=== PATIENT | male | born 1955 | race Caucasian/White ===

== ENCOUNTER 2021-10-26 08:49 | Inpatient (IN) | payer MEDICARE, SELFPAY ==
[2021-10-26 08:50] VITALS: BP 150/58; PULSE 68; RESP 20; TEMP 36.7; O2SAT 91; BMI 40.6
[2021-10-26] MEDS: 0.9% Normal Saline 1,000 ML 999 ML IV (09:33)
[2021-10-26 09:39] LABS: Absolute Lymphocyte Count 1.41 X10^3/uL (0.83-4.51); Absolute Neutrophil Count 9.1 X10^3/uL (2.0-7.7); Basophil# 0.06 X10^3/uL; Basophil% 0.5 % (0-1); Eosinophil# 0.28 X10^3/uL; Eosinophils% 2.3 % (0-5); Hematocrit 36.7 % (40-54); Hemoglobin 11.4 g/dL (13.0-16.5); Lymphocyte # 1.41 X10^3/ul (0.83-4.51); Lymphocyte % 11.8 % (19-41); Mean Corp Hgb Conc 31.1 g/dL (32-36); Mean Corpuscular Hgb 29.5 pg (27.0-32.0); Mean Corpuscular Volume 95.1 fL (80-94); Mean Platelet Vol. 9.4 fl (6.2-12.0); Monocyte# 1.11 X10^3/uL; Monocyte% 9.3 % (0-10); NRBC Flagged by Analyzer 0 % (0-5); Neutrophil # 9.09 X10^3/uL (2.7-7.7); Neutrophil % 75.7 % (47-70); Platelet Count 339 K/mm3 (150-450); RBC Distribution Width CV 14.5 % (11.6-14.6); RBC Distribution Width SD 49.9 fl (35.1-43.9); Red Blood Count 3.86 M/mm3 (4.6-6.2)
[2021-10-26 09:54] LABS: ALB/GLOB Ratio 0.8 RATIO (0.9-2.4); AST(SGOT) 14 U/L (15-37); Alanine Aminotransfer ALT/SGPT 26 U/L (16-61); Alkaline Phosphatase 99 U/L (45-117); Anion Gap 6 (5-15); BUN 23 mg/dL (7-18); BUN/Creat Ratio 12.9 RATIO (10-20); Calcium,Total 9.5 mg/dL (8.5-10.1); Chloride 90 mmol/L (98-107); Creatinine, Serum 1.78 mg/dL (0.70-1.30); EST Glomerular Filtration Rate 41 mL/min (>60); Est Glom Filt Rate - Afr Amer 50 mL/min (>60); Estimated Creatinine Clearance 45.41 ml/min; Glucose 121 mg/dL (74-106); Potassium 3.7 mmol/L (3.5-5.1); Sodium Level 138 mmol/L (136-145)
--- NOTE | 2021-10-26 10:04 | ED.VIS.LOWEX ---
HPI History of Present Illness Chief Complaint: Lower Extremity Injury Narrative Narrative: 66-year-old male with history of trimalleolar fracture of the left ankle presenting due to acute kidney injury. Dr. Hong says admitted because he wanted to try to get his kidney function improved and he needs to do surgery on his ankle tomorrow. Patient states his ankle has been a little bit painful even with the oxycodone. He states he has been eating and drinking normally. He is making urine and stool normally. PFSH PFSH Home Medications allopurinol 300 mg PO DAILY 12/05/13 [History Last Taken Unknown] amlodipine 10 mg PO DAILY 12/05/13 [History Last Taken Unknown] hydrochlorothiazide 12.5 mg PO DAILY 12/05/13 [History Last Taken Unknown] losartan 100 mg PO DAILY 12/05/13 [History Last Taken Unknown] metformin 500 mg PO BIDCM 12/05/13 [History Last Taken Unknown] naproxen sodium [Naprelan] 500 mg PO BID PRN PRN 12/05/13 [History Last Taken Unknown] sildenafil [Viagra] 50 mg PO DAILY PRN PRN 12/05/13 [History Last Taken Unknown] zolpidem [Ambien] 10 mg PO QHS PRN PRN 12/05/13 [History Last Taken Unknown] oxycodone-acetaminophen 1 - 2 tab PO Q4H PRN PRN #20 tab 12/19/13 [Rx Last Taken Unknown] allopurinol 150 mg PO QHS 10/26/21 [History Last Taken Unknown] atorvastatin [Lipitor] 10 mg PO DAILY 10/26/21 [History Last Taken Unknown] budesonide-formoterol [Symbicort] 2 puff INHALATION BID 10/26/21 [History Last Taken Unknown] bupropion HCl [Wellbutrin SR] 150 mg PO BID 10/26/21 [History Last Taken Unknown] citalopram [Celexa] 40 mg PO DAILY 10/26/21 [History Last Taken Unknown] furosemide [Lasix] 40 mg PO DAILY 10/26/21 [History Last Taken Unknown] metoprolol succinate 50 mg PO DAILY 10/26/21 [History Last Taken Unknown] potassium chloride 20 meq PO DAILY 10/26/21 [History Last Taken Unknown] tiotropium bromide [Spiriva Respimat] 2 puff INHALATION DAILY 10/26/21 [History Last Taken Unknown] trazodone 50 mg PO QHS 10/26/21 [History Last Taken Unknown] Allergy/AdvReac Type Severity Reaction Status Date / Time lisinopril AdvReac Other Verified 10/26/21 09:15 Social History Smoking Status: Never smoker ROS ROS ED Constitutional Constitutional ED: Denies chills or fever(s) Eyes Eyes: Denies blurry vision or change in vision ENT ENT ED: Denies rhinorrhea or sore throat Cardiovascular Cardiovascular: Denies chest pain or palpitations Respiratory/Chest Respiratory/Chest: Denies cough, dyspnea or sputum Gastrointestinal Gastrointestinal: Denies abdominal pain or nausea Genitourinary Genitourinary ED: Denies dysuria or hematuria Musculoskeletal Musculoskeletal: Reports other Details: Left ankle pain Integumentary Denies Abrasions or rash Neurologic Neurologic: Denies headache(s) or paresthesias EXAM Physical Exam Const Vital Signs: 10/26/21 08:50 Temperature 98.1 F Temperature Source Temporal Pulse Rate 68 Respiratory Rate 20 H Blood Pressure 150/58 H Blood Pressure Mean 88 Pulse Ox 91 Oxygen Delivery Method Nasal Cannula Oxygen Flow Rate (L/min) 3 Positive well nourished General Appearance ED: NAD HEENT Reports moist mucous membranes normocephalic and atraumatic Eyes PERRL Cardio regular rate and regular rhythm Extremity Extremity Narrative: Left ankle splinted. Left foot neurovascular intact. Neuro oriented x3 Sensorium / Orientation: alert Psych mental status grossly normal MDM MDM MDM Narrative Medical decision making narrative: Patient presenting to the ED to be admitted for both ankle surgery and to have his kidney function evaluated as has been worsening. His creatinine today is 1.78 which is slightly worse than it was at last check it was 1.6. White blood cell count is slightly elevated at 12. Hemoglobin hematocrit are stable. Dr. Hong asked me to not take down the splint because he states his ankle is very unstable. Patient will be admitted to optimize his renal function. Impression: 1. Acute kidney injury 2. History of trimalleolar Lab Data Attestation: I reviewed the patient's lab results. Labs: Laboratory Results - last 24 hr 10/26/21 10/26/21 09:30 09:30 WBC 12.0 H RBC 3.86 L Hgb 11.4 L Hct 36.7 L MCV 95.1 H MCH 29.5 MCHC 31.1 L RDW Std Deviation 49.9 H RDW Coeff of Casey 14.5 Plt Count 339 MPV 9.4 Immature Gran % (Auto) 0.400 Neut % (Auto) 75.7 H Lymph % (Auto) 11.8 L [place] % (Auto) 9.3 Eos % (Auto) 2.3 Baso % (Auto) 0.5 Absolute Neuts (auto) 9.1 H Absolute Lymphs (auto) 1.41 Nucleated RBC % 0 Sodium 138 Potassium 3.7 Chloride 90 L Carbon Dioxide 42.0 H Anion Gap 6 BUN 23 H Creatinine 1.78 H Estim Creat Clear Calc 45.41 Est GFR (MDRD) Af Amer 50 L Est GFR (MDRD) Non-Af 41 L BUN/Creatinine Ratio 12.9 Glucose 121 H Calcium 9.5 Total Bilirubin 0.40 AST 14 L ALT 26 Alkaline Phosphatase 99 Total Protein 7.0 Albumin 3.0 L Globulin 4.0 Albumin/Globulin Ratio 0.8 L Discharge Plan Disposition Disposition: Acute Care Hospital [facility] Discharge Date/Time: 10/26/21 11:20
[2021-10-26] MEDS: Morphine 4 MG/ML Syringe IV ×2 (10:15→15:57)
--- NOTE | 2021-10-26 10:19 | NURSING ---
DR STARK FOR DR AWAD
--- NOTE | 2021-10-26 10:35 | HP.PCM.HOS_ITS ---
HPI - General HPI Narrative ARA RUSSO, is a 66 M who presents PFSH Home Medications allopurinol 300 mg PO DAILY 12/05/13 [History Last Taken Unknown] amlodipine 10 mg PO DAILY 12/05/13 [History Last Taken Unknown] hydrochlorothiazide 12.5 mg PO DAILY 12/05/13 [History Last Taken Unknown] losartan 100 mg PO DAILY 12/05/13 [History Last Taken Unknown] metformin 500 mg PO BIDCM 12/05/13 [History Last Taken Unknown] naproxen sodium [Naprelan] 500 mg PO BID PRN PRN 12/05/13 [History Last Taken Unknown] sildenafil [Viagra] 50 mg PO DAILY PRN PRN 12/05/13 [History Last Taken Unknown] zolpidem [Ambien] 10 mg PO QHS PRN PRN 12/05/13 [History Last Taken Unknown] oxycodone-acetaminophen 1 - 2 tab PO Q4H PRN PRN #20 tab 12/19/13 [Rx Last Taken Unknown] allopurinol 150 mg PO QHS 10/26/21 [History Last Taken Unknown] atorvastatin [Lipitor] 10 mg PO DAILY 10/26/21 [History Last Taken Unknown] budesonide-formoterol [Symbicort] 2 puff INHALATION BID 10/26/21 [History Last Taken Unknown] bupropion HCl [Wellbutrin SR] 150 mg PO BID 10/26/21 [History Last Taken Unknown ] citalopram [Celexa] 40 mg PO DAILY 10/26/21 [History Last Taken Unknown] furosemide [Lasix] 40 mg PO DAILY 10/26/21 [History Last Taken Unknown] metoprolol succinate 50 mg PO DAILY 10/26/21 [History Last Taken Unknown] potassium chloride 20 meq PO DAILY 10/26/21 [History Last Taken Unknown] tiotropium bromide [Spiriva Respimat] 2 puff INHALATION DAILY 10/26/21 [History Last Taken Unknown] trazodone 50 mg PO QHS 10/26/21 [History Last Taken Unknown] Allergy/AdvReac Type Severity Reaction Status Date / Time lisinopril AdvReac Other Verified 10/26/21 09:15 Social History Smoking Status: Never smoker Vital Signs Vital Signs Vital Signs: 10/26/21 08:50 Temperature 98.1 F Temperature Source Temporal Pulse Rate 68 Respiratory Rate 20 H Blood Pressure 150/58 H Blood Pressure Mean 88 Pulse Ox 91 Oxygen Delivery Method Nasal Cannula Oxygen Flow Rate (L/min) 3 Weight Weight: 300 lb Body Mass Index (BMI) 40.6 Results Lab / Micro Data Result Diagrams: 10/26/21 09:30 10/26/21 09:30 Labs: Laboratory Results - last 24 hr 10/26/21 09:30: WBC 12.0 H, RBC 3.86 L, Hgb 11.4 L, Hct 36.7 L, MCV 95.1 H, MCH 29.5, MCHC 31.1 L, RDW Std Deviation 49.9 H, RDW Coeff of Casey 14.5, Plt Count 339, MPV 9.4, Immature Gran % (Auto) 0.400, Neut % (Auto) 75.7 H, Lymph % (Auto) 11.8 L, [place] % (Auto) 9.3, Eos % (Auto) 2.3, Baso % (Auto) 0.5, Absolute Neuts (auto) 9.1 H, Absolute Lymphs (auto) 1.41, Nucleated RBC % 0 10/26/21 09:30: Sodium 138, Potassium 3.7, Chloride 90 L, Carbon Dioxide 42.0 H, Anion Gap 6, BUN 23 H, Creatinine 1.78 H, Estim Creat Clear Calc 45.41, Est GFR (MDRD) Af Amer 50 L, Est GFR (MDRD) Non-Af 41 L, BUN/Creatinine Ratio 12.9, Glucose 121 H, Calcium 9.5, Total Bilirubin 0.40, AST 14 L, ALT 26, Alkaline Phosphatase 99, Total Protein 7.0, Albumin 3.0 L, Globulin 4.0, Albumin/Globulin Ratio 0.8 L
--- NOTE | 2021-10-26 10:51 | NURSING ---
PAGED DR GRIFFIN FOR DR AWAD @ [id number] LEFT MESSAGE ON HIS PHONE
[2021-10-26 10:52] VITALS: BP 148/58; PULSE 72; RESP 20; TEMP 36.8; O2SAT 96
[2021-10-26 11:32] VITALS: BMI 43.2
--- NOTE | 2021-10-26 11:44 | HP.PCM_ITS ---
HPI - General General Date of Admission: 10/26/21 HPI Narrative ARA RUSSO, is a 66 M with an extensive PMH as outlined who was admitted via the ED on 10/26/2021 for worsening kidney function. Patient had an ankle fracture about 10 days prior to admission after he tripped over a ball. He went to see orthopedic surgery and plan was for him to have surgery on 10/27/2021. However, during pre-op screening, patient was found to have elevated Cr. PCP recommended that he follows up with outpatient nephrology, but it was thought that this would take weeks to get him in with nephrology. He was therefore sent to the ED to be admitted to expedite the clearance process. Vials were BP of 148/58, IA of 72, RR of 20 and temp of 98.2F as well as oxygen sats of 96% on his baselin 3L of oxygen. CBC showed hb of 11.4, wbc of 12, platelets of 339. BMp showed sodium of 138, bicarb of 42, CR of 1.78, with baseline of 1.1, from November 2013. He is being admitted to be managed for ELLEN on CKD stage IIIb. [facility] Medical History (Updated 10/26/21 @ 22:19 by Lisette Aguilar) Anxiety COPD (chronic obstructive pulmonary disease) Depression Diabetes Hypertension On home oxygen therapy Home Medications allopurinol 300 mg PO DAILY 12/05/13 [History Last Taken Unknown] amlodipine 10 mg PO DAILY 12/05/13 [History Last Taken Unknown] hydrochlorothiazide 12.5 mg PO DAILY 12/05/13 [History Last Taken Unknown] losartan 100 mg PO DAILY 12/05/13 [History Last Taken Unknown] metformin 500 mg PO BIDCM 12/05/13 [History Last Taken Unknown] naproxen sodium [Naprelan] 500 mg PO BID PRN PRN 12/05/13 [History Last Taken Unknown] sildenafil [Viagra] 50 mg PO DAILY PRN PRN 12/05/13 [History Last Taken Unknown] zolpidem [Ambien] 10 mg PO QHS PRN PRN 12/05/13 [History Last Taken Unknown] oxycodone-acetaminophen 1 - 2 tab PO Q4H PRN PRN #20 tab 12/19/13 [Rx Last Taken Unknown] allopurinol 150 mg PO QHS 10/26/21 [History Last Taken Unknown] atorvastatin [Lipitor] 10 mg PO DAILY 10/26/21 [History Last Taken Unknown] budesonide-formoterol [Symbicort] 2 puff INHALATION BID 10/26/21 [History Last Taken Unknown] bupropion HCl [Wellbutrin SR] 150 mg PO BID 10/26/21 [History Last Taken Unknown] citalopram [Celexa] 40 mg PO DAILY 10/26/21 [History Last Taken Unknown] furosemide [Lasix] 40 mg PO DAILY 10/26/21 [History Last Taken Unknown] metoprolol succinate 50 mg PO DAILY 10/26/21 [History Last Taken Unknown] potassium chloride 20 meq PO DAILY 10/26/21 [History Last Taken Unknown] tiotropium bromide [Spiriva Respimat] 2 puff INHALATION DAILY 10/26/21 [History Last Taken Unknown] trazodone 50 mg PO QHS 10/26/21 [History Last Taken Unknown] Allergy/AdvReac Type Severity Reaction Status Date / Time lisinopril AdvReac Other Verified 10/26/21 11:30 Social History Smoking Status: Never smoker ROS Constitutional Constitutional: Reports chills, fatigue and weakness; Denies anorexia or malaise Eyes Eyes: Reports change in vision ENT HEENT: Reports dysphagia; Denies headache(s) Cardiovascular Cardiovascular: Denies chest pain, edema or palpitations Respiratory/Chest Respiratory/Chest: Denies cough, shortness of breath at rest or shortness of breath with exertion Gastrointestinal Gastrointestinal: Denies abdominal pain or diarrhea Genitourinary Genitourinary: Denies dysuria, polyuria, urinary frequency or urinary urgency Musculoskeletal Musculoskeletal: Reports extremity pain and joint pain; Denies back pain Neurologic Neurologic: Denies dizziness, focal weakness or headache(s) Psychiatric Psychiatric: Denies anxiety or depression Vital Signs Vital Signs Vital Signs: 10/26/21 08:50 10/26/21 10:52 Temperature 98.1 F 98.2 F Temperature Source Temporal Oral Pulse Rate 68 72 Respiratory Rate 20 H 20 H Blood Pressure 150/58 H 148/58 H Blood Pressure Mean 88 88 Pulse Ox 91 96 Oxygen Delivery Method Nasal Cannula Room Air Oxygen Flow Rate (L/min) 3 Weight Weight: 300 lb Body Mass Index (BMI) 40.6 Physical Exam Const alert, oriented x3 and no apparent distress General Appearance: cooperative and well developed HEENT normocephalic and head/scalp atraumatic Eyes PERRL and EOMs intact bilaterally Neck supple and no JVD Lymph Lymphatic: no lymphadenopathy noted Resp Resp Narrative: mild wheezing in all lung jackson, no crackles. On 3L of oxygen which is his baseline Cardio regular rate, regular rhythm, S1 normal heart sound, S2 normal heart sound and no murmurs GI normal to inspection, nondistended, normoactive bowel sounds, soft to palpation, non-tender and non-distended Extremity no clubbing, cyanosis or edema Extremity Narrative: LLE wrapped in bandage. Skin General Skin Exam: turgor normal Neuro CN's II-XII intact bilaterally and no sensory deficits noted Motor Exam: strength 5/5 throughout Psych thought process normal and affect normal Appearance: appropriate Results Lab / Micro Data Result Diagrams: 10/27/21 05:26 10/27/21 05:26 Labs: Laboratory Results - last 24 hr 10/26/21 09:30: WBC 12.0 H, RBC 3.86 L, Hgb 11.4 L, Hct 36.7 L, MCV 95.1 H, MCH 29.5, MCHC 31.1 L, RDW Std Deviation 49.9 H, RDW Coeff of Casey 14.5, Plt Count 339, MPV 9.4, Immature Gran % (Auto) 0.400, Neut % (Auto) 75.7 H, Lymph % (Auto) 11.8 L, [place] % (Auto) 9.3, Eos % (Auto) 2.3, Baso % (Auto) 0.5, Absolute Neuts (auto) 9.1 H, Absolute Lymphs (auto) 1.41, Nucleated RBC % 0 10/26/21 09:30: Sodium 138, Potassium 3.7, Chloride 90 L, Carbon Dioxide 42.0 H, Anion Gap 6, BUN 23 H, Creatinine 1.78 H, Estim Creat Clear Calc 45.41, Est GFR (MDRD) Af Amer 50 L, Est GFR (MDRD) Non-Af 41 L, BUN/Creatinine Ratio 12.9, Glucose 121 H, Calcium 9.5, Total Bilirubin 0.40, AST 14 L, ALT 26, Alkaline Phosphatase 99, Total Protein 7.0, Albumin 3.0 L, Globulin 4.0, Albumin/Globulin Ratio 0.8 L Assessment & Plan Assessment/Plan (1) ELLEN (acute kidney injury): (2) CKD (chronic kidney disease), stage III: (3) Ankle fracture: PLAN: #Ellen on CKD 3B * Patient's only baseline labs in the system are from 2013 when his creatinine was 1.1. Creatinine is now 1.78. * Will start gentle hydration with IVF * check renal USG- was unremarkable * check urine for electrolytes,and check FeNa and FeuRea * I do not think there is a need for nephrology consult now; I did discuss case with Dr. Chan with nephrology and per discussion, we will hold off on nephrology consult for now. Gently hydrate with IV fluids. * labs requested from PCP to assess CR trend. * #Left Trimalleolar ankle fracture * consult orthopedics. Plan is for surgery tomorrow * PT/OT consult. fall precautions. * patient cleared for surgery with modearte to severe risk; he has a higher than average risk of serious complication (6.6%), any complication (8.4%), and 0.2% risk of cardiac complication. * #Metabolic alkalosis: * Bicarb is 42. This might be due to chronic retention from COPD. will monitor. Check ABG to assess pCO2 and pO2 prior to surgery. #Chronic respiratory failure due to COPD: * on symbicort. Breathing treatment with bronchodilators. * on 3L of oxygen by nasal canula, which is his baseline. #History of gout: on allopurinol #Hypertension: * On amlodipine and hydrochlorothiazide as well as losartan and metoprolol. * Hold losartan and HCTZ due to ELLEN on CKD 3 #Hyperlipidemia: On statin #Type 2 diabetes mellitus: Hold Metformin on account of elevated creatinine. Insulin sliding scale. Checks AC at bedtime. DVT prophylaxis: Lovenox renally dosed Charges/Coding Visit Charges Inpatient E&M: 91853 Init Hosp L3
[2021-10-26 12:09] VITALS: PULSE 65; RESP 18; TEMP 36.8; O2SAT 95
--- NOTE | 2021-10-26 12:14 | US_ITS ---
INDICATION: ELLEN on CKD EXAMINATION: Ultrasound US Kidney(s) complete (eg, kidneys and bladder) TECHNIQUE: Patten scale and color doppler images were obtained of the kidneys. COMPARISON: None. FINDINGS: RIGHT KIDNEY: The right kidney demonstrates unremarkable echogenicity, unremarkable vascularity, unremarkable size, shape and configuration. No evidence of right renal masses. No evidence of hyperechoic stones. No evidence of hydronephrosis. The right kidney measures 12.9 x 6.8 x 6.7 cm. Right renal cortex measures 1.5 cm. LEFT KIDNEY: The left kidney demonstrates unremarkable echogenicity, unremarkable vascularity, unremarkable size, shape and configuration. No evidence of left renal masses. No evidence of hyperechoic stones. No evidence of hydronephrosis. The left kidney measures 12.6 x 6.1 x 6.8 cm. left renal cortex measures 1.5 cm. URINARY BLADDER: No acute abnormality. The bladder wall measures 3 mm in thickness, no evidence of bladder mass or stone. Bilateral ureteral jets are visualized and unremarkable. The urinary bladder volume is 77.78 mL. US/Kidney and Bladder IMPRESSION: Unremarkable renal ultrasound. Electronically Signed: Amandeep Umanzor MD at 15:26 EST Tel , Service support ,
[2021-10-26 12:30] LABS: Bedside Glucose 99 mg/dL (70-110)
[2021-10-26] MEDS: 0.9% Normal Saline 1,000 ML 125 ML IV ×2 (12:36→21:49)
[2021-10-26] MEDS: oxyCODONE 5 MG Tablet PO ×3 (12:49→21:49)
[2021-10-26 13:30] LABS: Bacteria 0 SEEN /hpf (None Seen); Mucous, Urine 0 SEEN /hpf (<or=2+); Red Blood Cells-Urine 0 SEEN /hpf (0-5); Squamous Epithelial Cells - UA 0 SEEN /hpf (0-5); White Blood Cells 0 SEEN /hpf (0-5)
[2021-10-26 13:36] LABS: Color, Urine Yellow (Yellow); Glucose, Dipstick Normal (Normal); Ketone-Dipstick Negative (Negative); Leukocyte Esterase-Dipstick Negative /ul (Negative); Nitrite-Dipstick Negative (Negative); Occult Blood-Urine Negative /ul (Negative); Protein-Dipstick Negative (Negative); Urine Bilirubin Dipstick Negative (Negative); Urine Clarity Clear (Clear); Urine Urobilinogen Normal (Normal)
[2021-10-26 13:45] LABS: Urea Nitrogen, Urine 184 mg/dL (NO RANGE EST.)
[2021-10-26] MEDS: 0.9% Saline Lock 10 ML Syringe IV (15:57)
[2021-10-26 16:00] VITALS: BP 142/63; PULSE 63; RESP 16; TEMP 36.8; O2SAT 94
[2021-10-26 16:01] LABS: Bedside Glucose 97 mg/dL (70-110)
[2021-10-26] MEDS: Ipratropium/Albuterol Sulfate 3 ML AMPUL.NEB INHALATION (16:19)
[2021-10-26] MEDS: Budesonide Respules 0.5 MG/2 ML AMPUL.NEB. INHALATION (16:19)
[2021-10-26 16:22] VITALS: PULSE 66; RESP 18; O2SAT 91
[2021-10-26 17:41] LABS: Allen Test Positive; Base Excess 18 mmol/L (-2 to +2); Bicarbonate 42.3 mmol/L (22-26); Blood Gas Specimen Type ART; O2 Delivery Device Cannula; PO2 51 mmHG (75-100); SITE L Radial; SO2 85 % (95-99); Total Carbon Dioxide 44 mmol/L; pCO2 66.4 mmHg (35-45); pH 7.41 (7.35-7.45)
--- NOTE | 2021-10-26 19:00 | RAD_ITS ---
INDICATION: hypoxia EXAMINATION/TECHNIQUE: X-RAY - XR Chest 1 View COMPARISON: 10/25/2021 FINDINGS: LIFE-SUPPORT AND LINES: 1. None HEART AND VESSELS: The cardiac silhouette, pulmonary vasculature have normal appearance. No evidence of congestive failure. LUNGS AND PLEURAL SPACES: Shallow inspiration and basilar atelectasis, mild worsening at the RIGHT lung base suspicious of superimposed interstitial infiltrate. No pulmonary mass is noted. MEDIASTINUM AND HILAR REGIONS: No masses adenopathy noted. No areas of calcification. Visualized upper airway is normal in position. BONY ELEMENTS: No acute bony changes noted. RAD/Chest 1 View (Portable) IMPRESSION: 1. Volume loss elevation RIGHT hemidiaphragm and findings suspicious of subtle RIGHT basilar infiltrate. Minimal atelectasis versus infiltrate at the LEFT base. 2. No other evidence of infiltrate consolidation or effusion. Electronically Signed: Eliud Carr MD at 0:17 EST Tel , Service support ,
[2021-10-26 19:01] LABS: BNP,B-Type NATRIURETIC PEPTIDE 24.8 pg/mL (0-100)
[2021-10-26 21:42] VITALS: BP 122/55; PULSE 67; RESP 16; TEMP 36.8; O2SAT 92
[2021-10-26] MEDS: Zolpidem Tartrate 5 MG Tablet 10 MG PO (21:49)
[2021-10-26] MEDS: Allopurinol 100 MG Tablet 150 MG PO (21:50)
[2021-10-26] MEDS: traZODone 50 MG Tablet PO (21:50)
[2021-10-26] MEDS: buPROPion (SR) 150 MG Tablet.SA PO (21:50)
[2021-10-26] MEDS: Atorvastatin Calcium 10 MG Tablet PO (21:51)
[2021-10-26 22:20] LABS: Bedside Glucose 95 mg/dL (70-110)
[2021-10-27] VITALS (15 sets, daily range): BP systolic 102–138; BP diastolic 50–72; PULSE 70–80; RESP 14–74; TEMP 35.9–36.8; O2SAT 89–97
[2021-10-27] MEDS: oxyCODONE 5 MG Tablet PO ×3 (02:19→22:33)
[2021-10-27] MEDS: 0.9% Saline Lock 10 ML Syringe IV ×2 (04:52→22:38)
[2021-10-27 05:35] LABS: Absolute Lymphocyte Count 0.55 X10^3/uL (0.83-4.51); Absolute Neutrophil Count 9.4 X10^3/uL (2.0-7.7); Basophil# 0.01 X10^3/uL; Basophil% 0.1 % (0-1); Eosinophil# 0.01 X10^3/uL; Eosinophils% 0.1 % (0-5); Hemoglobin 10.3 g/dL (13.0-16.5); Lymphocyte # 0.55 X10^3/ul (0.83-4.51); Lymphocyte % 5.4 % (19-41); Mean Corp Hgb Conc 30.3 g/dL (32-36); Mean Corpuscular Hgb 28.9 pg (27.0-32.0); Mean Corpuscular Volume 95.5 fL (80-94); Mean Platelet Vol. 9.3 fl (6.2-12.0); NRBC Flagged by Analyzer 0 % (0-5); Neutrophil # 9.42 X10^3/uL (2.7-7.7); Neutrophil % 92.9 % (47-70); POSITIVE DIFFERENTIAL YES; Platelet Count 322 K/mm3 (150-450); RBC Distribution Width CV 14.2 % (11.6-14.6); RBC Distribution Width SD 50.3 fl (35.1-43.9); Red Blood Count 3.56 M/mm3 (4.6-6.2); White Blood Count 10.1 K/mm3 (4.4-11.0)
[2021-10-27 05:40] LABS: Differential Indicated SCAN CRITERIA MET
[2021-10-27 06:02] LABS: Anion Gap 5 (5-15); BUN 23 mg/dL (7-18); BUN/Creat Ratio 15.2 RATIO (10-20); Calcium,Total 9.2 mg/dL (8.5-10.1); Chloride 94 mmol/L (98-107); Creatinine, Serum 1.51 mg/dL (0.70-1.30); EST Glomerular Filtration Rate 49 mL/min (>60); Est Glom Filt Rate - Afr Amer 60 mL/min (>60); Estimated Creatinine Clearance 53.53 ml/min; Glucose 144 mg/dL (74-106); Potassium 4.3 mmol/L (3.5-5.1); Sodium Level 138 mmol/L (136-145)
[2021-10-27 06:11] LABS: Bedside Glucose 135 mg/dL (70-110)
[2021-10-27] MEDS: Ipratropium/Albuterol Sulfate 3 ML AMPUL.NEB INHALATION ×3 (07:07→19:54)
--- NOTE | 2021-10-27 07:24 | CON.PCM.OR_ITS ---
HPI Consult Data Date of Consult: 10/27/21 HPI Narrative HPI Narrative: ARA RUSSO, is a 66 M who Is a known patient to myself with planned surgery today 10/27/2021.He sustained a trimalleolar ankle fracture dislocation of his left ankle 10/16/2021. He was initially closed reduced at [facility] on the day of the injury. Reduction was unacceptable however he was discharged to home. I saw the patient the following day on 10/17/2021. Recommended a closed reduction under ankle block in the office. Reduction was performed and after several attempts was successful. He was placed in a posterior splint with planned definitive fixation in the following 10 days or so. In the preoperative clearance process, patient was noted to have a significantly elevated creatinine. His primary care physician recommended nephrology consultation. Due to the urgency of his procedure, I recommend the patient go to the emergency room and be admitted to expedite specialist clearance. He was subsequently admitted by the [facility] ospitalist service. I saw the patient in consultation yesterday 10/26/2021. [facility] Medical History (Updated 10/26/21 @ 22:19 by Lisette Aguilar) Anxiety COPD (chronic obstructive pulmonary disease) Depression Diabetes Hypertension On home oxygen therapy Home Medications allopurinol 300 mg PO DAILY 12/05/13 [History Last Taken Unknown] amlodipine 10 mg PO DAILY 12/05/13 [History Last Taken Unknown] hydrochlorothiazide 12.5 mg PO DAILY 12/05/13 [History Last Taken Unknown] losartan 100 mg PO DAILY 12/05/13 [History Last Taken Unknown] metformin 500 mg PO BIDCM 12/05/13 [History Last Taken Unknown] naproxen sodium [Naprelan] 500 mg PO BID PRN PRN 12/05/13 [History Last Taken Unknown] sildenafil [Viagra] 50 mg PO DAILY PRN PRN 12/05/13 [History Last Taken Unknown] zolpidem [Ambien] 10 mg PO QHS PRN PRN 12/05/13 [History Last Taken Unknown] oxycodone-acetaminophen 1 - 2 tab PO Q4H PRN PRN #20 tab 12/19/13 [Rx Last Taken Unknown] allopurinol 150 mg PO QHS 10/26/21 [History Last Taken Unknown] atorvastatin [Lipitor] 10 mg PO DAILY 10/26/21 [History Last Taken Unknown] budesonide-formoterol [Symbicort] 2 puff INHALATION BID 10/26/21 [History Last Taken Unknown] bupropion HCl [Wellbutrin SR] 150 mg PO BID 10/26/21 [History Last Taken Unknown] citalopram [Celexa] 40 mg PO DAILY 10/26/21 [History Last Taken Unknown] furosemide [Lasix] 40 mg PO DAILY 10/26/21 [History Last Taken Unknown] metoprolol succinate 50 mg PO DAILY 10/26/21 [History Last Taken Unknown] potassium chloride 20 meq PO DAILY 10/26/21 [History Last Taken Unknown] tiotropium bromide [Spiriva Respimat] 2 puff INHALATION DAILY 10/26/21 [History Last Taken Unknown] trazodone 50 mg PO QHS 10/26/21 [History Last Taken Unknown] Allergy/AdvReac Type Severity Reaction Status Date / Time lisinopril AdvReac Other Verified 10/26/21 11:30 Social History Smoking Status: Never smoker ROS ROS Narrative Review of systems was obtained, negative most otherwise noted in HPI. Vital Signs Vital Signs Vital Signs: 10/26/21 08:50 10/26/21 10:52 10/26/21 12:09 Temperature 98.1 F 98.2 F 98.3 F Temperature Source Temporal Oral Oral Pulse Rate 68 72 65 Respiratory Rate 20 H 20 H 18 Respiratory Effort Respiratory Pattern Blood Pressure 150/58 H 148/58 H Blood Pressure Mean 88 88 Blood Pressure Source Blood Pressure Position Blood Pressure Location Pulse Ox 91 96 95 Oxygen Delivery Method Nasal Cannula Room Air Nasal Cannula Oxygen Flow Rate (L/min) 3 4 10/26/21 16:00 10/26/21 16:22 10/26/21 21:42 Temperature 98.2 F 98.3 F Temperature Source Oral Temporal Pulse Rate 63 66 67 Respiratory Rate 16 18 16 Respiratory Effort Normal Non-Labored Respiratory Pattern Normal Blood Pressure 142/63 H 122/55 H Blood Pressure Mean 89 77 Blood Pressure Source Monitor Monitor Blood Pressure Position Semi-Fowlers Semi-Fowlers Blood Pressure Location Right Arm Right Arm Pulse Ox 94 91 92 Oxygen Delivery Method Nasal Cannula Nasal Cannula Nasal Cannula Oxygen Flow Rate (L/min) 3 6 10/27/21 02:04 10/27/21 02:05 10/27/21 04:17 Temperature 97.8 F Temperature Source Oral Pulse Rate 77 Respiratory Rate 16 Respiratory Effort Respiratory Pattern Blood Pressure 118/52 L Blood Pressure Mean 74 Blood Pressure Source Monitor Blood Pressure Position Semi-Fowlers Blood Pressure Location Right Arm Pulse Ox 89 92 94 Oxygen Delivery Method Nasal Cannula Nasal Cannula Nasal Cannula Oxygen Flow Rate (L/min) 6 7 6 Weight Weight: 319 lb Body Mass Index (BMI) 43.2 Physical Exam Narrative General -A&Ox3, NAD, appears stated age. Vital signs stable, afebrile. Respiratory -normal work of breathing, no intercostal retractions. CV -pulses regular, brisk capillary refill ?4 limbs. Abdomen-soft, nontender, nondistended. No guarding, rigidity, rebound tendernes s. Musculoskeletal/neurologic -full range of motion nontender throughout bilateral upper extremities, right lower extremity with full sensation and strength in all dermatomes and myotomes. No midline cervical tenderness. Left lower extremity-no obvious deformity. Short leg splint in good repair in place left ankle. Wiggles toes on command. No pain with passive stretch. Sensation intact to light touch throughout the exposed toes. Brisk capillary refill in the toes. Lab / Micro Data Result Diagrams: 10/27/21 05:26 10/27/21 05:26 Labs: Laboratory Results - last 24 hr 10/26/21 09:30: WBC 12.0 H, RBC 3.86 L, Hgb 11.4 L, Hct 36.7 L, MCV 95.1 H, MCH 29.5, MCHC 31.1 L, RDW Std Deviation 49.9 H, RDW Coeff of Casey 14.5, Plt Count 339, MPV 9.4, Immature Gran % (Auto) 0.400, Neut % (Auto) 75.7 H, Lymph % (Auto) 11.8 L, [place] % (Auto) 9.3, Eos % (Auto) 2.3, Baso % (Auto) 0.5, Absolute Neuts (auto) 9.1 H, Absolute Lymphs (auto) 1.41, Nucleated RBC % 0 10/26/21 09:30: Sodium 138, Potassium 3.7, Chloride 90 L, Carbon Dioxide 42.0 H, Anion Gap 6, BUN 23 H, Creatinine 1.78 H, Estim Creat Clear Calc 45.41, Est GFR (MDRD) Af Amer 50 L, Est GFR (MDRD) Non-Af 41 L, BUN/Creatinine Ratio 12.9, Glucose 121 H, Calcium 9.5, Total Bilirubin 0.40, AST 14 L, ALT 26, Alkaline Phosphatase 99, Total Protein 7.0, Albumin 3.0 L, Globulin 4.0, Albumin/Globulin Ratio 0.8 L 10/26/21 09:30: B-Natriuretic Peptide 24.8 10/26/21 12:24: POC Glucose 99 10/26/21 13:10: Urine Color Yellow, Urine Clarity Clear, Urine pH 6.0, Ur Specific [place] 1.010, Urine Protein Negative, Urine Glucose (UA) Normal, Urine Ketones Negative, Urine Occult Blood Negative, Urine Nitrite Negative, Urine Bilirubin Negative, Urine Urobilinogen Normal, Ur Leukocyte Esterase Negative, Urine RBC 0 SEEN, Urine WBC 0 SEEN, Ur Squamous Epith Cells 0 SEEN, Urine Bacteria 0 SEEN, Urine Mucus 0 SEEN 10/26/21 13:10: Urine Creatinine 27.10, Urine Urea Nitrogen 184 10/26/21 15:54: POC Glucose 97 10/26/21 20:30: COVID-19 (SOFIE) Not Detected 10/26/21 21:54: POC Glucose 95 10/27/21 05:26: WBC 10.1, RBC 3.56 L, Hgb 10.3 L, Hct 34.0 L, MCV 95.5 H, MCH 28.9, MCHC 30.3 L, RDW Std Deviation 50.3 H, RDW Coeff of Casey 14.2, Plt Count 322, MPV 9.3, Immature Gran % (Auto) 0.500, Neut % (Auto) 92.9 H, Lymph % (Auto) 5.4 L, [place] % (Auto) 1.0, Eos % (Auto) 0.1, Baso % (Auto) 0.1, Absolute Neuts (auto) 9.4 H, Absolute Lymphs (auto) 0.55 L, Nucleated RBC % 0 10/27/21 05:26: Sodium 138, Potassium 4.3, Chloride 94 L, Carbon Dioxide 39.0 H, Anion Gap 5, BUN 23 H, Creatinine 1.51 H, Estim Creat Clear Calc 53.53, Est GFR (MDRD) Af Amer 60, Est GFR (MDRD) Non-Af 49 L, BUN/Creatinine Ratio 15.2, Glucose 144 H, Calcium 9.2 10/27/21 06:05: POC Glucose 135 H ABG Data ABG results: ABG 10/26/21 17:36 Specimen Type ART Sample Site L Radial pH 7.41 Bicarbonate Actual 42.3 H Total CO2 44 Base Excess 18 H O2 Saturation 85 L ABG pCO2 66.4 H ABG pO2 51 L Alex Test Positive O2 Delivery Device Cannula Liter Flow 6.0 Radiology Impression Renal Ultrasound 10/26/21 12:14 IMPRESSION: Unremarkable renal ultrasound. Electronically Signed: Amandeep Umanzor MD at 15:26 EST Tel , Service support , Chest X-Ray 10/26/21 19:00 IMPRESSION: 1. Volume loss elevation RIGHT hemidiaphragm and findings suspicious of subtle RIGHT basilar infiltrate. Minimal atelectasis versus infiltrate at the LEFT base. 2. No other evidence of infiltrate consolidation or effusion. Electronically Signed: Eliud Carr MD at 0:17 EST Tel , Service support , Assessment & Plan Assessment/Plan (1) Ankle fracture: PLAN: Trimalleolar ankle fracture dislocation left ankle -Plan for surgery today 10/27/2021 -N.p.o., IV fluids per primary -Ice and elevation -Informed consent obtained in the office, confirmed with the patient today. -Further recommendations pending surgery.
--- NOTE | 2021-10-27 10:00 | RAD_ITS ---
INDICATION: ORIF, ANKLE TRIMALLEOLAR EXAMINATION/TECHNIQUE: X-RAY - LEFT XR Ankle Min 3 Views 4 VIEWS COMPARISON: None. FINDINGS: Plate and screw is visualized internally fixating the distal fibula. Unremarkable alignment of the distal fibula is seen. Screw visualized internally fixating the medial malleolus, unremarkable alignment of the medial malleolus is seen. Prominent bimalleolar soft tissue swelling is seen. The ankle mortise is unremarkable. The talar dome is unremarkable. RAD/Ankle min 3 Views IMPRESSION: Internal fixation of the left ankle with near-anatomic alignment seen. Electronically Signed: Amandeep Umanzor MD at 14:20 EST Tel , Service support ,
[2021-10-27 13:10] LABS: Bedside Glucose 135 mg/dL (70-110)
--- NOTE | 2021-10-27 13:11 | OP.PCM_ITS ---
Report of Operation Date of Procedure: 10/27/21 Description of Surgical Findings:: Preoperative diagnosis: Left ankle trimalleolar fracture dislocation Postoperative diagnosis: 1. Left ankle trimalleolar fracture dislocation with syndesmotic instability 2. Posterior tibial tendon tear Procedure: 1. Open reduction internal fixation left medial and lateral malleoli 2. Open reduction internal fixation left syndesmosis 3. Repair of left posterior tibial tendon tear Surgeon: Arnulfo Hong DO Anesthesia: Spinal with sedation and saphenous and low sciatic peripheral nerve blocks Anesthesiologist: Dr. Montoya Char Dust Cleaner And Salvager: Shweta Hinds SA Complications: None Drains: None Estimated blood loss: 30 cc Urinary output: None recorded IV fluids: Per anesthesia record Specimens: None Surgical implants: [employer] 8 hole tubular plate and screws, 4.0 mm 16mm length partially-threaded cannulated screws, [employer] [place] SynchFix Surgical indications: This is a 66 M who Is a known patient to myself with planned surgery today 10/27/2021.He sustained a trimalleolar ankle fracture dislocation of his left ankle 10/16/2021. He was initially closed reduced at [facility] on the day of the injury. Reduction was unacceptable however he was discharged to home. I saw the patient the following day on 10/17/2021. Recommended a closed reduction under ankle block in the office. Reduction was performed and after several attempts was successful. He was placed in a posterior splint with planned definitive fixation in the following 10 days or so. In the preoperative clearance process, patient was noted to have a significantly elevated creatinine. His primary care physician recommended nephrology consultation. Due to the urgency of his procedure, I recommend the patient go to the emergency room and be admitted to expedite specialist clearance. He was subsequently admitted by the [facility] hospitalist service. I saw the patient in consultation yesterday 10/26/2021. He was optimized for surgery. Informed consent was obtained after discussing the risks, benefits, alternatives the procedure of right ankle removal of external fixator, open reduction internal fixation lateral malleolus with possible syndesmotic fixation. The risks include but are not limited to bleeding, infection, loss of life or limb, risk of anesthesia, risk of nerve block, persistent pain, nonunion, malunion, posttraumatic arthritis, instability, need for additional surgery, failure of orthopedic hardware, persistent limp or need for assistive device. Patient expressed understanding of these risks and wished to proceed. Description of procedure: Patient was seen in preoperative holding area. He was identified by name, medical record number, date of . The operative extremity was marked with a surgical marker. We confirmed informed consent with the patient and all questions were answered to her satisfaction. In the preoperative holding area, a sciatic and saphenous block was administered by the anesthesia staff. At time of his procedure, patient was brought to the operative suite and positioned supine on a standard operating table. A spinal anesthetic was then administered. He was then repositioned in the supine position. All bony prominences were well-padded. Light sedation anesthesia was administered. After adequate anesthesia, a well-padded pneumatic tourniquet was applied to the left upper thigh. A large bump was placed in the patient's left hip. The left lower extremity was elevated on bath blankets for fluoroscopic imaging and access to the limb during surgery. We secured this with tape as well as the nonoperative extremity. We then performed a timeout with all parties in attendance and agree with the side, site, operation to be performed. No concerns were voiced and elected to proceed. 3 g Ancef was administered prior to incision by the anesthesia staff. We then prepped and draped the left lower extremity in normal, sterile orthopedic fashion. While stabilizing the ankle, the operative extremity was exsanguinated with an Esmarch bandage. Tourniquet was inflated to 250 mmHg. Incision was planned over the lateral malleolus and distal fibular shaft centered over the level of the fracture. Skin was sharply incised with a 15 blade scalpel. Superficial bleeders were cauterized with Bovie cautery. We then bluntly dissected to the level of the fascia. Fascia was opened with Bovie cautery. We examined closely for the superficial peroneal nerve which was not encountered throughout surgery. We bluntly dissected down to the level of the periosteum. Hohmann retractors were placed after fracture was encountered as well as the fibula. Periosteum was elevated at the level of the fracture approximately 2 to 3 mm. A [id number] reduction tenaculum was used to reapproximate the fracture site with excellent anatomic reduction. We then prepared for a lag screw for fixation. We first planned our lag screw perpendicular to the fracture site anterior superior to posterior inferior. We overdrilled the near cortex with a 3.5 mm drill bit. We then withdrew the drill bit and drilled the far cortex with a 2.7 mm drill bit. This had lackluster purchase, and I proceeded to place an additional 2.7 mm lag screw. This achieved better bite. I then placed an additional 3.5 mm lag screw anterior to posterior. I selected a one third tubular plate which was placed posteriorly in buttress mode. I placed a bicortical cortical screw near the apex of the fracture achieving increased ability. I performed a lag screw technique through the plate perpendicular to the fracture site from posterior to anterior. Reduction tenaculum was removed with excellent security at the fracture site. We ensured that we had 3 screws above and below the fracture site. 3 bicortical cortical screws were placed proximal to the fracture. I placed a locking screw in the most distal hole. I kept the remaining hole distally for the syndesmotic fixation. I then turned my attention medially. There is a 3 x 3 cm area of developing pressure injury, likely from the medial malleolus and subluxation of the talus. I treated my incision more posterior than typical for healthy appearing skin. I sharply incised the skin with a 15 blade scalpel. Periosteum was encountered and debrided. I then identified the fracture site which was debrided with irrigation, rongeur. I then I exposed the talus which was unremarkable. There was some anterior spurring off the tibial plafond noted. The posterior tibial tendon was encountered and demonstrated approximately 20% longitudinal tearing. This was debrided sharply. I then performed a tubularization of the posterior tibial tendon with 3-0 Ethibond suture. I then was able to anatomically reduce the medial malleolus with a pointed reduction clamp. I placed 2 K wires across the fracture site in parallel fashion. Proper placement was confirmed on fluoroscopy. I then drilled across the fracture site for a 4.0 mm partially- threaded cannulated cancellous screw over each pin. These were tightened sequentially. This achieved excellent compression across the fracture site after K wires and reduction clamp was removed. Final fluoroscopic images were obtained and demonstrated significant syndesmotic instability, likely due to the posterior malleolus fracture. I elected to stabilize the syndesmosis with a suture device, SynchFix from [employer]. It was drilled quad cortically from lateral to medial parallel with the plafond. Suture device was then passed and button attached medially and tightened laterally with excellent compression across the syndesmosis. Final fluoroscopic images were obtained and demonstrated excellent reduction and stability. Wounds were copiously irrigated with normal saline solution. Tourniquet was deflated hemostasis was excellent. Dermis was reapproximated buried 2-0 Vicryl suture. Skin was reapproximated with interrupted horizontal mattress 3-0 nylon suture. A bulky well-padded splint was applied with Xeroform over the surgical incisions and the concerning pressure wound over the anterior medial ankle. Post Operative Plan: Weightbearing: Nonweightbearing operative extremity Antibiotics: Ancef 3 g x 1 dose preoperatively, 23 hours antibiotics to follow DVT Prophylaxis: Lovenox 30 mg while in the hospital, may consider transition to aspirin upon discharge [place]: None Dressing: Maintain splint, keep it clean dry and intact until follow-up X-Rays: 2 weeks postop in the office Pain Medication: Percocet Rx upon discharge Follow-up: 2 weeks post-operatively with me in the office
--- NOTE | 2021-10-27 14:30 | CASEMGMT ---
RN GABY Face to Face with patient for initial transition planning/care coordination assessment. RN CM introduced self and role at [facility]. Patient lying in bed, alert and oriented, at bedside. Patient willing to participate in assessment and is able to answer all questions appropriately. Care providers, pharmacy, and demographics verified. Patient wishes to discharge home and would like HHC at discharge. HHC list provided to patient and would like [facility]. Patient states he has no further needs or concerns at this time. CM to follow for discharge planning needs that may arise. PCP: Sirena Specialists: LIZABETH Rincon wet washer machine, david Hong Preferred Pharmacy: [facility] Insurance: [employer] [facility], [place] [facility] as of 10/29/21 Prescription Benefit: yes Living Will/HPOA: none LNOK: Living Arrangements: Patient lives with in a single story home with no steps to enter. Patient was independent prior to ankle fracture. has been assisting at home. Transportation: DME/HHC: patient has shower bench, crutches, nebulizer, and home oxygen through [employer] with home portable concentrator at 3lpm. Patient would benefit from FWW at discharge. Patient agreeable to [employer] after reviewing list. Script on chart for hospitalist to sign with green sheet. Referral made to [facility] and they are able to accept with Sunday start of care, green sheet on chart. Disposition Plan: Patient to discharge home with HHC, family support, and follow-up plans in place. Alyssa ALVA, RN, CM
--- NOTE | 2021-10-27 15:16 | PN.HOSP_ITS ---
Subjective Subjective Patient seen and examined. He has no complaints this morning and feels well. Review of systems is otherwise negative. His oxygen requirements went up to 6 L last night from 3 L on admission. Chest x-ray done showed bilateral atelectasis. Pulmonology was therefore consulted for preop pulmonary clearance. I spoke to the anesthesiologist Dr. Montoya today who said the anesthesia will be done via a block and so this obviated the need for pulmonary clearance. Patient therefore went for ORIF of left trimalleolar fracture today. He has otherwise remained hemodynamically stable. Objective Data Objective Data Vital Signs: Vital Signs Temp Pulse Resp BP Pulse Ox 97.8 F 78 14 128/56 H 92 10/27/21 14:47 10/27/21 14:47 10/27/21 14:47 10/27/21 14:47 10/27/21 14:47 Oxygen Flow Rate (L/min) 7 Oxygen Delivery Method Nasal Cannula Weight: 319 lb Body Mass Index (BMI) 43.2 Intake & Output: Intake and Output for Last 24 Hours 10/25/21 10/26/21 10/27/21 23:59 23:59 23:59 Intake Total 2400 / 2400 1115 / 1115 Output Total 1000 / 1225 475 / 475 Balance 1400 / 1175 640 / 640 Lab / Micro Data Result Diagrams: 10/27/21 05:26 10/27/21 05:26 Labs: Laboratory Results - last 24 hr 10/26/21 09:30: B-Natriuretic Peptide 24.8 10/26/21 15:54: POC Glucose 97 10/26/21 20:30: COVID-19 ([place]) Not Detected 10/26/21 21:54: POC Glucose 95 10/27/21 05:26: WBC 10.1, RBC 3.56 L, Hgb 10.3 L, Hct 34.0 L, MCV 95.5 H, MCH 28 .9, MCHC 30.3 L, RDW Std Deviation 50.3 H, RDW Coeff of Casey 14.2, Plt Count 322, MPV 9.3, Immature Gran % (Auto) 0.500, Neut % (Auto) 92.9 H, Lymph % (Auto) 5.4 L, [place] % (Auto) 1.0, Eos % (Auto) 0.1, Baso % (Auto) 0.1, Absolute Neuts (auto) 9.4 H, Absolute Lymphs (auto) 0.55 L, Nucleated RBC % 0 10/27/21 05:26: Sodium 138, Potassium 4.3, Chloride 94 L, Carbon Dioxide 39.0 H, Anion Gap 5, BUN 23 H, Creatinine 1.51 H, Estim Creat Clear Calc 53.53, Est GFR (MDRD) Af Amer 60, Est GFR (MDRD) Non-Af 49 L, BUN/Creatinine Ratio 15.2, Glucose 144 H, Calcium 9.2 10/27/21 06:05: POC Glucose 135 H 10/27/21 13:05: POC Glucose 135 H ABG Data ABG results: ABG 10/26/21 17:36 Specimen Type ART Sample Site L Radial pH 7.41 Bicarbonate Actual 42.3 H Total CO2 44 Base Excess 18 H O2 Saturation 85 L ABG pCO2 66.4 H ABG pO2 51 L Alex Test Positive O2 Delivery Device Cannula Liter Flow 6.0 Radiography Diagnostic Testing: Radiology Impression Renal Ultrasound 10/26/21 12:14 IMPRESSION: Unremarkable renal ultrasound. Electronically Signed: Amandeep Umanzor MD at 15:26 EST Tel , Service support , Chest X-Ray 10/26/21 19:00 IMPRESSION: 1. Volume loss elevation RIGHT hemidiaphragm and findings suspicious of subtle RIGHT basilar infiltrate. Minimal atelectasis versus infiltrate at the LEFT base. 2. No other evidence of infiltrate consolidation or effusion. Electronically Signed: Eliud Carr MD at 0:17 EST Tel , Service support , Ankle X-Ray 10/27/21 10:00 IMPRESSION: Internal fixation of the left ankle with near-anatomic alignment seen. Electronically Signed: Amandeep Umanzor MD at 14:20 EST Tel , Service support , Physical Exam Const alert, oriented x3 and no apparent distress General Appearance: cooperative and well developed Exam Limitations: no limitations HEENT normocephalic and head/scalp atraumatic Head and Scalp: normocephalic Eyes PERRL and EOMs intact bilaterally Neck supple and no JVD Lymph Lymphatic: no lymphadenopathy noted Resp Resp Narrative: mildly diminished breath sounds bibasally, no wheezes or crackles. On 6L of oxygen by nasal canula Cardio regular rate, regular rhythm, S1 normal heart sound, S2 normal heart sound and no murmurs GI normal to inspection, nondistended, normoactive bowel sounds, soft to palpation, non-tender and non-distended Extremity no clubbing, cyanosis or edema Extremity Narrative: LLE wrapped in bandage Skin Skin Narrative: as under extremity General Skin Exam: turgor normal Neuro oriented x3, CN's II-XII intact bilaterally and no sensory deficits noted Sensorium / Orientation: awake and alert Psych thought process normal and affect normal Appearance: appropriate Assessment & Plan Assessment/Plan (1) ELLEN (acute kidney injury): (2) CKD (chronic kidney disease), stage III: (3) Ankle fracture: PLAN: #Ellen on CKD 3B * CR is down to 1.51 today, from 1.73 on admission * check renal USG- was unremarkable * will continue trending Cr. * #Left Trimalleolar ankle fracture * had ORIF of left ankle fracture today. Today is POD 0. * consult orthopedics. Plan is for surgery tomorrow * PT/OT consult. fall precautions. * * #Metabolic alkalosis: * Bicarb is down to 39 today. This is due to chronic retention from COPD. * ABG showed pCO2 of 66.4 * #Acute on Chronic respiratory failure due to COPD: * on symbicort. Breathing treatment with bronchodilators. * required up to 6l of oxygen yesterday, which was thought to be due to some respiratory suppression from narcotic administration * Breathing treatments with bronchodilators. Titrate oxygen to maintain saturation above 90%. * incentive spirometry * #History of gout: on allopurinol #Hypertension: * On amlodipine and hydrochlorothiazide as well as losartan and metoprolol. * Hold losartan and HCTZ due to ELLEN on CKD 3 #Hyperlipidemia: On statin #Type 2 diabetes mellitus: Hold Metformin on account of elevated creatinine. Insulin sliding scale. Checks AC at bedtime. DVT prophylaxis: Lovenox renally dosed Charges/Coding Visit Charges Inpatient E&M: 21925 Subs Hosp L3
[2021-10-27] MEDS: Citalopram 40 MG TABLET PO (16:09)
[2021-10-27] MEDS: Metoprolol(XL)Succ 50 MG Tablet PO (16:10)
[2021-10-27] MEDS: buPROPion (SR) 150 MG Tablet.SA PO ×2 (16:11→22:34)
[2021-10-27] MEDS: 0.9% Normal Saline 1,000 ML 15 ML IV (16:12)
[2021-10-27] MEDS: Allopurinol 300 MG Tablet PO (16:12)
[2021-10-27] MEDS: amLODIPine 10 MG Tablet PO (16:15)
[2021-10-27 16:20] LABS: Bedside Glucose 139 mg/dL (70-110)
[2021-10-27] MEDS: Cefazolin 1 GM/50 ML BAG IV (16:31)
[2021-10-27] MEDS: Budesonide Respules 0.5 MG/2 ML AMPUL.NEB. INHALATION (19:54)
[2021-10-27] MEDS: Morphine 4 MG/ML Syringe IV (21:20)
[2021-10-27] MEDS: Atorvastatin Calcium 10 MG Tablet PO (22:33)
[2021-10-27] MEDS: Allopurinol 100 MG Tablet 150 MG PO (22:34)
[2021-10-27] MEDS: traZODone 50 MG Tablet PO (22:34)
[2021-10-27] MEDS: Zolpidem Tartrate 5 MG Tablet 10 MG PO (22:35)
[2021-10-27 22:50] LABS: Bedside Glucose 156 mg/dL (70-110)
[2021-10-28] VITALS (9 sets, daily range): BP systolic 117–139; BP diastolic 59–68; PULSE 67–85; RESP 16–22; TEMP 36.7–37.2; O2SAT 92–97
[2021-10-28] MEDS: Morphine 4 MG/ML Syringe IV ×5 (00:53→21:28)
[2021-10-28] MEDS: Cefazolin 1 GM/50 ML BAG IV (01:02)
[2021-10-28] MEDS: oxyCODONE 5 MG Tablet PO ×5 (03:02→23:02)
[2021-10-28 07:21] LABS: Absolute Lymphocyte Count 0.63 X10^3/uL (0.83-4.51); Absolute Neutrophil Count 20.6 X10^3/uL (2.0-7.7); Basophil# 0.02 X10^3/uL; Basophil% 0.1 % (0-1); Hematocrit 31.1 % (40-54); Hemoglobin 9.9 g/dL (13.0-16.5); Lymphocyte # 0.63 X10^3/ul (0.83-4.51); Lymphocyte % 2.8 % (19-41); Mean Corp Hgb Conc 31.8 g/dL (32-36); Mean Corpuscular Hgb 29.7 pg (27.0-32.0); Mean Corpuscular Volume 93.4 fL (80-94); Mean Platelet Vol. 9.8 fl (6.2-12.0); Monocyte# 1.07 X10^3/uL; Monocyte% 4.8 % (0-10); NRBC Flagged by Analyzer 0 % (0-5); Neutrophil # 20.58 X10^3/uL (2.7-7.7); Neutrophil % 91.5 % (47-70); POSITIVE DIFFERENTIAL YES; Platelet Count 314 K/mm3 (150-450); RBC Distribution Width CV 14.4 % (11.6-14.6); RBC Distribution Width SD 49.1 fl (35.1-43.9); Red Blood Count 3.33 M/mm3 (4.6-6.2); White Blood Count 22.5 K/mm3 (4.4-11.0)
[2021-10-28 07:22] LABS: Differential Indicated SCAN CRITERIA MET
[2021-10-28] MEDS: Insulin Lispro 100 UNIT/ML INSULN.PEN SC ×3 (07:33→17:01)
[2021-10-28] MEDS: 0.9% Saline Lock 10 ML Syringe IV ×2 (07:34→21:28)
[2021-10-28 07:45] LABS: Bedside Glucose 151 mg/dL (70-110)
[2021-10-28 07:49] LABS: Anion Gap 4 (5-15); BUN 24 mg/dL (7-18); BUN/Creat Ratio 16.6 RATIO (10-20); Calcium,Total 9.1 mg/dL (8.5-10.1); Chloride 98 mmol/L (98-107); Creatinine, Serum 1.45 mg/dL (0.70-1.30); EST Glomerular Filtration Rate 52 mL/min (>60); Est Glom Filt Rate - Afr Amer 63 mL/min (>60); Estimated Creatinine Clearance 55.75 ml/min; Glucose 157 mg/dL (74-106); Potassium 3.9 mmol/L (3.5-5.1); Sodium Level 138 mmol/L (136-145)
[2021-10-28] MEDS: Budesonide Respules 0.5 MG/2 ML AMPUL.NEB. INHALATION (08:03)
[2021-10-28] MEDS: Ipratropium/Albuterol Sulfate 3 ML AMPUL.NEB INHALATION ×3 (08:03→19:03)
[2021-10-28 08:04] LABS: Differential Comment SCANNED; Hypochromasia 1+; Platelet Estimate ADEQUATE (ADEQ)
[2021-10-28] MEDS: Enoxaparin 30 MG/0.3 ML Syringe SC (10:12)
[2021-10-28] MEDS: buPROPion (SR) 150 MG Tablet.SA PO ×2 (10:13→21:27)
[2021-10-28] MEDS: Allopurinol 300 MG Tablet PO (10:13)
[2021-10-28] MEDS: amLODIPine 10 MG Tablet PO (10:13)
[2021-10-28] MEDS: Metoprolol(XL)Succ 50 MG Tablet PO (10:13)
[2021-10-28] MEDS: Citalopram 40 MG TABLET PO (10:13)
[2021-10-28 11:31] LABS: Bedside Glucose 176 mg/dL (70-110)
--- NOTE | 2021-10-28 12:49 | PN.HOSP_ITS ---
Subjective Subjective Patient seen and examined. He had no complaints. His pain was well controlled and he rated it at 5 out of 10. Review of systems otherwise negative. He had ORIF of the left ankle trimalleolar fracture yesterday, and today is POD 1. Objective Data Objective Data Vital Signs: Vital Signs Temp Pulse Resp BP Pulse Ox 98.0 F 75 16 139/60 H 93 10/28/21 07:50 10/28/21 10:13 10/28/21 08:04 10/28/21 10:13 10/28/21 08:04 Oxygen Flow Rate (L/min) 4 Oxygen Delivery Method Nasal Cannula Weight: 319 lb Body Mass Index (BMI) 43.2 Intake & Output: Intake and Output for Last 24 Hours 10/26/21 10/27/21 10/28/21 23:59 23:59 23:59 Intake Total 2400 / 2400 1165 / 1165 50 / 50 Output Total 1000 / 1225 475 / 925 950 / 950 Balance 1400 / 1175 690 / 240 -900 / -900 Lab / Micro Data Result Diagrams: 10/28/21 06:54 10/28/21 06:54 Labs: Laboratory Results - last 24 hr 10/27/21 13:05: POC Glucose 135 H 10/27/21 16:05: POC Glucose 139 H 10/27/21 22:30: POC Glucose 156 H 10/28/21 06:54: WBC 22.5 H, RBC 3.33 L, Hgb 9.9 L, Hct 31.1 L, MCV 93.4, MCH 29.7, MCHC 31.8 L, RDW Std Deviation 49.1 H, RDW Coeff of Casey 14.4, Plt Count 31 4, MPV 9.8, Immature Gran % (Auto) 0.800, Neut % (Auto) 91.5 H, Lymph % (Auto) 2.8 L, [place] % (Auto) 4.8, Eos % (Auto) 0.0, Baso % (Auto) 0.1, Absolute Neuts (auto) 20.6 H, Absolute Lymphs (auto) 0.63 L, Nucleated RBC % 0, Differential Comment SCANNED, Platelet Estimate ADEQUATE, Hypochromasia 1+ 10/28/21 06:54: Sodium 138, Potassium 3.9, Chloride 98, Carbon Dioxide 36.0 H, Anion Gap 4 L, BUN 24 H, Creatinine 1.45 H, Estim Creat Clear Calc 55.75, Est GFR (MDRD) Af Amer 63, Est GFR (MDRD) Non-Af 52 L, BUN/Creatinine Ratio 16.6, Glucose 157 H, Calcium 9.1 10/28/21 07:27: POC Glucose 151 H 10/28/21 11:28: POC Glucose 176 H Radiography Diagnostic Testing: Radiology Impression Ankle X-Ray 10/27/21 10:00 IMPRESSION: Internal fixation of the left ankle with near-anatomic alignment seen. Electronically Signed: Amandeep Umanzor MD at 14:20 EST Tel , Service support , Physical Exam Const alert, oriented x3 and no apparent distress General Appearance: cooperative and well developed Exam Limitations: no limitations HEENT normocephalic and head/scalp atraumatic Eyes PERRL and EOMs intact bilaterally Neck supple and no JVD Lymph Lymphatic: no lymphadenopathy noted Resp normal respiratory effort Resp Narrative: mildly diminished breath sounds bibasally, no wheezes or crackles. On 4L of oxygen by nasal canula Cardio regular rate, regular rhythm, S1 normal heart sound, S2 normal heart sound and no murmurs GI normal to inspection, nondistended, normoactive bowel sounds, soft to palpation, non-tender and non-distended Extremity no clubbing, cyanosis or edema Extremity Narrative: LLE wrapped in bandage Skin Skin Narrative: as under extremity General Skin Exam: turgor normal Neuro oriented x3, CN's II-XII intact bilaterally and no sensory deficits noted Sensorium / Orientation: awake and alert Motor Exam: strength 5/5 throughout Psych thought process normal and affect normal Appearance: appropriate Assessment & Plan Assessment/Plan (1) NEELIMA (acute kidney injury): (2) CKD (chronic kidney disease), stage III: (3) Ankle fracture: PLAN: #Neelima on CKD 3B * Patient's only baseline labs in the system are from 2013 when his creatinine was 1.1. CR is down to 1.45 today * renal USG showed normal kidneys. * will need follow up with nephrology on outpatient basis. * #Left Trimalleolar ankle fracture * s/p ORIF. today is POD 1. * orthopedic surgery on board. * PT/OT consult. fall precautions. * #Metabolic alkalosis: * Bicarb is down to 36 today. * This is likely secondary to chronic retention from COPD. will monitor. #Chronic respiratory failure due to COPD: * on symbicort. Breathing treatment with bronchodilators. * on 4L of oxygen today; usually wears 3L at home. #History of gout: on allopurinol #Hypertension: * On amlodipine and hydrochlorothiazide as well as losartan and metoprolol. * Hold losartan and HCTZ due to NEELIMA on CKD 3 #Hyperlipidemia: On statin #Type 2 diabetes mellitus: * metformin on h old o/a of elevated Cr * ISS. Accuchecks ACHS * DVT prophylaxis: Lovenox renally dosed Charges/Coding Visit Charges Inpatient E&M: 87333 Subs Hosp L2
--- NOTE | 2021-10-28 14:42 | PCM.PN.ORT ---
Subjective Subjective Patient seen and examined. He was up to chair upon my examination. He states his pain is well controlled at this time. States he had some pain control issues overnight but has since improved significantly. Denies fevers, chills, nausea or vomiting, chest pain or shortness of breath. He is on 4 L nasal cannula, he wears oxygen at home 3 L at baseline. Urinating without difficulty. Objective Data Objective Data Vital Signs: Vital Signs Temp Pulse Resp BP Pulse Ox 99.0 F 85 22 H 122/68 H 97 10/28/21 13:07 10/28/21 13:07 10/28/21 13:07 10/28/21 13:07 10/28/21 13:07 Oxygen Flow Rate (L/min) 4 Oxygen Delivery Method Nasal Cannula Weight: 319 lb Body Mass Index (BMI) 43.2 Intake & Output: Intake and Output for Last 24 Hours 10/26/21 10/27/21 10/28/21 23:59 23:59 23:59 Intake Total 2400 / 2400 1165 / 1165 50 / 50 Output Total 1000 / 1225 475 / 925 1450 / 1450 Balance 1400 / 1175 690 / 240 -1400 / -1400 Lab / Micro Data Result Diagrams: 10/28/21 06:54 10/28/21 06:54 Labs: Laboratory Results - last 24 hr 10/27/21 16:05: POC Glucose 139 H 10/27/21 22:30: POC Glucose 156 H 10/28/21 06:54: WBC 22.5 H, RBC 3.33 L, Hgb 9.9 L, Hct 31.1 L, MCV 93.4, MCH 29.7, MCHC 31.8 L, RDW Std Deviation 49.1 H, RDW Coeff of Casey 14.4, Plt Count 314, MPV 9.8, Immature Gran % (Auto) 0.800, Neut % (Auto) 91.5 H, Lymph % (Auto) 2.8 L, [place] % (Auto) 4.8, Eos % (Auto) 0.0, Baso % (Auto) 0.1, Absolute Neuts (auto) 20.6 H, Absolute Lymphs (auto) 0.63 L, Nucleated RBC % 0, Differential Comment SCANNED, Platelet Estimate ADEQUATE, Hypochromasia 1+ 10/28/21 06:54: Sodium 138, Potassium 3.9, Chloride 98, Carbon Dioxide 36.0 H, Anion Gap 4 L, BUN 24 H, Creatinine 1.45 H, Estim Creat Clear Calc 55.75, Est GFR (MDRD) Af Amer 63, Est GFR (MDRD) Non-Af 52 L, BUN/Creatinine Ratio 16.6, Glucose 157 H, Calcium 9.1 10/28/21 07:27: POC Glucose 151 H 10/28/21 11:28: POC Glucose 176 H Physical Exam Narrative General -A&Ox3, NAD, appears stated age. Vital signs stable, afebrile. Left lower extremity-Short leg splint in good repair in place left ankle, clean dry and intact. Wiggles toes on command. No pain with passive stretch. Sensation intact to light touch throughout the exposed toes. Brisk capillary refill in the toes. Assessment & Plan Assessment/Plan (1) Ankle fracture: PLAN: POD#1 s/p left ankle open reduction internal fixation - Pain control - Medical management per primary - PT/OT-nonweightbearing operative extremity - DVT PPX -per primary while as an inpatient. I would lean towards Lovenox upon discharge for 28 days. - Case management - D/C planning -Patient doing well from my standpoint. He is able to be discharged when he is medically stable. Please call if any questions or concerns arise. Thank you.
[2021-10-28 17:05] LABS: Bedside Glucose 165 mg/dL (70-110)
--- NOTE | 2021-10-28 21:20 | CASEMGMT ---
EDIS GRIFFIN NOTE: EDIS GRIFFIN informed by therapy earlier today that pt would like a W/C instead billed through insurance of a walker. EDIS GRIFFIN to room and confirmed this. Pt has a w/c @ home already but he does not fit in it well and he would like a larger one. Pt states they will be getting a walker on their own. Dr Carty made aware. Script placed on chart awaiting Dr Carty's signature. TC to Willian @ [facility]. He states they normally would be able to deliver a W/C to pt this , but they do not have any Heavy Duty W/C's available until Sunday. Pt made aware and states that he will be okay w/out the larger w/c until Sunday. He plans to have someone go to [place] Sunday to get Heavy Duty W/C. Script for w/c to be faxed to [facility] once signed by and then to be given to pt to take to [place], if needed. Green sheet on chart w/instructions. Charisma ALVA RN, CM
[2021-10-28] MEDS: Allopurinol 100 MG Tablet 150 MG PO (21:26)
[2021-10-28] MEDS: traZODone 50 MG Tablet PO (21:27)
[2021-10-28] MEDS: Atorvastatin Calcium 10 MG Tablet PO (21:28)
[2021-10-28 22:01] LABS: Bedside Glucose 127 mg/dL (70-110)
[2021-10-28] MEDS: Zolpidem Tartrate 5 MG Tablet 10 MG PO (22:26)
[2021-10-29 04:13] LABS: Absolute Lymphocyte Count 0.62 X10^3/uL (0.83-4.51); Absolute Neutrophil Count 20.5 X10^3/uL (2.0-7.7); Basophil# 0.02 X10^3/uL; Basophil% 0.1 % (0-1); Hematocrit 30.8 % (40-54); Hemoglobin 9.7 g/dL (13.0-16.5); Lymphocyte # 0.62 X10^3/ul (0.83-4.51); Lymphocyte % 2.8 % (19-41); Mean Corp Hgb Conc 31.5 g/dL (32-36); Mean Corpuscular Hgb 29.2 pg (27.0-32.0); Mean Corpuscular Volume 92.8 fL (80-94); Mean Platelet Vol. 9.9 fl (6.2-12.0); Monocyte# 0.85 X10^3/uL; Monocyte% 3.8 % (0-10); NRBC Flagged by Analyzer 0 % (0-5); Neutrophil # 20.45 X10^3/uL (2.7-7.7); Neutrophil % 92.4 % (47-70); POSITIVE DIFFERENTIAL YES; Platelet Count 312 K/mm3 (150-450); RBC Distribution Width CV 14.6 % (11.6-14.6); RBC Distribution Width SD 49.4 fl (35.1-43.9); Red Blood Count 3.32 M/mm3 (4.6-6.2); White Blood Count 22.1 K/mm3 (4.4-11.0)
[2021-10-29 04:41] LABS: Anion Gap 4 (5-15); BUN 35 mg/dL (7-18); Calcium,Total 9.2 mg/dL (8.5-10.1); Chloride 99 mmol/L (98-107); Creatinine, Serum 1.46 mg/dL (0.70-1.30); EST Glomerular Filtration Rate 51 mL/min (>60); Est Glom Filt Rate - Afr Amer 62 mL/min (>60); Estimated Creatinine Clearance 55.37 ml/min; Glucose 149 mg/dL (74-106); Potassium 4.2 mmol/L (3.5-5.1); Sodium Level 139 mmol/L (136-145)
[2021-10-29 04:45] VITALS: BP 127/60; PULSE 71; RESP 18; TEMP 36.6; O2SAT 94
[2021-10-29 05:04] LABS: Differential Indicated SCAN CRITERIA MET
[2021-10-29 06:36] LABS: Bedside Glucose 152 mg/dL (70-110)
[2021-10-29] MEDS: Insulin Lispro 100 UNIT/ML INSULN.PEN SC (06:41)
[2021-10-29 07:09] LABS: Hypochromasia 1+
[2021-10-29 07:23] VITALS: PULSE 68; RESP 18; O2SAT 92
[2021-10-29] MEDS: Ipratropium/Albuterol Sulfate 3 ML AMPUL.NEB INHALATION ×2 (07:25→11:02)
[2021-10-29 09:15] VITALS: BP 124/63; PULSE 68; RESP 18; TEMP 36.8; O2SAT 92
[2021-10-29] MEDS: Enoxaparin 30 MG/0.3 ML Syringe SC (09:17)
[2021-10-29] MEDS: amLODIPine 10 MG Tablet PO (09:17)
[2021-10-29] MEDS: buPROPion (SR) 150 MG Tablet.SA PO (09:17)
[2021-10-29 09:18] VITALS: BP 124/63; PULSE 68
[2021-10-29] MEDS: Citalopram 40 MG TABLET PO (09:18)
[2021-10-29] MEDS: Metoprolol(XL)Succ 50 MG Tablet PO (09:18)
[2021-10-29] MEDS: Allopurinol 300 MG Tablet PO (09:19)
[2021-10-29] MEDS: oxyCODONE 5 MG Tablet PO (09:22)
[2021-10-29] MEDS: Budesonide Respules 0.5 MG/2 ML AMPUL.NEB. INHALATION (11:02)
[2021-10-29 11:03] VITALS: PULSE 66; RESP 20
[2021-10-29 11:16] LABS: Bedside Glucose 181 mg/dL (70-110)
--- NOTE | 2021-10-29 11:51 | PCM.DC.SUM ---
Providers Date of Admission: 10/26/21 Primary Care Physician: Dr. Ara Pack MD Consultations 10/26/21 16:08 Consult: Orthopedics Routine Consulting Provider: Arnulfo Hong Reason for Consult: left ankle fracture EMERGENT Consult: Yes MD Notified: Yes Date Notified: 10/26/21 Time Notified: 16:08 Method of Notification: Provider Initiated 10/26/21 18:38 Consult: [employer] / Pulmonary Medicine Routine Consulting Provider: Pulmonary Medicine lynnette Satartia Reason for Consult: hypoxia EMERGENT Consult: No MD Notified: Yes Date Notified: 10/26/21 Time Notified: 18:39 Method of Notification: Provider Initiated Comments:: Dr Carty notified Dr Rincon Reason For Visit: LEFT ANKLE TRIMALLEROLAR FRACTURE Diagnosis Discharge Diagnosis (1) Ankle fracture: Status: Acute Code(s): S82.899A - Other fracture of unspecified lower leg, initial encounter for closed fracture Medications at Discharge Home Medications allopurinol 300 mg PO DAILY 12/05/13 amlodipine 10 mg PO DAILY 12/05/13 losartan 100 mg PO DAILY 12/05/13 metformin 500 mg PO BIDCM 12/05/13 sildenafil [Viagra] 50 mg PO DAILY PRN PRN 12/05/13 zolpidem [Ambien] 10 mg PO QHS PRN PRN 12/05/13 oxycodone-acetaminophen 1 - 2 tab PO Q4H PRN PRN #20 tab 12/19/13 Spiriva Respimat 2 puff INHALATION DAILY 10/26/21 allopurinol 150 mg PO QHS 10/26/21 atorvastatin [Lipitor] 10 mg PO DAILY 10/26/21 budesonide-formoterol [Symbicort] 2 puff INHALATION BID 10/26/21 bupropion HCl [Wellbutrin SR] 150 mg PO BID 10/26/21 citalopram [Celexa] 40 mg PO DAILY 10/26/21 furosemide [Lasix] 40 mg PO DAILY 10/26/21 metoprolol succinate 50 mg PO DAILY 10/26/21 potassium chloride 20 meq PO DAILY 10/26/21 trazodone 50 mg PO QHS 10/26/21 oxycodone-acetaminophen [Percocet] 1 tab PO Q4H PRN 7 Days #42 tab 12/31/21 enoxaparin 40 mg SUBCUT DAILY 28 Days #11.2 ml 10/29/21 Hospital Course Operations - (ORIF of left trimalleolar fracture) Procedures None Summary of Care Provided Minutes Spent on Discharge: 45 Hospital Course: ARA RUSSO, is a 66 M with an extensive PMH as outlined who was admitted via the ED on 10/26/2021 for worsening kidney function. Patient had an ankle fracture about 10 days prior to admission after he tripped over a ball. He went to see orthopedic surgery and plan was for him to have surgery on 10/27/2021. However, during pre-op screening, patient was found to have elevated Cr. PCP recommended that he follows up with outpatient nephrology, but it was thought that this would take weeks to get him in with nephrology. He was therefore sent to the ED to be admitted to expedite the clearance process. Vials were BP of 148/58, SC of 72, RR of 20 and temp of 98.2F as well as oxygen sats of 96% on his baselin 3L of oxygen. CBC showed hb of 11.4, wbc of 12, platelets of 339. BMp showed sodium of 138, bicarb of 42, CR of 1.78, with baseline of 1.1, from November 2013. He was admitted to be managed for ELLEN on CKD stage IIIb and left trimalleolar ankle fracture due to mechanical fall. Renal ultrasound was unremarkable. Patient was noted to have metabolic alkalosis which was thought to be due to chronic retention from COPD. ABG done showed PCO2 of around 66 but PO2 was 61. Patient was bumped up to 6 L of oxygen from his baseline 3 L though he did not feel any more short of breath. Plan was for pulmonology consult for pulmonary clearance prior to surgery. I did speak to nephrology and nephrology thought patient could go to surgery as his creatinine was trending down. I was contacted by anesthesia who stated that since patient was going to have a block for the surgery under general anesthesia, pulmonary clearance would not be needed. Patient therefore had open reduction and internal fixation of the left trimalleolar ankle fracture on 10/10/2021. Postop course was uncomplicated. He had reactive leukocytosis with white cell count went up to 22 but he remained stable throughout. He was discharged home on 10/29/2021 on SQ lovenox for 28 days for DVT prophylaxis. He is to follow up with PCP and orthopedic surgery. Patient seen and examined prior to discharge. He felt well and had no complaints. He was down to 2L of oxygen. REview of systems was otherwise negative. Labs and vitals reviewed. Home meds reviewed and reconciled. Physical Exam Const alert, oriented x3 and no apparent distress General Appearance: cooperative, comfortable, well kempt and well developed Exam Limitations: no limitations Nutritional Appearance: obese HEENT normocephalic and head/scalp atraumatic Eyes PERRL and EOMs intact bilaterally Neck supple and no JVD Lymph Lymphatic: no lymphadenopathy noted Resp normal respiratory effort Resp Narrative: mildly diminished breath sounds bibasally, no wheezes or crackles. On 3L of oxygen by nasal canula Cardio regular rate, regular rhythm, S1 normal heart sound, S2 normal heart sound and no murmurs GI normal to inspection, nondistended, normoactive bowel sounds, soft to palpation, non-tender and non-distended Extremity no clubbing, cyanosis or edema Extremity Narrative: LLE wrapped in bandage Skin Skin Narrative: as under extremity General Skin Exam: turgor normal Neuro oriented x3, CN's II-XII intact bilaterally and no sensory deficits noted Sensorium / Orientation: awake and alert Motor Exam: strength 5/5 throughout Psych thought process normal and affect normal Appearance: appropriate Weight / BMI Weight Weight: 319 lb Body Mass Index (BMI) 43.2 ABG / Lab / Microbiology Data Result Diagrams: 10/29/21 03:35 10/29/21 03:35 Laboratory: Laboratory Results - last 24 hr 10/28/21 16:59: POC Glucose 165 H 10/28/21 21:13: POC Glucose 127 H 10/29/21 03:35: WBC 22.1 H, RBC 3.32 L, Hgb 9.7 L, Hct 30.8 L, MCV 92.8, MCH 29.2, MCHC 31.5 L, RDW Std Deviation 49.4 H, RDW Coeff of Casey 14.6, Plt Count 312, MPV 9.9, Immature Gran % (Auto) 0.900, Neut % (Auto) 92.4 H, Lymph % (Auto) 2.8 L, [place] % (Auto) 3.8, Eos % (Auto) 0.0, Baso % (Auto) 0.1, Absolute Neuts (auto) 20.5 H, Absolute Lymphs (auto) 0.62 L, Nucleated RBC % 0, Hypochromasia 1+ 10/29/21 03:35: Sodium 139, Potassium 4.2, Chloride 99, Carbon Dioxide 36.0 H, Anion Gap 4 L, BUN 35 H, Creatinine 1.46 H, Estim Creat Clear Calc 55.37, Est GFR (MDRD) Af Amer 62, Est GFR (MDRD) Non-Af 51 L, BUN/Creatinine Ratio 24.0 H, Glucose 149 H, Calcium 9.2 10/29/21 06:23: POC Glucose 152 H 10/29/21 11:06: POC Glucose 181 H D/C Instructions Discharge Diet: Low fat / Low cholesterol Discharge Activity: Return to Normal Activity Weight Bearing Status: Weight bearing as tolerated Call your doctor if your incision/area has: Continuous Slow Oozing, Sudden Increased Bleeding, Increased Pain/ Swelling, Increased Redness, Foul Smelling Discharge and Swelling at the incision site Call your doctor if you observe: Fever of 101 or Higher, Shortness of breath, Swelling in the ankles, Increased palpitations (irregular heartbeat) and Uncontrolled pain Meaningful Use Info Meaningful Use Diagnoses (Choose all that apply): None applicable Discharge Plan Admission Admit Date/Time: 10/26/21 10:33 Primary Reason for Your Visit: trimalleolar fracture of left ankle Attending Provider: Charlene Carty Primary Care Provider: Ara Pack Consulting Providers: Arvind Hobson ; Edmund Rincon ; Kacey Zurita NP ; Arnulfo Hong Discharge Orders/Prescriptions Prescriptions: New oxycodone-acetaminophen [Percocet] 5-325 mg tablet 1 tab PO Q4H PRN (Reason: pain) 7 Days Qty: 42 RF: 0 enoxaparin 40 mg/0.4 mL syringe 40 mg subcut DAILY 28 Days Qty: 11.2 RF: 0 Continued sildenafil [Viagra] 50 MG tablet 50 mg PO DAILY PRN PRN (Reason: Not Specified) RF: 0 amlodipine 10 MG tablet 10 mg PO DAILY RF: 0 metformin 1,000 MG tablet 500 mg PO BIDCM RF: 0 allopurinol 300 MG tablet 300 mg PO DAILY RF: 0 zolpidem [Ambien] 10 MG tablet 10 mg PO QHS PRN PRN (Reason: Sleep) RF: 0 losartan 100 MG tablet 100 mg PO DAILY RF: 0 oxycodone-acetaminophen 1 TABLET tablet 1 - 2 tab PO Q4H PRN PRN (Reason: Pain) Qty: 20 RF: 0 furosemide [Lasix] 40 mg Tablet 40 mg PO DAILY RF: 0 bupropion HCl [Wellbutrin SR] 150 mg Tablet Sustained-Release 12 Hr 150 mg PO BID RF: 0 citalopram [Celexa] 40 mg Tablet 40 mg PO DAILY RF: 0 trazodone 50 mg Tablet 50 mg PO QHS RF: 0 atorvastatin [Lipitor] 10 mg Tablet 10 mg PO DAILY RF: 0 metoprolol succinate 50 mg Tablet Extended Release 24 Hr 50 mg PO DAILY RF: 0 allopurinol 100 mg Tablet 150 mg PO QHS RF: 0 budesonide-formoterol [Symbicort] 160-4.5 mcg/actuation Hfa Aerosol Inhaler 2 puff INHALATION BID RF: 0 Spiriva Respimat 2.5 mcg/actuation Mist 2 puff INHALATION DAILY RF: 0 potassium chloride 20 mEq Tablet Extended Release 20 meq PO DAILY RF: 0 Discontinued hydrochlorothiazide 12.5 MG capsule 12.5 mg PO DAILY RF: 0 naproxen sodium [Naprelan CR] 500 MG tablet, ER multiphase 24 hr 500 mg PO BID PRN PRN (Reason: Pain) RF: 0 Referrals / Follow Up: Ara Pack MD [Primary Care Provider] - Arnulfo Hong DO [STAFF PHYSICIAN] - Within 2 Weeks Marybel Chan MD [STAFF PHYSICIAN] - Within 2 Weeks Disposition Disposition (needs filled in before D/C Order can be placed): Home Health Service Charges/Coding Visit Charges Inpatient E&M: 57339 Disch Hosp
[2021-10-29 12:25] VITALS: BP 141/59; PULSE 72; RESP 18; TEMP 36.7; O2SAT 92
--- NOTE | 2021-10-29 12:25 | NURSING ---
Signed ;Script for [facility] regarding pt needing a larger wc was faxed to [facility] at this time and This nurse spoke with Jennifer and informed her that script was faxed. Pt has copy of the script as well and knows that the wc wont be available until Sunday.
[2021-10-31 13:25] LABS: Pathologist Review Reviewed
--- NOTE | 2021-11-04 09:14 | CASEMGMT ---
EDIS GRIFFIN NOTE: E-mail received from Obdulia NESBITT, that pt had left her a VM stating he had not received heavy duty W/C yet form [facility] and that he was informed by [facility] that the doctor needs to sign off on it. TC to [facility] and spoke w/Mary. She states they are still awaiting Face to Face. EDIS GRIFFIN informed her this was faxed to [facility] on Sunday. She confirms they did receive it and she was going to up-load it into the system. She states they do not have any heavy duty W/C's in stock, but anticipate a delivery today of them. She states she will reach out to patient today. This EDIS GRIFFIN called pt and informed him of above. He voices appreciation. Charisma ALVA RN, CM
== END 2021-10-29 12:32 | disposition home health service (06) | DRG 492 ==
LOC: ED 10:19 → MS2 11:02
PROVIDERS: Student in an Organized Health Care Education/Training Program; Admitting Provider Internal Medicine; Emergency Provider Student in an Organized Health Care Education/Training Program; PCP Family Medicine; Visit Provider Student in an Organized Health Care Education/Training Program
PROC: 0QSH04Z Reposition Left Tibia with Internal Fixation Device, Open Approach (ICD-10-PCS; principal; 2021-10-27 09:40)
DX: S82.852A Displaced trimalleolar fracture of left lower leg, initial encounter for closed fracture (principal); J96.21 Acute and chronic respiratory failure with hypoxia; E87.3 Alkalosis; N17.9 Acute kidney failure, unspecified; E11.22 Type 2 diabetes mellitus with diabetic chronic kidney disease; J44.9 Chronic obstructive pulmonary disease, unspecified; N18.32 Chronic kidney disease, stage 3b; E78.5 Hyperlipidemia, unspecified; I12.9 Hypertensive chronic kidney disease with stage 1 through stage 4 chronic kidney disease, or unspecified chronic kidney disease; F41.9 Anxiety disorder, unspecified; W18.09XA Striking against other object with subsequent fall, initial encounter; M10.9 Gout, unspecified; S96.812A Strain of other specified muscles and tendons at ankle and foot level, left foot, initial encounter; F32.A Depression, unspecified; Z99.81 Dependence on supplemental oxygen; Y93.9 Activity, unspecified; Y92.9 Unspecified place or not applicable; Z23 Encounter for immunization
CPT/HCPCS: 36415; 36600; 71045; 73610; 76000; 76770; 80048; 80053; 81001; 82570; 82803; 82962; 83880; 84540; 85025; 87635; 94640; 97162; 97166; 99251; 99284; C1713; G0008; J7030; U0005; 90686; A4216; G0463; U0003

== ENCOUNTER 2022-01-12 12:38 | Outpatient (CLI) | payer MEDICARE, SELFPAY ==
--- NOTE | 2021-10-25 13:06 | RAD_ITS ---
STUDY: X-RAY CHEST REASON FOR EXAM: Male, 66 years old. PRE-OP TECHNIQUE: PA and lateral views of the chest. COMPARISON: 12/05/2013 FINDINGS: The lungs are clear and expanded. Elevated right hemidiaphragm which is unchanged. Normal size heart. Normal mediastinum and vashti. Normal visualized pulmonary arteries. Normal visualized aortic arch and descending thoracic aorta. Normal visualized thoracic spine. Normal visualized ribs, clavicles, and shoulders. There is no demonstrated abnormality of the visualized soft tissue structures of the upper abdomen. RAD/Chest PA and Lateral IMPRESSION: No active disease. Electronically Signed: Eliud Ashley MD at 14:34 EST Tel , Service support ,
--- NOTE | 2021-10-25 13:06 | EKG12_ITS ---
Test Reason : PRE-OP Blood Pressure : / mmHG Vent. Rate : 060 BPM Atrial Rate : 060 BPM P-R Int : 182 ms QRS Dur : 098 ms QT Int : 414 ms P-R-T Axes : 048 023 021 degrees QTc Int : 414 ms Sinus rhythm with Premature atrial complexes Low voltage QRS Borderline ECG Confirmed by DEEPALI WALLACE, JABIER ([id number]), restaurant expeditor ABEBE CARLOS ([id number]) on 10/26/2021 9:38:18 AM Referred By: Arnulfo Hong Confirmed By:JABIER PALUMBO MD
== END 2022-01-12 23:59 | disposition home or self-care (01) ==
LOC: SDC 12:38
PROVIDERS: PCP Family Medicine; Referring Provider Student in an Organized Health Care Education/Training Program; Visit Provider Student in an Organized Health Care Education/Training Program
DX: Z01.818 Encounter for other preprocedural examination (principal)
CPT/HCPCS: 71046; 93005

== ENCOUNTER → 2022-06-29 | Outpatient (CLI) | payer MEDICARE, SELFPAY ==
[2022-06-29 12:47] LABS: Albumin, Serum 3.1 g/dL (3.2-5.0); BUN 23 mg/dL (7-18); BUN/Creat Ratio 12.6 RATIO (10-20); Calcium,Total 9.4 mg/dL (8.5-10.1); Chloride 96 mmol/L (98-107); Creatinine, Serum 1.83 mg/dL (0.70-1.30); EST Glomerular Filtration Rate 40 mL/min (>60); Est Glom Filt Rate - Afr Amer 48 mL/min (>60); Glucose 116 mg/dL (74-106); Phosphorus 3.6 mg/dL (2.5-4.9); Potassium 4.4 mmol/L (3.5-5.1); Sodium Level 140 mmol/L (136-145)
== END | disposition home or self-care (01) ==
LOC: POLAB3 10:21
PROVIDERS: PCP Family Medicine; Visit Provider Internal Medicine Nephrology
DX: N17.9 Acute kidney failure, unspecified (principal)
CPT/HCPCS: 36415; 80069

== ENCOUNTER → 2022-07-07 | Outpatient (CLI) | payer MEDICARE, SELFPAY ==
--- NOTE | 2022-07-07 16:54 | US_ITS ---
STUDY: RENAL ULTRASOUND - COMPLETE REASON FOR EXAM: Male, 67 years old. CKD TECHNIQUE: Ultrasound evaluation of the kidneys was performed with real-time and static harper-scale imaging. COMPARISON: 10/26/2021 FINDINGS: RIGHT KIDNEY: Normal location of the right kidney, which is normal in size. The right kidney measures 13.2 cm. There is a normal cortex of the right kidney. The renal cortex measures 1.5 cm. There is no right renal mass or cyst. There are no right renal calculi. There is no right hydronephrosis. DISTAL RIGHT URETER: There is non-visualization of the distal right ureter. There is no demonstrated right ureterovesical junction calculus. There is a visualized right ureteral jet. LEFT KIDNEY: Normal location of the left kidney, which is normal in size. The left kidney measures 12.5 cm. There is a normal cortex of the left kidney. The renal cortex measures 1.5 cm. There is no left renal mass or cyst. There are no left renal calculi. There is no left hydronephrosis. DISTAL LEFT URETER: There is non-visualization of the distal left ureter. There is no demonstrated left ureterovesical junction calculus. There is a visualized left ureteral jet. BLADDER: The distended urinary bladder has a volume of 32 ml. The empty urinary bladder has a volume of ml. There is a normal wall thickness of the distended urinary bladder. There is no demonstrated mass within the urinary bladder. There are no demonstrated bladder calculi. US/Kidney and Bladder IMPRESSION: Normal ultrasound of the kidneys and urinary bladder. Electronically Signed: Eliud Ashley MD at 22:29 EDT ,
== END | disposition home or self-care (01) ==
LOC: US 16:53
PROVIDERS: PCP Family Medicine; Referring Provider Internal Medicine Nephrology; Visit Provider Internal Medicine Nephrology
DX: N18.31 Chronic kidney disease, stage 3a (principal)
CPT/HCPCS: 76770

== ENCOUNTER 2024-12-12 15:24 | Emergency (ER) | payer MEDICARE, SELFPAY ==
[2024-12-12] VITALS (49 sets, daily range): BP systolic 68–156; BP diastolic 28–106; PULSE 63–88; RESP 0–26; TEMP 36.1–36.8; O2SAT 87–100; BMI 39.4
--- NOTE | 2024-12-12 15:46 | EKG12_ITS ---
Test Reason : SOB Blood Pressure : */* mmHG Vent. Rate : 72 BPM Atrial Rate : * BPM P-R Int : * ms QRS Dur : 90 ms QT Int : 412 ms P-R-T Axes : * 47 36 degrees QTcB Int : 451 ms Atrial fibrillation with premature ventricular or aberrantly conducted complexes Septal infarct , age undetermined Abnormal ECG Significant baseline artifact Confirmed by ZELDA WALLACE, JUAN ([id number]), manager editorial ABEBE CARLOS ([id number]) on 12/15/2024 8:18:17 AM Referred By: [facility] Confirmed By: JUAN NDIAYE MD
--- NOTE | 2024-12-12 15:48 | ED.VIS.DYS ---
HPI <Dr. Sameer Alvarez DO - Last Filed: 12/12/24 21:10> History of Present Illness Chief Complaint: Shortness of Breath Informant: spouse/S.O. and family Onset/Context/Timing Onset: Today Context: gradual Timing: Continuous Worsened by: Nothing Relieved by: Nothing Associated Symptoms cough; Negative for clear sputum, white sputum, yellow sputum or green sputum Narrative Narrative: Patient presents with shortness of breath that became worse today. Family states patient has been more confused today. Family states patient has had a cough. Family states patient has been having some nausea and vomiting. Family states that others have had a viral illness at home. Patient is nonverbal and is a poor informant. [facility] <Dr. Sameer Alvarez DO - Last Filed: 12/12/24 21:10> [facility] Medical History Anxiety Depression Diabetes On home oxygen therapy COPD (chronic obstructive pulmonary disease) Hypertension Ankle fracture CKD (chronic kidney disease), stage III Home Medications ?Medication ?Instructions ?Recorded ?Last Taken ?Type allopurinol 300 mg tablet 300 mg PO DAILY 12/05/13 Unknown History amlodipine 10 mg tablet 10 mg PO DAILY 12/05/13 Unknown History losartan 100 mg tablet 100 mg PO DAILY 12/05/13 Unknown History metformin 1,000 mg tablet 500 mg PO BIDCM 12/05/13 Unknown History sildenafil 50 mg tablet (Viagra) 50 mg PO DAILY PRN PRN Not 12/05/13 Unknown History Specified zolpidem 10 mg tablet (Ambien) 10 mg PO QHS PRN PRN Sleep 12/05/13 Unknown History oxycodone-acetaminophen 5 mg-325 1 - 2 tab PO Q4H PRN PRN Pain #20 12/19/13 Unknown Rx mg tablet tabs allopurinol 100 mg tablet 150 mg PO QHS 10/26/21 Unknown History atorvastatin 10 mg tablet (Lipitor) 10 mg PO DAILY 10/26/21 Unknown History budesonide-formoterol HFA 160 2 puff inhalation BID 10/26/21 Unknown History mcg-4.5 mcg/actuation aerosol inhaler (Symbicort) bupropion HCl 150 mg tablet,12 hr 150 mg PO BID 10/26/21 Unknown History sustained-release (Wellbutrin SR) citalopram 40 mg tablet (Celexa) 40 mg PO DAILY 10/26/21 Unknown History furosemide 40 mg tablet (Lasix) 40 mg PO DAILY 10/26/21 Unknown History metoprolol succinate 50 mg 50 mg PO DAILY 10/26/21 Unknown History tablet,extended release 24 hr potassium chloride 20 mEq 20 meq PO DAILY 10/26/21 Unknown History tablet,extended release tiotropium bromide 2.5 2 puff inhalation DAILY 10/26/21 Unknown History mcg/actuation mist for inhalation (Spiriva Respimat) trazodone 50 mg tablet 50 mg PO QHS 10/26/21 Unknown History oxycodone-acetaminophen 5 mg-325 1 tab PO Q4H PRN pain 7 days #42 10/28/21 Unknown Rx mg tablet (Percocet) tabs enoxaparin 40 mg/0.4 mL 40 mg (0.4 mL) subcut DAILY 10/29/21 Unknown Rx subcutaneous syringe days #11.2 mL Allergy/AdvReac Type Severity Reaction Status Date / Time lisinopril AdvReac Other Verified 10/26/21 11:30 Social History Smoking Status: Never smoker ROS <Dr. Sameer Alvarez, - Last Filed: 12/12/24 21:10> ROS ED Review of Systems ROS Unobtainable: due to mental condition and due to mental status EXAM <Dr. Sameer Alvarez, - Last Filed: 12/12/24 21:10> Physical Exam Const Vital Signs: 12/12/24 15:25 12/12/24 15:54 12/12/24 16:15 Temperature 96.9 F L Temperature Source Tympanic Pulse Rate 73 71 Respiratory Rate 20 H 19 H Respiratory Effort Respiratory Pattern Blood Pressure 142/65 H Blood Pressure Mean 90 Pulse Ox 88 Oxygen Delivery Method Bi-pap Bi-pap Fraction of Inspired Oxygen (FIO2) 12/12/24 16:17 12/12/24 16:17 12/12/24 16:30 Temperature Temperature Source Pulse Rate 85 65 Respiratory Rate 17 26 H Respiratory Effort Short of Breath Labored Accessory Muscle Use Respiratory Pattern Tachypnea Normal Blood Pressure Blood Pressure Mean Pulse Ox 94 100 Oxygen Delivery Method Bi-pap Fraction of Inspired Oxygen (FIO2) 100 100 12/12/24 16:54 12/12/24 16:55 12/12/24 17:00 Temperature Temperature Source Pulse Rate 72 Respiratory Rate 17 Respiratory Effort Short of Breath Accessory Muscle Use Respiratory Pattern Blood Pressure 124/86 H Blood Pressure Mean 99 Pulse Ox 99 Oxygen Delivery Method Fraction of Inspired Oxygen (FIO2) 12/12/24 17:00 12/12/24 17:00 12/12/24 17:00 Temperature 98.2 F Temperature Source Axillary Pulse Rate 83 73 72 Respiratory Rate 18 18 16 Respiratory Effort Respiratory Pattern Blood Pressure 111/59 L 117/70 111/59 L Blood Pressure Mean 76 85 75 Pulse Ox 99 89 Oxygen Delivery Method Fraction of Inspired Oxygen (FIO2) 12/12/24 17:09 12/12/24 17:09 12/12/24 17:10 Temperature Temperature Source Pulse Rate 83 84 Respiratory Rate 18 18 Respiratory Effort Respiratory Pattern Normal Blood Pressure 124/86 H Blood Pressure Mean 98 Pulse Ox 99 88 Oxygen Delivery Method Mechanical Ventilator Fraction of Inspired Oxygen (FIO2) 100 100 12/12/24 17:15 12/12/24 17:30 12/12/24 17:44 Temperature Temperature Source Pulse Rate 83 75 69 Respiratory Rate 17 18 18 Respiratory Effort Respiratory Pattern Blood Pressure 124/91 H 117/70 Blood Pressure Mean 100 83 Pulse Ox 87 Oxygen Delivery Method Fraction of Inspired Oxygen (FIO2) 12/12/24 17:45 12/12/24 17:46 12/12/24 18:00 Temperature 97.4 F L Temperature Source Temporal Pulse Rate 69 88 Respiratory Rate 18 18 Respiratory Effort Respiratory Pattern Blood Pressure 97/61 107/60 Blood Pressure Mean 73 75 Pulse Ox 91 Oxygen Delivery Method Mechanical Ventilator Fraction of Inspired Oxygen (FIO2) 12/12/24 18:00 12/12/24 18:15 12/12/24 18:30 Temperature Temperature Source Pulse Rate 85 86 86 Respiratory Rate 18 18 18 Respiratory Effort Respiratory Pattern Blood Pressure 107/60 113/71 113/69 Blood Pressure Mean 73 85 83 Pulse Ox Oxygen Delivery Method Fraction of Inspired Oxygen (FIO2) 12/12/24 18:45 12/12/24 19:00 12/12/24 19:00 Temperature Temperature Source Pulse Rate 82 86 86 Respiratory Rate 18 18 18 Respiratory Effort Respiratory Pattern Blood Pressure 99/76 114/55 L 114/55 L Blood Pressure Mean 85 74 75 Pulse Ox 92 Oxygen Delivery Method Mechanical Ventilator Fraction of Inspired Oxygen (FIO2) 12/12/24 19:15 12/12/24 19:16 12/12/24 19:30 Temperature Temperature Source Pulse Rate 87 88 Respiratory Rate 18 18 Respiratory Effort Respiratory Pattern Blood Pressure 86/52 L 68/28 L Blood Pressure Mean 63 41 Pulse Ox 93 Oxygen Delivery Method Fraction of Inspired Oxygen (FIO2) 12/12/24 19:36 12/12/24 19:45 12/12/24 19:45 Temperature Temperature Source Pulse Rate 71 72 70 Respiratory Rate 18 18 18 Respiratory Effort Respiratory Pattern Normal Blood Pressure 95/50 L 89/66 L Blood Pressure Mean 65 75 Pulse Ox 90 89 Oxygen Delivery Method Fraction of Inspired Oxygen (FIO2) 12/12/24 20:00 12/12/24 20:00 12/12/24 20:01 Temperature Temperature Source Pulse Rate 77 76 71 Respiratory Rate 18 18 18 Respiratory Effort Respiratory Pattern Blood Pressure 122/102 H 122/102 H Blood Pressure Mean 108 111 Pulse Ox 96 Oxygen Delivery Method Mechanical Ventilator Fraction of Inspired Oxygen (FIO2) 12/12/24 20:15 12/12/24 20:30 12/12/24 20:31 Temperature Temperature Source Pulse Rate 71 79 78 Respiratory Rate 18 18 18 Respiratory Effort Respiratory Pattern Blood Pressure 133/106 H 156/96 H Blood Pressure Mean 117 115 Pulse Ox Oxygen Delivery Method Fraction of Inspired Oxygen (FIO2) 12/12/24 20:35 12/12/24 20:45 12/12/24 20:45 Temperature Temperature Source Pulse Rate 73 70 76 Respiratory Rate 18 18 18 Respiratory Effort Respiratory Pattern Blood Pressure 156/96 H 86/42 L 86/42 L Blood Pressure Mean 116 56 55 Pulse Ox 95 98 Oxygen Delivery Method Mechanical Ventilator Mechanical Ventilator Fraction of Inspired Oxygen (FIO2) 12/12/24 20:48 12/12/24 20:48 12/12/24 20:51 Temperature Temperature Source Pulse Rate 71 63 Respiratory Rate 18 18 Respiratory Effort Respiratory Pattern Blood Pressure 68/42 L 68/42 L 68/28 L Blood Pressure Mean 50 48 41 Pulse Ox 100 97 Oxygen Delivery Method Mechanical Ventilator Mechanical Ventilator Fraction of Inspired Oxygen (FIO2) 12/12/24 20:51 12/12/24 21:00 12/12/24 21:00 Temperature Temperature Source Pulse Rate 79 78 77 Respiratory Rate 18 18 18 Respiratory Effort Respiratory Pattern Blood Pressure 68/28 L 68/40 L 68/30 L Blood Pressure Mean 38 49 43 Pulse Ox 95 Oxygen Delivery Method Mechanical Ventilator Fraction of Inspired Oxygen (FIO2) 12/12/24 21:03 12/12/24 21:05 12/12/24 21:15 Temperature Temperature Source Pulse Rate 78 73 Respiratory Rate 17 16 Respiratory Effort Respiratory Pattern Blood Pressure 94/60 94/60 113/73 Blood Pressure Mean 70 71 87 Pulse Ox 98 Oxygen Delivery Method Mechanical Ventilator Fraction of Inspired Oxygen (FIO2) 12/12/24 21:15 12/12/24 21:30 12/12/24 21:45 Temperature Temperature Source Pulse Rate 77 73 Respiratory Rate 18 18 Respiratory Effort Respiratory Pattern Blood Pressure 113/73 90/56 L 90/54 L Blood Pressure Mean 87 66 64 Pulse Ox Oxygen Delivery Method Fraction of Inspired Oxygen (FIO2) 12/12/24 22:00 12/12/24 22:00 12/12/24 22:03 Temperature Temperature Source Pulse Rate 75 75 78 Respiratory Rate 18 6 L 18 Respiratory Effort Respiratory Pattern Normal Blood Pressure 90/54 L 91/47 L Blood Pressure Mean 66 61 Pulse Ox 95 96 95 Oxygen Delivery Method Mechanical Ventilator Fraction of Inspired Oxygen (FIO2) 12/12/24 22:15 12/12/24 22:21 12/12/24 22:30 Temperature Temperature Source Pulse Rate 77 77 Respiratory Rate 0 L 18 Respiratory Effort Respiratory Pattern Blood Pressure 69/45 L 82/50 L 72/47 L Blood Pressure Mean 52 60 56 Pulse Ox 95 95 Oxygen Delivery Method Fraction of Inspired Oxygen (FIO2) 12/12/24 22:45 12/12/24 23:00 12/12/24 23:00 Temperature Temperature Source Pulse Rate 81 76 Respiratory Rate 11 L 11 L Respiratory Effort Respiratory Pattern Blood Pressure 98/56 L 98/56 L 92/56 L Blood Pressure Mean 70 70 67 Pulse Ox 94 96 Oxygen Delivery Method Mechanical Ventilator Fraction of Inspired Oxygen (FIO2) 80 12/12/24 23:15 12/12/24 23:30 12/12/24 23:45 Temperature Temperature Source Pulse Rate 77 76 Respiratory Rate 11 L 18 Respiratory Effort Respiratory Pattern Blood Pressure 88/60 L 89/50 L 88/57 L Blood Pressure Mean 71 62 66 Pulse Ox 93 94 Oxygen Delivery Method Fraction of Inspired Oxygen (FIO2) 12/13/24 00:00 12/13/24 01:00 12/13/24 02:00 Temperature Temperature Source Pulse Rate 77 76 78 Respiratory Rate 19 H 24 H 18 Respiratory Effort Respiratory Pattern Blood Pressure 84/49 L 91/49 L 81/47 L Blood Pressure Mean 59 63 58 Pulse Ox 94 96 95 Oxygen Delivery Method Mechanical Ventilator Fraction of Inspired Oxygen (FIO2) 70 12/13/24 02:18 12/13/24 03:00 12/13/24 04:00 Temperature Temperature Source Pulse Rate 77 82 119 H Respiratory Rate 18 18 18 Respiratory Effort Respiratory Pattern Normal Blood Pressure 118/86 H 90/60 Blood Pressure Mean 96 70 Pulse Ox 95 93 94 Oxygen Delivery Method Mechanical Ventilator Mechanical Ventilator Fraction of Inspired Oxygen (FIO2) 80 80 12/13/24 05:01 Temperature Temperature Source Pulse Rate 80 Respiratory Rate 18 Respiratory Effort Respiratory Pattern Normal Blood Pressure Blood Pressure Mean Pulse Ox 96 Oxygen Delivery Method Fraction of Inspired Oxygen (FIO2) Positive well nourished and well developed General Appearance ED: well developed and NAD HEENT Reports moist mucous membranes Neck supple Resp Auscultation: diminished lung sounds diffuse Cardio regular rate and regular rhythm GI non-tender and non-distended Palpation: soft Neuro CN's II-XII intact bilaterally and no sensory deficits noted Sensorium / Orientation: lethargic Motor Exam: general weakness <Dr. Dimas Gregory, DO - Last Filed: 12/13/24 05:28> Physical Exam Const Vital Signs: 12/12/24 15:25 12/12/24 15:54 12/12/24 16:15 Temperature 96.9 F L Temperature Source Tympanic Pulse Rate 73 71 Respiratory Rate 20 H 19 H Respiratory Effort Respiratory Pattern Blood Pressure 142/65 H Blood Pressure Mean 90 Pulse Ox 88 Oxygen Delivery Method Bi-pap Bi-pap Fraction of Inspired Oxygen (FIO2) 12/12/24 16:17 12/12/24 16:17 12/12/24 16:30 Temperature Temperature Source Pulse Rate 85 65 Respiratory Rate 17 26 H Respiratory Effort Short of Breath Labored Accessory Muscle Use Respiratory Pattern Tachypnea Normal Blood Pressure Blood Pressure Mean Pulse Ox 94 100 Oxygen Delivery Method Bi-pap Fraction of Inspired Oxygen (FIO2) 100 100 12/12/24 16:54 12/12/24 16:55 12/12/24 17:00 Temperature Temperature Source Pulse Rate 72 Respiratory Rate 17 Respiratory Effort Short of Breath Accessory Muscle Use Respiratory Pattern Blood Pressure 124/86 H Blood Pressure Mean 99 Pulse Ox 99 Oxygen Delivery Method Fraction of Inspired Oxygen (FIO2) 12/12/24 17:00 12/12/24 17:00 12/12/24 17:00 Temperature 98.2 F Temperature Source Axillary Pulse Rate 83 73 72 Respiratory Rate 18 18 16 Respiratory Effort Respiratory Pattern Blood Pressure 111/59 L 117/70 111/59 L Blood Pressure Mean 76 85 75 Pulse Ox 99 89 Oxygen Delivery Method Fraction of Inspired Oxygen (FIO2) 12/12/24 17:09 12/12/24 17:09 12/12/24 17:10 Temperature Temperature Source Pulse Rate 83 84 Respiratory Rate 18 18 Respiratory Effort Respiratory Pattern Normal Blood Pressure 124/86 H Blood Pressure Mean 98 Pulse Ox 99 88 Oxygen Delivery Method Mechanical Ventilator Fraction of Inspired Oxygen (FIO2) 100 100 12/12/24 17:15 12/12/24 17:30 12/12/24 17:44 Temperature Temperature Source Pulse Rate 83 75 69 Respiratory Rate 17 18 18 Respiratory Effort Respiratory Pattern Blood Pressure 124/91 H 117/70 Blood Pressure Mean 100 83 Pulse Ox 87 Oxygen Delivery Method Fraction of Inspired Oxygen (FIO2) 12/12/24 17:45 12/12/24 17:46 12/12/24 18:00 Temperature 97.4 F L Temperature Source Temporal Pulse Rate 69 88 Respiratory Rate 18 18 Respiratory Effort Respiratory Pattern Blood Pressure 97/61 107/60 Blood Pressure Mean 73 75 Pulse Ox 91 Oxygen Delivery Method Mechanical Ventilator Fraction of Inspired Oxygen (FIO2) 12/12/24 18:00 12/12/24 18:15 12/12/24 18:30 Temperature Temperature Source Pulse Rate 85 86 86 Respiratory Rate 18 18 18 Respiratory Effort Respiratory Pattern Blood Pressure 107/60 113/71 113/69 Blood Pressure Mean 73 85 83 Pulse Ox Oxygen Delivery Method Fraction of Inspired Oxygen (FIO2) 12/12/24 18:45 12/12/24 19:00 12/12/24 19:00 Temperature Temperature Source Pulse Rate 82 86 86 Respiratory Rate 18 18 18 Respiratory Effort Respiratory Pattern Blood Pressure 99/76 114/55 L 114/55 L Blood Pressure Mean 85 74 75 Pulse Ox 92 Oxygen Delivery Method Mechanical Ventilator Fraction of Inspired Oxygen (FIO2) 12/12/24 19:15 12/12/24 19:16 12/12/24 19:30 Temperature Temperature Source Pulse Rate 87 88 Respiratory Rate 18 18 Respiratory Effort Respiratory Pattern Blood Pressure 86/52 L 68/28 L Blood Pressure Mean 63 41 Pulse Ox 93 Oxygen Delivery Method Fraction of Inspired Oxygen (FIO2) 12/12/24 19:36 12/12/24 19:45 12/12/24 19:45 Temperature Temperature Source Pulse Rate 71 72 70 Respiratory Rate 18 18 18 Respiratory Effort Respiratory Pattern Normal Blood Pressure 95/50 L 89/66 L Blood Pressure Mean 65 75 Pulse Ox 90 89 Oxygen Delivery Method Fraction of Inspired Oxygen (FIO2) 12/12/24 20:00 12/12/24 20:00 12/12/24 20:01 Temperature Temperature Source Pulse Rate 77 76 71 Respiratory Rate 18 18 18 Respiratory Effort Respiratory Pattern Blood Pressure 122/102 H 122/102 H Blood Pressure Mean 108 111 Pulse Ox 96 Oxygen Delivery Method Mechanical Ventilator Fraction of Inspired Oxygen (FIO2) 12/12/24 20:15 12/12/24 20:30 12/12/24 20:31 Temperature Temperature Source Pulse Rate 71 79 78 Respiratory Rate 18 18 18 Respiratory Effort Respiratory Pattern Blood Pressure 133/106 H 156/96 H Blood Pressure Mean 117 115 Pulse Ox Oxygen Delivery Method Fraction of Inspired Oxygen (FIO2) 12/12/24 20:35 12/12/24 20:45 12/12/24 20:45 Temperature Temperature Source Pulse Rate 73 70 76 Respiratory Rate 18 18 18 Respiratory Effort Respiratory Pattern Blood Pressure 156/96 H 86/42 L 86/42 L Blood Pressure Mean 116 56 55 Pulse Ox 95 98 Oxygen Delivery Method Mechanical Ventilator Mechanical Ventilator Fraction of Inspired Oxygen (FIO2) 12/12/24 20:48 12/12/24 20:48 12/12/24 20:51 Temperature Temperature Source Pulse Rate 71 63 Respiratory Rate 18 18 Respiratory Effort Respiratory Pattern Blood Pressure 68/42 L 68/42 L 68/28 L Blood Pressure Mean 50 48 41 Pulse Ox 100 97 Oxygen Delivery Method Mechanical Ventilator Mechanical Ventilator Fraction of Inspired Oxygen (FIO2) 12/12/24 20:51 12/12/24 21:00 12/12/24 21:00 Temperature Temperature Source Pulse Rate 79 78 77 Respiratory Rate 18 18 18 Respiratory Effort Respiratory Pattern Blood Pressure 68/28 L 68/40 L 68/30 L Blood Pressure Mean 38 49 43 Pulse Ox 95 Oxygen Delivery Method Mechanical Ventilator Fraction of Inspired Oxygen (FIO2) 12/12/24 21:03 12/12/24 21:05 12/12/24 21:15 Temperature Temperature Source Pulse Rate 78 73 Respiratory Rate 17 16 Respiratory Effort Respiratory Pattern Blood Pressure 94/60 94/60 113/73 Blood Pressure Mean 70 71 87 Pulse Ox 98 Oxygen Delivery Method Mechanical Ventilator Fraction of Inspired Oxygen (FIO2) 12/12/24 21:15 12/12/24 21:30 12/12/24 21:45 Temperature Temperature Source Pulse Rate 77 73 Respiratory Rate 18 18 Respiratory Effort Respiratory Pattern Blood Pressure 113/73 90/56 L 90/54 L Blood Pressure Mean 87 66 64 Pulse Ox Oxygen Delivery Method Fraction of Inspired Oxygen (FIO2) 12/12/24 22:00 12/12/24 22:00 12/12/24 22:03 Temperature Temperature Source Pulse Rate 75 75 78 Respiratory Rate 18 6 L 18 Respiratory Effort Respiratory Pattern Normal Blood Pressure 90/54 L 91/47 L Blood Pressure Mean 66 61 Pulse Ox 95 96 95 Oxygen Delivery Method Mechanical Ventilator Fraction of Inspired Oxygen (FIO2) 12/12/24 22:15 12/12/24 22:21 12/12/24 22:30 Temperature Temperature Source Pulse Rate 77 77 Respiratory Rate 0 L 18 Respiratory Effort Respiratory Pattern Blood Pressure 69/45 L 82/50 L 72/47 L Blood Pressure Mean 52 60 56 Pulse Ox 95 95 Oxygen Delivery Method Fraction of Inspired Oxygen (FIO2) 12/12/24 22:45 12/12/24 23:00 12/12/24 23:00 Temperature Temperature Source Pulse Rate 81 76 Respiratory Rate 11 L 11 L Respiratory Effort Respiratory Pattern Blood Pressure 98/56 L 98/56 L 92/56 L Blood Pressure Mean 70 70 67 Pulse Ox 94 96 Oxygen Delivery Method Mechanical Ventilator Fraction of Inspired Oxygen (FIO2) 80 12/12/24 23:15 12/12/24 23:30 12/12/24 23:45 Temperature Temperature Source Pulse Rate 77 76 Respiratory Rate 11 L 18 Respiratory Effort Respiratory Pattern Blood Pressure 88/60 L 89/50 L 88/57 L Blood Pressure Mean 71 62 66 Pulse Ox 93 94 Oxygen Delivery Method Fraction of Inspired Oxygen (FIO2) 12/13/24 00:00 12/13/24 01:00 12/13/24 02:00 Temperature Temperature Source Pulse Rate 77 76 78 Respiratory Rate 19 H 24 H 18 Respiratory Effort Respiratory Pattern Blood Pressure 84/49 L 91/49 L 81/47 L Blood Pressure Mean 59 63 58 Pulse Ox 94 96 95 Oxygen Delivery Method Mechanical Ventilator Fraction of Inspired Oxygen (FIO2) 70 12/13/24 02:18 12/13/24 03:00 12/13/24 04:00 Temperature Temperature Source Pulse Rate 77 82 119 H Respiratory Rate 18 18 18 Respiratory Effort Respiratory Pattern Normal Blood Pressure 118/86 H 90/60 Blood Pressure Mean 96 70 Pulse Ox 95 93 94 Oxygen Delivery Method Mechanical Ventilator Mechanical Ventilator Fraction of Inspired Oxygen (FIO2) 80 80 12/13/24 05:01 Temperature Temperature Source Pulse Rate 80 Respiratory Rate 18 Respiratory Effort Respiratory Pattern Normal Blood Pressure Blood Pressure Mean Pulse Ox 96 Oxygen Delivery Method Fraction of Inspired Oxygen (FIO2) [facility] <Dr. Sameer Alvarez, DO - Last Filed: 12/12/24 21:10> [facility] Narrative Medical decision making narrative: Differential diagnose includes pneumonia, bronchitis, viral illness, cardiac dysrhythmia, cardiac ischemia, pneumothorax, electrolyte abnormality, sepsis, COPD exacerbation, and congestive heart failure. EKG will be obtained to assess for cardiac dysrhythmia and cardiac ischemia. Chest x-ray will be obtained to assess for pneumonia and pneumothorax. Arterial blood gas will be obtained to assess for acidosis, hypercarbia, and hypoxia. CBC will be obtained to assess for leukocytosis and anemia. Basic metabolic profile will be obtained to assess for electrolyte abnormality and renal function. BNP will be obtained to assess for congestive heart failure. Serum lactate will be obtained to assess for sepsis. Blood cultures will be obtained to assess for sepsis. COVID-19, influenza, and RSV PCR will be obtained to assess for viral illness. Lab Data Attestation: I reviewed the patient's lab results. Lab results narrative: CBC was reviewed. There is a leukocytosis of 12.4. There is a mild anemia with a hemoglobin of 12.6. Basic metabolic profile was reviewed. BUN was 23 and creatinine was 2.11. This is slightly increased from previous result. High-sensitivity troponin was reviewed and was normal at 21. BNP was reviewed and was normal at 66.8. COVID-19 PCR was reviewed and was positive. Influenza PCR was reviewed and was negative for influenza A and influenza B. RSV PCR was reviewed and was negative. Labs: Laboratory Results - last 24 hr 12/12/24 12/13/24 12/13/24 16:05 04:37 04:37 WBC 12.4 H Cancelled Corrected WBC Cancelled RBC 4.19 L Cancelled Hgb 12.6 L Cancelled Hct 43.7 Cancelled MCV 104.3 H Cancelled MCH 30.1 Cancelled MCHC 28.8 L Cancelled RDW Std Deviation 52.8 H Cancelled RDW Coeff of Casey 13.7 Cancelled Plt Count 234 Cancelled MPV 9.8 Cancelled Immature Gran % (Auto) 0.600 Neut % (Auto) 85.7 H Lymph % (Auto) 4.5 L [place] % (Auto) 8.7 Eos % (Auto) 0.3 Baso % (Auto) 0.2 Absolute Neuts (auto) 10.6 H Absolute Lymphs (auto) 0.56 L Nucleated RBC % 0 [address] Path Review Cancelled Sodium 138 140 Potassium 4.4 3.7 Chloride 94 L 98 Carbon Dioxide 42.0 H 34.0 H Anion Gap 1 L 8 BUN 23 H 31 H Creatinine 2.11 H 2.36 H Estim Creat Clear Calc 47.09 42.10 Est GFR (MDRD) Af Amer 40 L 35 L Est GFR (MDRD) Non-Af 33 L 29 L BUN/Creatinine Ratio 10.9 13.1 Glucose 150 H 94 Lactic Acid 0.9 Calcium 9.5 8.7 Total Bilirubin 0.50 AST 21 20 ALT 20 Alkaline Phosphatase Total Creatine Kinase 85 Troponin I High Sens 21 B-Natriuretic Peptide 66.8 Total Protein Albumin Globulin Albumin/Globulin Ratio Triglycerides 97 12/13/24 04:37 WBC Corrected WBC RBC Hgb Hct MCV MCH MCHC RDW Std Deviation RDW Coeff of Casey Plt Count MPV Immature Gran % (Auto) Neut % (Auto) Lymph % (Auto) [place] % (Auto) Eos % (Auto) Baso % (Auto) Absolute Neuts (auto) Absolute Lymphs (auto) Nucleated RBC % Diff Path Review Sodium Potassium Chloride Carbon Dioxide Anion Gap BUN Creatinine Estim Creat Clear Calc Est GFR (MDRD) Af Amer Est GFR (MDRD) Non-Af BUN/Creatinine Ratio Glucose Lactic Acid Calcium Total Bilirubin AST ALT 21 Alkaline Phosphatase 73 Total Creatine Kinase Troponin I High Sens B-Natriuretic Peptide Total Protein 5.7 L Albumin 2.2 L Globulin 3.5 Albumin/Globulin Ratio 0.6 L Triglycerides ABG Data Interpretation: Initial arterial blood gas showed a pH of 7.11, pCO2 of 140.5, pO2 of 75, bicarb of 44, and O2 saturation of 85.8% on BiPAP with 100% FiO2. Repeat arterial blood gas after intubation showed a pH of 7.387, pCO2 of 73.1, pO2 of 44.1, bicarb of 43.9, and O2 sat of 76.4. This was likely a venous specimen. This was on a ventilator with FiO2 of 100%, tidal volume of 500, respiratory rate of 18, and 10 of PEEP. ABG results: ABG 12/12/24 12/13/24 18:26 04:52 Specimen Type ART ART Sample Site L Radial L Radial pH 7.39 7.43 Bicarbonate Actual 43.9 H 37.9 H Total CO2 46 40 Base Excess 19 H 14 H O2 Saturation 76 L 86 L O2 % 100.0 80.0 ABG pCO2 73.1 H* 57.6 H ABG pO2 44 L 52 L Alex Test Positive Positive Respiration Rate 18 18 O2 Delivery Device Adult Vent Adult Vent Vent Mode AC AC Tidal Volume 500.0 450.0 POC PEEP 10 5 Crit Call To/Read Back Yes Blood Gas Notified Whom Matt Blood Gas Notified Time 18:27:36 Radiography Chest X-Ray - ED: 1 View, Read by ED Physician, Read by Radiologist and Right Infiltrate Diagnostic Testing: Clinical Impression(s) from Imaging Studies Chest X-Ray 12/12/24 16:15 IMPRESSION: Small right pleural effusion with mild right basilar atelectasis or infiltrate. Reading Location: [facility] Chest X-Ray 12/12/24 17:15 IMPRESSION: 1. New hazy opacity in the right lung with associated volume loss and mild rightward shift of the mediastinum, possibly due to aspiration given its interval development. Flash pulmonary edema is also a differential consideration. 2. Endotracheal tube in satisfactory position. Reading Location: [facility] KUB X-Ray 12/12/24 17:15 IMPRESSION: Enteric tube positioned near the gastroesophageal junction and noted to be advanced in the subsequent chest radiograph. Reading Location: [facility] Portable chest x-ray was obtained. There is 1 view. On my independent interpretation, there is a small right pleural effusion. There is right basilar atelectasis versus infiltrate. Bony thorax is normal. There is no cardiomegaly noted. Radiologist also interpreted the x-ray and agrees. Postintubation portable chest x-ray was obtained. There is 1 view. On my independent interpretation, endotracheal tube is in good position. NG tube goes past the diaphragm. There is increased infiltrate in the right lung. Radiologist also interpreted the x-ray and agrees. Portable abdominal x-ray was obtained post intubation. There is 1 view. On my independent interpretation, the NG tube goes into the stomach. There is no acute abnormality noted. Radiologist also interpreted the x-ray and agrees. EKG Initial EKG: Attestation: I personally reviewed and interpreted this EKG as follows: Interpretation: Sinus Rhythm (72) and Non-Specific ST Changes Comments: EKG was obtained. On my independent interpretation, it shows a sinus rhythm with a rate of 72. MO interval was approximately 210 ms. QRS interval was normal at 90 ms. QTc interval was 451 ms. [place] was normal. There are nonspecific ST-T wave changes. There is a lot of baseline artifact. Prior EKG tracings: available for review Prior: Unchanged (10/25/2021) Management Discussion w/another healthcare provider: Hospitalist Treatment and Re-Evaluation :: Patient was started on BiPAP initially. Patient had minimal improvement with this. Case was discussed with the and family. They are agreeable to intubation. states the patient is agreeable to intubation as long as it is not a long-term ventilator. Patient was given rocuronium and etomidate. Patient was intubated with an 8 ET tube. There was good color change on capnometry. Patient tolerated procedure well. Patient was placed on a ventilator. Patient was placed on propofol and fentanyl drip. Given the worsening infiltrate, patient was started on Rocephin. Case was discussed with the hospitalist. She felt that the patient may need bronchoscopy which is unavailable here until Sunday. She also recommending starting the patient on Zosyn and vancomycin. This was ordered. Family was advised of the possible need for transfer due to need for bronchoscopy. Hospice was into talk with the family. Family does not want hospice at this time. Patient is a full code. Because of the need for bronchoscopy, patient will need to be transferred. Family requested to be transferred to [facility] in [place] due to their affiliation with [facility] and close proximity. Case was discussed with transfer center at [facility]. Patient was accepted to the service of Dr. Javier. Patient will be transferred there when a bed becomes available. Patient had an episode of hypotension. Patient was given IV fluids for this. <Dr. Dimas Gregory, DO - Last Filed: 12/13/24 05:28> [facility] Lab Data Labs: Laboratory Results - last 24 hr 12/12/24 12/13/24 12/13/24 16:05 04:37 04:37 WBC 12.4 H Cancelled Corrected WBC Cancelled RBC 4.19 L Cancelled Hgb 12.6 L Cancelled Hct 43.7 Cancelled MCV 104.3 H Cancelled MCH 30.1 Cancelled MCHC 28.8 L Cancelled RDW Std Deviation 52.8 H Cancelled RDW Coeff of Casey 13.7 Cancelled Plt Count 234 Cancelled MPV 9.8 Cancelled Immature Gran % (Auto) 0.600 Neut % (Auto) 85.7 H Lymph % (Auto) 4.5 L [place] % (Auto) 8.7 Eos % (Auto) 0.3 Baso % (Auto) 0.2 Absolute Neuts (auto) 10.6 H Absolute Lymphs (auto) 0.56 L Nucleated RBC % 0 [address] Path Review Cancelled Sodium 138 140 Potassium 4.4 3.7 Chloride 94 L 98 Carbon Dioxide 42.0 H 34.0 H Anion Gap 1 L 8 BUN 23 H 31 H Creatinine 2.11 H 2.36 H Estim Creat Clear Calc 47.09 42.10 Est GFR (MDRD) Af Amer 40 L 35 L Est GFR (MDRD) Non-Af 33 L 29 L BUN/Creatinine Ratio 10.9 13.1 Glucose 150 H 94 Lactic Acid 0.9 Calcium 9.5 8.7 Total Bilirubin 0.50 AST 21 20 ALT 20 Alkaline Phosphatase Total Creatine Kinase 85 Troponin I High Sens 21 B-Natriuretic Peptide 66.8 Total Protein Albumin Globulin Albumin/Globulin Ratio Triglycerides 97 12/13/24 04:37 WBC Corrected WBC RBC Hgb Hct MCV MCH MCHC RDW Std Deviation RDW Coeff of Casey Plt Count MPV Immature Gran % (Auto) Neut % (Auto) Lymph % (Auto) [place] % (Auto) Eos % (Auto) Baso % (Auto) Absolute Neuts (auto) Absolute Lymphs (auto) Nucleated RBC % Diff Path Review Sodium Potassium Chloride Carbon Dioxide Anion Gap BUN Creatinine Estim Creat Clear Calc Est GFR (MDRD) Af Amer Est GFR (MDRD) Non-Af BUN/Creatinine Ratio Glucose Lactic Acid Calcium Total Bilirubin AST ALT 21 Alkaline Phosphatase 73 Total Creatine Kinase Troponin I High Sens B-Natriuretic Peptide Total Protein 5.7 L Albumin 2.2 L Globulin 3.5 Albumin/Globulin Ratio 0.6 L Triglycerides ABG Data ABG results: ABG 12/12/24 12/13/24 18:26 04:52 Specimen Type ART ART Sample Site L Radial L Radial pH 7.39 7.43 Bicarbonate Actual 43.9 H 37.9 H Total CO2 46 40 Base Excess 19 H 14 H O2 Saturation 76 L 86 L O2 % 100.0 80.0 ABG pCO2 73.1 H* 57.6 H ABG pO2 44 L 52 L Alex Test Positive Positive Respiration Rate 18 18 O2 Delivery Device Adult Vent Adult Vent Vent Mode AC AC Tidal Volume 500.0 450.0 POC PEEP 10 5 Crit Call To/Read Back Yes Blood Gas Notified Whom Matt Blood Gas Notified Time 18:27:36 Radiography Diagnostic Testing: Clinical Impression(s) from Imaging Studies Chest X-Ray 12/12/24 16:15 IMPRESSION: Small right pleural effusion with mild right basilar atelectasis or infiltrate. Reading Location: [facility] Chest X-Ray 12/12/24 17:15 IMPRESSION: 1. New hazy opacity in the right lung with associated volume loss and mild rightward shift of the mediastinum, possibly due to aspiration given its interval development. Flash pulmonary edema is also a differential consideration. 2. Endotracheal tube in satisfactory position. Reading Location: [facility] KUB X-Ray 12/12/24 17:15 IMPRESSION: Enteric tube positioned near the gastroesophageal junction and noted to be advanced in the subsequent chest radiograph. Reading Location: [facility] Management Discussion w/another healthcare provider: Flare Man Treatment and Re-Evaluation :: Patient was started on BiPAP initially. Patient had minimal improvement with this. Case was discussed with the and family. They are agreeable to intubation. states the patient is agreeable to intubation as long as it is not a long-term ventilator. Patient was given rocuronium and etomidate. Patient was intubated with an 8 ET tube. There was good color change on capnometry. Patient tolerated procedure well. Patient was placed on a ventilator. Patient was placed on propofol and fentanyl drip. Given the worsening infiltrate, patient was started on Rocephin. Case was discussed with the hospitalist. She felt that the patient may need bronchoscopy which is unavailable here until Sunday. She also recommending starting the patient on Zosyn and vancomycin. This was ordered. Family was advised of the possible need for transfer due to need for bronchoscopy. Hospice was into talk with the family. Family does not want hospice at this time. Patient is a full code. Because of the need for bronchoscopy, patient will need to be transferred. Family requested to be transferred to [facility] in [place] due to their affiliation with [facility] and close proximity. Case was discussed with transfer center at [facility]. Patient was accepted to the service of Dr. Javier. Patient will be transferred there when a bed becomes available. Patient had an episode of hypotension. Patient was given IV fluids for this. The patient was signed out to me while awaiting potential transfer to [facility]. The patient has been in the emergency department for almost 13 hours and despite multiple calls to [facility] they inform us that there is no bed available and that 1 will most likely not be available for the entire weekend. Based on the patient's need for a critical care bed and management by critical care/freezer assistant/medical instrument technician and need for bronchoscopy I do not feel that waiting in the ER is his best option. The case was discussed with the patient's family and they are agreeable to another facility. Secondary to this [facility] was contacted. The case was discussed with their freezer assistant who recommends patient be placed on steroids and remdesivir. She does agree to accept the patient to their facility. The patient's blood pressure after receiving IV fluids did improve but has been tenuous bouncing between readings of hypotension and then normalizing. At this time the pressure is on average reading 90/60 systolic with a MAP of 65 and therefore we will hold off on central line placement or peripheral vasopressors. The patient has been given a bed at [facility] and now we are simply awaiting transport to their center Procedures <Dr. Sameer Alvarez, DO - Last Filed: 12/12/24 21:10> Intubations Intubation Method: orotracheal Intubation Verification: Positive color change and Bilateral breath sounds confirmed Intubation Complications: no complications <Dr. Sameer Alvarez, DO - Last Filed: 12/12/24 21:10> Critical Care Time Critical Care Time: Yes Critical care time (excluding procedures): 30-74 minutes (47), Including time spent:, Discussing w/Patient &/or Family/Production Hardener, Discussing w/Consultants, Arranging Admission or Transfer and Performing Direct Patient Care at Bedside Discharge Plan Triage Chief Complaint: Shortness of Breath ED Provider: Sameer Alvarez Dx/Rx/DC Orders Clinical Impression: Respiratory failure with hypoxia and hypercapnia, COVID-19, Pneumonia, COPD (chronic obstructive pulmonary disease) Prescriptions: No Action sildenafil [Viagra] 50 MG tablet 50 mg PO DAILY PRN PRN (Reason: Not Specified) amlodipine 10 MG tablet 10 mg PO DAILY metformin 1,000 MG tablet 500 mg PO BIDCM allopurinol 300 MG tablet 300 mg PO DAILY zolpidem [Ambien] 10 MG tablet 10 mg PO QHS PRN PRN (Reason: Sleep) losartan 100 MG tablet 100 mg PO DAILY oxycodone-acetaminophen 1 TABLET tablet 1 - 2 tab PO Q4H PRN PRN (Reason: Pain) Qty: 20 0RF furosemide [Lasix] 40 mg Tablet 40 mg PO DAILY bupropion HCl [Wellbutrin SR] 150 mg Tablet Sustained-Release 12 Hr 150 mg PO BID citalopram [Celexa] 40 mg Tablet 40 mg PO DAILY trazodone 50 mg Tablet 50 mg PO QHS atorvastatin [Lipitor] 10 mg Tablet 10 mg PO DAILY metoprolol succinate 50 mg Tablet Extended Release 24 Hr 50 mg PO DAILY allopurinol 100 mg Tablet 150 mg PO QHS budesonide-formoterol [Symbicort] 160-4.5 mcg/actuation Hfa Aerosol Inhaler 2 puff INHALATION BID Spiriva Respimat 2.5 mcg/actuation Mist 2 puff INHALATION DAILY potassium chloride 20 mEq Tablet Extended Release 20 meq PO DAILY oxycodone-acetaminophen [Percocet] 5-325 mg tablet 1 tab PO Q4H PRN (Reason: pain) 7 Days Qty: 42 0RF enoxaparin 40 mg/0.4 mL syringe 40 mg subcut DAILY 28 Days Qty: 11.2 0RF Rx Instructions: please dispense 28 syringes. Primary Care Provider: Arash Pack Referrals: Arash Pack MD [Primary Care Provider] - Print Language: Andorran Disposition Disposition: Acute Care Hospital Discharge Location: [facility]
--- NOTE | 2024-12-12 16:08 | CPS ---
Critical ABG values verified times two. Hand delivered results to DR. Angela.
--- NOTE | 2024-12-12 16:15 | RAD_ITS ---
PROCEDURE: CHEST 1 VIEW (PORTABLE) REASON FOR EXAM: Dyspnea TECHNIQUE: Frontal view of the chest. COMPARISON: 10/26/2021 FINDINGS: There is a small right pleural effusion with mild right basilar atelectasis or infiltrate. The lung jackson are otherwise clear. The cardiomediastinal silhouette is unremarkable. No acute osseous or soft tissue abnormality. RAD/Chest 1 View (Portable) IMPRESSION: Small right pleural effusion with mild right basilar atelectasis or infiltrate. [facility]
[2024-12-12 16:23] LABS: Absolute Lymphocyte Count 0.56 X10^3/uL (0.83-4.51); Absolute Neutrophil Count 10.6 X10^3/uL (2.0-7.7); Basophil# 0.02 X10^3/uL; Basophil% 0.2 % (0-1); Eosinophil# 0.04 X10^3/uL; Eosinophils% 0.3 % (0-5); Hematocrit 43.7 % (40-54); Hemoglobin 12.6 g/dL (13.0-16.5); Lymphocyte # 0.56 X10^3/ul (0.83-4.51); Lymphocyte % 4.5 % (19-41); Mean Corp Hgb Conc 28.8 g/dL (32-36); Mean Corpuscular Hgb 30.1 pg (27.0-32.0); Mean Corpuscular Volume 104.3 fL (80-94); Mean Platelet Vol. 9.8 fl (6.2-12.0); Monocyte# 1.08 X10^3/uL; Monocyte% 8.7 % (0-10); NRBC Flagged by Analyzer 0 % (0-5); Neutrophil # 10.61 X10^3/uL (2.7-7.7); Neutrophil % 85.7 % (47-70); POSITIVE DIFFERENTIAL YES; Platelet Count 234 K/mm3 (150-450); RBC Distribution Width CV 13.7 % (11.6-14.6); RBC Distribution Width SD 52.8 fl (35.1-43.9); Red Blood Count 4.19 M/mm3 (4.6-6.2); White Blood Count 12.4 K/mm3 (4.4-11.0)
[2024-12-12 16:55] LABS: Anion Gap 1 (5-15); BUN 23 mg/dL (7-18); BUN/Creat Ratio 10.9 RATIO (10-20); Calcium,Total 9.5 mg/dL (8.5-10.1); Chloride 94 mmol/L (98-107); Creatinine, Serum 2.11 mg/dL (0.70-1.30); EST Glomerular Filtration Rate 33 mL/min (>60); Est Glom Filt Rate - Afr Amer 40 mL/min (>60); Estimated Creatinine Clearance 47.09 ml/min; Glucose 150 mg/dL (74-106); Lactic Acid 0.9 mmol/L (0.4-1.9); Potassium 4.4 mmol/L (3.5-5.1); Sodium Level 138 mmol/L (136-145); Troponin-I HS 21 pg/mL (3.0-78.0)
[2024-12-12] MEDS: Etomidate 20 MG/10 ML Vial 40 MG IV (17:02)
[2024-12-12] MEDS: Rocuronium Bromide 50 MG/5 ML Vial 100 MG IV (17:03)
--- NOTE | 2024-12-12 17:15 | RAD_ITS ---
PROCEDURE: ABDOMEN SINGLE VIEW (PORTABLE) REASON FOR EXAM: NG insertion TECHNIQUE: Single view abdomen. COMPARISON: 12/12/2024 FINDINGS: Limited exam including the lung bases and upper abdomen. The enteric tube is positioned with the tip near the gastroesophageal junction. There was advancement on the subsequent chest radiograph. RAD/Abdomen Single View (Portable) IMPRESSION: Enteric tube positioned near the gastroesophageal junction and noted to be adva nced in the subsequent chest radiograph. Reading Location: [facility]
--- NOTE | 2024-12-12 17:15 | RAD_ITS ---
PROCEDURE: CHEST 1 VIEW (PORTABLE) REASON FOR EXAM: Intubation TECHNIQUE: Frontal views of the chest. COMPARISON: 12/12/2024 FINDINGS: The endotracheal tube is in satisfactory position measuring 4.4 cm above the mahnaz. There are new diffuse pulmonary airspace opacities in the right lung with volume loss. No pleural effusion or pneumothorax identified. The cardiomediastinal silhouette is normal in size. There is some right-sided shift of the mediastinum due to volume loss in the right hemithorax. An enteric tube is coursing into the stomach. No acute osseous or soft tissue abnormality. RAD/Chest 1 View (Portable) IMPRESSION: 1. New hazy opacity in the right lung with associated volume loss and mild righ tward shift of the mediastinum, possibly due to aspiration given its interval development. Flash pulmonary edema is also a dif ferential consideration. 2. Endotracheal tube in satisfactory position. Reading Location: [facility]
[2024-12-12 17:16] LABS: BNP,B-Type NATRIURETIC PEPTIDE 66.8 pg/mL (0-100)
[2024-12-12] MEDS: Propofol 10MG/Ml 1,000 MG/100 ML Bottle 7.9 MG CONT INF (17:20)
[2024-12-12] MEDS: Ipratropium/Albuterol Sulfate 3 ML AMPUL.NEB INHALATION (17:43)
[2024-12-12] MEDS: fentaNYL drip 100 ML 2.5 MCG CONT INF (18:01)
[2024-12-12 18:19] LABS: CPK Total, Creatine Kinase 85 U/L (39-308); Triglycerides 97 mg/dL
[2024-12-12 18:30] LABS: Allen Test Positive; Base Excess 19 mmol/L (-2 to +2); Bicarbonate 43.9 mmol/L (22-26); Blood Gas Specimen Type ART; Mode AC; O2 Delivery Device Adult Vent; PEEP 10; PO2 44 mmHG (75-100); RR 18; SITE L Radial; SO2 76 % (95-99); Total Carbon Dioxide 46 mmol/L; pCO2 73.1 mmHg (35-45); pH 7.39 (7.35-7.45)
[2024-12-12] MEDS: Ceftriaxone 2 GM in 0.9% Normal Saline (50mL MB+) 50 ML IV (19:02)
[2024-12-12] MEDS: Piperacil/Tazobactam 4.5 GM in 0.9% Normal Saline (100mL MB+) 100 ML IV (19:51)
[2024-12-12] MEDS: Vancomycin HCl 2,000 MG in 0.9% Normal Saline (500mL Bag) 500 ML 250 MG IV (20:30)
--- NOTE | 2024-12-12 20:35 | ED.RN ---
PATIENT BITING ON VENTALATOR TUBING AND MAKING JERKING MOVEMENTS WITH HIS ARMS AND LEGS. HE APPEARS TO BE RESTLESS. PROPOFOL AND FENTANYL INCREASED TITRATION PER [facility] PROTOCOL.
[2024-12-12] MEDS: 0.9% Normal Saline (1000mL) 1,000 ML 999 ML IV (20:58)
[2024-12-12] MEDS: Acetaminophen 650 MG Suppository RC (21:39)
[2024-12-12] MEDS: Lorazepam 2 MG/ML WCH Syringe 0.5 MG IV (21:45)
--- NOTE | 2024-12-12 23:00 | ED.RN ---
THIS RN UPDATED PATIENT RESTRAINT DOCUMENTATION WHEN SHE NOTICED SOME OF THE CHARTING ENTERED BY PRIOR NURSE HAD BEEN INCORRECT REGARDING THE BEHAVIOR CHARTED (NOT BEING ONE OF THE CHOICES TO CHOOSE FROM) AND THE LIMBS RESTRAINED. JUNIOR, CHARGE NURSE NOTIFIED.
[2024-12-12] MEDS: 0.9% Normal Saline (1000mL) 1,000 ML 1000 ML IV (23:56)
[2024-12-13] VITALS (13 sets, daily range): BP systolic 81–118; BP diastolic 47–86; PULSE 73–119; RESP 18–24; TEMP 38.1; O2SAT 93–98
[2024-12-13] MEDS: Propofol 10MG/Ml 1,000 MG/100 ML Bottle 7.9 MG CONT INF (01:56)
[2024-12-13] MEDS: MethylPREDNISolone 125 MG/2 ML Vial IV (04:36)
[2024-12-13 04:56] LABS: Allen Test Positive; Base Excess 14 mmol/L (-2 to +2); Bicarbonate 37.9 mmol/L (22-26); Blood Gas Specimen Type ART; Mode AC; O2 Delivery Device Adult Vent; PEEP 5; PO2 52 mmHG (75-100); RR 18; SITE L Radial; SO2 86 % (95-99); Total Carbon Dioxide 40 mmol/L; pCO2 57.6 mmHg (35-45); pH 7.43 (7.35-7.45)
[2024-12-13 05:07] LABS: ALB/GLOB Ratio 0.6 RATIO (0.9-2.4); AST(SGOT) 21 U/L (15-37); Alanine Aminotransfer ALT/SGPT 20 U/L (16-61); Albumin, Serum 2.2 g/dL (3.2-5.0); Alkaline Phosphatase 73 U/L (45-117); Anion Gap 8 (5-15); BUN 31 mg/dL (7-18); BUN/Creat Ratio 13.1 RATIO (10-20); Calcium,Total 8.7 mg/dL (8.5-10.1); Chloride 98 mmol/L (98-107); Creatinine, Serum 2.36 mg/dL (0.70-1.30); EST Glomerular Filtration Rate 29 mL/min (>60); Est Glom Filt Rate - Afr Amer 35 mL/min (>60); Globulin 3.5 g/dL (2.2-4.2); Glucose 94 mg/dL (74-106); Potassium 3.7 mmol/L (3.5-5.1); Protein, Total 5.7 g/dL (6.4-8.2); Sodium Level 140 mmol/L (136-145)
[2024-12-13] MEDS: fentaNYL drip 100 ML 12.5 MCG CONT INF (05:13)
[2024-12-13] MEDS: Remdesivir 200 MG in 0.9% Normal Saline (250mL Bag) 210 ML 250 MG IV (05:21)
[2024-12-13 05:23] LABS: AST(SGOT) 20 U/L (15-37); Alanine Aminotransfer ALT/SGPT 21 U/L (16-61)
[2024-12-13 05:31] LABS: Hematocrit 34.4 % (40-54); Hemoglobin 10.6 g/dL (13.0-16.5); Mean Corp Hgb Conc 30.8 g/dL (32-36); Mean Corpuscular Hgb 30.5 pg (27.0-32.0); Mean Corpuscular Volume 99.1 fL (80-94); Mean Platelet Vol. 10.2 fl (6.2-12.0); Platelet Count 205 K/mm3 (150-450); RBC Distribution Width CV 13.6 % (11.6-14.6); RBC Distribution Width SD 49.7 fl (35.1-43.9); Red Blood Count 3.47 M/mm3 (4.6-6.2); White Blood Count 17.3 K/mm3 (4.4-11.0)
[2024-12-13 06:38] LABS: Allen Test POS; Blood Gas Specimen Type ART; O2 Delivery Device Bi Pap; SITE R RADIAL
[2024-12-13 06:39] LABS: pH 7.11 (7.35-7.45)
[2024-12-13 06:40] LABS: Base Excess 15 mmol/L (-2 to +2); Bicarbonate 44.2 mmol/L (22-26); PO2 75 mmHG (75-100); SO2 86 % (95-99); Total Carbon Dioxide 49 mmol/L; pCO2 140.5 mmHg (35-45)
--- NOTE | 2024-12-13 07:40 | RAD_ITS ---
PROCEDURE: Portable upright chest radiograph, one view REASON FOR EXAM: Follow-up pneumonia, intubated TECHNIQUE: Single frontal image including the chest. COMPARISON: 12/12/2024 FINDINGS: The cardiomediastinal silhouette is similar, accounting for rightward rotation. Osseous structures appear intact. Distal tip of the nasogastric tube is below the hemidiaphragms, off the inferior margin of the image. Distal tip of the endotracheal tube projects just below the level of the medial clavicles. Left lung is clear. There is moderate patchy opacity projecting over the mid, upper, and lower portions of the right lung, progressed from the previous study. There is a probable small right pleural effusion and similar elevation of the right hemidiaphragm. RAD/Chest 1 View (Portable) IMPRESSION: Life-support devices as above. Progressed patchy opacity projecting over the upper, mid, and lower portions o f the right lung, concerning for worsening pneumonia. Probable small right pleural effusion. Similar elevation of the ri ght hemidiaphragm. Recommend continued radiologic follow-up to document resolution.. Reading [facility]
--- NOTE | 2024-12-13 08:08 | ED.RN ---
PT TRANSFERRED WITH [facility].
== END 2024-12-13 08:55 | disposition short-term general hospital (02) ==
PROVIDERS: Emergency Medicine; Emergency Provider Emergency Medicine; PCP Family Medicine; Visit Provider Emergency Medicine
DX: J96.91 Respiratory failure, unspecified with hypoxia (principal); J96.92 Respiratory failure, unspecified with hypercapnia; J44.9 Chronic obstructive pulmonary disease, unspecified; E11.22 Type 2 diabetes mellitus with diabetic chronic kidney disease; N18.30 Chronic kidney disease, stage 3 unspecified; U07.1 COVID-19; I12.9 Hypertensive chronic kidney disease with stage 1 through stage 4 chronic kidney disease, or unspecified chronic kidney disease; J18.9 Pneumonia, unspecified organism
CPT/HCPCS: 31500; 31720; 36600; 51702; 71045; 74018; 80048; 80053; 82550; 82803; 83605; 83880; 84450; 84460; 84478; 84484; 85025; 85027; 87040; 87070; 87077; 87205; 87631; 93005; 94002; 94003; 94640; 96365; 96366; 96367; 96368; 96375; 99252; 99285; A4216; G0463; J0248; J0696

== ENCOUNTER 2025-02-10 11:02 | Inpatient (IN) | payer MEDICARE, SELFPAY ==
[2025-02-10] VITALS (25 sets, daily range): BP systolic 90–138; BP diastolic 53–75; PULSE 90–118; RESP 12–43; TEMP 36.5–37.7; O2SAT 55–100; BMI 40.7; BMI 48.7
--- NOTE | 2025-02-10 11:03 | EKG12_ITS ---
Test Reason : Blood Pressure : */* mmHG Vent. Rate : 98 BPM Atrial Rate : 98 BPM P-R Int : 160 ms QRS Dur : 142 ms QT Int : 368 ms P-R-T Axes : 8 47 54 degrees QTcB Int : 469 ms Normal sinus rhythm Right bundle branch block Abnormal ECG Confirmed by Moy Nazario ([id number]), metropolitan editor ABEBE CARLOS ([id number]) on 02/13/2025 6:28:42 AM Referred By: BETH Confirmed By: Moy Nazario
--- NOTE | 2025-02-10 11:03 | RAD_ITS ---
PROCEDURE: CHEST 1 VIEW (PORTABLE) 02/10/2025 REASON FOR EXAM: RESPIRATORY STRESS, RESPIRATORY FAILURE, ABSENT BR TECHNIQUE: Frontal view of the chest. COMPARISON: 12/12/2024 FINDINGS: Heart: Unremarkable. Mediastinum: Similar widening of the RIGHT paratracheal stripe compared with at least 10/26/2021. Lungs/pleura: Suspect lobar consolidation/atelectasis of the RIGHT lower and middle lobes, rather than elevation of the RIGHT hemidiaphragm. The appearance has worsened slightly from 12/12/2024. Difficult to exclude a component of effusion on the RIGHT.. No sizeable effusion on the LEFT. No visible pneumothorax. Suspect mild patchy airspace disease on the LEFT. Bones: Unremarkable. Lines and support devices: None. Other: None. RAD/Chest 1 View (Portable) IMPRESSION: 1. Suspect lobar consolidation/atelectasis of the RIGHT lower and middle lobes, rather than elevation of the RIGHT hemidiaphragm. The appearance has worsened slightly from 12/12/2024. Difficult to exclude a c omponent of effusion on the RIGHT. Although this could reflect progressive pneumonia, central obstructing process should be excl uded. Recommend CT chest with IV contrast. 2. Given the above as well as suspected patchy mild airspace disease on the LEF T, multifocal pneumonia or edema/pneumonitis are possible. CT should be helpful as above. 3. Additional description as above. Reading Location: [id number]
--- NOTE | 2025-02-10 11:07 | ED.VIS.DYS ---
HPI History of Present Illness Chief Complaint: Shortness of Breath Detail of Chief Complaint: Shortness of breath with pulse ox of 50% on BiPAP Informant: patient, EMS and SNF ([facility]) Onset/Context/Timing Onset: Today and Hours Context: sudden Timing: Continuous Quality: Positive for - (Shortness of breath and low pulse ox) Current Severity: Moderate Maximum Severity: Severe Worsened by: Exertion and Coughing Relieved by: Nothing Associated Symptoms cough; Negative for rhinorrhea, post nasal drip, ear pain, fever, sore throat, subjective, chills or sweats Chest Pain: Positive for None Narrative Narrative: Patient is a 70-year-old male. He has history of COPD, hypercholesterolemia, hypertension who presents by ambulance from [facility] on CPAP. He had a pulse ox of 50% on BiPAP. He was recently seen and admitted at [facility]. He states he had his lungs cleaned out. He does not have history of PE. Apparently he is on Lovenox. Will need to confirm. Patient denies fever or chills. Does have a cough. Cough is nonproductive. He denies pain with breathing. He does have swelling of his upper and lower extremities. This is not new. PE Risk Factors: Positive for Recent immobilization and - (History of COPD with chronic respiratory failure); Negative for Cancer, OCP + Smoking + > 35, Prior DVT or PE, Recent surgery or Recent travel Prior similar symptoms: Yes Recent Illness/Hospitalization: Yes [facility] Medical History Anxiety Depression Diabetes On home oxygen therapy COPD (chronic obstructive pulmonary disease) Hypertension Ankle fracture CKD (chronic kidney disease), stage III Home Medications ?Medication ?Instructions ?Recorded ?Last Taken ?Type allopurinol 300 mg tablet 300 mg PO DAILY 12/05/13 Unknown History amlodipine 10 mg tablet 10 mg PO DAILY 12/05/13 Unknown History losartan 100 mg tablet 100 mg PO DAILY 12/05/13 Unknown History metformin 1,000 mg tablet 500 mg PO BIDCM 12/05/13 Unknown History sildenafil 50 mg tablet (Viagra) 50 mg PO DAILY PRN PRN Not 12/05/13 Unknown History Specified zolpidem 10 mg tablet (Ambien) 10 mg PO QHS PRN PRN Sleep 12/05/13 Unknown History oxycodone-acetaminophen 5 mg-325 1 - 2 tab PO Q4H PRN PRN Pain #20 12/19/13 Unknown Rx mg tablet tabs allopurinol 100 mg tablet 150 mg PO QHS 10/26/21 Unknown History atorvastatin 10 mg tablet (Lipitor) 10 mg PO DAILY 10/26/21 Unknown History budesonide-formoterol HFA 160 2 puff inhalation BID 10/26/21 Unknown History mcg-4.5 mcg/actuation aerosol inhaler (Symbicort) bupropion HCl 150 mg tablet,12 hr 150 mg PO BID 10/26/21 Unknown History sustained-release (Wellbutrin SR) citalopram 40 mg tablet (Celexa) 40 mg PO DAILY 10/26/21 Unknown History furosemide 40 mg tablet (Lasix) 40 mg PO DAILY 10/26/21 Unknown History metoprolol succinate 50 mg 50 mg PO DAILY 10/26/21 Unknown History tablet,extended release 24 hr potassium chloride 20 mEq 20 meq PO DAILY 10/26/21 Unknown History tablet,extended release tiotropium bromide 2.5 2 puff inhalation DAILY 10/26/21 Unknown History mcg/actuation mist for inhalation (Spiriva Respimat) trazodone 50 mg tablet 50 mg PO QHS 10/26/21 Unknown History oxycodone-acetaminophen 5 mg-325 1 tab PO Q4H PRN pain 7 days #42 10/28/21 Unknown Rx mg tablet (Percocet) tabs enoxaparin 40 mg/0.4 mL 40 mg (0.4 mL) subcut DAILY 28 10/29/21 Unknown Rx subcutaneous syringe days #11.2 mL Allergy/AdvReac Type Severity Reaction Status Date / Time lisinopril AdvReac Other Verified 02/10/25 11:04 Social History (Updated 02/10/25 @ 11:[address] Kobi Bolaños MD) housing: residential Smoking Status: Never smoker ROS ROS ED Constitutional Constitutional ED: Reports chills; Denies fever(s), sweats or weight loss Eyes Eyes: Denies blurry vision or change in vision ENT ENT ED: Denies rhinorrhea or sore throat Cardiovascular Cardiovascular: Reports orthopnea; Denies chest pain, palpitations or paroxysmal nocturnal dyspnea Respiratory/Chest Respiratory/Chest: Reports cough, dyspnea, dyspnea on exertion and orthopnea; Denies paroxysmal nocturnal dyspnea Gastrointestinal Gastrointestinal: Denies abdominal pain, nausea or vomiting Genitourinary Genitourinary ED: Denies dysuria or hematuria Musculoskeletal Musculoskeletal: Denies arthralgias or myalgias Integumentary Denies rash Neurologic Neurologic: Denies headache(s) or paresthesias Endocrine Endocrinology: Denies cold intolerance or heat intolerance Hematologic/Lymphatic Hematologic/Lymphatic: Denies easy bleeding or easy bruising EXAM Physical Exam Const Vital Signs: 02/10/25 11:05 02/10/25 11:05 02/10/25 11:11 Temperature 97.7 F L Temperature Source Axillary Pulse Rate 108 H Respiratory Rate 43 H Respiratory Effort Short of Breath Labored Respiratory Depth Shallow Respiratory Pattern Tachypnea Blood Pressure 113/73 Blood Pressure Mean 86 Pulse Ox 55 84 Oxygen Delivery Method Room Air Bi-pap Oxygen Flow Rate (L/min) 65 Fraction of Inspired Oxygen (FIO2) 02/10/25 11:12 02/10/25 11:54 02/10/25 12:24 Temperature 97.7 F L Temperature Source Axillary Pulse Rate 118 H 99 103 H Respiratory Rate 43 H 24 H 15 Respiratory Effort Respiratory Depth Respiratory Pattern Tachypnea Blood Pressure 113/73 106/60 Blood Pressure Mean 86 75 Pulse Ox 84 97 Oxygen Delivery Method Room Air Bi-pap Oxygen Flow Rate (L/min) Fraction of Inspired Oxygen (FIO2) 100 Positive well nourished and well developed Constitutional Narrative: Elevated BMI patient is in respiratory distress. He is hypoxic. He is alert and oriented however. General Appearance ED: well developed and pallor; Negative for NAD HEENT Reports moist mucous membranes HEENT Narrative: Head is atraumatic normocephalic. Ears normal. Nares patent. Eyes PERRL General Eye ED: Negative for pale conjunctiva or scleral icterus Neck no lymphadenopathy, supple, no meningeal signs and no JVD Neck Narrative: Difficult to determine if patient has JVD due to body habitus. Resp No normal respiratory effort and No clear to auscultation bilaterally Resp Narrative: Absent breath sounds left. Patient has fine expiratory wheezing noted. There are crackles left base as well. Cardio regular rate, regular rhythm, S1 normal heart sound, S2 normal heart sound and no murmurs GI non-tender, non-distended and no masses Auscultation: hypoactive bowel sounds Palpation: soft Back/Spine no CVA tenderness Extremity Extremity Narrative: Edema of the upper and lower extremities. Worse lower. Neuro oriented x3 and CN's II-XII intact bilaterally Neuro Narrative: He is awake and surprisingly alert. [place] Coma Scale: document GCS findings Spontaneous Obeys Commands Oriented 15 Psych mental status grossly normal Skin General Skin Exam: pallor Sepsis Attestation Sepsis Alert: Yes Sepsis Attestation: Agree w/Sepsis Date exam was performed: 02/10/25 Time exam was performed: 11:42 Possible Source of Sepsis: Pulmonary MDM MDM MDM Narrative Medical decision making narrative: Differential diagnosis would include cardiac ischemia, CHF, pneumothorax with absent breath sounds on the left, exacerbation of COPD, pneumonia need to entertain possibility of PE as well. There are no recent ER records other than COVID-19 diagnosed in the emergency department by Dr. Browne. His last admission was October 2021. History & Record Review Additional record(s) reviewed:: Prior inpatient record, Prior ED visit and Prior labs Lab Data Attestation: I reviewed the patient's lab results. Lab results narrative: CBC reveals anemia. I was informed at 1144 the patient's white count is 31.6 thousand. In light of this blood cultures were ordered. Labs: Laboratory Results - last 24 hr 02/10/25 02/10/25 02/10/25 10:58 11:13 11:19 WBC 31.6 H* RBC 3.43 L Hgb 10.3 L Hct 34.0 L MCV 99.1 H MCH 30.0 MCHC 30.3 L RDW Std Deviation 52.7 H RDW Coeff of Casey 14.5 Plt Count 608 H MPV 9.2 Immature Gran % (Auto) 2.600 H Neut % (Auto) 87.4 H Lymph % (Auto) 5.3 L [place] % (Auto) 3.9 Eos % (Auto) 0.3 Baso % (Auto) 0.5 Absolute Neuts (auto) 27.7 H Absolute Lymphs (auto) 1.69 Nucleated RBC % 0.1 Diff Path Review May foll Platelet Estimate MKD INC Polychromasia 1+ Anisocytosis 1+ Sodium 142 Potassium 4.1 Chloride 95 L Carbon Dioxide 34.6 H Anion Gap 12 BUN 15 Creatinine 1.44 H Estim Creat Clear Calc 69.19 Est GFR (MDRD) Non-Af 53 L BUN/Creatinine Ratio 10.7 Glucose 172 H Lactic Acid 2.2 H* Calcium 10.1 Total Bilirubin 0.17 AST 19 ALT 18 Alkaline Phosphatase 109 Troponin T High Sens 102 H* NT pro BNP II 338 Total Protein 6.7 Albumin 3.3 L Globulin 3.4 Albumin/Globulin Ratio 1.0 POC Glucose 150 H Troponin is elevated at 102. This may represent a type III non-STEMI. ABG Data Attestation: I personally reviewed and interpreted this ABG as follows: Interpretation: ABG reveals chronic primary respiratory acidosis with secondary metabolic acidosis. ABG results: ABG 02/10/25 11:22 Specimen Type ART Sample Site L Radial pH 7.35 Bicarbonate Actual 41.8 H Total CO2 44 Base Excess 16 H O2 Saturation 89 L O2 % 65.0 ABG pCO2 75.8 H* ABG pO2 62 L Alex Test Positive Respiration Rate 12 O2 Delivery Device BiPAP Vent Mode Not entered POC PEEP 10 Crit Call To/Read Back Yes Blood Gas Notified Whom bolaños Blood Gas Notified Time 11:23:29 Radiography Chest X-Ray - ED: 1 View and Read by ED Physician (Elevated right hemidiaphragm. There may be an infiltrate left lower lobe. There is no old recent chest x-rays for comparison. Since there was question of a left lower lobe infiltrate and he had recent hospitalization we will start on antibiotics.) Diagnostic Testing: Clinical Impression(s) from Imaging Studies Chest X-Ray 02/10/25 11:03 IMPRESSION: 1. Suspect lobar consolidation/atelectasis of the RIGHT lower and middle lobes, rather than elevation of the RIGHT hemidiaphragm. The appearance has worsened slightly from 12/12/2024. Difficult to exclude a component of effusion on the RIGHT. Although this could reflect progressive pneumonia, central obstructing process should be excluded. Recommend CT chest with IV contrast. 2. Given the above as well as suspected patchy mild airspace disease on the LEFT, multifocal pneumonia or edema/pneumonitis are possible. CT should be helpful as above. 3. Additional description as above. Reading Location: [facility] EKG Initial EKG: Attestation: I personally reviewed and interpreted this EKG as follows: Interpretation: Sinus Rhythm (Rate is 82. [place] to left. There is evidence of right bundle branch block. ID interval is normal at 172 ms. QRS duration is prolonged at 158 ms. QT duration 454 ms. There are most likely repolarization changes due to the right bundle branch block but cannot exclude ischemia.) Management Discussion w/another healthcare provider: Hospitalist (Case was discussed with hospitalist. Patient to be admitted to ICU. She will consult tripe finisher.) Treatment and Re-Evaluation :: Since patient is alert not an extremis even though his pulse ox is low discussed his CODE STATUS. He states he would allow intubation if absolutely necessary. He prefer not to be intubated. He was switched from CPAP to BiPAP. I was informed at 1132 that his O2 sat is now 91%. Comments:: I was informed by nursing staff the patient's pulse ox dropped to the 50s. He is on BiPAP. Adjustments were made. With a good waveform he is in the upper 70s. Patient is struggling to breathe. He is requesting intubation. Patient was being prepped for intubation. He is now 97%. When he was in the 70s his FiO2 was 65. His FiO2 now is 1.0. He is no longer in respiratory distress. And since he voiced initially he does not want to be intubated unless absolutely necessary will not intubate. Hospitalist has been paged for admission. Critical Care Time Critical Care Time: Yes Critical care time (excluding procedures): 30-74 minutes (33), Including time spent: (History, physical, documentation, review of prior records, independent rotation laboratory results including chest x-ray), Discussing w/Patient &/or Family/Maintenance Man, Discussing w/Consultants and Arranging Admission or Transfer Discharge Plan Dx/Rx/DC Orders Clinical Impression: Acute on chronic respiratory failure with hypoxia and hypercapnia, COPD exacerbation, Acute bronchospasm, Sinus tachycardia, DNR (do not resuscitate) discussion, DNR no code (do not resuscitate), Type 2 diabetes mellitus, History of hypertension, Sepsis, Pneumonia, Non-ST elevated myocardial infarction (non-STEMI) Disposition Disposition: [facility]
[2025-02-10 11:25] LABS: Allen Test Positive; Base Excess 16 mmol/L (-2 to +2); Bicarbonate 41.8 mmol/L (22-26); Blood Gas Specimen Type ART; Mode Not entered; O2 Delivery Device BiPAP; PEEP 10; PO2 62 mmHG (75-100); RR 12; SITE L Radial; SO2 89 % (95-99); Time Given 11:23:29; Total Carbon Dioxide 44 mmol/L; pCO2 75.8 mmHg (35-45); pH 7.35 (7.35-7.45)
[2025-02-10 11:30] LABS: Bedside Glucose 150 mg/dL (74-106)
[2025-02-10 11:34] LABS: Absolute Lymphocyte Count 1.69 X10^3/uL (0.83-4.51); Absolute Neutrophil Count 27.7 X10^3/uL (2.0-7.7); Basophil# 0.16 X10^3/uL; Basophil% 0.5 % (0-1); Eosinophil# 0.08 X10^3/uL; Eosinophils% 0.3 % (0-5); Hemoglobin 10.3 g/dL (13.0-16.5); Lymphocyte # 1.69 X10^3/ul (0.83-4.51); Lymphocyte % 5.3 % (19-41); Mean Corp Hgb Conc 30.3 g/dL (32-36); Mean Corpuscular Volume 99.1 fL (80-94); Mean Platelet Vol. 9.2 fl (6.2-12.0); Monocyte# 1.22 X10^3/uL; Monocyte% 3.9 % (0-10); NRBC Flagged by Analyzer 0.1 % (0-5); Neutrophil # 27.65 X10^3/uL (2.7-7.7); Neutrophil % 87.4 % (47-70); POSITIVE COUNT YES; POSITIVE DIFFERENTIAL YES; Platelet Count 608 K/mm3 (150-450); RBC Distribution Width CV 14.5 % (11.6-14.6); RBC Distribution Width SD 52.7 fl (35.1-43.9); Red Blood Count 3.43 M/mm3 (4.6-6.2)
[2025-02-10 11:36] LABS: Differential Indicated SCAN CRITERIA MET
[2025-02-10 11:41] LABS: White Blood Count 31.6 K/mm3 (4.4-11.0)
[2025-02-10] MEDS: Albuterol 2.5 MG/3 ML VIAL.NEB. INHALATION ×3 (11:51)
[2025-02-10] MEDS: Ipratropium/Albuterol Sulfate 3 ML AMPUL.NEB INHALATION ×2 (11:51→18:57)
[2025-02-10] MEDS: Vancomycin HCl 2,000 MG in 0.9% Normal Saline (500mL Bag) 500 ML 250 MG IV (12:03)
--- NOTE | 2025-02-10 12:04 | ED.RN ---
lactic acid 2.. aware
[2025-02-10 12:06] LABS: AST(SGOT) 19 U/L (<=37); Alanine Aminotransfer ALT/SGPT 18 U/L (<=46); Albumin, Serum 3.3 g/dL (3.4-4.8); Alkaline Phosphatase 109 U/L (40-129); Anion Gap 12 (5-15); BUN 15 mg/dL (4-19); BUN/Creat Ratio 10.7 RATIO (10-20); Calcium,Total 10.1 mg/dL (7.6-11.0); Carbon Dioxide 34.6 mmol/L (21.0-32.0); Chloride 95 mmol/L (98-108); Creatinine, Serum 1.44 mg/dL (0.70-1.20); EST Glomerular Filtration Rate 53 (>60); Estimated Creatinine Clearance 69.19 ml/min (50-250); Globulin 3.4 g/dL (2.2-4.2); Glucose 172 mg/dL (70-99); Potassium 4.1 mmol/L (3.3-5.1); Pro- Brain NATRIURETIC PEPTIDE 338 pg/mL (<=900); Protein, Total 6.7 g/dL (5.9-8.4); Sodium Level 142 mmol/L (133-145); Total Bilirubin 0.17 mg/dL (0.00-1.30)
[2025-02-10 12:13] LABS: Lactic Acid 2.2 mmol/L (0.0-2.0)
[2025-02-10 12:14] LABS: Platelet Estimate MKD INC (ADEQ)
[2025-02-10 12:15] LABS: Anisocytosis 1+; Polychromasia 1+
[2025-02-10 12:25] LABS: Troponin T High Sensitivity 102 ng/L (<=22)
--- NOTE | 2025-02-10 12:27 | PCM.HP.STD ---
HPI - General General Date of Admission: 02/10/25 Date of Service: 02/10/25 Chief Complaint: shortness of breath HPI Narrative ARA RUSSO, is a 70 M with a PMH as outlined who was admitted via the ED On 02/10/2025 with a complaint of shortness of breath. He was brought in from his SNF where he was found very short of breath. He was recently admitted at [facility] for shortness of breath and said he had his lungs cleaned out. He denies any fever or chills but admitted to a cough which was nonproductive. He denied any fever or chills. Review of systems is otherwise negative. He says he thinks the oxygen and his concentrator finished leading to him feeling very short of breath. Vitals in the ED were blood pressure 118/63, pulse rate of 90, respirate rate of 20 and oxygen saturation of 100% on BiPAP. CBC showed hemoglobin of 10.3 with WBC of 31.6 and platelets of 608. Chemistry showed sodium of 142 potassium of 4.1 and bicarb of 34.6. Creatinine was 1.44. Lactic acid was 2.2. Initial troponin was 102 and proBNP was 338. Chest x-ray showed suspected lobar consolidation atelectasis of the right lower and middle lobes rather than elevation of the right hemidiaphragm with appearance slightly worsened from 12/12/2024 and unable to exclude a component of effusion on the right. Stat CT AP of the chest showed no evidence of PE and showed lobar consolidation and collapse of the right lower lobe with near complete opacification of the left lower lobe involving the right middle lobe to a lesser degree and evidence of mild endobronchial debris as well as a nonspecific 2.2 cm pleural extrapleural rounded lesion in the right apex abutting the right ribs with neoplasm not excluded. He has been admitted to be managed for acute on chronic hypoxic respiratory failure with concerns for aspiration pneumonia. [facility] Medical History Anxiety Depression Diabetes On home oxygen therapy COPD (chronic obstructive pulmonary disease) Hypertension Ankle fracture CKD (chronic kidney disease), stage III Home Medications ?Medication ?Instructions ?Recorded ?Last Taken ?Type allopurinol 300 mg tablet 300 mg PO DAILY 12/05/13 Unknown History amlodipine 10 mg tablet 10 mg PO DAILY 12/05/13 Unknown History losartan 100 mg tablet 100 mg PO DAILY 12/05/13 Unknown History metformin 1,000 mg tablet 500 mg PO BIDCM 12/05/13 Unknown History sildenafil 50 mg tablet (Viagra) 50 mg PO DAILY PRN PRN Not 12/05/13 Unknown History Specified zolpidem 10 mg tablet (Ambien) 10 mg PO QHS PRN PRN Sleep 12/05/13 Unknown History oxycodone-acetaminophen 5 mg-325 1 - 2 tab PO Q4H PRN PRN Pain #20 12/19/13 Unknown Rx mg tablet tabs allopurinol 100 mg tablet 150 mg PO QHS 10/26/21 Unknown History atorvastatin 10 mg tablet (Lipitor) 10 mg PO DAILY 10/26/21 Unknown History budesonide-formoterol HFA 160 2 puff inhalation BID 10/26/21 Unknown History mcg-4.5 mcg/actuation aerosol inhaler (Symbicort) bupropion HCl 150 mg tablet,12 hr 150 mg PO BID 10/26/21 Unknown History sustained-release (Wellbutrin SR) citalopram 40 mg tablet (Celexa) 40 mg PO DAILY 10/26/21 Unknown History furosemide 40 mg tablet (Lasix) 40 mg PO DAILY 10/26/21 Unknown History metoprolol succinate 50 mg 50 mg PO DAILY 10/26/21 Unknown History tablet,extended release 24 hr potassium chloride 20 mEq 20 meq PO DAILY 10/26/21 Unknown History tablet,extended release tiotropium bromide 2.5 2 puff inhalation DAILY 10/26/21 Unknown History mcg/actuation mist for inhalation (Spiriva Respimat) trazodone 50 mg tablet 50 mg PO QHS 10/26/21 Unknown History oxycodone-acetaminophen 5 mg-325 1 tab PO Q4H PRN pain 7 days #42 10/28/21 Unknown Rx mg tablet (Percocet) tabs enoxaparin 40 mg/0.4 mL 40 mg (0.4 mL) subcut DAILY 28 10/29/21 Unknown Rx subcutaneous syringe days #11.2 mL Allergy/AdvReac Type Severity Reaction Status Date / Time lisinopril AdvReac Other Verified 02/10/25 11:04 Social History (Updated 02/10/25 @ 11:[address] Kobi Bolaños MD) housing: care home Smoking Status: Never smoker ROS Constitutional Constitutional: Reports fatigue, malaise and weakness; Denies anorexia, chills or fever(s) Eyes Eyes: Denies change in vision ENT HEENT: Denies dysphagia or headache(s) Cardiovascular Cardiovascular: Reports dyspnea on exertion; Denies chest pain, edema, lightheadedness, orthopnea, palpitations, paroxysmal nocturnal dyspnea, rapid heart rate or syncope Respiratory/Chest Respiratory/Chest: Reports cough, dyspnea, shortness of breath at rest and shortness of breath with exertion; Denies productive cough or wheezing Gastrointestinal Gastrointestinal: Denies abdominal pain, constipation, diarrhea, nausea or vomiting Genitourinary Genitourinary: Denies burning urination or dysuria Neurologic Neurologic: Denies confusion, dizziness, focal weakness, headache(s), numbness, seizure-like activity, seizures or syncope Psychiatric Psychiatric: Denies anxiety or depression Vital Signs Vital Signs Vital Signs: 02/10/25 11:05 02/10/25 11:05 02/10/25 11:11 Temperature 97.7 F L Temperature Source Axillary Pulse Rate 108 H Respiratory Rate 43 H Respiratory Effort Short of Breath Labored Respiratory Depth Shallow Respiratory Pattern Tachypnea Blood Pressure 113/73 Blood Pressure Mean 86 Pulse Ox 55 84 Oxygen Delivery Method Room Air Bi-pap Oxygen Flow Rate (L/min) 65 Fraction of Inspired Oxygen (FIO2) 02/10/25 11:12 02/10/25 11:54 02/10/25 12:24 Temperature 97.7 F L Temperature Source Axillary Pulse Rate 118 H 99 103 H Respiratory Rate 43 H 24 H 15 Respiratory Effort Respiratory Depth Respiratory Pattern Tachypnea Blood Pressure 113/73 106/60 Blood Pressure Mean 86 75 Pulse Ox 84 97 Oxygen Delivery Method Room Air Bi-pap Oxygen Flow Rate (L/min) Fraction of Inspired Oxygen (FIO2) 100 Weight Weight: 300 lb 4.313 oz Body Mass Index (BMI) 40.7 Physical Exam Const alert and oriented x3 Constitutional Narrative: class III obesity General Appearance: cooperative HEENT normocephalic, head/scalp atraumatic, hearing grossly normal bilaterally and moist oral mucous membranes Mouth: oral and palatal mucosa normal Eyes PERRL, EOMs intact bilaterally and conjunctivae normal Neck no lymphadenopathy and supple Resp Resp Narrative: moderately diminished breath sounds bibasally, no wheezes or crackles. On BIPAP at time of review Cardio regular rate, regular rhythm, S1 normal heart sound, S2 normal heart sound and no murmurs GI normal to inspection, nondistended, normoactive bowel sounds, soft to palpation, non-tender and non-distended Extremity normal to inspection, full ROM and no clubbing, cyanosis or edema Neuro oriented x3, CN's II-XII intact bilaterally, moves all extremities and no focal motor deficits Sensorium / Orientation: awake and alert Motor Exam: strength 5/5 throughout Psych affect normal Results Lab / Micro Data 02/10/25 10:58 02/10/25 10:58 Labs: Laboratory Results - last 24 hr 02/10/25 10:58: WBC 31.6 H*, RBC 3.43 L, Hgb 10.3 L, Hct 34.0 L, MCV 99.1 H, MCH 30.0, MCHC 30.3 L, RDW Std Deviation 52.7 H, RDW Coeff of Casey 14.5, Plt Count 608 H, MPV 9.2, Immature Gran % (Auto) 2.600 H, Neut % (Auto) 87.4 H, Lymph % (Auto) 5.3 L, [place] % (Auto) 3.9, Eos % (Auto) 0.3, Baso % (Auto) 0.5, Absolute Neuts (auto) 27.7 H, Absolute Lymphs (auto) 1.69, Nucleated RBC % 0.1, Diff Path Review February, Platelet Estimate MKD INC, Polychromasia 1+, Anisocytosis 1+, Sodium 142, Potassium 4.1, Chloride 95 L, Carbon Dioxide 34.6 H, Anion Gap 12, BUN 15, Creatinine 1.44 H, Estim Creat Clear Calc 69.19, Est GFR (MDRD) Non-Af 53 L, BUN/Creatinine Ratio 10.7, Glucose 172 H, Calcium 10.1, Total Bilirubin 0.17, AST 19, ALT 18, Alkaline Phosphatase 109, Troponin T High Sens 102 H*, NT pro BNP II 338, Total Protein 6.7, Albumin 3.3 L, Globulin 3.4, Albumin/Globulin Ratio 1.0 02/10/25 11:13: POC Glucose 150 H 02/10/25 11:19: Lactic Acid 2.2 H* ABG Data ABG results: ABG 02/10/25 11:22 Specimen Type ART Sample Site L Radial pH 7.35 Bicarbonate Actual 41.8 H Total CO2 44 Base Excess 16 H O2 Saturation 89 L O2 % 65.0 ABG pCO2 75.8 H* ABG pO2 62 L Alex Test Positive Respiration Rate 12 O2 Delivery Device BiPAP Vent Mode Not entered POC PEEP 10 Crit Call To/Read Back Yes Blood Gas Notified Whom bolaños Blood Gas Notified Time 11:23:29 Imaging Radiology Impression Chest X-Ray 02/10/25 11:03 IMPRESSION: 1. Suspect lobar consolidation/atelectasis of the RIGHT lower and middle lobes, rather than elevation of the RIGHT hemidiaphragm. The appearance has worsened slightly from 12/12/2024. Difficult to exclude a component of effusion on the RIGHT. Although this could reflect progressive pneumonia, central obstructing process should be excluded. Recommend CT chest with IV contrast. 2. Given the above as well as suspected patchy mild airspace disease on the LEFT, multifocal pneumonia or edema/pneumonitis are possible. CT should be helpful as above. 3. Additional description as above. Reading Location: [id number] Assessment & Plan Assessment/Plan (1) Pneumonia: (2) Sepsis: (3) Acute on chronic respiratory failure with hypoxia and hypercapnia: PLAN: Plan #Acute on chronic hypoxic and hypercapnic respiratory failure concerning for aspiration pneumonia based on CT findings Admit to the ICU. Patient had to be placed on BiPAP at time of admission. Initial ABG in the ED showed pH of 7.35 with pCO2 of 75.8 and PO2 of 62. Chest x-ray showed suspected lobar consolidation atelectasis of the right lower and middle lobes. CTA of the chest done showed no evidence of PE but showed lobar consolidation and collapse of the right lower lobe with near complete opacification of the left lower lobe and involving the right middle lobe to a lesser degree with mild avidity noted along the dependent right upper lobe airspace disease with no central obstructing process noted. Will place patient on IV Zosyn for presumptive aspiration pneumonia empirically Get speech evaluation. Consult critical care. Repeat ABG done on admission to the ICU and after he was weaned off of the BiPAP onto 6 L of oxygen showed pH of 7.37 and pCO2 of 64.4 titrate oxygen to maintain sats >90% breathing treatment with bronchodilators he says he was admitted at [facility] recently and was intubated nad had his lungs washed out. Will request records from [facility] to see if this consolidation is new otherwise. #Hypertension: on amlodipine, losartan and metoprolol #Depression: on bupropion and citalopram #TYpe 2 diabetes mellitus: on metformin. ISS. Accuchecks ACHS. #History of gout: on allopurinol #Class III obesity: Complicates acute care, expected current prognosis. DVT prophylaxis: lovenox Code status: full code Patient counseled extensively about different types of CODE STATUS including full code, DNR CCA and DNR CCA. Patient elects to be full code. Total [id number] time 17 minutes. Total critical care time spent: 77 mins. Charges/Coding Visit Charges Inpatient E&M: 50932 Init Hosp L3 Procedures Hospitalists Procedures: 43386 Advncd Care Plan 30 Min ([id number])
--- NOTE | 2025-02-10 13:08 | CT_ITS ---
PROCEDURE: CTA CHEST W/WO CONTRAST 02/10/2025 REASON FOR EXAM: SHORTNESS OF BREATH TECHNIQUE: CTA axial imaging of the chest with intravenous contrast. Coronal and Sagittal reconstruction series were provided. Maximum intensity projection (MIP) images were provided. PATIENT PREPARATION: Per protocol CONTRAST: Isovue 370 VOLUME: 100 mL One or more dose reduction techniques were used (e.g., Automated exposure control, adjustment of the mA and/or kV according to patient size, use of iterative reconstruction technique). RADIATION DOSE SUMMARY: CTDlvol: 11.87+ 15.83 mGy DLP: 649.48 mGycm COMPARISON: No previous CT or CTA chest. FINDINGS: Heart/pericardium: Mild coronary atherosclerosis.. Aorta: Trace atherosclerosis. Pulmonary arteries: Normal in caliber. No pulmonary embolism is identified. Lymph nodes: Unremarkable. Lungs/pleura: Elevated/eventrated RIGHT hemidiaphragm. Gastric underdistention limits evaluation of wall thickness. Complete RIGHT lower lobar atelectasis/consolidation. Less considerable atelectasis/consolidation within the RIGHT middle lobe. Near-complete lobar consolidation/atelectasis of the LEFT lower lobe with some minimal aeration in the superior segment. Mild airspace disease within the aerated RIGHT upper lobe, with subpleural nodular components up to 19 x 6 mm. Granulomas. Airways: Mild segmental/subsegmental endobronchial debris within the bilateral lower lobes. Chest wall: Small thyroid nodules up to 1.2 cm on the LEFT. Rounded low-density but not clearly fluid attenuating pleural or extrapleural lesion in the RIGHT apex measures 2.2 x 2.1 x 2.2 cm abutting the deep surfaces of the RIGHT posterior 2nd greater than 1st ribs. Upper abdomen: Cholelithiasis including stones in the gallbladder neck. Gallbladder is physiologically distended. No biliary dilatation or convincing inflammation. Capsular calcifications along the lateral spleen with adjacent stranding, possibly reflecting scarring/sequela of remote trauma. Punctate nonobstructing intrarenal calculus on the RIGHT. Diverticulosis. Operative changes of the midline anterior abdominal wall. Musculoskeletal: Mild spondylosis. Degenerative changes of the shoulders.. CT/CTA Chest W/WO Contrast IMPRESSION: 1. No pulmonary embolism. 2. Lobar consolidation/collapse of the RIGHT lower lobe, near-complete in the L EFT lower lobe, involving the RIGHT middle lobe to a lesser degree with mild vaguely nodular dependent RIGHT upper lobe airspace d isease. No central obstructing process is identified as a potential etiology. Given the presence of mild endobronchial d ebris, findings could be related to minor aspiration. Enhancement appears preserved which argues against current pneumon ia however correlation with clinical factors is necessary. Recommend CT chest with contrast in 3 months to document stability or resolution. 3. Nonspecific 2.2 cm pleural or extrapleural rounded lesion in the RIGHT apex abutting RIGHT ribs 1-2. Neoplasm not excluded, including peripheral nerve sheath tumors which may be benign or malignant. Sta bility can be further evaluated at the time of above recommended CT. Unless outside imaging is available to establish long-te rm stability, tissue sampling may be necessary. PET/CT could also be considered. 4. Additional description as above. Reading Location: [id number]
[2025-02-10 14:07] LABS: Troponin T High Sens 2 HR 63 ng/L (<=22)
[2025-02-10 15:30] LABS: Reflex Lactate? Y
[2025-02-10] MEDS: 0.9% Normal Saline (1000mL) 1,000 ML 125 ML IV (16:05)
--- NOTE | 2025-02-10 16:05 | PCM.RX.CS ---
Consult Antibiotic Management Pharmacy has been consulted to manage selected antibiotic: Vancomycin Type of Intervention Type of Consult: New start Prior Doses of Antibiotics Prior Doses of Antibiotics Received/Current Regimen: received vanc 2000mg IV x1 in E.R. starting at 12:03 today Labs Labs: Sodium 142 mmol/L (133-145) 02/10/25 10:58 Potassium 4.1 mmol/L (3.3-5.1) 02/10/25 10:58 Chloride 95 mmol/L (98-108) L 02/10/25 10:58 Carbon Dioxide 34.6 mmol/L (21.0-32.0) H 02/10/25 10:58 Anion Gap 12 (5-15) 02/10/25 10:58 BUN 15 mg/dL (4-19) 02/10/25 10:58 Creatinine 1.44 mg/dL (0.70-1.20) H 02/10/25 10:58 Est GFR (MDRD) Non-Af 53 (>60) L 02/10/25 10:58 BUN/Creatinine Ratio 10.7 RATIO (10-20) 02/10/25 10:58 Glucose 172 mg/dL (70-99) H 02/10/25 10:58 Dosing Weight Weight used for dosin lb 5.655 oz Estimated Creatinine Clearance Estimated Creatinine Clearance: 69 ml/min Goal Trough Goal Trough: 15-20 mcg/mL Pharmacy Plan for Drug Dosing Pharmacy Plan for Drug Dosing: Starting 12 hours after the E.R. dose, continue with 1500mg IV q12h. Check a trough before the 4th overall dose. Pharmacy Service will continue to monitor and adjust dosing as required. Follow-Up Labs Follow-Up Labs: Trough: Vancomycin Date/Time Labs Ordered Labs to be done on [date and time ordered]: 02/11/26 23:30
[2025-02-10 16:38] LABS: Allen Test Positive; Base Excess 12 mmol/L (-2 to +2); Bicarbonate 37.5 mmol/L (22-26); Blood Gas Specimen Type ART; Mode Not entered; O2 Delivery Device Cannula; PO2 55 mmHG (75-100); SITE L Radial; SO2 86 % (95-99); Total Carbon Dioxide 40 mmol/L; pCO2 64.4 mmHg (35-45); pH 7.37 (7.35-7.45)
[2025-02-10] MEDS: Cefepime HCl 1 GM in 0.9% Normal Saline (50mL MB+) 50 ML IV ×2 (16:39→21:16)
[2025-02-10 17:12] LABS: Lactic Acid 1.2 mmol/L (0.0-2.0)
[2025-02-10 17:40] LABS: Troponin T High Sens 4 HR 55 ng/L (<=22)
[2025-02-10] MEDS: Budesonide Respules 0.5 MG/2 ML AMPUL.NEB. INHALATION (18:57)
--- NOTE | 2025-02-10 20:57 | CPS ---
[1857] Ernesto suction set-up bedside for pt.'s personal use for oral secretions.
[2025-02-10] MEDS: Insulin Lispro 100 UNIT/ML INSULN.PEN SC (21:33)
[2025-02-10] MEDS: Allopurinol 100 MG Tablet 150 MG PO (21:33)
[2025-02-10] MEDS: traZODone 50 MG Tablet PO (21:33)
[2025-02-10] MEDS: buPROPion (SR) 150 MG Tablet.SA PO (21:33)
[2025-02-10 21:55] LABS: Bedside Glucose 260 mg/dL (74-106)
[2025-02-10] MEDS: Zolpidem Tartrate 5 MG Tablet PO (22:11)
[2025-02-10] MEDS: Vancomycin HCl 1,500 MG in 0.9% Normal Saline (500mL Bag) 500 ML 250 MG IV (23:37)
[2025-02-11] VITALS (21 sets, daily range): BP systolic 107–152; BP diastolic 53–75; PULSE 75–106; RESP 12–20; TEMP 36.6–36.9; O2SAT 84–939; BMI 39.5
[2025-02-11] MEDS: 0.9% Normal Saline (1000mL) 1,000 ML 125 ML IV (00:46)
[2025-02-11] MEDS: Cefepime HCl 1 GM in 0.9% Normal Saline (50mL MB+) 50 ML IV ×2 (05:35→14:04)
[2025-02-11 06:05] LABS: Absolute Lymphocyte Count 0.86 X10^3/uL (0.83-4.51); Absolute Neutrophil Count 24.4 X10^3/uL (2.0-7.7); Basophil% 0.4 % (0-1); Hematocrit 29.4 % (40-54); Hemoglobin 9.3 g/dL (13.0-16.5); Lymphocyte # 0.86 X10^3/ul (0.83-4.51); Lymphocyte % 3.1 % (19-41); Mean Corp Hgb Conc 31.6 g/dL (32-36); Mean Corpuscular Hgb 30.2 pg (27.0-32.0); Mean Corpuscular Volume 95.5 fL (80-94); Mean Platelet Vol. 8.9 fl (6.2-12.0); Monocyte# 0.83 X10^3/uL; NRBC Flagged by Analyzer 0.1 % (0-5); Neutrophil # 24.38 X10^3/uL (2.7-7.7); Neutrophil % 89.2 % (47-70); POSITIVE DIFFERENTIAL YES; Platelet Count 489 K/mm3 (150-450); RBC Distribution Width CV 14.5 % (11.6-14.6); RBC Distribution Width SD 50.3 fl (35.1-43.9); Red Blood Count 3.08 M/mm3 (4.6-6.2); White Blood Count 27.4 K/mm3 (4.4-11.0)
[2025-02-11 06:30] LABS: Differential Indicated SCAN CRITERIA MET
[2025-02-11 06:44] LABS: Anion Gap 8 (5-15); BUN 20 mg/dL (4-19); BUN/Creat Ratio 16.4 RATIO (10-20); Calcium,Total 8.6 mg/dL (7.6-11.0); Chloride 103 mmol/L (98-108); Creatinine, Serum 1.19 mg/dL (0.70-1.20); EST Glomerular Filtration Rate 66 (>60); Estimated Creatinine Clearance 82.47 ml/min (50-250); Glucose 144 mg/dL (70-99); Sodium Level 139 mmol/L (133-145)
[2025-02-11 06:46] LABS: Differential Comment SCANNED; Platelet Estimate SLT INC (ADEQ); Red Cell Morphology NORM C+C NORMAL (NORM C&C)
[2025-02-11] MEDS: Ipratropium/Albuterol Sulfate 3 ML AMPUL.NEB INHALATION ×3 (06:50→20:55)
[2025-02-11] MEDS: Budesonide Respules 0.5 MG/2 ML AMPUL.NEB. INHALATION ×2 (06:50→20:55)
--- NOTE | 2025-02-11 07:35 | EX.PCM.CONCC ---
Assessment & Plan Assessment/Plan (1) Acute on chronic respiratory failure with hypoxia and hypercapnia: PLAN: Plan RECOMMENDATIONS: 1. Continue to wean supplemental oxygen to maintain saturations at or above 90%. 2. Empiric BiPAP therapy with naps and nightly. 3. Continue scheduled bronchodilators and empiric antimicrobials. 4. Obtain medical records from [facility] regarding recent hospitalization along with imaging studies. 5. Recommend outpatient pulmonary follow-up after discharge. 6. Lovenox for DVT prophylaxis. 7. Speech therapy evaluation prior to advancement of diet. IMPRESSIONS: 1. Acute on chronic combined respiratory failure The patient has a questionable history of COPD, which could certainly be in a state of exacerbation, secondary to underlying pneumonia coupled with possible mucous plugging. In addition, according to the patient, his supplemental oxygen at his shelter facility was not working appropriately, leading to his worsening dyspnea and hypoxemia. Regardless, it does appear that the patient has chronic baseline CO2 retention and would likely benefit from outpatient pulmonary follow-up after discharge, with consideration for completing a sleep study and pulmonary function studies. In the interim, the patient will be continued on scheduled bronchodilators and empiric antibiotics. Recommend sending sputum for culture. Lastly, I would recommend obtaining hospital medical records from [facility] regarding his recent hospitalization and imaging studies. While admitted to the hospital, empiric BiPAP therapy can be continued with naps and nightly. The patient did report that he has a baseline supplemental oxygen requirement of 4 L/min. 2. History of obesity/hypertension/diabetes mellitus/depression Complicates care, management, recovery and prognosis. Continue home medications as indicated. This note was generated with [employer] dictation software. It may contain incorrect words, spelling, and punctuation that were not noted in checking the note before signing. HPI Consult Data Date of Consult: 02/11/25 HPI Narrative Reason for Consultation: Acute on chronic respiratory failure HPI Narrative: The patient is a 70-year-old male, with a history as outlined below, who presented to the emergency department on February 10 from his shelter facility with shortness of breath. The patient reported that he was admitted to [facility] in November 2024 and was diagnosed with COVID and secondary bacterial pneumonia. He was apparently intubated and required bronchoscopy during his hospitalization. He was then transition to [place], where I assume he underwent rehabilitation, prior to being transferred to a local shelter facility here in [place]. Although the patient has a very limited remote smoking history, he does report that he was diagnosed in the past with COPD and utilizes Symbicort at his baseline. In addition, he stated that while at the shelter facility, that he required 4 L/min of supplemental oxygen to maintain saturations in the low 90s. According to the patient, yesterday, while at the shelter facility, his supplemental oxygen became nonfunctional leading to his worsening shortness of breath and hypoxemia. The patient has never been diagnosed with sleep apnea and therefore does not utilize PAP therapy at his baseline. On presentation to the emergency department, the patient was documented to be tachycardic and tachypneic. In light of his respiratory distress, the patient was placed on BiPAP support with subsequent improvement in his oxygenation. Laboratory evaluation was notable for a white blood cell count of 31,000. His ABG was notable for a pH of 7.35 with a pCO2 of 76 and pO2 of 62. Chemistry profile was notable for a bicarbonate of 35 and creatinine of 1.4. Lactate was elevated at 2.2. Blood cultures were collected. CTA chest showed no evidence for pulmonary embolism but did demonstrate significant lobar consolidation with atelectasis of the left lower lobe along with right lower lobe atelectasis and consolidation. The patient was placed on antimicrobials and bronchodilators. He was subsequently admitted to the medical intensive care unit for further management. This morning, the patient is clinically stable after having been weaned from BiPAP support. He is currently maintaining appropriate oxygen saturations in the mid 90s on 5 L/min. [facility] Medical History Anxiety Depression Diabetes On home oxygen therapy COPD (chronic obstructive pulmonary disease) Hypertension Ankle fracture CKD (chronic kidney disease), stage III Home Medications ?Medication ?Instructions ?Recorded ?Last Taken ?Type allopurinol 300 mg tablet 300 mg PO DAILY 12/05/13 Unknown History amlodipine 10 mg tablet 10 mg PO DAILY 12/05/13 Unknown History losartan 100 mg tablet 100 mg PO DAILY 12/05/13 Unknown History metformin 1,000 mg tablet 500 mg PO BIDCM 12/05/13 Unknown History sildenafil 50 mg tablet (Viagra) 50 mg PO DAILY PRN PRN Not 12/05/13 Unknown History Specified zolpidem 10 mg tablet (Ambien) 10 mg PO QHS PRN PRN Sleep 12/05/13 Unknown History oxycodone-acetaminophen 5 mg-325 1 - 2 tab PO Q4H PRN PRN Pain #20 12/19/13 Unknown Rx mg tablet tabs allopurinol 100 mg tablet 150 mg PO QHS 10/26/21 Unknown History atorvastatin 10 mg tablet (Lipitor) 10 mg PO DAILY 10/26/21 Unknown History budesonide-formoterol HFA 160 2 puff inhalation BID 10/26/21 Unknown History mcg-4.5 mcg/actuation aerosol inhaler (Symbicort) bupropion HCl 150 mg tablet,12 hr 150 mg PO BID 10/26/21 Unknown History sustained-release (Wellbutrin SR) citalopram 40 mg tablet (Celexa) 40 mg PO DAILY 10/26/21 Unknown History furosemide 40 mg tablet (Lasix) 40 mg PO DAILY 10/26/21 Unknown History metoprolol succinate 50 mg 50 mg PO DAILY 10/26/21 Unknown History tablet,extended release 24 hr potassium chloride 20 mEq 20 meq PO DAILY 10/26/21 Unknown History tablet,extended release tiotropium bromide 2.5 2 puff inhalation DAILY 10/26/21 Unknown History mcg/actuation mist for inhalation (Spiriva Respimat) trazodone 50 mg tablet 50 mg PO QHS 10/26/21 Unknown History oxycodone-acetaminophen 5 mg-325 1 tab PO Q4H PRN pain 7 days #42 10/28/21 Unknown Rx mg tablet (Percocet) tabs enoxaparin 40 mg/0.4 mL 40 mg (0.4 mL) subcut DAILY 28 10/29/21 Unknown Rx subcutaneous syringe days #11.2 mL Allergy/AdvReac Type Severity Reaction Status Date / Time lisinopril AdvReac Other Verified 02/10/25 11:04 Social History (Updated 02/10/25 @ 11:[address] Kobi Bolaños MD) housing: senior care Smoking Status: Never smoker ROS ROS Narrative 10 systems were reviewed with pertinent positives as noted in the HPI above. Physical Exam Const alert and no apparent distress Constitutional Narrative: Obese. Resting comfortably in bed. General Appearance: cooperative HEENT normocephalic and head/scalp atraumatic Eyes PERRL, EOMs intact bilaterally and conjunctivae normal Neck supple General: trachea midline Chest inspection of chest normal Resp normal respiratory effort Auscultation: diminished lung sounds Cardio regular rate and regular rhythm GI normal to inspection, nondistended, normoactive bowel sounds Extremity no clubbing, cyanosis or edema Skin no rashes or lesions noted Neuro CN's II-XII intact bilaterally, moves all extremities and no focal motor deficits Psych cooperative and affect normal Lab / Micro Data 02/11/25 05:55 02/11/25 05:55 Labs: Laboratory Results - last 24 hr 02/10/25 10:58: WBC 31.6 H*, RBC 3.43 L, Hgb 10.3 L, Hct 34.0 L, MCV 99.1 H, MCH 30.0, MCHC 30.3 L, RDW Std Deviation 52.7 H, RDW Coeff of Casey 14.5, Plt Count 608 H, MPV 9.2, Immature Gran % (Auto) 2.600 H, Neut % (Auto) 87.4 H, Lymph % (Auto) 5.3 L, Swain % (Auto) 3.9, Eos % (Auto) 0.3, Baso % (Auto) 0.5, Absolute Neuts (auto) 27.7 H, Absolute Lymphs (auto) 1.69, Nucleated RBC % 0.1, Diff Path Review February, Platelet Estimate MKD INC, Polychromasia 1+, Anisocytosis 1+, Sodium 142, Potassium 4.1, Chloride 95 L, Carbon Dioxide 34.6 H, Anion Gap 12, BUN 15, Creatinine 1.44 H, Estim Creat Clear Calc 69.19, Est GFR (MDRD) Non-Af 53 L, BUN/Creatinine Ratio 10.7, Glucose 172 H, Calcium 10.1, Total Bilirubin 0.17, AST 19, ALT 18, Alkaline Phosphatase 109, Troponin T High Sens 102 H*, NT pro BNP II 338, Total Protein 6.7, Albumin 3.3 L, Globulin 3.4, Albumin/Globulin Ratio 1.0 02/10/25 11:13: POC Glucose 150 H 02/10/25 11:19: Lactic Acid 2.2 H* 02/10/25 13:28: Troponin T Hi Sens 2 Hr 63 H* 02/10/25 16:00: Lactic Acid 1.2, Troponin T Hi Sens 4Hr 55 H* 02/10/25 21:26: POC Glucose 260 H 02/11/25 05:55: WBC 27.4 H, RBC 3.08 L, Hgb 9.3 L, Hct 29.4 L, MCV 95.5 H, MCH 30.2, MCHC 31.6 L, RDW Std Deviation 50.3 H, RDW Coeff of Casey 14.5, Plt Count 489 H, MPV 8.9, Immature Gran % (Auto) 4.300 H, Neut % (Auto) 89.2 H, Lymph % (Auto) 3.1 L, Swain % (Auto) 3.0, Eos % (Auto) 0.0, Baso % (Auto) 0.4, Absolute Neuts (auto) 24.4 H, Absolute Lymphs (auto) 0.86, Nucleated RBC % 0.1, Differential Comment SCANNED, Platelet Estimate SLT INC, RBC Morphology NORM C+C, Sodium 139, Potassium 4.0, Chloride 103, Carbon Dioxide 29.0, Anion Gap 8, BUN 20 H, Creatinine 1.19, Estim Creat Clear Calc 82.47, Est GFR (MDRD) Non-Af 66, BUN/Creatinine Ratio 16.4, Glucose 144 H, Calcium 8.6 ABG Data ABG results: ABG 02/10/25 02/10/25 11:22 16:35 Specimen Type ART ART Sample Site L Radial L Radial pH 7.35 7.37 Bicarbonate Actual 41.8 H 37.5 H Total CO2 44 40 Base Excess 16 H 12 H O2 Saturation 89 L 86 L O2 % 65.0 6.0 ABG pCO2 75.8 H* 64.4 H ABG pO2 62 L 55 L Alex Test Positive Positive Respiration Rate 12 O2 Delivery Device BiPAP Cannula Vent Mode Not entered Not entered POC PEEP 10 Crit Call To/Read Back Yes Blood Gas Notified Whom bolaños Blood Gas Notified Time 11:23:29 Imaging Radiology Impression Chest X-Ray 02/10/25 11:03 IMPRESSION: 1. Suspect lobar consolidation/atelectasis of the RIGHT lower and middle lobes, rather than elevation of the RIGHT hemidiaphragm. The appearance has worsened slightly from 12/12/2024. Difficult to exclude a component of effusion on the RIGHT. Although this could reflect progressive pneumonia, central obstructing process should be excluded. Recommend CT chest with IV contrast. 2. Given the above as well as suspected patchy mild airspace disease on the LEFT, multifocal pneumonia or edema/pneumonitis are possible. CT should be helpful as above. 3. Additional description as above. Reading Location: [facility] Chest CTA 02/10/25 13:08 IMPRESSION: 1. No pulmonary embolism. 2. Lobar consolidation/collapse of the RIGHT lower lobe, near-complete in the LEFT lower lobe, involving the RIGHT middle lobe to a lesser degree with mild vaguely nodular dependent RIGHT upper lobe airspace disease. No central obstructing process is identified as a potential etiology. Given the presence of mild endobronchial debris, findings could be related to minor aspiration. Enhancement appears preserved which argues against current pneumonia however correlation with clinical factors is necessary. Recommend CT chest with contrast in 3 months to document stability or resolution. 3. Nonspecific 2.2 cm pleural or extrapleural rounded lesion in the RIGHT apex abutting RIGHT ribs 1-2. Neoplasm not excluded, including peripheral nerve sheath tumors which may be benign or malignant. Stability can be further evaluated at the time of above recommended CT. Unless outside imaging is available to establish long-term stability, tissue sampling may be necessary. PET/CT could also be considered. 4. Additional description as above. Reading Location: [facility] Charges/Coding Visit Charges Inpatient E&M: 32071 Init Hosp L3
[2025-02-11] MEDS: Enoxaparin 40 MG/0.4 ML Syringe SC (08:28)
[2025-02-11] MEDS: Allopurinol 300 MG Tablet PO (08:28)
[2025-02-11] MEDS: amLODIPine 10 MG Tablet PO (08:28)
[2025-02-11] MEDS: Citalopram 40 MG TABLET PO (08:29)
[2025-02-11] MEDS: buPROPion (SR) 150 MG Tablet.SA PO ×2 (08:29→21:27)
[2025-02-11] MEDS: Metoprolol(XL)Succ 50 MG Tablet PO (08:29)
[2025-02-11] MEDS: Losartan Potassium 100 MG Tablet PO (08:29)
[2025-02-11] MEDS: Potassium Chloride Oral Tablet 20 MEQ PO (08:29)
[2025-02-11] MEDS: Furosemide 40 MG Tablet PO (08:30)
[2025-02-11 09:57] LABS: Bedside Glucose 144 mg/dL (74-106)
[2025-02-11] MEDS: Vancomycin HCl 1,500 MG in 0.9% Normal Saline (500mL Bag) 500 ML 250 MG IV (11:21)
[2025-02-11] MEDS: Insulin Lispro 100 UNIT/ML INSULN.PEN SC ×2 (11:23→17:01)
--- NOTE | 2025-02-11 11:30 | PN_ITS ---
Subjective Subjective Patient seen and examined. He is feeling much better today. He is on 4 L of oxygen. He feels his breathing has improved. He is asking for his home dose of Ambien 10 mg this evening to help him sleep. Review of systems otherwise negative. He has remained hemodynamically stable. Objective Data Objective Data Vital Signs: Vital Signs Temp Pulse Resp BP Pulse Ox O2 Del Method O2 Flow Rate 97.9 F 102 H 17 134/74 H 96 Nasal Cannula 4 02/11/25 09:00 02/11/25 09:00 02/11/25 09:00 02/11/25 09:00 02/11/25 09:00 02/11/25 09:00 02/11/25 09:00 FiO2 50 02/11/25 04:00 Oxygen Flow Rate (L/min) 4 Oxygen Delivery Method Nasal Cannula Weight: 291 lb 14.272 oz Body Mass Index (BMI) 39.5 Intake & Output: Intake and Output for Last 24 Hours 02/09/25 02/10/25 02/11/25 23:59 23:59 23:59 Intake Total 640 / 640 2940 / 2940 Output Total 400 / 400 600 / 600 Balance 240 / 240 2340 / 2340 Lab / Micro Data 02/11/25 05:55 02/11/25 05:55 Labs: Laboratory Results - last 24 hr 02/10/25 10:58: WBC 31.6 H*, RBC 3.43 L, Hgb 10.3 L, Hct 34.0 L, MCV 99.1 H, MCH 30.0, MCHC 30.3 L, RDW Std Deviation 52.7 H, RDW Coeff of Casey 14.5, Plt Count 608 H, MPV 9.2, Immature Gran % (Auto) 2.600 H, Neut % (Auto) 87.4 H, Lymph % (Auto) 5.3 L, [place] % (Auto) 3.9, Eos % (Auto) 0.3, Baso % (Auto) 0.5, Absolute Neuts (auto) 27.7 H, Absolute Lymphs (auto) 1.69, Nucleated RBC % 0.1, Diff Path Review February, Platelet Estimate MKD INC, Polychromasia 1+, Anisocytosis 1+, Sodium 142, Potassium 4.1, Chloride 95 L, Carbon Dioxide 34.6 H, Anion Gap 12, BUN 15, Creatinine 1.44 H, Estim Creat Clear Calc 69.19, Est GFR (MDRD) Non-Af 53 L, BUN/Creatinine Ratio 10.7, Glucose 172 H, Calcium 10.1, Total Bilirubin 0.17, AST 19, ALT 18, Alkaline Phosphatase 109, Troponin T High Sens 102 H*, NT pro BNP II 338, Total Protein 6.7, Albumin 3.3 L, Globulin 3.4, Albumin/Globulin Ratio 1.0 02/10/25 11:13: POC Glucose 150 H 02/10/25 11:19: Lactic Acid 2.2 H* 02/10/25 13:28: Troponin T Hi Sens 2 Hr 63 H* 02/10/25 16:00: Lactic Acid 1.2, Troponin T Hi Sens 4Hr 55 H* 02/10/25 21:26: POC Glucose 260 H 02/11/25 05:55: WBC 27.4 H, RBC 3.08 L, Hgb 9.3 L, Hct 29.4 L, MCV 95.5 H, MCH 30.2, MCHC 31.6 L, RDW Std Deviation 50.3 H, RDW Coeff of Casey 14.5, Plt Count 489 H, MPV 8.9, Immature Gran % (Auto) 4.300 H, Neut % (Auto) 89.2 H, Lymph % (Auto) 3.1 L, [place] % (Auto) 3.0, Eos % (Auto) 0.0, Baso % (Auto) 0.4, Absolute Neuts (auto) 24.4 H, Absolute Lymphs (auto) 0.86, Nucleated RBC % 0.1, Differential Comment SCANNED, Platelet Estimate SLT INC, RBC Morphology NORM C+C, Sodium 139, Potassium 4.0, Chloride 103, Carbon Dioxide 29.0, Anion Gap 8, BUN 20 H, Creatinine 1.19, Estim Creat Clear Calc 82.47, Est GFR (MDRD) Non-Af 66, BUN/Creatinine Ratio 16.4, Glucose 144 H, Calcium 8.6 02/11/25 08:10: POC Glucose 144 H ABG Data ABG results: ABG 02/10/25 16:35 Specimen Type ART Sample Site L Radial pH 7.37 Bicarbonate Actual 37.5 H Total CO2 40 Base Excess 12 H O2 Saturation 86 L O2 % 6.0 ABG pCO2 64.4 H ABG pO2 55 L Alex Test Positive O2 Delivery Device Cannula Vent Mode Not entered Radiography Diagnostic Testing: Radiology Impression Chest X-Ray 02/10/25 11:03 IMPRESSION: 1. Suspect lobar consolidation/atelectasis of the RIGHT lower and middle lobes, rather than elevation of the RIGHT hemidiaphragm. The appearance has worsened slightly from 12/12/2024. Difficult to exclude a component of effusion on the RIGHT. Although this could reflect progressive pneumonia, central obstructing process should be excluded. Recommend CT chest with IV contrast. 2. Given the above as well as suspected patchy mild airspace disease on the LEFT, multifocal pneumonia or edema/pneumonitis are possible. CT should be helpful as above. 3. Additional description as above. Reading Location: [facility] Chest CTA 02/10/25 13:08 IMPRESSION: 1. No pulmonary embolism. 2. Lobar consolidation/collapse of the RIGHT lower lobe, near-complete in the LEFT lower lobe, involving the RIGHT middle lobe to a lesser degree with mild vaguely nodular dependent RIGHT upper lobe airspace disease. No central obstructing process is identified as a potential etiology. Given the presence of mild endobronchial debris, findings could be related to minor aspiration. Enhancement appears preserved which argues against current pneumonia however correlation with clinical factors is necessary. Recommend CT chest with contrast in 3 months to document stability or resolution. 3. Nonspecific 2.2 cm pleural or extrapleural rounded lesion in the RIGHT apex abutting RIGHT ribs 1-2. Neoplasm not excluded, including peripheral nerve sheath tumors which may be benign or malignant. Stability can be further evaluated at the time of above recommended CT. Unless outside imaging is available to establish long- term stability, tissue sampling may be necessary. PET/CT could also be considered. 4. Additional description as above. Reading Location: [id number] Physical Exam Const alert and oriented x3 Constitutional Narrative: class III obesity General Appearance: cooperative HEENT normocephalic, head/scalp atraumatic, hearing grossly normal bilaterally and moist oral mucous membranes Eyes PERRL, EOMs intact bilaterally and conjunctivae normal Neck no lymphadenopathy and supple Resp Resp Narrative: moderately diminished breath sounds bibasally, no wheezes or crackles. On 4L of oxygen today Cardio regular rate, regular rhythm, S1 normal heart sound, S2 normal heart sound and no murmurs GI normal to inspection, nondistended, normoactive bowel sounds, soft to palpation, non-tender and non-distended Extremity normal to inspection, full ROM and no clubbing, cyanosis or edema General Extremity: no tenderness to palpation of joints or extremities Skin General Skin Exam: no breakdown Neuro oriented x3, CN's II-XII intact bilaterally, moves all extremities and no focal motor deficits Sensorium / Orientation: awake and alert Motor Exam: strength 5/5 throughout Psych affect normal Appearance: appropriate Assessment & Plan Assessment/Plan (1) Pneumonia: (2) Sepsis: (3) Acute on chronic respiratory failure with hypoxia and hypercapnia: PLAN: Plan #Acute on chronic hypoxic and hypercapnic respiratory failure * concerning for aspiration pneumonia based on CT findings * now off BIPAP, on 4L of oxygen by nasal canula * Chest x-ray showed suspected lobar consolidation atelectasis of the right lower and middle lobes. CTA of the chest done showed no evidence of PE but showed lobar consolidation and collapse of the right lower lobe with near complete opacification of the left lower lobe and involving the right middle lobe to a lesser degree with mild avidity noted along the dependent right upper lobe airspace disease with no central obstructing process noted. * Will place patient on IV Zosyn for presumptive aspiration pneumonia empirically * Get speech evaluation. Consult critical care. * critical care on board. * titrate oxygen to maintain sats >90% * breathing treatment with bronchodilators * WBC is down to 27.4 today. Was elevated at 36 yesterday. * Urine for Strep and Legionella negative. Blood cultures pending. #Probable aspiration pneumonia: As above #Hypertension: on amlodipine, losartan and metoprolol #Depression: on bupropion and citalopram #TYpe 2 diabetes mellitus: on metformin. ISS. Accuchecks ACHS. #History of gout: on allopurinol #Class III obesity: Complicates acute care, expected current prognosis. DVT prophylaxis: lovenox Code status: full code * Disposition: Transfer to PCU Charges/Coding Visit Charges Inpatient E&M: 31135 Subs Hosp L2
[2025-02-11 11:42] LABS: Bedside Glucose 170 mg/dL (74-106)
--- NOTE | 2025-02-11 14:45 | CASEMGMT ---
Discharge Planning A list of?SNF providers including quality and resource use data and consistent with the patient's preferred geographic region, medical needs, and insurance network was created in [employer] Guide.? This list was provided to the SW. Kailey Shankar Discharge Planning Asst.
--- NOTE | 2025-02-11 15:17 | CASEMGMT ---
Social Work SW attended ICU rounds and pt states that he is currently staying at the [facility] for continued rehab. Pt states that he does not want to return to the [facility] at Discharge. SW followed up with pt later in the day to discuss discharge plan. Pt states that he was in [facility] and from there went to [facility]. From [place], pt transferred to the [facility]. Pt states that he feels well enough that he no longer needs to return to [facility] and can return home with home health services. With SW in the room, pt called his and pt, and SW spoke about discharge plan. Pt's is in agreement that pt can return home at discharge. 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 Pt agreeable to complete discharge planning assessment with SW. Care Providers, pharmacy and demographics verified. PCP: Dr. Pack Specialists: none Preferred Pharmacy: [facility] Insurance: [facility] Care LNOK: Francisca Reed , Yuli Reed dgt Living Arrangements: pt lives with in a one story home with no steps to enter. 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 Transportation:?pt drives, and can drive DME: ?walker, cane, walk in shower, shower chair, grab bars in shower, pulse ox, aresol treatments, colostomy supplies (pt can care for himself), oxyen 3-4L through [facility] (has a concentrator, POC and a tank). HHC/SNF: [facility], [facility]. No previous HHC. PLAN: Pt and would like pt to return home from [facility] with home health care. RNCM notified. SW updated [facility] that pt will not be returning. ROSAS Smith
--- NOTE | 2025-02-11 16:06 | WOUNDNOTE ---
Ostomy appliance changed. small amount of thick unformed stool noted in the appliance. stoma sits slightly above the skin level. stoma is pink and moist. peristomal skin is intact. cleansed skin with warm water. pat dry. applied a new 2 piece flat [place]a appliance with a small amount of stoma paste. pt tolerated well. will monitor.
[2025-02-11 16:29] LABS: Bedside Glucose 154 mg/dL (74-106)
[2025-02-11] MEDS: metFORMIN HCl 500 MG Tablet PO (17:01)
[2025-02-11] MEDS: Zolpidem Tartrate 5 MG Tablet 10 MG PO (21:22)
[2025-02-11] MEDS: traZODone 50 MG Tablet PO (21:24)
[2025-02-11] MEDS: Atorvastatin Calcium 10 MG Tablet PO (21:24)
[2025-02-11] MEDS: Allopurinol 100 MG Tablet 150 MG PO (21:38)
[2025-02-11 21:59] LABS: Bedside Glucose 140 mg/dL (74-106)
[2025-02-12] VITALS (15 sets, daily range): BP systolic 101–130; BP diastolic 50–63; PULSE 75–89; RESP 12–20; TEMP 36.6–36.9; O2SAT 84–98; BMI 39.4
[2025-02-12 00:03] LABS: Vancomycin, Trough Level 27.4 ug/mL (5.0-15.0)
--- NOTE | 2025-02-12 00:15 | PCM.RX.CS ---
Consult Antibiotic Management Pharmacy has been consulted to manage selected antibiotic: Vancomycin Type of Intervention Type of Consult: Follow-up Labs Labs: Sodium 139 mmol/L (133-145) 02/11/25 05:55 Potassium 4.0 mmol/L (3.3-5.1) 02/11/25 05:55 Chloride 103 mmol/L (98-108) 02/11/25 05:55 Carbon Dioxide 29.0 mmol/L (21.0-32.0) 02/11/25 05:55 Anion Gap 8 (5-15) 02/11/25 05:55 BUN 20 mg/dL (4-19) H 02/11/25 05:55 Creatinine 1.19 mg/dL (0.70-1.20) 02/11/25 05:55 Est GFR (MDRD) Non-Af 66 (>60) 02/11/25 05:55 BUN/Creatinine Ratio 16.4 RATIO (10-20) 02/11/25 05:55 Glucose 144 mg/dL (70-99) H 02/11/25 05:55 Vancomycin Trough 27.4 ug/mL (5.0-15.0) H 02/11/25 23:30 Microbiology Microbiology: Microbiology 02/11/25 10:25 Urine, Clean Catch Legionella Antigen - Final 02/11/25 10:25 Urine, Clean Catch Streptococcus pneumoniae Antigen (M - Final Goal Trough Goal Trough: 15-20 mcg/mL Pharmacy Plan for Drug Dosing Pharmacy Plan for Drug Dosing: Pharmacy Service will continue to monitor and adjust dosing as required. TROUGH 27.4 @ 12 HOURS. HOLD DOSE AND DRAW RANDOM LEVEL IN 12 HOURS Follow-Up Labs Follow-Up Labs: Trough: Vancomycin Date/Time Labs Ordered Labs to be done on [date and time ordered]: 02/12 @ 1139
[2025-02-12] MEDS: Cefepime HCl 1 GM in 0.9% Normal Saline (50mL MB+) 50 ML IV ×4 (00:21→23:09)
[2025-02-12] MEDS: Budesonide Respules 0.5 MG/2 ML AMPUL.NEB. INHALATION ×2 (01:13→07:26)
[2025-02-12] MEDS: 0.9% Saline Lock 10 ML Syringe IV (06:22)
[2025-02-12 06:52] LABS: Bedside Glucose 108 mg/dL (74-106)
[2025-02-12 06:55] LABS: Absolute Lymphocyte Count 2.02 X10^3/uL (0.83-4.51); Absolute Neutrophil Count 21.6 X10^3/uL (2.0-7.7); Basophil# 0.09 X10^3/uL; Basophil% 0.3 % (0-1); Eosinophil# 0.07 X10^3/uL; Eosinophils% 0.3 % (0-5); Hematocrit 28.4 % (40-54); Hemoglobin 8.7 g/dL (13.0-16.5); Lymphocyte # 2.02 X10^3/ul (0.83-4.51); Lymphocyte % 7.7 % (19-41); Mean Corp Hgb Conc 30.6 g/dL (32-36); Mean Corpuscular Hgb 29.6 pg (27.0-32.0); Mean Corpuscular Volume 96.6 fL (80-94); Mean Platelet Vol. 8.8 fl (6.2-12.0); Monocyte# 2.05 X10^3/uL; Monocyte% 7.8 % (0-10); NRBC Flagged by Analyzer 0.1 % (0-5); Neutrophil % 81.8 % (47-70); POSITIVE DIFFERENTIAL YES; Platelet Count 515 K/mm3 (150-450); RBC Distribution Width CV 14.7 % (11.6-14.6); RBC Distribution Width SD 52.3 fl (35.1-43.9); Red Blood Count 2.94 M/mm3 (4.6-6.2); White Blood Count 26.4 K/mm3 (4.4-11.0)
[2025-02-12 07:12] LABS: Differential Indicated SCAN CRITERIA MET
[2025-02-12] MEDS: Ipratropium/Albuterol Sulfate 3 ML AMPUL.NEB INHALATION ×3 (07:26→20:09)
[2025-02-12 07:33] LABS: Anion Gap 10 (5-15); BUN 23 mg/dL (4-19); BUN/Creat Ratio 16.9 RATIO (10-20); Calcium,Total 9.5 mg/dL (7.6-11.0); Chloride 100 mmol/L (98-108); Creatinine, Serum 1.38 mg/dL (0.70-1.20); EST Glomerular Filtration Rate 55 (>60); Estimated Creatinine Clearance 71.09 ml/min (50-250); Glucose 112 mg/dL (70-99); Potassium 3.9 mmol/L (3.3-5.1); Sodium Level 143 mmol/L (133-145)
[2025-02-12] MEDS: Furosemide 40 MG Tablet PO (09:26)
[2025-02-12] MEDS: Metoprolol(XL)Succ 50 MG Tablet PO (09:26)
[2025-02-12] MEDS: Allopurinol 300 MG Tablet PO (09:26)
[2025-02-12] MEDS: buPROPion (SR) 150 MG Tablet.SA PO ×2 (09:26→21:17)
[2025-02-12] MEDS: Losartan Potassium 100 MG Tablet PO (09:27)
[2025-02-12] MEDS: Citalopram 40 MG TABLET PO (09:27)
[2025-02-12] MEDS: metFORMIN HCl 500 MG Tablet PO ×2 (09:27→18:45)
[2025-02-12] MEDS: Potassium Chloride Oral Tablet 20 MEQ PO (09:27)
[2025-02-12] MEDS: Enoxaparin 40 MG/0.4 ML Syringe SC (09:27)
[2025-02-12] MEDS: amLODIPine 10 MG Tablet PO (09:27)
--- NOTE | 2025-02-12 09:41 | CASEMGMT ---
Addendum entered by Kailey Shankar 02/12/25 10:14: [facility] has accepted. EDIS CM updated. Kailey Shankar DC Planning Asst. Original Note: Discharge Planning HH referral sent to [facility] (only provider in network with pts insurance). Kailey Shankar DC Planning Asst.
--- NOTE | 2025-02-12 10:00 | CASEMGMT ---
EDIS GRIFFIN updated that patient would like HHC at discharge. Per DC material requirements planning manager, [facility] is not in-network with local C agencies. EDIS GRIFFIN called [facility] and they use [facility] for HHC setups [phone]. EDIS GRIFFIN spoke to patient regarding difficulty with setting up HHC with [employer]. Patient was modified independent with therapy and has managed his own ostomy at home and is established with [facility] for home oxygen. Discussed alternative plans if HHC can not be setup and patient was agreeable to attend outpatient if HHC can not be established. EDIS GRIFFIN updated discharge material requirements planning manager and referral to was sent to [facility] as they are the only provider in-network. GABY will continue to follow this patient and plan for a safe discharge.
[2025-02-12 12:14] LABS: Vancomycin, Random Level 21.1 ug/mL (0.0-15.0)
--- NOTE | 2025-02-12 12:14 | PCM.PN.INT ---
Assessment & Plan Assessment/Plan (1) Acute on chronic respiratory failure with hypoxia and hypercapnia: PLAN: Plan RECOMMENDATIONS: 1. Continue to wean supplemental oxygen to maintain saturations at or above 90%. 2. Empiric BiPAP therapy with naps and nightly. 3. Continue scheduled bronchodilators and antimicrobials. 7 days of antimicrobials should be completed. 4. Lovenox for DVT prophylaxis. 5. The patient should be scheduled in the pulmonary medicine office within 2 weeks of discharge. 6. Recommend outpatient PFTs and sleep study be completed. 7. Obtain follow-up chest imaging in 6 to 8 weeks to document resolution of pneumonia. 8. Will sign off at this time. Please call with any additional questions. IMPRESSIONS: 1. Acute on chronic combined respiratory failure The patient has a questionable history of COPD, which could certainly be in a state of exacerbation, secondary to underlying pneumonia coupled with possible mucous plugging. In addition, according to the patient, his supplemental oxygen [facility] was not working appropriately, leading to his worsening dyspnea and hypoxemia. Regardless, it does appear that the patient has chronic baseline CO2 retention and would likely benefit from outpatient pulmonary follow-up after discharge. In the interim, the patient will be continued on scheduled bronchodilators and empiric antibiotics. The patient is maintaining appropriate oxygen saturations on his baseline requirement of 4 L/min. Ultimately, antibiotic should be continued to complete 7 days of therapy. Ideally, the patient should be seen in the pulmonary medicine office within 2 weeks of discharge. I would recommend baseline PFTs along with a diagnostic polysomnogram to be completed. In addition, repeat chest imaging should be obtained in 6 to 8 weeks to document resolution of the patient's pneumonia. 2. History of obesity/hypertension/diabetes mellitus/depression Complicates care, management, recovery and prognosis. Continue home medications as indicated. This note was generated with [employer] dictation software. It may contain incorrect words, spelling, and punctuation that were not noted in checking the note before signing. Subjective Subjective The patient was seen and examined at the bedside this morning. Events from the last 24 hours have been reviewed. The patient remains afebrile and hemodynamically stable. At the time of my evaluation with the patient, he was maintaining saturations in the low to mid 90s on 4 L/min, which is his baseline requirement. He seems rather anxious to be discharged home. His is present at the bedside. Although an attempt was made to obtain medical records from [facility], we never received any documentation from them. White blood cell count has improved to 26,000. Creatinine is stable at 1.38. The patient was seen by speech therapy yesterday who indicated the patient had a normal swallow function. Objective Data Objective Data The patient's most recent lab work, culture data and imaging studies have all been personally reviewed. Blood cultures have not demonstrated any growth to date. Strep and urine Legionella antigens were negative. Vital Signs: Vital Signs Temp Pulse Resp BP Pulse Ox O2 Del Method O2 Flow Rate 97.9 F 86 16 113/63 92 High Flow 6 02/12/25 09:15 02/12/25 09:26 02/12/25 09:15 02/12/25 09:15 02/12/25 09:15 02/12/25 09:15 02/12/25 09:15 FiO2 55 02/12/25 06:31 Oxygen Flow Rate (L/min) 6 Oxygen Delivery Method High Flow Weight: 291 lb 10.745 oz Body Mass Index (BMI) 39.4 Intake & Output: Intake and Output for Last 24 Hours 02/10/25 02/11/25 02/12/25 23:59 23:59 23:59 Intake Total 640 / 640 4000 / 4000 460 / 460 Output Total 400 / 400 1550 / 1550 651 / 651 Balance 240 / 240 2450 / 2450 -191 / -191 Lab / Micro Data Attestation: I reviewed the patient's lab results. 02/12/25 06:29 02/12/25 06:29 Labs: Laboratory Results - last 24 hr 02/11/25 16:11: POC Glucose 154 H 02/11/25 21:10: POC Glucose 140 H 02/11/25 23:30: Vancomycin Trough 27.4 H 02/12/25 06:21: POC Glucose 108 H 02/12/25 06:29: WBC 26.4 H, RBC 2.94 L, Hgb 8.7 L, Hct 28.4 L, MCV 96.6 H, MCH 29.6, MCHC 30.6 L, RDW Std Deviation 52.3 H, RDW Coeff of Casey 14.7 H, Plt Count 515 H, MPV 8.8, Immature Gran % (Auto) 2.100 H, Neut % (Auto) 81.8 H, Lymph % (Auto) 7.7 L, [place] % (Auto) 7.8, Eos % (Auto) 0.3, Baso % (Auto) 0.3, Absolute Neuts (auto) 21.6 H, Absolute Lymphs (auto) 2.02, Nucleated RBC % 0.1, Sodium 143, Potassium 3.9, Chloride 100, Carbon Dioxide 33.0 H, Anion Gap 10, BUN 23 H, Creatinine 1.38 H, Estim Creat Clear Calc 71.09, Est GFR (MDRD) Non-Af 55 L, BUN/Creatinine Ratio 16.9, Glucose 112 H, Calcium 9.5 02/12/25 11:34: Random Vancomycin 21.1 H Micro: Microbiology 02/10/25 12:01 Blood Culture (Wb) - Anticubital Left Blood Culture - Preliminary No growth in 48 hours. 02/10/25 12:01 Blood Culture (Wb) - Anticubital Left Blood Culture - Preliminary No growth in 48 hours. 02/11/25 10:25 Urine, Clean Catch Legionella Antigen - Final 02/11/25 10:25 Urine, Clean Catch Streptococcus pneumoniae Antigen (M - Final Physical Exam Const alert, oriented x3 and no apparent distress Constitutional Narrative: Obese. Sitting in bedside recliner. General Appearance: cooperative HEENT normocephalic and head/scalp atraumatic Eyes PERRL, EOMs intact bilaterally and conjunctivae normal Neck supple General: trachea midline Chest inspection of chest normal Resp normal respiratory effort Auscultation: diminished lung sounds Cardio regular rate and regular rhythm GI normal to inspection, nondistended, normoactive bowel sounds Extremity no clubbing, cyanosis or edema Skin no rashes or lesions noted Neuro CN's II-XII intact bilaterally, moves all extremities and no focal motor deficits Psych cooperative and affect normal Charges/Coding Visit Charges Inpatient E&M: 25978 Subs Hosp L2
--- NOTE | 2025-02-12 12:27 | PCM.RX.CS ---
Consult Antibiotic Management Pharmacy has been consulted to manage selected antibiotic: Vancomycin Type of Intervention Type of Consult: Follow-up Suspected Infection Suspected Infection: Sepsis Prior Doses of Antibiotics Prior Doses of Antibiotics Received/Current Regimen: Current Vancomycin Dose: 1500 MG Q12H Number of Doses Received: 1 LOAD + 2 Maintenance Labs Labs: Sodium 143 mmol/L (133-145) 02/12/25 06:29 Potassium 3.9 mmol/L (3.3-5.1) 02/12/25 06:29 Chloride 100 mmol/L (98-108) 02/12/25 06:29 Carbon Dioxide 33.0 mmol/L (21.0-32.0) H 02/12/25 06:29 Anion Gap 10 (5-15) 02/12/25 06:29 BUN 23 mg/dL (4-19) H 02/12/25 06:29 Creatinine 1.38 mg/dL (0.70-1.20) H 02/12/25 06:29 Est GFR (MDRD) Non-Af 55 (>60) L 02/12/25 06:29 BUN/Creatinine Ratio 16.9 RATIO (10-20) 02/12/25 06:29 Glucose 112 mg/dL (70-99) H 02/12/25 06:29 Vancomycin Trough 27.4 ug/mL (5.0-15.0) H 02/11/25 23:30 Random Vancomycin 21.1 ug/mL (0.0-15.0) H 02/12/25 11:34 Microbiology Microbiology: Microbiology 02/10/25 12:01 Blood Culture (Wb) - Anticubital Left Blood Culture - Preliminary No growth in 48 hours. 02/10/25 12:01 Blood Culture (Wb) - Anticubital Left Blood Culture - Preliminary No growth in 48 hours. 02/11/25 10:25 Urine, Clean Catch Legionella Antigen - Final 02/11/25 10:25 Urine, Clean Catch Streptococcus pneumoniae Antigen (M - Final Dosing Weight Weight used for dosin kg Goal Trough Goal Trough: 15-20 mcg/mL Pharmacy Plan for Drug Dosing Pharmacy Plan for Drug Dosing: VANCOMYCIN LEVEL RECEIVED Current Vancomycin Dose: 1500 MG Q12H Number of Doses Received: 1 loading + 2 Maintenance Vancomycin Level: 21.1 Hours Since Last Dose: 24 hrs Renal Function: SCr 1.38 mg/dL CrCl 71.09 mL/min Renal Function Trend: To be monitored. Lab/Micro: Vancomycin Plan/Comments: Level still Supra-therapeutic; will hold dose and check levels again in 8 hours to determine course of treatment. Pending Level: [id number] @19:30 Pharmacy Service will continue to monitor and adjust dosing as required. Date/Time Labs Ordered Labs to be done on [date and time ordered]: 02/12/2025 @ 1930
[2025-02-12 12:39] LABS: Bedside Glucose 147 mg/dL (74-106)
--- NOTE | 2025-02-12 14:50 | PN_ITS ---
Subjective Subjective Patient seen and examined. He felt much better and had no active complaints. He felt his breathing had improved. Review of systems is otherwise negative. He is on 6L of oxygen. Objective Data Objective Data Vital Signs: Vital Signs Temp Pulse Resp BP Pulse Ox O2 Del Method O2 Flow Rate 97.9 F 88 20 H 113/63 92 High Flow 6 02/12/25 09:15 02/12/25 12:43 02/12/25 12:43 02/12/25 09:15 02/12/25 09:15 02/12/25 09:15 02/12/25 09:15 FiO2 55 02/12/25 06:31 Oxygen Flow Rate (L/min) 6 Oxygen Delivery Method High Flow Weight: 291 lb 10.745 oz Body Mass Index (BMI) 39.4 Intake & Output: Intake and Output for Last 24 Hours 02/10/25 02/11/25 02/12/25 23:59 23:59 23:59 Intake Total 640 / 640 4000 / 4000 460 / 460 Output Total 400 / 400 1550 / 1550 651 / 651 Balance 240 / 240 2450 / 2450 -191 / -191 Lab / Micro Data 02/12/25 06:29 02/12/25 06:29 Labs: Laboratory Results - last 24 hr 02/11/25 16:11: POC Glucose 154 H 02/11/25 21:10: POC Glucose 140 H 02/11/25 23:30: Vancomycin Trough 27.4 H 02/12/25 06:21: POC Glucose 108 H 02/12/25 06:29: WBC 26.4 H, RBC 2.94 L, Hgb 8.7 L, Hct 28.4 L, MCV 96.6 H, MCH 29.6, MCHC 30.6 L, RDW Std Deviation 52.3 H, RDW Coeff of Casey 14.7 H, Plt Count 515 H, MPV 8.8, Immature Gran % (Auto) 2.100 H, Neut % (Auto) 81.8 H, Lymph % (Auto) 7.7 L, Navarro % (Auto) 7.8, Eos % (Auto) 0.3, Baso % (Auto) 0.3, Absolute Neuts (auto) 21.6 H, Absolute Lymphs (auto) 2.02, Nucleated RBC % 0.1, Sodium 143, Potassium 3.9, Chloride 100, Carbon Dioxide 33.0 H, Anion Gap 10, BUN 23 H, Creatinine 1.38 H, Estim Creat Clear Calc 71.09, Est GFR (MDRD) Non-Af 55 L, BUN/Creatinine Ratio 16.9, Glucose 112 H, Calcium 9.5 02/12/25 11:34: Random Vancomycin 21.1 H 02/12/25 12:06: POC Glucose 147 H Micro: Microbiology 02/10/25 12:01 Blood Culture (Wb) - Anticubital Left Blood Culture - Preliminary No growth in 48 hours. 02/10/25 12:01 Blood Culture (Wb) - Anticubital Left Blood Culture - Preliminary No growth in 48 hours. 02/11/25 10:25 Urine, Clean Catch Legionella Antigen - Final 02/11/25 10:25 Urine, Clean Catch Streptococcus pneumoniae Antigen (M - Final Physical Exam Const alert and oriented x3 Constitutional Narrative: class III obesity General Appearance: cooperative HEENT normocephalic, head/scalp atraumatic, hearing grossly normal bilaterally and moist oral mucous membranes Eyes PERRL, EOMs intact bilaterally and conjunctivae normal Neck no lymphadenopathy and supple Resp Resp Narrative: moderately diminished breath sounds bibasally, no wheezes or crackles. On 6 L of oxygen today Cardio regular rate, regular rhythm, S1 normal heart sound, S2 normal heart sound and no murmurs GI normal to inspection, nondistended, normoactive bowel sounds, soft to palpation, non-tender and non-distended Extremity normal to inspection, full ROM, normal capillary refill and no clubbing, cyanosis or edema General Extremity: no tenderness to palpation of joints or extremities Skin General Skin Exam: no breakdown Neuro oriented x3, CN's II-XII intact bilaterally, moves all extremities and no focal motor deficits Sensorium / Orientation: awake and alert Motor Exam: strength 5/5 throughout and general weakness Psych thought process normal, cooperative and affect normal Appearance: appropriate Assessment & Plan Assessment/Plan (1) Pneumonia: (2) Sepsis: (3) Acute on chronic respiratory failure with hypoxia and hypercapnia: PLAN: Plan #Acute on chronic hypoxic and hypercapnic respiratory failure * concerning for aspiration pneumonia based on CT findings * he is on 6L of oxygen. * Chest x-ray showed suspected lobar consolidation atelectasis of the right lower and middle lobes. CTA of the chest done showed no evidence of PE but showed lobar consolidation and collapse of the right lower lobe with near complete opacification of the left lower lobe and involving the right middle lobe to a lesser degree with mild avidity noted along the dependent right upper lobe airspace disease with no central obstructing process noted. * Will place patient on IV Zosyn for presumptive aspiration pneumonia empirically * Get speech evaluation. Consult critical care. * critical care on board. * titrate oxygen to maintain sats >90% * breathing treatment with bronchodilators * WBC is down to 26.4 today. * Urine for Strep and Legionella negative. Blood cultures show no growth in 48 hours #Probable aspiration pneumonia: As above #Hypertension: on amlodipine, losartan and metoprolol #Depression: on bupropion and citalopram #TYpe 2 diabetes mellitus: on metformin. ISS. Accuchecks ACHS. #History of gout: on allopurinol #Class III obesity: Complicates acute care, expected current prognosis. DVT prophylaxis: lovenox Code status: full code * Disposition: patient now says he prefers to go home with home health on DC. For likely dc home over the next 24-48 hours. Charges/Coding Visit Charges Inpatient E&M: 19033 Subs Hosp L2
[2025-02-12 17:38] LABS: Bedside Glucose 126 mg/dL (74-106)
[2025-02-12 20:01] LABS: Vancomycin, Random Level 18.9 ug/mL (0.0-15.0)
--- NOTE | 2025-02-12 20:12 | PCM.RX.CS ---
Consult Antibiotic Management Pharmacy has been consulted to manage selected antibiotic: Vancomycin Type of Intervention Type of Consult: Follow-up Suspected Infection Suspected Infection: Sepsis and Pneumonia Prior Doses of Antibiotics Prior Doses of Antibiotics Received/Current Regimen: Vancomycin 1500 mg Q12H last dose given 02/11 @ 1121 Labs Labs: Sodium 143 mmol/L (133-145) 02/12/25 06:29 Potassium 3.9 mmol/L (3.3-5.1) 02/12/25 06:29 Chloride 100 mmol/L (98-108) 02/12/25 06:29 Carbon Dioxide 33.0 mmol/L (21.0-32.0) H 02/12/25 06:29 Anion Gap 10 (5-15) 02/12/25 06:29 BUN 23 mg/dL (4-19) H 02/12/25 06:29 Creatinine 1.38 mg/dL (0.70-1.20) H 02/12/25 06:29 Est GFR (MDRD) Non-Af 55 (>60) L 02/12/25 06:29 BUN/Creatinine Ratio 16.9 RATIO (10-20) 02/12/25 06:29 Glucose 112 mg/dL (70-99) H 02/12/25 06:29 Vancomycin Trough 27.4 ug/mL (5.0-15.0) H 02/11/25 23:30 Random Vancomycin 18.9 ug/mL (0.0-15.0) H 02/12/25 19:15 Microbiology Microbiology: Microbiology 02/10/25 12:01 Blood Culture (Wb) - Anticubital Left Blood Culture - Preliminary No growth in 48 hours. 02/10/25 12:01 Blood Culture (Wb) - Anticubital Left Blood Culture - Preliminary No growth in 48 hours. 02/11/25 10:25 Urine, Clean Catch Legionella Antigen - Final 02/11/25 10:25 Urine, Clean Catch Streptococcus pneumoniae Antigen (M - Final Dosing Weight Weight used for dosin kg Estimated Creatinine Clearance Estimated Creatinine Clearance: ~ 71 Goal Trough Goal Trough: 15-20 mcg/mL Pharmacy Plan for Drug Dosing Pharmacy Plan for Drug Dosing: Vancomycin random = 18.9, resume dosing with 1000 mg Q12H Pharmacy Service will continue to monitor and adjust dosing as required. Follow-Up Labs Follow-Up Labs: Trough: Vancomycin Date/Time Labs Ordered Labs to be done on [date and time ordered]: 02/14/25 @ 3513
[2025-02-12] MEDS: Vancomycin IV 1,000 MG/200 ML BAG 200 MG IV (21:11)
[2025-02-12] MEDS: Allopurinol 100 MG Tablet 150 MG PO (21:16)
[2025-02-12] MEDS: Atorvastatin Calcium 10 MG Tablet PO (21:17)
[2025-02-12] MEDS: traZODone 50 MG Tablet PO (21:18)
[2025-02-12 23:42] LABS: Bedside Glucose 127 mg/dL (74-106)
[2025-02-13] VITALS (15 sets, daily range): BP systolic 115–145; BP diastolic 55–68; PULSE 75–94; RESP 12–22; TEMP 36.8–36.9; O2SAT 78–97; BMI 39.3
[2025-02-13] MEDS: Ipratropium/Albuterol Sulfate 3 ML AMPUL.NEB INHALATION ×3 (04:24→19:52)
[2025-02-13] MEDS: Cefepime HCl 1 GM in 0.9% Normal Saline (50mL MB+) 50 ML IV ×3 (05:18→22:07)
[2025-02-13 06:21] LABS: Absolute Lymphocyte Count 2.04 X10^3/uL (0.83-4.51); Absolute Neutrophil Count 12.6 X10^3/uL (2.0-7.7); Basophil% 0.6 % (0-1); Eosinophil# 0.14 X10^3/uL; Eosinophils% 0.8 % (0-5); Hematocrit 26.8 % (40-54); Hemoglobin 8.4 g/dL (13.0-16.5); Lymphocyte # 2.04 X10^3/ul (0.83-4.51); Lymphocyte % 12.1 % (19-41); Mean Corp Hgb Conc 31.3 g/dL (32-36); Mean Corpuscular Hgb 30.1 pg (27.0-32.0); Mean Corpuscular Volume 96.1 fL (80-94); Mean Platelet Vol. 9.1 fl (6.2-12.0); Monocyte# 1.57 X10^3/uL; Monocyte% 9.3 % (0-10); NRBC Flagged by Analyzer 0 % (0-5); Neutrophil # 12.58 X10^3/uL (2.7-7.7); Neutrophil % 74.5 % (47-70); POSITIVE DIFFERENTIAL YES; Platelet Count 456 K/mm3 (150-450); RBC Distribution Width CV 14.6 % (11.6-14.6); RBC Distribution Width SD 51.5 fl (35.1-43.9); Red Blood Count 2.79 M/mm3 (4.6-6.2); White Blood Count 16.9 K/mm3 (4.4-11.0)
[2025-02-13 06:27] LABS: Differential Indicated SCAN CRITERIA MET
[2025-02-13 06:51] LABS: Differential Comment SCANNED
[2025-02-13 06:57] LABS: Anion Gap 9 (5-15); BUN 22 mg/dL (4-19); BUN/Creat Ratio 14.7 RATIO (10-20); Calcium,Total 9.2 mg/dL (7.6-11.0); Chloride 97 mmol/L (98-108); Creatinine, Serum 1.49 mg/dL (0.70-1.20); EST Glomerular Filtration Rate 50 (>60); Estimated Creatinine Clearance 65.71 ml/min (50-250); Glucose 101 mg/dL (70-99); Potassium 3.6 mmol/L (3.3-5.1); Sodium Level 140 mmol/L (133-145)
[2025-02-13 06:59] LABS: Bedside Glucose 109 mg/dL (74-106)
[2025-02-13] MEDS: Vancomycin IV 1,000 MG/200 ML BAG 200 MG IV ×2 (08:54→20:16)
[2025-02-13] MEDS: Furosemide 40 MG Tablet PO (08:57)
[2025-02-13] MEDS: amLODIPine 10 MG Tablet PO (08:57)
[2025-02-13] MEDS: Citalopram 40 MG TABLET PO (08:57)
[2025-02-13] MEDS: buPROPion (SR) 150 MG Tablet.SA PO ×2 (08:57→21:20)
[2025-02-13] MEDS: Metoprolol(XL)Succ 50 MG Tablet PO (08:58)
[2025-02-13] MEDS: Enoxaparin 40 MG/0.4 ML Syringe SC (08:58)
[2025-02-13] MEDS: Allopurinol 300 MG Tablet PO (08:58)
[2025-02-13] MEDS: Potassium Chloride Oral Tablet 20 MEQ PO (08:58)
[2025-02-13] MEDS: Losartan Potassium 100 MG Tablet PO (08:58)
[2025-02-13 12:27] LABS: Bedside Glucose 116 mg/dL (74-106)
--- NOTE | 2025-02-13 14:47 | PN_ITS ---
Subjective Subjective Patient seen and examined. He was on BiPAP. He had no active complaints. He said he was on BiPAP only because he thought it during the night. He denies any coughing or chest pain, palpitations, dizziness, nausea or vomiting or any other symptoms. Review of symptoms otherwise negative. Objective Data Objective Data Vital Signs: Vital Signs Temp Pulse Resp BP Pulse Ox O2 Del Method O2 Flow Rate 98.2 F 81 18 145/55 H 92 Nasal Cannula 4 02/13/25 09:01 02/13/25 13:52 02/13/25 13:52 02/13/25 09:01 02/13/25 09:01 02/13/25 09:16 02/13/25 09:16 FiO2 55 02/13/25 04:21 Oxygen Flow Rate (L/min) 4 Oxygen Delivery Method Nasal Cannula Weight: 290 lb 9.108 oz Body Mass Index (BMI) 39.3 Intake & Output: Intake and Output for Last 24 Hours 02/11/25 02/12/25 02/13/25 23:59 23:59 23:59 Intake Total 4000 / 4000 1190 / 1430 660 / 660 Output Total 1550 / 1550 1301 / 1901 1600 / 1600 Balance 2450 / 2450 -111 / -471 -940 / -940 Lab / Micro Data 02/13/25 05:32 02/13/25 05:32 Labs: Laboratory Results - last 24 hr 02/12/25 17:16: POC Glucose 126 H 02/12/25 19:15: Random Vancomycin 18.9 H 02/12/25 21:15: POC Glucose 127 H 02/13/25 05:32: WBC 16.9 H, RBC 2.79 L, Hgb 8.4 L, Hct 26.8 L, MCV 96.1 H, MCH 30.1, MCHC 31.3 L, RDW Std Deviation 51.5 H, RDW Coeff of Casey 14.6, Plt Count 456 H, MPV 9.1, Immature Gran % (Auto) 2.700 H, Neut % (Auto) 74.5 H, Lymph % (Auto) 12.1 L, Brown % (Auto) 9.3, Eos % (Auto) 0.8, Baso % (Auto) 0.6, Absolute Neuts (auto) 12.6 H, Absolute Lymphs (auto) 2.04, Nucleated RBC % 0, Differential Comment SCANNED, Sodium 140, Potassium 3.6, Chloride 97 L, Carbon Dioxide 34.0 H, Anion Gap 9, BUN 22 H, Creatinine 1.49 H, Estim Creat Clear Calc 65.71, Est GFR (MDRD) Non-Af 50 L, BUN/Creatinine Ratio 14.7, Glucose 101 H, Calcium 9.2 02/13/25 06:40: POC Glucose 109 H 02/13/25 12:09: POC Glucose 116 H Micro: Microbiology 02/10/25 12:01 Blood Culture (Wb) - Anticubital Left Blood Culture - Preliminary No growth in 48 hours. 02/10/25 12:01 Blood Culture (Wb) - Anticubital Left Blood Culture - Preliminary No growth in 48 hours. 02/11/25 10:25 Urine, Clean Catch Legionella Antigen - Final 02/11/25 10:25 Urine, Clean Catch Streptococcus pneumoniae Antigen (M - Final Physical Exam Const alert and oriented x3 Constitutional Narrative: class III obesity General Appearance: cooperative HEENT normocephalic, head/scalp atraumatic, hearing grossly normal bilaterally and moist oral mucous membranes Eyes PERRL, EOMs intact bilaterally and conjunctivae normal Neck no lymphadenopathy and supple Resp Resp Narrative: moderately diminished breath sounds bibasally, no wheezes or crackles. On 4 L of oxygen today Cardio regular rate, regular rhythm, S1 normal heart sound, S2 normal heart sound and no murmurs GI normal to inspection, nondistended, normoactive bowel sounds, soft to palpation, non-tender and non-distended Extremity normal to inspection, full ROM, normal capillary refill and no clubbing, cyanosis or edema General Extremity: no tenderness to palpation of joints or extremities Skin General Skin Exam: no breakdown Neuro oriented x3, CN's II-XII intact bilaterally, moves all extremities and no focal motor deficits Sensorium / Orientation: awake and alert Motor Exam: strength 5/5 throughout and general weakness Psych thought process normal, cooperative and affect normal Appearance: appropriate Assessment & Plan Assessment/Plan (1) Pneumonia: (2) Sepsis: (3) Acute on chronic respiratory failure with hypoxia and hypercapnia: PLAN: Plan #Acute on chronic hypoxic and hypercapnic respiratory failure * concerning for aspiration pneumonia based on CT findings * he is on 4L of oxygen. * Chest x-ray showed suspected lobar consolidation atelectasis of the right lower and middle lobes. CTA of the chest done showed no evidence of PE but showed lobar consolidation and collapse of the right lower lobe with near complete opacification of the left lower lobe and involving the right middle lobe to a lesser degree with mild avidity noted along the dependent right upper lobe airspace disease with no central obstructing process noted. * Will place patient on IV Zosyn for presumptive aspiration pneumonia empirically * Get speech evaluation. Consult critical care. * critical care on board. * titrate oxygen to maintain sats >90% * breathing treatment with bronchodilators * WBC is down to 16.9 today. * Urine for Strep and Legionella negative. Blood cultures show no growth in 48 hours #Probable aspiration pneumonia: As above #Hypertension: on amlodipine, losartan and metoprolol #Depression: on bupropion and citalopram #TYpe 2 diabetes mellitus: on metformin. ISS. Accuchecks ACHS. #History of gout: on allopurinol #Class III obesity: Complicates acute care, expected current prognosis. DVT prophylaxis: lovenox Code status: full code * Disposition: for likely DC over the weekend.I wish for his wbc to trend down some moreto get close to normal before dc. Charges/Coding Visit Charges Inpatient E&M: 42203 Subs Hosp L2
[2025-02-13 15:01] LABS: Pathologist Review Reviewed
[2025-02-13 17:04] LABS: Bedside Glucose 133 mg/dL (74-106)
[2025-02-13] MEDS: Budesonide Respules 0.5 MG/2 ML AMPUL.NEB. INHALATION (19:52)
[2025-02-13] MEDS: 0.9% Saline Lock 10 ML Syringe IV (20:15)
[2025-02-13] MEDS: Atorvastatin Calcium 10 MG Tablet PO (21:20)
[2025-02-13] MEDS: traZODone 50 MG Tablet PO (21:20)
[2025-02-13] MEDS: Allopurinol 100 MG Tablet 150 MG PO (21:21)
[2025-02-13] MEDS: Zolpidem Tartrate 5 MG Tablet 10 MG PO (21:21)
[2025-02-13 23:53] LABS: Bedside Glucose 143 mg/dL (74-106)
[2025-02-14] VITALS (19 sets, daily range): BP systolic 98–145; BP diastolic 52–96; PULSE 55–91; RESP 12–20; TEMP 36.2–36.9; O2SAT 80–98; BMI 39.0
[2025-02-14 05:58] LABS: Absolute Lymphocyte Count 1.88 X10^3/uL (0.83-4.51); Absolute Neutrophil Count 10.5 X10^3/uL (2.0-7.7); Basophil# 0.12 X10^3/uL; Basophil% 0.8 % (0-1); Eosinophil# 0.14 X10^3/uL; Hematocrit 26.4 % (40-54); Hemoglobin 8.2 g/dL (13.0-16.5); Lymphocyte # 1.88 X10^3/ul (0.83-4.51); Mean Corp Hgb Conc 31.1 g/dL (32-36); Mean Corpuscular Hgb 29.3 pg (27.0-32.0); Mean Corpuscular Volume 94.3 fL (80-94); Monocyte% 9.6 % (0-10); NRBC Flagged by Analyzer 0.1 % (0-5); Neutrophil # 10.49 X10^3/uL (2.7-7.7); Neutrophil % 72.3 % (47-70); Platelet Count 416 K/mm3 (150-450); RBC Distribution Width CV 14.5 % (11.6-14.6); RBC Distribution Width SD 50.4 fl (35.1-43.9); White Blood Count 14.5 K/mm3 (4.4-11.0)
[2025-02-14 06:33] LABS: Anion Gap 9 (5-15); BUN 20 mg/dL (4-19); BUN/Creat Ratio 13.2 RATIO (10-20); Calcium,Total 8.9 mg/dL (7.6-11.0); Carbon Dioxide 34.6 mmol/L (21.0-32.0); Chloride 97 mmol/L (98-108); Creatinine, Serum 1.53 mg/dL (0.70-1.20); EST Glomerular Filtration Rate 49 (>60); Estimated Creatinine Clearance 63.76 ml/min (50-250); Glucose 103 mg/dL (70-99); Potassium 3.5 mmol/L (3.3-5.1); Sodium Level 140 mmol/L (133-145)
[2025-02-14] MEDS: Cefepime HCl 1 GM in 0.9% Normal Saline (50mL MB+) 50 ML IV ×3 (06:53→21:58)
[2025-02-14] MEDS: Budesonide Respules 0.5 MG/2 ML AMPUL.NEB. INHALATION ×2 (07:04→18:58)
[2025-02-14] MEDS: Ipratropium/Albuterol Sulfate 3 ML AMPUL.NEB INHALATION ×3 (07:04→18:58)
[2025-02-14 07:14] LABS: Bedside Glucose 111 mg/dL (74-106)
[2025-02-14] MEDS: Losartan Potassium 100 MG Tablet PO (09:00)
[2025-02-14] MEDS: buPROPion (SR) 150 MG Tablet.SA PO ×2 (09:01→21:58)
[2025-02-14] MEDS: Metoprolol(XL)Succ 50 MG Tablet PO (09:01)
[2025-02-14] MEDS: Furosemide 40 MG Tablet PO (09:01)
[2025-02-14] MEDS: Potassium Chloride Oral Tablet 20 MEQ PO (09:01)
[2025-02-14] MEDS: Citalopram 40 MG TABLET PO (09:01)
[2025-02-14 09:02] LABS: Vancomycin, Trough Level 26.4 ug/mL (5.0-15.0)
[2025-02-14] MEDS: Allopurinol 300 MG Tablet PO (09:02)
[2025-02-14] MEDS: amLODIPine 10 MG Tablet PO (09:02)
[2025-02-14] MEDS: Enoxaparin 40 MG/0.4 ML Syringe SC (09:02)
[2025-02-14] MEDS: Ensure Plus High Protein 120 ML LIQUID PO ×3 (09:04→17:07)
--- NOTE | 2025-02-14 09:12 | PHA.PHARE_ITS ---
Consult Antibiotic Management Pharmacy has been consulted to manage selected antibiotic: Vancomycin Type of Intervention Type of Consult: Follow-up Labs Labs: Sodium 140 mmol/L (133-145) 02/14/25 05:25 Potassium 3.5 mmol/L (3.3-5.1) 02/14/25 05:25 Chloride 97 mmol/L (98-108) L 02/14/25 05:25 Carbon Dioxide 34.6 mmol/L (21.0-32.0) H 02/14/25 05:25 Anion Gap 9 (5-15) 02/14/25 05:25 BUN 20 mg/dL (4-19) H 02/14/25 05:25 Creatinine 1.53 mg/dL (0.70-1.20) H 02/14/25 05:25 Est GFR (MDRD) Non-Af 49 (>60) L 02/14/25 05:25 BUN/Creatinine Ratio 13.2 RATIO (10-20) 02/14/25 05:25 Glucose 103 mg/dL (70-99) H 02/14/25 05:25 Vancomycin Trough 26.4 ug/mL (5.0-15.0) H 02/14/25 07:30 Random Vancomycin 18.9 ug/mL (0.0-15.0) H 02/12/25 19:15 Microbiology Microbiology: Microbiology 02/10/25 12:01 Blood Culture (Wb) - Anticubital Left Blood Culture - Preliminary No growth in 48 hours. 02/10/25 12:01 Blood Culture (Wb) - Anticubital Left Blood Culture - Prelim inary No growth in 48 hours. 02/11/25 10:25 Urine, Clean Catch Legionella Antigen - Final 02/11/25 10:25 Urine, Clean Catch Streptococcus pneumoniae Antigen (M - Fi nal Pharmacy Plan for Drug Dosing Pharmacy Plan for Drug Dosing: VANCOMYCIN LEVEL RECEIVED Current Vancomycin Dose: 1000MG Q12 Number of Doses Received: 6 Vancomycin Level: 26.4 MG/DL Hours Since Last Dose: 11 Renal Function: SCr 1.53 mg/dL, CrCl 63.7 mL/min Renal Function Trend: SCr rising Lab/Micro: no growth Vancomycin Plan/Comments: 11 hour trough is supratherapeutic at 26.4 mg/dL (goal 15-20). Will hold further dosing at this time and get a random level in 12 hours. Pending Level: 4/19/25 @ 1930 - random Pharmacy Service will continue to monitor and adjust dosing as required.
--- NOTE | 2025-02-14 11:04 | PN_ITS ---
Subjective Subjective Patient seen and examined. He said he felt much better. He however desaturated markedly with ambulation and went down to 80s even on 6L of oxygen. He is hoping he can go home today. Review of systems is otherwise negative. Objective Data Objective Data Vital Signs: Vital Signs Temp Pulse Resp BP Pulse Ox O2 Del Method O2 Flow Rate 98.2 F 84 16 145/62 H 91 High Flow 4 02/14/25 09:48 02/14/25 09:48 02/14/25 09:48 02/14/25 09:48 02/14/25 09:48 02/14/25 09:48 02/14/25 09:48 FiO2 50 02/14/25 04:55 Oxygen Flow Rate (L/min) 4 Oxygen Delivery Method High Flow Weight: 288 lb 9.361 oz Body Mass Index (BMI) 39.0 Intake & Output: Intake and Output for Last 24 Hours 02/12/25 02/13/25 02/14/25 23:59 23:59 23:59 Intake Total 1190 / 1430 2275 / 2275 50 / 50 Output Total 1301 / 1901 3100 / 3100 350 / 350 Balance -111 / -471 -825 / -825 -300 / -300 Lab / Micro Data 02/14/25 05:25 02/14/25 05:25 Labs: Laboratory Results - last 24 hr 02/10/25 10:58: Diff Path Review Reviewed 02/13/25 12:09: POC Glucose 116 H 02/13/25 16:37: POC Glucose 133 H 02/13/25 21:19: POC Glucose 143 H 02/14/25 05:25: WBC 14.5 H, RBC 2.80 L, Hgb 8.2 L, Hct 26.4 L, MCV 94.3 H, MCH 29.3, MCHC 31.1 L, RDW Std Deviation 50.4 H, RDW Coeff of Casey 14.5, Plt Count 416, MPV 9.0, Immature Gran % (Auto) 3.300 H, Neut % (Auto) 72.3 H, Lymph % (Auto) 13.0 L, Murray % (Auto) 9.6, Eos % (Auto) 1.0, Baso % (Auto) 0.8, Absolute Neuts (auto) 10.5 H, Absolute Lymphs (auto) 1.88, Nucleated RBC % 0.1, Sodium 140, Potassium 3.5, Chloride 97 L, Carbon Dioxide 34.6 H, Anion Gap 9, BUN 20 H, Creatinine 1.53 H, Estim Creat Clear Calc 63.76, Est GFR (MDRD) Non-Af 49 L, BUN/Creatinine Ratio 13.2, Glucose 103 H, Calcium 8.9 02/14/25 06:50: POC Glucose 111 H 02/14/25 07:30: Vancomycin Trough 26.4 H Micro: Microbiology 02/10/25 12:01 Blood Culture (Wb) - Anticubital Left Blood Culture - Preliminary No growth in 48 hours. 02/10/25 12:01 Blood Culture (Wb) - Anticubital Left Blood Culture - Preliminary No growth in 48 hours. 02/11/25 10:25 Urine, Clean Catch Legionella Antigen - Final 02/11/25 10:25 Urine, Clean Catch Streptococcus pneumoniae Antigen (M - Final Physical Exam Const alert and oriented x3 Constitutional Narrative: class III obesity General Appearance: cooperative HEENT normocephalic, head/scalp atraumatic, hearing grossly normal bilaterally and moist oral mucous membranes Eyes PERRL, EOMs intact bilaterally and conjunctivae normal Neck no lymphadenopathy and supple Resp Resp Narrative: moderately diminished breath sounds bibasally, no wheezes or crackles. On 6 L of oxygen today Cardio regular rate, regular rhythm, S1 normal heart sound, S2 normal heart sound and no murmurs GI normal to inspection, nondistended, normoactive bowel sounds, soft to palpation, non-tender and non-distended Extremity normal to inspection, full ROM, normal capillary refill and no clubbing, cyanosis or edema General Extremity: no tenderness to palpation of joints or extremities Skin General Skin Exam: no breakdown Neuro oriented x3, CN's II-XII intact bilaterally, moves all extremities and no focal motor deficits Sensorium / Orientation: awake and alert Motor Exam: strength 5/5 throughout and general weakness Psych thought process normal, cooperative and affect normal Appearance: appropriate Assessment & Plan Assessment/Plan (1) Pneumonia: (2) Sepsis: (3) Acute on chronic respiratory failure with hypoxia and hypercapnia: PLAN: Plan #Acute on chronic hypoxic and hypercapnic respiratory failure * concerning for aspiration pneumonia based on CT findings * he is on 6 L of oxygen today and desaturated very easily with ambulation, going down to ~ 81% on 6L of oxygen. * Chest x-ray showed suspected lobar consolidation atelectasis of the right lower and middle lobes. CTA of the chest done showed no evidence of PE but showed lobar consolidation and collapse of the right lower lobe with near complete opacification of the left lower lobe and involving the right middle lobe to a lesser degree with mild avidity noted along the dependent right upper lobe airspace disease with no central obstructing process noted. * on IV zosyn * pulmonoology has signed off * wbc is trending downwards and is 14.5 today. * urine for strep and Legionella negative, and blood cultures are negative. * Will diurese him with IV Lasix as he appears to be in cumulative positive balance of 1.45 L to see if that helps with his desaturation * titrate oxygen to maintain sats >90% * breathing treatment with bronchodilators * #Probable aspiration pneumonia: As above #Hypertension: on amlodipine, losartan and metoprolol #Depression: on bupropion and citalopram #TYpe 2 diabetes mellitus: on metformin. ISS. Accuchecks ACHS. #History of gout: on allopurinol #Class III obesity: Complicates acute care, expected current prognosis. DVT prophylaxis: lovenox Code status: full code * Charges/Coding Visit Charges Inpatient E&M: 49689 Subs Hosp L2
[2025-02-14 11:50] LABS: Bedside Glucose 131 mg/dL (74-106)
[2025-02-14] MEDS: Furosemide 40 MG/4 ML Vial IV (12:01)
[2025-02-14 16:28] LABS: Bedside Glucose 120 mg/dL (74-106)
[2025-02-14 20:28] LABS: Vancomycin, Random Level 22.6 ug/mL (0.0-15.0)
--- NOTE | 2025-02-14 20:45 | PHA.PHARE_ITS ---
Consult Antibiotic Management Pharmacy has been consulted to manage selected antibiotic: Vancomycin Type of Intervention Type of Consult: Follow-up Labs Labs: Sodium 140 mmol/L (133-145) 02/14/25 05:25 Potassium 3.5 mmol/L (3.3-5.1) 02/14/25 05:25 Chloride 97 mmol/L (98-108) L 02/14/25 05:25 Carbon Dioxide 34.6 mmol/L (21.0-32.0) H 02/14/25 05:25 Anion Gap 9 (5-15) 02/14/25 05:25 BUN 20 mg/dL (4-19) H 02/14/25 05:25 Creatinine 1.53 mg/dL (0.70-1.20) H 02/14/25 05:25 Est GFR (MDRD) Non-Af 49 (>60) L 02/14/25 05:25 BUN/Creatinine Ratio 13.2 RATIO (10-20) 02/14/25 05:25 Glucose 103 mg/dL (70-99) H 02/14/25 05:25 Vancomycin Trough 26.4 ug/mL (5.0-15.0) H 02/14/25 07:30 Random Vancomycin 22.6 ug/mL (0.0-15.0) H 02/14/25 19:20 Microbiology Microbiology: Microbiology 02/10/25 12:01 Blood Culture (Wb) - Anticubital Left Blood Culture - Preliminary No growth in 48 hours. 02/10/25 12:01 Blood Culture (Wb) - Anticubital Left Blood Culture - Prelim inary No growth in 48 hours. 02/11/25 10:25 Urine, Clean Catch Legionella Antigen - Final 02/11/25 10:25 Urine, Clean Catch Streptococcus pneumoniae Antigen (M - Fi nal Goal Trough Goal Trough: 15-20 mcg/mL Pharmacy Plan for Drug Dosing Pharmacy Plan for Drug Dosing: Pharmacy Service will continue to monitor and adjust dosing as required. RANDOM LEVEL 22.6 @ 23 HOURS. CONTINUE TO HOLD AND DRAW RABDOM LEVEL IN 12 HOURS Follow-Up Labs Follow-Up Labs: Trough: Vancomycin Date/Time Labs Ordered Labs to be done on [date and time ordered]: 02/15 @ 0730
[2025-02-14] MEDS: Allopurinol 100 MG Tablet 150 MG PO (21:58)
[2025-02-14] MEDS: Atorvastatin Calcium 10 MG Tablet PO (21:58)
[2025-02-14] MEDS: Zolpidem Tartrate 5 MG Tablet 10 MG PO (22:22)
[2025-02-14] MEDS: traZODone 50 MG Tablet PO (22:22)
[2025-02-15] VITALS (8 sets, daily range): BP systolic 112–113; BP diastolic 53–54; PULSE 72–87; RESP 12–18; TEMP 36.8–37.2; O2SAT 87–97; BMI 38.8
[2025-02-15 00:38] LABS: Bedside Glucose 114 mg/dL (74-106)
[2025-02-15] MEDS: Ipratropium/Albuterol Sulfate 3 ML AMPUL.NEB INHALATION ×2 (06:35→13:40)
[2025-02-15] MEDS: Budesonide Respules 0.5 MG/2 ML AMPUL.NEB. INHALATION (06:35)
[2025-02-15] MEDS: Cefepime HCl 1 GM in 0.9% Normal Saline (50mL MB+) 50 ML IV ×2 (06:47→14:56)
[2025-02-15 07:08] LABS: Bedside Glucose 100 mg/dL (74-106)
[2025-02-15 07:25] LABS: Absolute Lymphocyte Count 2.36 X10^3/uL (0.83-4.51); Absolute Neutrophil Count 12.4 X10^3/uL (2.0-7.7); Basophil# 0.12 X10^3/uL; Basophil% 0.7 % (0-1); Eosinophil# 0.21 X10^3/uL; Eosinophils% 1.2 % (0-5); Hematocrit 28.4 % (40-54); Hemoglobin 8.8 g/dL (13.0-16.5); Lymphocyte # 2.36 X10^3/ul (0.83-4.51); Lymphocyte % 13.8 % (19-41); Mean Corpuscular Hgb 29.3 pg (27.0-32.0); Mean Corpuscular Volume 94.7 fL (80-94); Mean Platelet Vol. 9.2 fl (6.2-12.0); Monocyte# 1.49 X10^3/uL; Monocyte% 8.7 % (0-10); NRBC Flagged by Analyzer 0 % (0-5); Neutrophil # 12.42 X10^3/uL (2.7-7.7); Neutrophil % 72.8 % (47-70); Platelet Count 429 K/mm3 (150-450); RBC Distribution Width CV 14.6 % (11.6-14.6); RBC Distribution Width SD 50.8 fl (35.1-43.9); White Blood Count 17.1 K/mm3 (4.4-11.0)
[2025-02-15 08:05] LABS: Anion Gap 10 (5-15); BUN 21 mg/dL (4-19); BUN/Creat Ratio 13.6 RATIO (10-20); Calcium,Total 9.2 mg/dL (7.6-11.0); Carbon Dioxide 37.8 mmol/L (21.0-32.0); Chloride 95 mmol/L (98-108); Creatinine, Serum 1.52 mg/dL (0.70-1.20); EST Glomerular Filtration Rate 49 (>60); Estimated Creatinine Clearance 63.99 ml/min (50-250); Glucose 107 mg/dL (70-99); Potassium 3.7 mmol/L (3.3-5.1); Sodium Level 142 mmol/L (133-145)
[2025-02-15 08:19] LABS: Vancomycin, Random Level 17.1 ug/mL (0.0-15.0)
[2025-02-15] MEDS: Potassium Chloride Oral Tablet 20 MEQ PO (09:36)
[2025-02-15] MEDS: buPROPion (SR) 150 MG Tablet.SA PO (09:36)
[2025-02-15] MEDS: Enoxaparin 40 MG/0.4 ML Syringe SC (09:38)
[2025-02-15] MEDS: Metoprolol(XL)Succ 50 MG Tablet PO (09:39)
[2025-02-15] MEDS: amLODIPine 10 MG Tablet PO (09:40)
[2025-02-15] MEDS: Losartan Potassium 100 MG Tablet PO (09:41)
[2025-02-15] MEDS: Citalopram 40 MG TABLET PO (09:41)
[2025-02-15] MEDS: Allopurinol 300 MG Tablet PO (09:42)
[2025-02-15] MEDS: Ensure Plus High Protein 120 ML LIQUID PO ×2 (09:44→11:31)
[2025-02-15 11:39] LABS: Bedside Glucose 149 mg/dL (74-106)
--- NOTE | 2025-02-15 11:53 | PCM.RX.CS ---
Consult Antibiotic Management Pharmacy has been consulted to manage selected antibiotic: Vancomycin Type of Intervention Type of Consult: Follow-up Suspected Infection Suspected Infection: Sepsis and Pneumonia Labs Labs: Sodium 142 mmol/L (133-145) 02/15/25 07:15 Potassium 3.7 mmol/L (3.3-5.1) 02/15/25 07:15 Chloride 95 mmol/L (98-108) L 02/15/25 07:15 Carbon Dioxide 37.8 mmol/L (21.0-32.0) H 02/15/25 07:15 Anion Gap 10 (5-15) 02/15/25 07:15 BUN 21 mg/dL (4-19) H 02/15/25 07:15 Creatinine 1.52 mg/dL (0.70-1.20) H 02/15/25 07:15 Est GFR (MDRD) Non-Af 49 (>60) L 02/15/25 07:15 BUN/Creatinine Ratio 13.6 RATIO (10-20) 02/15/25 07:15 Glucose 107 mg/dL (70-99) H 02/15/25 07:15 Vancomycin Trough 26.4 ug/mL (5.0-15.0) H 02/14/25 07:30 Random Vancomycin 17.1 ug/mL (0.0-15.0) H 02/15/25 07:15 Microbiology Microbiology: Microbiology 02/10/25 12:01 Blood Culture (Wb) - Anticubital Left Blood Culture - Preliminary No growth in 48 hours. 02/10/25 12:01 Blood Culture (Wb) - Anticubital Left Blood Culture - Preliminary No growth in 48 hours. 02/11/25 10:25 Urine, Clean Catch Legionella Antigen - Final 02/11/25 10:25 Urine, Clean Catch Streptococcus pneumoniae Antigen (M - Final Goal Trough Goal Trough: 15-20 mcg/mL Pharmacy Plan for Drug Dosing Pharmacy Plan for Drug Dosing: VANCOMYCIN LEVEL RECEIVED Current Vancomycin Dose: on HOLD Number of Doses Received: 1000mg x3 Vancomycin Level: 17.1 Hours Since Last Dose: 47 Renal Function: sCr 1.52 Renal Function Trend: stable Vancomycin Plan/Comments: Restart Vancomycin at 1250mg Q24H since drug level is therapeutic. Will recheck level prior to next dose to ensure clearance at 24 hour dosing interval. Pending Level: Random Vancomycin level @ 12:30 02/16/25 Pharmacy Service will continue to monitor and adjust dosing as required. Follow-Up Labs Follow-Up Labs: Trough: Vancomycin (02/16/25 @ 12:30)
[2025-02-15] MEDS: Vancomycin HCl 1,250 MG in 0.9% Normal Saline (250mL Bag) 250 ML 167 MG IV (12:41)
[2025-02-15] MEDS: 0.9% Saline Lock 10 ML Syringe IV (12:42)
[2025-02-15] MEDS: 0.9% Normal Saline (100mL Bag) 100 ML 15 ML IV (12:42)
--- NOTE | 2025-02-15 15:31 | DS.PCM_ITS ---
Providers Date of Admission: 02/10/25 Date of Discharge: 02/15/25 Primary Care Physician: Dr. Ara Pack MD Consultations 02/10/25 17:17 Consult: Section Leader [employer] / Pulmonary Medicine Routine Consulting Provider: Intensivists/Pulmonary Med Reason for Consult: acute on chronic hypoxic and hypercapnic respiratory failure EMERGENT Consult: No MD Notified: Yes Date Notified: 02/10/25 Time Notified: 17:18 Method of Notification: Text Reason For Visit: RESP FAILURE, SEPSIS, PNEUMONIA Diagnosis Discharge Diagnosis (1) Pneumonia: Status: Acute Code(s): J18.9 - Pneumonia, unspecified organism (2) Sepsis: Status: Acute Code(s): A41.9 - Sepsis, unspecified organism (3) Acute on chronic respiratory failure with hypoxia and hypercapnia: Status: Chronic Code(s): J96.21 - Acute and chronic respiratory failure with hypoxia; J96.22 - Acute and chronic respiratory failure with hypercapnia Plan #Acute on chronic hypoxic and hypercapnic respiratory failure * concerning for aspiration pneumonia based on CT findings * he is on 6 L of oxygen today and desaturated very easily with ambulation, going down to ~ 81% on 6L of oxygen. * Chest x-ray showed suspected lobar consolidation atelectasis of the right lower and middle lobes. CTA of the chest done showed no evidence of PE but showed lobar consolidation and collapse of the right lower lobe with near complete opacification of the left lower lobe and involving the right middle lobe to a lesser degree with mild avidity noted along the dependent right upper lobe airspace disease with no central obstructing process noted. * on IV zosyn * pulmonoology has signed off * wbc is trending downwards and is 14.5 today. * urine for strep and Legionella negative, and blood cultures are negative. * Will diurese him with IV Lasix as he appears to be in cumulative positive balance of 1.45 L to see if that helps with his desaturation * titrate oxygen to maintain sats >90% * breathing treatment with bronchodilators * #Probable aspiration pneumonia: As above #Hypertension: on amlodipine, losartan and metoprolol #Depression: on bupropion and citalopram #TYpe 2 diabetes mellitus: on metformin. ISS. Accuchecks ACHS. #History of gout: on allopurinol #Class III obesity: Complicates acute care, expected current prognosis. DVT prophylaxis: lovenox Code status: full code * Medications at Discharge Home Medications allopurinol 300 mg tablet 300 mg PO DAILY 12/05/13 amlodipine 10 mg tablet 10 mg PO DAILY 12/05/13 losartan 100 mg tablet 100 mg PO DAILY 12/05/13 metformin 1,000 mg tablet 500 mg PO BIDCM 12/05/13 sildenafil 50 mg tablet (Viagra) 50 mg PO DAILY PRN PRN Not Specified 12/05/13 zolpidem 10 mg tablet (Ambien) 10 mg PO QHS PRN PRN Sleep 12/05/13 oxycodone-acetaminophen 5 mg-325 mg tablet 1 - 2 tab PO Q4H PRN PRN Pain #20 tabs 12/19/13 allopurinol 100 mg tablet 150 mg PO QHS 10/26/21 atorvastatin 10 mg tablet (Lipitor) 10 mg PO DAILY 10/26/21 budesonide-formoterol HFA 160 mcg-4.5 mcg/actuation aerosol inhaler (Symbicort) 2 puff inhalation BID 10/26/21 bupropion HCl 150 mg tablet,12 hr sustained-release (Wellbutrin SR) 150 mg PO BID 10/26/21 citalopram 40 mg tablet (Celexa) 40 mg PO DAILY 10/26/21 furosemide 40 mg tablet (Lasix) 40 mg PO DAILY 10/26/21 metoprolol succinate 50 mg tablet,extended release 24 hr 50 mg PO DAILY 10/26/21 potassium chloride 20 mEq tablet,extended release 20 meq PO DAILY 10/26/21 tiotropium bromide 2.5 mcg/actuation mist for inhalation (Spiriva Respimat) 2 puff inhalation DAILY 10/26/21 trazodone 50 mg tablet 50 mg PO QHS 10/26/21 oxycodone-acetaminophen 5 mg-325 mg tablet (Percocet) 1 tab PO Q4H PRN pain 7 days #42 tabs 10/28/21 enoxaparin 40 mg/0.4 mL subcutaneous syringe 40 mg (0.4 mL) subcut DAILY 28 days #11.2 mL 10/29/21 amoxicillin 875 mg-potassium clavulanate 125 mg tablet 1 tab PO BID #14 tabs 02/15/25 Hospital Course Operations None Procedures None Summary of Care Provided Minutes Spent on Discharge: 47 Hospital Course: ARA RUSSO, is a 70 M with a PMH as outlined who was admitted via the ED On 02/10/2025 with a complaint of shortness of breath. He was brought in from his SNF where he was found very short of breath. He was recently admitted at [facility] for shortness of breath and said he had his lungs cleaned out. He denies any fever or chills but admitted to a cough which was nonproductive. He denied any fever or chills. Review of systems is otherwise negative. He says he thinks the oxygen and his concentrator finished leading to him feeling very short of breath. Vitals in the ED were blood pressure 118/63, pulse rate of 90, respirate rate of 20 and oxygen saturation of 100% on BiPAP. CBC showed hemoglobin of 10.3 with WBC of 31.6 and platelets of 608. Chemistry showed sodium of 142 potassium of 4.1 and bicarb of 34.6. Creatinine was 1.44. Lactic acid was 2.2. Initial troponin was 102 and proBNP was 338. Chest x-ray showed suspected lobar consolidation atelectasis of the right lower and middle lobes rather than elevation of the right hemidiaphragm with appearance slightly worsened from 12/12/2024 and unable to exclude a component of effusion on the right. Stat CT AP of the chest showed no evidence of PE and showed lobar consolidation and collapse of the right lower lobe with near complete opacification of the left lower lobe involving the right middle lobe to a lesser degree and evidence of mild endobronchial debris as well as a nonspecific 2.2 cm pleural extrapleural rounded lesion in the right apex abutting the right ribs with neoplasm not excluded. He was admitted to be managed for acute on chronic hypoxic respiratory failure with concerns for aspiration pneumonia. He was weaned off the BiPAP onto oxygen by nasal cannula. He started feeling much better. His breathing did improve and he was transferred to the progressive care unit. Critical care was consulted as he was initially admitted in the ICU. Blood cultures were negative. Patient was also diuresed with IV Lasix to help with fluid overload. He was placed on IV Zosyn. His white cell counts did trend down was down at 16 on day of discharge. Patient did have chronically elevated white cell count. Blood cultures were negative and urine for strep and Legionella were negative. Patient was weaned down to his baseline 4 L of oxygen. With slight exertion he did require 5 L of oxygen but quickly rebounded to over 90% on 4 L. Patient was comfortable going home as he said he did not really do much activity at home and usually requires 4 L. He was discharged home with home health on 02/15/2025. He was discharged on p.o. Augmentin for 7-day course. He is to follow-up with his primary care doctor within 1 to 2 weeks. Patient seen and examined prior to discharge. He had no active complaints. Review of systems otherwise negative. Labs and vitals reviewed. Home medication reviewed and reconciled. Physical Exam Const alert, oriented x3 and no apparent distress Constitutional Narrative: class III obesity General Appearance: cooperative and comfortable Orientation / Consciousness: awake Exam Limitations: no limitations HEENT normocephalic, head/scalp atraumatic, hearing grossly normal bilaterally and moist oral mucous membranes Mouth: oral and palatal mucosa normal Eyes PERRL, EOMs intact bilaterally and conjunctivae normal Neck no lymphadenopathy and supple Resp Resp Narrative: moderately diminished breath sounds bibasally, no wheezes or crackles. On4 L of oxygen today Cardio regular rate, regular rhythm, S1 normal heart sound, S2 normal heart sound and no murmurs GI normal to inspection, nondistended, normoactive bowel sounds, soft to palpation, non-tender and non-distended Extremity normal to inspection, full ROM, normal capillary refill and no clubbing, cyanosis or edema General Extremity: no tenderness to palpation of joints or extremities Skin General Skin Exam: no breakdown Neuro oriented x3, CN's II-XII intact bilaterally, moves all extremities and no focal motor deficits Sensorium / Orientation: awake and alert Motor Exam: strength 5/5 throughout and general weakness Psych thought process normal, cooperative and affect normal Appearance: appropriate Weight / BMI Weight Weight: 287 lb 0.67 oz Body Mass Index (BMI) 38.8 ABG / Lab / Microbiology Data 02/15/25 07:15 02/15/25 07:15 Laboratory: Laboratory Results - last 24 hr 02/14/25 15:37: POC Glucose 120 H 02/14/25 19:20: Random Vancomycin 22.6 H 02/14/25 21:55: POC Glucose 114 H 02/15/25 06:48: POC Glucose 100 02/15/25 07:15: WBC 17.1 H, RBC 3.00 L, Hgb 8.8 L, Hct 28.4 L, MCV 94.7 H, MCH 29.3, MCHC 31.0 L, RDW Std Deviation 50.8 H, RDW Coeff of [place] 14.6, Plt Count 429, MPV 9.2, Immature Gran % (Auto) 2.800 H, Neut % (Auto) 72.8 H, Lymph % (Auto) 13.8 L, [place] % (Auto) 8.7, Eos % (Auto) 1.2, Baso % (Auto) 0.7, Absolute Neuts (auto) 12.4 H, Absolute Lymphs (auto) 2.36, Nucleated RBC % 0, Sodium 142, Potassium 3.7, Chloride 95 L, Carbon Dioxide 37.8 H, Anion Gap 10, BUN 21 H, C reatinine 1.52 H, Estim Creat Clear Calc 63.99, Est GFR (MDRD) Non-Af 49 L, BUN/Creatinine Ratio 13.6, Glucose 107 H, Calcium 9.2, Random Vancomycin 17.1 H 02/15/25 11:21: POC Glucose 149 H Microbiology: Microbiology 02/10/25 12:01 Blood Culture (Wb) - Anticubital Left Blood Culture - Preliminary No growth in 48 hours. 02/10/25 12:01 Blood Culture (Wb) - Anticubital Left Blood Culture - Preliminary No growth in 48 hours. 02/11/25 10:25 Urine, Clean Catch Legionella Antigen - Final 02/11/25 10:25 Urine, Clean Catch Streptococcus pneumoniae Antigen (M - Final D/C Instructions Discharge Diet: Low fat / Low cholesterol Discharge Activity: Return to Normal Activity Weight Bearing Status: Weight bearing as tolerated Call your doctor if you observe: Fever of 101 or Higher, Shortness of breath, Dizziness, Swelling in the ankles and Chest pain DC O2, CPAP, BIPAP Needs Home O2 Discharge instructions: Yes Type of respiratory needs?: Oxygen Oxygen frequency: Continuous Continuous oxygen liters per minute: 4 DC home with Oxygen: Yes Home O2 MD Review: I have reviewed the oxygen testing, and the patient qualifies for home oxygen equipment and portability. The patient is mobile in the home and the community. Meaningful Use Info Meaningful Use Meaningful Use Diagnoses (Choose all that apply): None applicable Ischemic Stroke Statin Dosing Therapy Reference: STATIN DOSE THERAPY REFERENCE: * Patients > 75 years receive moderate or high dose statin therapy. * Patients 75 years or YOUNGER should receive HIGH intensity statin dose unless contraindicated. You will be required to document reason for non-treatment if statin daily dose does not meet guidelines. HIGH DOSE STATIN THERAPY DAILY Atorvastatin > than or = to 40 mg Rosuvastatin > than or = to 20 mg Amlodipine + Atorvastatin > than or = to 2.5/40 mg Ezetimibe + Simvastatin 10/80 mg Simvastatin 80mg Discharge Plan Admission Admit Date/Time: 02/10/25 13:23 Primary Reason for Your Visit: acute on chronic respiratory failure, aspiration pneumonia Attending Provider: Charlene Carty Primary Care Provider: Ara Pack Instructions Patient Instructions: Dysphagia Aspiration Discharge Orders/Prescriptions Prescriptions: New amoxicillin-pot clavulanate 875-125 mg tablet 1 tab PO BID Qty: 14 0RF Continued sildenafil [Viagra] 50 MG tablet 50 mg PO DAILY PRN PRN (Reason: Not Specified) amlodipine 10 MG tablet 10 mg PO DAILY metformin 1,000 MG tablet 500 mg PO BIDCM allopurinol 300 MG tablet 300 mg PO DAILY zolpidem [Ambien] 10 MG tablet 10 mg PO QHS PRN PRN (Reason: Sleep) losartan 100 MG tablet 100 mg PO DAILY oxycodone-acetaminophen 1 TABLET tablet 1 - 2 tab PO Q4H PRN PRN (Reason: Pain) Qty: 20 0RF furosemide [Lasix] 40 mg Tablet 40 mg PO DAILY bupropion HCl [Wellbutrin SR] 150 mg Tablet Sustained-Release 12 Hr 150 mg PO BID citalopram [Celexa] 40 mg Tablet 40 mg PO DAILY trazodone 50 mg Tablet 50 mg PO QHS atorvastatin [Lipitor] 10 mg Tablet 10 mg PO DAILY metoprolol succinate 50 mg Tablet Extended Release 24 Hr 50 mg PO DAILY allopurinol 100 mg Tablet 150 mg PO QHS budesonide-formoterol [Symbicort] 160-4.5 mcg/actuation Hfa Aerosol Inhaler 2 puff INHALATION BID Spiriva Respimat 2.5 mcg/actuation Mist 2 puff INHALATION DAILY potassium chloride 20 mEq Tablet Extended Release 20 meq PO DAILY oxycodone-acetaminophen [Percocet] 5-325 mg tablet 1 tab PO Q4H PRN (Reason: pain) 7 Days Qty: 42 0RF enoxaparin 40 mg/0.4 mL syringe 40 mg subcut DAILY 28 Days Qty: 11.2 0RF Rx Instructions: please dispense 28 syringes. Referrals / Follow Up: Ara Pack MD [Primary Care Provider] - Within 1 Week Disposition Disposition (needs filled in before D/C Order can be placed): Home Health Service Charges/Coding Visit Charges Inpatient E&M: 78881 Disch Hosp >30min
--- NOTE | 2025-02-15 16:17 | NURSING ---
Updated Prescription for oxygen faxed to [facility].
[2025-02-15 17:13] LABS: Bedside Glucose 116 mg/dL (74-106)
[2025-02-15] MEDS: Vancomycin Trough/Random Due 1 LAB MC (17:28)
== END 2025-02-15 19:02 | disposition home health service (06) | DRG 177 ==
LOC: ED 11:42 → ICU 12:46 → PCU 02-11 17:37
PROVIDERS: Admitting Provider Student in an Organized Health Care Education/Training Program; Emergency Provider Emergency Medicine; PCP Family Medicine; Visit Provider Student in an Organized Health Care Education/Training Program
DX: J69.0 Pneumonitis due to inhalation of food and vomit (principal); J96.21 Acute and chronic respiratory failure with hypoxia; J96.22 Acute and chronic respiratory failure with hypercapnia; Z68.41 Body mass index [BMI] 40.0-44.9, adult; I24.89 Other forms of acute ischemic heart disease; E87.29 Other acidosis; J44.9 Chronic obstructive pulmonary disease, unspecified; N18.30 Chronic kidney disease, stage 3 unspecified; E11.22 Type 2 diabetes mellitus with diabetic chronic kidney disease; I12.9 Hypertensive chronic kidney disease with stage 1 through stage 4 chronic kidney disease, or unspecified chronic kidney disease; E78.00 Pure hypercholesterolemia, unspecified; E66.813 Obesity, class 3; Z79.84 Long term (current) use of oral hypoglycemic drugs; Z79.01 Long term (current) use of anticoagulants; Z87.891 Personal history of nicotine dependence; Z87.81 Personal history of (healed) traumatic fracture; Z99.81 Dependence on supplemental oxygen
CPT/HCPCS: 36415; 36600; 51702; 71045; 71275; 80048; 80053; 80202; 82803; 82962; 83605; 83880; 84484; 85025; 87040; 87449; 92610; 93005; 94002; 94003; 94640; 94762; 97116; 97162; 97166; 97530; 97535; 97803; 99285; Q9967; A4216; J1938

== ENCOUNTER 2025-02-23 13:32 | Inpatient (IN) | payer MEDICARE, SELFPAY ==
[2025-02-23] VITALS (18 sets, daily range): BP systolic 105–140; BP diastolic 43–75; PULSE 68–89; RESP 12–27; TEMP 36–36.7; O2SAT 79–99; BMI 39.0; BMI 38.1
--- NOTE | 2025-02-23 14:35 | EKG12_ITS ---
Test Reason : SOB Blood Pressure : */* mmHG Vent. Rate : 72 BPM Atrial Rate : 72 BPM P-R Int : 214 ms QRS Dur : 130 ms QT Int : 430 ms P-R-T Axes : 72 17 19 degrees QTcB Int : 470 ms Sinus rhythm with marked sinus arrhythmia with 1st degree A-V block with occasional Premature ventricular complexes Non-specific intra-ventricular conduction block Abnormal ECG Confirmed by ZELDA WALLACE, JUAN ([id number]), film editor RIGO LEON ([id number]) on 02/25/2025 11:49:19 AM Referred By: Confirmed By: JUAN NDIAYE MD
--- NOTE | 2025-02-23 14:36 | EX.ED.DYSGE1 ---
HPI History of Present Illness Chief Complaint: Shortness of Breath Narrative Narrative: Patient is a 70-year-old male with past medical history of COPD chronically on 4 L nasal cannula, chronic kidney disease, hypertension, type 2 diabetes who presents to the emerged part with a chief complaint of shortness of breath. Patient states that when he gets and ambulates his shortness of breath is much worse and states that this just recently started. Patient states that he was coughing some stuff up but notes that now this is a dry cough. Patient denies any recent travel history denies history of blood clots. Patient denies any recent sick contacts. Per patient his oxygen has been not above 85% on his 4 L and he is noted be hypoxic here on 4 L at 79%. [facility] Medical History Non-ST elevated myocardial infarction (non-STEMI) History of hypertension Type 2 diabetes mellitus DNR no code (do not resuscitate) DNR (do not resuscitate) discussion Sinus tachycardia Acute bronchospasm COPD exacerbation Acute on chronic respiratory failure with hypoxia and hypercapnia Anxiety Depression Diabetes On home oxygen therapy COPD (chronic obstructive pulmonary disease) Hypertension Ankle fracture CKD (chronic kidney disease), stage III Home Medications ?Medication ?Instructions ?Recorded ?Last Taken ?Type allopurinol 300 mg tablet 300 mg PO DAILY 12/05/13 02/23/25 History amlodipine 10 mg tablet 10 mg PO DAILY 12/05/13 02/23/25 History losartan 100 mg tablet 100 mg PO DAILY 12/05/13 02/23/25 History zolpidem 10 mg tablet (Ambien) 10 mg PO QHS PRN Sleep 12/05/13 02/22/25 History atorvastatin 10 mg tablet (Lipitor) 10 mg PO DAILY 10/26/21 02/22/25 History budesonide-formoterol HFA 160 2 puff inhalation BID 10/26/21 02/23/25 History mcg-4.5 mcg/actuation aerosol inhaler (Symbicort) bupropion HCl 150 mg tablet,12 hr 150 mg PO BID 10/26/21 02/23/25 History sustained-release (Wellbutrin SR) furosemide 40 mg tablet (Lasix) 40 mg PO DAILY 10/26/21 02/23/25 History potassium chloride 20 mEq 20 meq PO DAILY 10/26/21 02/23/25 History tablet,extended release trazodone 50 mg tablet 50 mg PO QHS 10/26/21 02/22/25 History amoxicillin 875 mg-potassium 1 tab PO BID #14 tabs 02/15/25 02/23/25 Rx clavulanate 125 mg tablet ferrous sulfate 325 mg (65 mg 325 mg PO DAILY 02/23/25 02/23/25 History iron) tablet (FeroSul) hydrochlorothiazide 12.5 mg tablet 12.5 mg PO DAILY 02/23/25 02/23/25 History metformin 500 mg tablet 500 mg PO BID 02/23/25 02/23/25 History metoprolol tartrate 25 mg tablet 25 mg PO DAILY 02/23/25 02/23/25 History multivitamin (Daily Multi-Vitamin 1 tab PO DAILY 02/23/25 02/23/25 History tablet) sertraline 100 mg tablet 150 mg PO Q24H 02/23/25 02/22/25 History Allergy/AdvReac Type Severity Reaction Status Date / Time lisinopril AdvReac Other Verified 02/23/25 13:35 Social History housing: group home Smoking Status: Never smoker ROS ROS ED ROS Narrative Constitutional: Denies fevers, chills, headaches, lightness, dizziness Eyes: Denies change in vision double vision blurry vision Cardiovascular: Denies chest pain or palpitations Respiratory: Complains shortness of breath and dry cough as noted above Abdomen: Denies abdominal pain nausea vomit diarrhea : Denies any urinary symptoms Neurological: Denies numbness, weakness, tingling Musculoskeletal: Denies back pain Skin: Denies rashes or lesions EXAM Physical Exam Narrative Exam Narrative: General: Patient was lying in bed rest comfortably did not appear to be acute distress Head: Atraumatic, normocephalic Eyes: PERRL bilaterally, EOMI bilateral, no conjunctival injection noted Neck: Soft, supple, trachea midline Cardiovascular: Regular rate and rhythm Respiratory: Diminished breath sounds bilaterally no wheezing noted Abdomen: Soft, nondistended, nontender to palpation Extremities: +4/5 strength noted in the bilateral upper and lower extremities, radial pulses +2/4 in the about upper extremities Neurological: Patient functions knew that he was at [facility] year is 2024 Skin: Warm, dry, intact no rashes or lesions noted Const Vital Signs: 02/23/25 13:33 02/23/25 13:33 02/23/25 13:35 Temperature 98.1 F 98.0 F Temperature Source Oral Oral Pulse Rate 68 79 Respiratory Rate 22 H 23 H Respiratory Effort Respiratory Depth Respiratory Pattern Blood Pressure 128/51 H 140/43 H Blood Pressure Mean 76 75 Pulse Ox 79 88 91 Oxygen Delivery Method Nasal Cannula Nasal Cannula Nasal Cannula Oxygen Flow Rate (L/min) 4 6 6 Fraction of Inspired Oxygen (FIO2) 02/23/25 13:45 02/23/25 14:35 02/23/25 14:35 Temperature 98 F Temperature Source Oral Pulse Rate 77 Respiratory Rate 18 20 H Respiratory Effort Short of Breath Respiratory Depth Normal Respiratory Pattern Normal Blood Pressure 128/73 H Blood Pressure Mean 91 Pulse Ox 90 86 Oxygen Delivery Method Nasal Cannula Nasal Cannula Nasal Cannula Oxygen Flow Rate (L/min) 13 Fraction of Inspired Oxygen (FIO2) 02/23/25 14:35 02/23/25 15:00 02/23/25 15:00 Temperature 98 F 98 F Temperature Source Oral Oral Pulse Rate 78 78 Respiratory Rate 20 H 20 H Respiratory Effort Respiratory Depth Respiratory Pattern Blood Pressure 128/70 H 128/73 H Blood Pressure Mean 89 91 Pulse Ox 94 86 88 Oxygen Delivery Method Bi-pap Nasal Cannula Nasal Cannula Oxygen Flow Rate (L/min) 13 13 Fraction of Inspired Oxygen (FIO2) 90 02/23/25 15:15 02/23/25 16:00 02/23/25 16:08 Temperature 97.9 F Temperature Source Axillary Pulse Rate 80 83 83 Respiratory Rate 18 14 18 Respiratory Effort Respiratory Depth Respiratory Pattern Blood Pressure 122/65 H Blood Pressure Mean 84 Pulse Ox 98 90 Oxygen Delivery Method Bi-pap Oxygen Flow Rate (L/min) Fraction of Inspired Oxygen (FIO2) 90 02/23/25 17:00 02/23/25 17:00 Temperature 97.8 F Temperature Source Axillary Pulse Rate 89 87 Respiratory Rate 16 16 Respiratory Effort Respiratory Depth Respiratory Pattern Blood Pressure 130/68 H 105/69 Blood Pressure Mean 88 81 Pulse Ox 95 97 Oxygen Delivery Method Bi-pap Bi-pap Oxygen Flow Rate (L/min) Fraction of Inspired Oxygen (FIO2) MDM MDM MDM Narrative Medical decision making narrative: Patient is a 70-year-old male who presented to the emergency department the chief complaint of dyspnea on exertion and having increased oxygen requirements. On the differential diagnose include but not limited to ACS, pneumonia, pneumothorax, CHF, PE. Once workup is obtained reviewed he will be reevaluated. Patient was given IV fluids 1 L is a concern for a hypervolemic state therefore we will hold off on 30 cc/kg bolus. Patient be given DuoNeb and Solu-Medrol. Patient's CBC was reviewed showed a white count of 16,000 however when compared to previous blood count this is chronically elevated, hemoglobin was noted to be 9.3, platelet count normal 385. Patient's arterial blood gas was reviewed which showed a pH 7.38 with a CO2 of 42 his O2 was low at 60 however on the monitor while on BiPAP he is 99%. He is resting comfortably with no increased work of breathing. Patient sodium was noted be normal at 143, potassium normal 4.9, creatinine was 1.43 he has underlying chronic kidney disease. Patient lactic acid is pending, troponin elevated 80 however he has chronic elevated troponins. Patient's EKG was reviewed which showed sinus rhythm with a rate of 72 beats per minutes with evidence of first-degree block with MA interval of 214. Patient's proBNP was 528. Patient's chest x-ray was reviewed by myself and by radiology which showed worsening opacification of the right chest may be combination of effusion and progressive airspace disease such as atelectasis and/or pneumonia. Given a question bronchial cutoff on the right mucous plugging or aspiration should be considered. Patient was given 2 g Rocephin and azithromycin at 1614. Reperfusion assessment was performed at 4:39 PM and he remains normotensive no indication for vasopressors at this point time. Will discuss case with hospitalist for admission as he is now requiring BiPAP instead of his chronic 4 L nasal cannula. I did add on a CT of his chest to further delineate this opacification versus mucous plugging versus pleural fluid. Patient case was discussed with hospitalist Dr. Nogueira who accept the patient for admission. Patient notified is agreeable to plan all question concerns answered. Critical care time 39 minutes Lab Data Labs: Laboratory Results - last 24 hr 02/23/25 02/23/25 02/23/25 14:56 15:42 16:54 WBC 16.4 H RBC 3.11 L Hgb 9.3 L Hct 30.5 L MCV 98.1 H MCH 29.9 MCHC 30.5 L RDW Std Deviation 55.2 H RDW Coeff of Casey 15.5 H Plt Count 385 MPV 9.7 Immature Gran % (Auto) 0.700 Neut % (Auto) 83.4 H Lymph % (Auto) 8.4 L [place]ell % (Auto) 5.9 Eos % (Auto) 1.2 Baso % (Auto) 0.4 Absolute Neuts (auto) 13.7 H Absolute Lymphs (auto) 1.37 Nucleated RBC % 0 Sodium 143 Potassium 4.9 Chloride 101 Carbon Dioxide 29.0 Anion Gap 12 BUN 17 Creatinine 1.43 H Estim Creat Clear Calc 68.16 Est GFR (MDRD) Non-Af 53 L BUN/Creatinine Ratio 11.9 Glucose 104 H Lactic Acid 1.4 Calcium 9.8 Troponin T High Sens 80 H* D NT pro BNP II 528 Urine Color Yellow Urine Clarity Sl. Cloudy Urine pH 6.0 Ur Specific [place] 1.020 Urine Protein 30 H Urine Glucose (UA) Normal Urine Ketones Negative Urine Occult Blood Negative Urine Nitrite Negative Urine Bilirubin Negative Urine Urobilinogen Normal Ur Leukocyte Esterase 25 H ABG Data ABG results: ABG 02/23/25 15:58 Specimen Type ART Sample Site R Radial pH 7.38 Bicarbonate Actual 39.8 H Total CO2 42 Base Excess 15 H O2 Saturation 89 L O2 % 90.0 ABG pCO2 67.4 H* ABG pO2 60 L Alex Test Positive O2 Delivery Device BiPAP Vent Mode Not entered POC PEEP 10 Peak Inspir Pressure 16 Crit Call To/Read Back Yes Blood Gas Notified Whom [facility] Blood Gas Notified Time 15:59:57 Radiography Diagnostic Testing: Clinical Impression(s) from Imaging Studies Chest X-Ray 02/23/25 15:20 IMPRESSION: 1. Worsening opacification of the RIGHT chest may reflect a combination of effusion and progressive airspace disease such as atelectasis and/or pneumonia. Given a questioned bronchial cut off on the RIGHT, mucous plugging or aspiration should be considered. Clinical follow-up again recommended to ensure resolution. 2. Additional description as above. Reading Location: [facility] Chest CTA 02/23/25 16:14 IMPRESSION: 1. No pulmonary embolism. 2. Considerable and increasing airspace disease on the RIGHT including lobar consolidation/collapse of the RIGHT lower and middle lobes and considerable endobronchial debris. Findings are most suggestive of aspiration with associated pneumonia/pneumonitis. New trace RIGHT pleural effusion. Recommend outpatient follow-up to radiographic resolution. 3. New mild mediastinal lymphadenopathy. Nonspecific and potentially reactive to the above. Specific attention on follow-up is recommended to ensure stability or resolution. 4. Redemonstrated nonspecific 2.5 cm RIGHT apical pleural/extrapleural mass which could again be benign or malignant. Differential considerations and recommendations are unchanged. 5. Increasingly elevated RIGHT hemidiaphragm. Correlate for clinical evidence of diaphragmatic paralysis. 6. Recommend outpatient thyroid ultrasound. 7. Additional description as above. Reading Location: [id number] Discharge Plan Triage Chief Complaint: Shortness of Breath ED Provider: Stef Berg Dx/Rx/DC Orders Clinical Impression: Acute on chronic hypoxic respiratory failure, COPD exacerbation, Pneumonia Prescriptions: No Action amlodipine 10 MG tablet 10 mg PO DAILY allopurinol 300 MG tablet 300 mg PO DAILY zolpidem [Ambien] 10 MG tablet 10 mg PO QHS PRN losartan 100 MG tablet 100 mg PO DAILY furosemide [Lasix] 40 mg Tablet 40 mg PO DAILY bupropion HCl [Wellbutrin SR] 150 mg Tablet Sustained-Release 12 Hr 150 mg PO BID trazodone 50 mg Tablet 50 mg PO QHS atorvastatin [Lipitor] 10 mg Tablet 10 mg PO DAILY budesonide-formoterol [Symbicort] 160-4.5 mcg/actuation Hfa Aerosol Inhaler 2 puff INHALATION BID potassium chloride 20 mEq Tablet Extended Release 20 meq PO DAILY amoxicillin-pot clavulanate 875-125 mg tablet 1 tab PO BID Qty: 14 0RF sertraline 100 mg tablet 150 mg PO Q24H metoprolol tartrate 25 mg tablet 25 mg PO DAILY hydrochlorothiazide 12.5 mg tablet 12.5 mg PO DAILY metformin 500 mg tablet 500 mg PO BID ferrous sulfate [FeroSul] 325 mg (65 mg iron) tablet 325 mg PO DAILY multivitamin [Daily Multi-Vitamin] Tablet 1 tab PO DAILY Primary Care Provider: Arash Pack Referrals: Arash Pack MD [Primary Care Provider] - Print Language: Yoruba Disposition Disposition: Acute Care [facility]
[2025-02-23] MEDS: MethylPREDNISolone 125 MG/2 ML Vial IV (15:02)
[2025-02-23] MEDS: Ipratropium/Albuterol Sulfate 3 ML AMPUL.NEB INHALATION ×4 (15:02→19:22)
[2025-02-23 15:06] LABS: Absolute Lymphocyte Count 1.37 X10^3/uL (0.83-4.51); Absolute Neutrophil Count 13.7 X10^3/uL (2.0-7.7); Basophil# 0.07 X10^3/uL; Basophil% 0.4 % (0-1); Eosinophil# 0.19 X10^3/uL; Eosinophils% 1.2 % (0-5); Hematocrit 30.5 % (40-54); Hemoglobin 9.3 g/dL (13.0-16.5); Lymphocyte # 1.37 X10^3/ul (0.83-4.51); Lymphocyte % 8.4 % (19-41); Mean Corp Hgb Conc 30.5 g/dL (32-36); Mean Corpuscular Hgb 29.9 pg (27.0-32.0); Mean Corpuscular Volume 98.1 fL (80-94); Mean Platelet Vol. 9.7 fl (6.2-12.0); Monocyte# 0.97 X10^3/uL; Monocyte% 5.9 % (0-10); NRBC Flagged by Analyzer 0 % (0-5); Neutrophil # 13.66 X10^3/uL (2.7-7.7); Neutrophil % 83.4 % (47-70); Platelet Count 385 K/mm3 (150-450); RBC Distribution Width CV 15.5 % (11.6-14.6); RBC Distribution Width SD 55.2 fl (35.1-43.9); Red Blood Count 3.11 M/mm3 (4.6-6.2); White Blood Count 16.4 K/mm3 (4.4-11.0)
[2025-02-23] MEDS: 0.9% Normal Saline (1000mL) 1,000 ML 999 ML IV (15:06)
--- NOTE | 2025-02-23 15:20 | RAD_ITS ---
PROCEDURE: CHEST PA AND LATERAL (RADCXR), 02/23/2025 REASON FOR EXAM: SOB TECHNIQUE: PA and lateral views of the chest were obtained. COMPARISON: None FINDINGS: Heart: Unremarkable. Mediastinum: Question a bronchial cut off on the RIGHT. Lungs/pleura: Increasing opacification of the RIGHT middle and lower chest which could reflect a combination of increasing airspace disease and/or effusion.. Opacity at the RIGHT lung apex probably reflecting lesion seen on previous CT. No visible pneumothorax. Bones: Unremarkable. Lines and support devices: None. Other: None. RAD/Chest PA and Lateral IMPRESSION: 1. Worsening opacification of the RIGHT chest may reflect a combination of effu sameer and progressive airspace disease such as atelectasis and/or pneumonia. Given a questioned bronchial cut off on the RIGH T, mucous plugging or aspiration should be considered. Clinical follow-up again recommended to ensure resolution. 2. Additional description as above. Reading Location: [id number]
[2025-02-23 15:47] LABS: Troponin T High Sensitivity 80 ng/L (<=22)
[2025-02-23 16:03] LABS: Allen Test Positive; Base Excess 15 mmol/L (-2 to +2); Bicarbonate 39.8 mmol/L (22-26); Blood Gas Specimen Type ART; Mode Not entered; O2 Delivery Device BiPAP; PEEP 10; PIP 16; PO2 60 mmHG (75-100); SITE R Radial; SO2 89 % (95-99); Time Given 15:59:57; Total Carbon Dioxide 42 mmol/L; pCO2 67.4 mmHg (35-45); pH 7.38 (7.35-7.45)
[2025-02-23 16:14] LABS: Anion Gap 12 (5-15); BUN 17 mg/dL (4-19); BUN/Creat Ratio 11.9 RATIO (10-20); Calcium,Total 9.8 mg/dL (7.6-11.0); Chloride 101 mmol/L (98-108); Creatinine, Serum 1.43 mg/dL (0.70-1.20); EST Glomerular Filtration Rate 53 (>60); Estimated Creatinine Clearance 68.16 ml/min (50-250); Glucose 104 mg/dL (70-99); Potassium 4.9 mmol/L (3.3-5.1); Pro- Brain NATRIURETIC PEPTIDE 528 pg/mL (<=900); Sodium Level 143 mmol/L (133-145)
--- NOTE | 2025-02-23 16:14 | CT_ITS ---
PROCEDURE: CTA CHEST W/WO CONTRAST 02/23/2025 REASON FOR EXAM: HYPOXIA TECHNIQUE: CTA chest was performed with IV contrast. Multiplanar reformats and MIP reconstructions were generated. PATIENT PREPARATION: Per protocol CONTRAST: Isovue 370 VOLUME: 100 mL One or more dose reduction techniques were used (e.g., Automated exposure control, adjustment of the mA and/or kV according to patient size, use of iterative reconstruction technique). RADIATION DOSE SUMMARY: CTDlvol: 14.25+ 15.83 mGy DLP: 555.57 mGycm COMPARISON: Radiograph of same date and prior. FINDINGS: Exam slightly limited by beam hardening artifact related to the LEFT arm which was positioned at the side rather than above the head. Additional mild motion limitation. Heart/pericardium: Mild coronary atherosclerosis. Aorta: Trace atherosclerosis. Pulmonary arteries: Normal in caliber. No pulmonary embolism is identified. Lymph nodes: RIGHT paratracheal nodes up to 12 mm short axis, previously subcentimeter. RIGHT paraesophageal node, 14 mm short axis, previously 10 mm. Mediastinal lipomatosis. Lungs/pleura: Increasing elevation/eventration of the RIGHT hemidiaphragm. New trace RIGHT pleural effusion. Increasing airspace disease on the RIGHT now with lobar consolidation/collapse of the RIGHT lower and middle lobes with considerable dependent irregular airspace disease in the RIGHT upper lobe. Mild ground-glass within the adjacent aerated portions of the RIGHT upper lobe. Relative hypoenhancement of the RIGHT lower lobe is noted. Mild dependent atelectasis/scarring on the LEFT. Granulomas. Airways: Considerable endobronchial debris within the bronchus intermedius and RIGHT middle/lower lobe segmental/subsegmental branches. Minimal debris within the dependent distal trachea and RIGHT mainstem bronchus. Bronchial wall thickening and narrowing of the RIGHT upper lobe bronchus with scattered foci of more distal endobronchial debris.. Chest wall: Redemonstrated pleural or extrapleural indeterminate ovoid lesion along the RIGHT lung apex measuring 2.5 x 1.8 x 2.0 cm. LEFT lobe thyroid nodules again up to roughly 1.5 cm. Upper abdomen: Cholelithiasis. Similar capsular calcifications along the lateral spleen with adjacent stranding potentially reflecting scarring also unchanged. Musculoskeletal: Old LEFT rib fractures. Multilevel spondylosis.. CT/CTA Chest W/WO Contrast IMPRESSION: 1. No pulmonary embolism. 2. Considerable and increasing airspace disease on the RIGHT including lobar co nsolidation/collapse of the RIGHT lower and middle lobes and considerable endobronchial debris. Findings are most suggestive of a spiration with associated pneumonia/pneumonitis. New trace RIGHT pleural effusion. Recommend outpatient follow-up to radiograph ic resolution. 3. New mild mediastinal lymphadenopathy. Nonspecific and potentially reactive to the above. Specific attention on follow-up is recommended to ensure stability or resolution. 4. Redemonstrated nonspecific 2.5 cm RIGHT apical pleural/extrapleural mass whi ch could again be benign or malignant. Differential considerations and recommendations are unchanged. 5. Increasingly elevated RIGHT hemidiaphragm. Correlate for clinical evidence of diaphragmatic paralysis. 6. Recommend outpatient thyroid ultrasound. 7. Additional description as above. Reading Location: [id number]
[2025-02-23 16:41] LABS: Lactic Acid 1.4 mmol/L (0.0-2.0)
[2025-02-23 17:04] LABS: Mucous, Urine 0 SEEN /hpf (<or=2+)
[2025-02-23 17:11] LABS: Color, Urine Yellow (Yellow); Glucose, Dipstick Normal (Normal); Ketone-Dipstick Negative (Negative); Leukocyte Esterase-Dipstick 25 /ul (Negative); Nitrite-Dipstick Negative (Negative); Occult Blood-Urine Negative /ul (Negative); Protein-Dipstick 30 mg/dl (Negative); Urine Bilirubin Dipstick Negative (Negative); Urine Clarity Sl. Cloudy (Clear); Urine Urobilinogen Normal (Normal)
[2025-02-23] MEDS: Ceftriaxone 2 GM in 0.9% Normal Saline (50mL MB+) 50 ML IV (17:21)
[2025-02-23 17:45] LABS: Prothrombin Time (Protime)PT. 13.8 SECONDS (11.7-14.9)
[2025-02-23 17:46] LABS: Partial Thromboplast Time 28.7 Seconds (24.1-36.2)
[2025-02-23] MEDS: Azithromycin 500 MG in 0.9% Normal Saline (250mL Bag) 250 ML 255 MG IV (17:50)
[2025-02-23 18:14] LABS: Troponin T High Sens 2 HR 71 ng/L (<=22)
--- NOTE | 2025-02-23 18:30 | PCM.HP.STD ---
HPI - General General Date of Admission: 02/23/25 HPI Narrative ARA RUSSO, is a 70 M who presents to the hospital with increasing shortness of breath. Since November he has been having right lower lobe consolidation, he said bronchoscopy a couple of times at an outside hospital that has improved his respiratory status temporarily and then he reaccumulate's in the right lower lobe. He was recently admitted and discharged on 02/15/2025 and placed on 7 days of antibiotics on discharge which were completed yesterday. In November he had a culture for Moraxella catarrhalis and so he was treated with antibiotics at that time and then treated with antibiotics again on this last admission. Unfortunately he does not have a normal white count in our system since 2020 and he says that this never been worked up on outpatient basis. No fevers or chills but having increased shortness of breath over the last couple of days. pCO2 was elevated on ABG to 67.4 with a normal pH. He has improved with BiPAP while in the ER. His left lung is relatively clear with no signs of wheezing or COPD. Despite the elevation in his white count and what appears like right lower lobe consolidation, no fevers or chills and lactic acid is normal. Creatinine is also at baseline at 1.43. [facility] Medical History (Updated 02/23/25 @ 17:[address] Stef Trujillo, ) Former smoker Non-ST elevated myocardial infarction (non-STEMI) History of hypertension Type 2 diabetes mellitus DNR no code (do not resuscitate) DNR (do not resuscitate) discussion Sinus tachycardia Acute bronchospasm COPD exacerbation Acute on chronic respiratory failure with hypoxia and hypercapnia Anxiety Depression Diabetes On home oxygen therapy COPD (chronic obstructive pulmonary disease) Hypertension Ankle fracture CKD (chronic kidney disease), stage III Home Medications ?Medication ?Instructions ?Recorded ?Last Taken ?Type allopurinol 300 mg tablet 300 mg PO DAILY 12/05/13 02/23/25 History amlodipine 10 mg tablet 10 mg PO DAILY 12/05/13 02/23/25 History losartan 100 mg tablet 100 mg PO DAILY 12/05/13 02/23/25 History zolpidem 10 mg tablet (Ambien) 10 mg PO QHS PRN Sleep 12/05/13 02/22/25 History atorvastatin 10 mg tablet (Lipitor) 10 mg PO DAILY 10/26/21 02/22/25 History budesonide-formoterol HFA 160 2 puff inhalation BID 10/26/21 02/23/25 History mcg-4.5 mcg/actuation aerosol inhaler (Symbicort) bupropion HCl 150 mg tablet,12 hr 150 mg PO BID 10/26/21 02/23/25 History sustained-release (Wellbutrin SR) furosemide 40 mg tablet (Lasix) 40 mg PO DAILY 10/26/21 02/23/25 History potassium chloride 20 mEq 20 meq PO DAILY 10/26/21 02/23/25 History tablet,extended release trazodone 50 mg tablet 50 mg PO QHS 10/26/21 02/22/25 History amoxicillin 875 mg-potassium 1 tab PO BID #14 tabs 02/15/25 02/23/25 Rx clavulanate 125 mg tablet ferrous sulfate 325 mg (65 mg 325 mg PO DAILY 02/23/25 02/23/25 History iron) tablet (FeroSul) hydrochlorothiazide 12.5 mg tablet 12.5 mg PO DAILY 02/23/25 02/23/25 History metformin 500 mg tablet 500 mg PO BID 02/23/25 02/23/25 History metoprolol tartrate 25 mg tablet 25 mg PO DAILY 02/23/25 02/23/25 History multivitamin (Daily Multi-Vitamin 1 tab PO DAILY 02/23/25 02/23/25 History tablet) sertraline 100 mg tablet 150 mg PO Q24H 02/23/25 02/22/25 History Allergy/AdvReac Type Severity Reaction Status Date / Time lisinopril AdvReac Other Verified 02/23/25 13:35 Family History (Updated 02/23/25 @ 19:[address] Arnulfo Nogueira MD) Other Heart disease Surgical History (Updated 02/23/25 @ 19:[address] Arnulfo Nogueira MD) History of partial colectomy Social History housing: shelter Smoking Status: Never smoker ROS Constitutional Constitutional: Denies chills, fatigue, fever(s) or malaise Eyes Eyes: Denies blurry vision ENT HEENT: Denies headache(s) or nasal discharge Cardiovascular Cardiovascular: Denies chest pain, dyspnea on exertion or syncope Respiratory/Chest Respiratory/Chest: Reports shortness of breath at rest and shortness of breath with exertion; Denies cough Gastrointestinal Gastrointestinal: Denies constipation, diarrhea, nausea or vomiting Genitourinary Genitourinary: Denies dysuria Neurologic Neurologic: Denies focal weakness, numbness or tremor(s) Psychiatric Psychiatric: Denies anxiety or depression Vital Signs Vital Signs Vital Signs: 02/23/25 13:33 02/23/25 13:33 02/23/25 13:35 Temperature 98.1 F 98.0 F Temperature Source Oral Oral Pulse Rate 68 79 Respiratory Rate 22 H 23 H Respiratory Effort Respiratory Depth Respiratory Pattern Blood Pressure 128/51 H 140/43 H Blood Pressure Mean 76 75 Pulse Ox 79 88 91 Oxygen Delivery Method Nasal Cannula Nasal Cannula Nasal Cannula Oxygen Flow Rate (L/min) 4 6 6 Fraction of Inspired Oxygen (FIO2) 02/23/25 13:45 02/23/25 14:35 02/23/25 14:35 Temperature 98 F Temperature Source Oral Pulse Rate 77 Respiratory Rate 18 20 H Respiratory Effort Short of Breath Respiratory Depth Normal Respiratory Pattern Normal Blood Pressure 128/73 H Blood Pressure Mean 91 Pulse Ox 90 86 Oxygen Delivery Method Nasal Cannula Nasal Cannula Nasal Cannula Oxygen Flow Rate (L/min) 13 Fraction of Inspired Oxygen (FIO2) 02/23/25 14:35 02/23/25 15:00 02/23/25 15:00 Temperature 98 F 98 F Temperature Source Oral Oral Pulse Rate 78 78 Respiratory Rate 20 H 20 H Respiratory Effort Respiratory Depth Respiratory Pattern Blood Pressure 128/70 H 128/73 H Blood Pressure Mean 89 91 Pulse Ox 94 86 88 Oxygen Delivery Method Bi-pap Nasal Cannula Nasal Cannula Oxygen Flow Rate (L/min) 13 13 Fraction of Inspired Oxygen (FIO2) 90 02/23/25 15:15 02/23/25 16:00 02/23/25 16:08 Temperature 97.9 F Temperature Source Axillary Pulse Rate 80 83 83 Respiratory Rate 18 14 18 Respiratory Effort Respiratory Depth Respiratory Pattern Blood Pressure 122/65 H Blood Pressure Mean 84 Pulse Ox 98 90 Oxygen Delivery Method Bi-pap Oxygen Flow Rate (L/min) Fraction of Inspired Oxygen (FIO2) 90 02/23/25 17:00 02/23/25 17:00 02/23/25 18:03 Temperature 97.8 F Temperature Source Axillary Pulse Rate 89 87 84 Respiratory Rate 16 16 16 Respiratory Effort Respiratory Depth Respiratory Pattern Blood Pressure 130/68 H 105/69 Blood Pressure Mean 88 81 Pulse Ox 95 97 Oxygen Delivery Method Bi-pap Bi-pap Oxygen Flow Rate (L/min) Fraction of Inspired Oxygen (FIO2) Weight Weight: 288 lb 2.307 oz Body Mass Index (BMI) 39.0 Physical Exam Narrative General: Alert, Oriented x3, Cooperative, moderate respiratory distress distress HEENT: Atraumatic, PERRLA, EOMI, Normocephalic Oral: Moist Mucosa Neck: Supple, No JVD Lungs: Breath sounds right lower lobe absent, left lower quadrant ostomy, Normal air movement, No rhonchi, No wheeze, No rales, tachypneic on BiPAP Cardiovascular: Regular rate, Regular Rhythm, Normal S1, Normal S2, No murmurs Abdomen: Soft, Non Tender, Non-Distended, No Hepato-splenomegaly Extremities: No edema, Capillary Refill Less than 3 Seconds Skin: No rashes, No breakdown Musculoskeletal: No Tenderness to Palpation of Joints or Extremities Neurological: No focal neurological deficits, moves all extremities Psych/Mental Status: Normal Affect, Appropriate Results Lab / Micro Data 02/23/25 14:56 02/23/25 14:56 Labs: Laboratory Results - last 24 hr 02/23/25 14:56: WBC 16.4 H, RBC 3.11 L, Hgb 9.3 L, Hct 30.5 L, MCV 98.1 H, MCH 29.9, MCHC 30.5 L, RDW Std Deviation 55.2 H, RDW Coeff of Casey 15.5 H, Plt Count 385, MPV 9.7, Immature Gran % (Auto) 0.700, Neut % (Auto) 83.4 H, Lymph % (Auto) 8.4 L, [place] % (Auto) 5.9, Eos % (Auto) 1.2, Baso % (Auto) 0.4, Absolute Neuts (auto) 13.7 H, Absolute Lymphs (auto) 1.37, Nucleated RBC % 0, Sodium 143, Potassium 4.9, Chloride 101, Carbon Dioxide 29.0, Anion Gap 12, BUN 17, Creatinine 1.43 H, Estim Creat Clear Calc 68.16, Est GFR (MDRD) Non-Af 53 L, BUN/Creatinine Ratio 11.9, Glucose 104 H, Calcium 9.8, Troponin T High Sens 80 H* D, NT pro BNP II 528 02/23/25 15:42: Lactic Acid 1.4 02/23/25 16:54: Urine Color Yellow, Urine Clarity Sl. Cloudy, Urine pH 6.0, Ur Specific [place] 1.020, Urine Protein 30 H, Urine Glucose (UA) Normal, Urine Ketones Negative, Urine Occult Blood Negative, Urine Nitrite Negative, Urine Bilirubin Negative, Urine Urobilinogen Normal, Ur Leukocyte Esterase 25 H 02/23/25 17:00: PT 13.8, INR 1.0, APTT 28.7 02/23/25 17:23: Troponin T Hi Sens 2 Hr 71 H* Micro: Microbiology 02/23/25 15:04 Mucosa - Nose SARS-CoV-2, Influenza & RSV (PCR) - Final ABG Data ABG results: ABG 02/23/25 15:58 Specimen Type ART Sample Site R Radial pH 7.38 Bicarbonate Actual 39.8 H Total CO2 42 Base Excess 15 H O2 Saturation 89 L O2 % 90.0 ABG pCO2 67.4 H* ABG pO2 60 L Alex Test Positive O2 Delivery Device BiPAP Vent Mode Not entered POC PEEP 10 Peak Inspir Pressure 16 Crit Call To/Read Back Yes Blood Gas Notified Whom trujillo Blood Gas Notified Time 15:59:57 Imaging Radiology Impression Chest X-Ray 02/23/25 15:20 IMPRESSION: 1. Worsening opacification of the RIGHT chest may reflect a combination of effusion and progressive airspace disease such as atelectasis and/or pneumonia. Given a questioned bronchial cut off on the RIGHT, mucous plugging or aspiration should be considered. Clinical follow-up again recommended to ensure resolution. 2. Additional description as above. Reading Location: [facility] Chest CTA 02/23/25 16:14 IMPRESSION: 1. No pulmonary embolism. 2. Considerable and increasing airspace disease on the RIGHT including lobar consolidation/collapse of the RIGHT lower and middle lobes and considerable endobronchial debris. Findings are most suggestive of aspiration with associated pneumonia/pneumonitis. New trace RIGHT pleural effusion. Recommend outpatient follow-up to radiographic resolution. 3. New mild mediastinal lymphadenopathy. Nonspecific and potentially reactive to the above. Specific attention on follow-up is recommended to ensure stability or resolution. 4. Redemonstrated nonspecific 2.5 cm RIGHT apical pleural/extrapleural mass which could again be benign or malignant. Differential considerations and recommendations are unchanged. 5. Increasingly elevated RIGHT hemidiaphragm. Correlate for clinical evidence of diaphragmatic paralysis. 6. Recommend outpatient thyroid ultrasound. 7. Additional description as above. Reading Location: [id number] Assessment & Plan Assessment/Plan (1) Acute on chronic hypoxic respiratory failure: PLAN: Plan 1. Acute on chronic hypoxic respiratory failure secondary to right lower lobe obstruction ? Imaging indicates possible mucous plugging and has had improvement in the past with bronchoscopy ? Consult pulmonology for bronchoscopy ? He just finished antibiotics yesterday will not restart at this time we will observe, his white count has not been normal in our system since 2020 ? No other signs of infection, he is afebrile, no cough ? Will hold off steroids as there is no wheezing but we will continue with breathing treatments. He did receive Solu-Medrol 125 mg in the ER so this should be more than enough to cover him for the next 24 hours pending further evaluation ? Continue with BiPAP ? She is normally on 4 L nasal cannula, will continue with BiPAP he was able to be weaned to 80% FiO2 during my exam, will continue to wean as able 2. Essential HTN/HLD ? Continue with his home blood pressure medications ? Will monitor and make adjustments as necessary ? Continue with Lipitor ? There is some confusion as to whether he is on Lasix at home, this should be verified with his pharmacy in the morning in the meantime can continue with his hydrochlorothiazide and losartan 3. DM2 ? Will hold his home metformin ? Sliding scale insulin ? Accu-Cheks ACHS ? Will monitor and make adjustments as necessary 4. Anxiety/depression ? Stable ? Continue with his home medications 5. Iron deficiency anemia ? Hemoglobin is 9.3 which is close to his baseline, continue with his iron supplementation DVT: Lovenox Charges/Coding Visit Charges Inpatient E&M: 80095 Init Hosp L2
[2025-02-23 18:35] LABS: Bacteria 1+ /hpf (None Seen); Red Blood Cells-Urine 0-5 SEEN /hpf (0-5); Squamous Epithelial Cells - UA 0-5 SEEN /hpf (0-5); White Blood Cells 5-10 SEEN /hpf (0-5)
--- NOTE | 2025-02-23 19:12 | CASEMGMT ---
Care Management Face to Face with patient for initial transition planning/care coordination assessment in the ED. This radio script writer introduced self and role at [facility]. Patient alert and oriented, though patient on Bipap and patient's , Francisca, who was bedside confirmed many answers. Care providers, pharmacy, and demographics verified. Admitting Diagnosis: Acute on chronic hypoxic respiratory failure Other diagnosis history: COPD, chronic kidney disease, hypertension, type 2 diabetes PCP: Dr. Pack Specialists: Dr. Rincon, pulmonology (per , has not had time to follow up since last admission) Preferred Pharmacy: [facility] Insurance: [facility] Prescription Benefit: yes Living Will/HPOA: none and denies needing information LNOK: , Francisca. Daughter, Yuli. Living Arrangements: lives with in a one story home with no steps to enter. 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 Transportation: patient drives and can also drive patient if needed DME: walker, cane, walk in shower, shower chair, grab bars in shower, pulse ox, aerosol treatments, colostomy supplies (patient can care for self), O2 3-4L through [employer] (has a concentrator, POC, and tank). HHC: none SNF/Rehab: [facility] and [facility] Patient goals: Patient wishes to discharge home with HHC. Patient denies any further needs or concerns at this time. Disposition Plan: admission to acute; RN CM/SW to follow for discharge planning needs that may arise. Jaimee Tinoco, RADIOLOGY RECEPTIONIST, CUSHION MAT MAKER
[2025-02-23] MEDS: Sodium Chloride 3% 500 ML IV.SOLN. INHALATION (19:24)
[2025-02-23] MEDS: 0.9% Normal Saline (1000mL) 1,000 ML 15 ML IV (21:16)
[2025-02-23] MEDS: buPROPion (SR) 150 MG Tablet.SA PO (21:18)
[2025-02-23] MEDS: traZODone 50 MG Tablet PO (21:19)
[2025-02-23] MEDS: 0.9% Saline Lock 10 ML Syringe IV (21:24)
[2025-02-23 21:36] LABS: Troponin T High Sens 4 HR 65 ng/L (<=22)
[2025-02-23] MEDS: Zolpidem Tartrate 5 MG Tablet PO (23:13)
[2025-02-24] VITALS (18 sets, daily range): BP systolic 123–142; BP diastolic 61–69; PULSE 62–87; RESP 13–26; TEMP 36.6–37.1; O2SAT 85–99
--- NOTE | 2025-02-24 | FLU_PTH ---
PATIENT: ARA RUSSO LOC: [facility] U#:[id number] AGE/SX: 70/M ROOM: [facility] RE02/23/[address]: Dr. Charlene Carty MD : [id number] BED: 1 DIS: 02/25/2025 SPEC #: [id number] RECD: 02/24/25 14:11 STATUS: BRIDGER REQ #: [id number] CECE: 02/24/25 00:[address]: Edmund Rinocn DEPT: CYTOLOGY RECD BY: Radhika Smith ENTERED: 02/25/25 06:50 SP TYPE: Fluid OTHR DR: MD Dr. Bandar Maria MD Dr. Bruce Arthur, MD Dr. David P Myers, MD Dr. Edward Matheis, MD Dr. Gautam Baskaran, MD Dr. Yordanos Habtegebriel, MD Dr. Hemant Dand, MD Dr. Jeffrey Burkey, MD Dr. Jose Ochoa, MD Dr. Justin Wong, MD Dr. Kimber Foust, MD Dr. Lamia Aljundi, MD Dr. Marisa Magana, MD Dr. Nana Yaa Koram, MD Dr. Nicholas F Kotsonis, MD Dr. Pritam Ghosh, MD Dr. Pavan Irukulla, MD Dr. Saad Farooqi, MD Dr. Sukhdeep Dhesi, DO Dr. Sujoy Gill, MD Dr. Soleyah Groves, MD Dr. Timothy Fernstrom, DO Dr. Vikram Anand, MD Dr. William Haden, MD Tissues: A - Bronchus of right lower lobe Procedures: Special Stain Group II Surgery Specimen Level IV Cytospin Fluid HEADER OPERATION: Bronchoscopy PRE-OP DIAGNOSIS: Mucus plugging TISSUE SUBMITTED: A- Right lower lobe fluid for cytology DIAGNOSIS CYTOLOGY A. Bronchoalveolar lavage, right lower lobe: * No malignant cells are identified Note: The AFB, PC and GMS stains are negative. CYTOLOGY STUDY Slides are reviewed. CYTOLOGY GROSS A. Received is 25 ml of viscous- slight pink fluid labeled with the patient's name and and designated per the requisition as Right lower lobe fluid. Submitted for cytology and cell block preparation. 02/25/2025 CPT: 07384
[2025-02-24 00:08] LABS: Bedside Glucose 146 mg/dL (74-106)
--- NOTE | 2025-02-24 06:42 | EX.PCM.CONCC ---
Assessment & Plan Assessment/Plan (1) Acute on chronic respiratory failure with hypoxia and hypercapnia: PLAN: Plan RECOMMENDATIONS: 1. Continue to wean supplemental oxygen to maintain saturations at or above 90%. 2. Recommend empiric BiPAP therapy with naps and nightly. 3. Continue scheduled bronchodilators. 4. Will proceed with diagnostic/therapeutic bronchoscopy this afternoon. 5. Lovenox for DVT prophylaxis. 6. The patient should be scheduled in the pulmonary medicine office within 2 weeks of discharge. 7. Recommend outpatient PFTs and sleep study be completed. IMPRESSIONS: 1. Acute on chronic combined respiratory failure The patient has a questionable history of COPD and presented to the emergency department with worsening shortness of breath and radiographic findings concerning for airspace consolidation and possible retained secretions. The patient was just admitted to the hospital under similar circumstances and was treated with antimicrobials. I did recommend outpatient pulmonary follow-up after discharge. However, the patient was never apparently scheduled to be seen in our office. In light of his radiographic findings, we will proceed with diagnostic/therapeutic bronchoscopy. The patient is afebrile with a normal white blood cell count. Therefore, antibiotics were never initiated. It does appear that the patient has chronic baseline CO2 retention and ideally the patient should be seen in the pulmonary medicine office within 2 weeks of discharge. I would recommend baseline PFTs along with a diagnostic polysomnogram to be completed. 2. History of obesity/hypertension/diabetes mellitus/depression Complicates care, management, recovery and prognosis. Continue home medications as indicated. This note was generated with [employer] dictation software. It may contain incorrect words, spelling, and punctuation that were not noted in checking the note before signing. HPI Consult Data Date of Consult: 02/24/25 HPI Narrative Reason for Consultation: Shortness of breath HPI Narrative: The patient is a 70-year-old male, with a history as outlined below, who presented to the emergency department on February 23 with worsening shortness of breath. The patient was just admitted to the hospital February 10 through under similar circumstances. The patient had positive sputum culture for Moraxella and was treated with antimicrobials. It was recommended that the patient follow-up in the pulmonary medicine clinic after discharge, but it does not appear that an appointment was ever made prior to him being sent home. The patient reported that he was admitted to [facility] in November 2024 and was diagnosed with COVID and secondary bacterial pneumonia. He was apparently intubated and required bronchoscopy during his hospitalization. He was then transitioned to [place], where I assume he underwent rehabilitation. Although the patient has a very limited remote smoking history, he does report that he was diagnosed in the past with COPD and utilizes Symbicort at his baseline. The patient also has a baseline supplemental oxygen requirement of 4 L/min. The patient has never been diagnosed with sleep apnea and therefore does not utilize PAP therapy at his baseline. On presentation to the emergency department, the patient was documented to be afebrile hemodynamically stable. He was initially saturating 79% on 4 L/min. Laboratory evaluation was notable for a white blood cell count of 16,000. Hemoglobin platelet count were stable. ABG was notable for a pH of 7.38 with a pCO2 of 67 and pO2 of 60. Chemistry profile was notable for a creatinine of 1.43. Lactate was within normal limits. CT imaging the chest again demonstrated airspace disease throughout the right hemithorax with volume loss and atelectasis concerning for the presence of endobronchial debris. Therefore, the patient was admitted to the hospital with consultation placed to pulmonary medicine for possible bronchoscopy. [facility] Medical History (Updated 02/23/25 @ 17:[address] Stef Berg, DO) Former smoker Non-ST elevated myocardial infarction (non-STEMI) History of hypertension Type 2 diabetes mellitus DNR no code (do not resuscitate) DNR (do not resuscitate) discussion Sinus tachycardia Acute bronchospasm COPD exacerbation Acute on chronic respiratory failure with hypoxia and hypercapnia Anxiety Depression Diabetes On home oxygen therapy COPD (chronic obstructive pulmonary disease) Hypertension Ankle fracture CKD (chronic kidney disease), stage III Home Medications ?Medication ?Instructions ?Recorded ?Last Taken ?Type allopurinol 300 mg tablet 300 mg PO DAILY 12/05/13 02/23/25 History amlodipine 10 mg tablet 10 mg PO DAILY 12/05/13 02/23/25 History losartan 100 mg tablet 100 mg PO DAILY 12/05/13 02/23/25 History zolpidem 10 mg tablet (Ambien) 10 mg PO QHS PRN Sleep 12/05/13 02/22/25 History atorvastatin 10 mg tablet (Lipitor) 10 mg PO DAILY 10/26/21 02/22/25 History budesonide-formoterol HFA 160 2 puff inhalation BID 10/26/21 02/23/25 History mcg-4.5 mcg/actuation aerosol inhaler (Symbicort) bupropion HCl 150 mg tablet,12 hr 150 mg PO BID 10/26/21 02/23/25 History sustained-release (Wellbutrin SR) furosemide 40 mg tablet (Lasix) 40 mg PO DAILY 10/26/21 02/23/25 History potassium chloride 20 mEq 20 meq PO DAILY 10/26/21 02/23/25 History tablet,extended release trazodone 50 mg tablet 50 mg PO QHS 10/26/21 02/22/25 History amoxicillin 875 mg-potassium 1 tab PO BID #14 tabs 02/15/25 02/23/25 Rx clavulanate 125 mg tablet ferrous sulfate 325 mg (65 mg 325 mg PO DAILY 02/23/25 02/23/25 History iron) tablet (FeroSul) hydrochlorothiazide 12.5 mg tablet 12.5 mg PO DAILY 02/23/25 02/23/25 History metformin 500 mg tablet 500 mg PO BID 02/23/25 02/23/25 History metoprolol tartrate 25 mg tablet 25 mg PO DAILY 02/23/25 02/23/25 History multivitamin (Daily Multi-Vitamin 1 tab PO DAILY 02/23/25 02/23/25 History tablet) sertraline 100 mg tablet 150 mg PO Q24H 02/23/25 02/22/25 History Allergy/AdvReac Type Severity Reaction Status Date / Time lisinopril AdvReac Other Verified 02/23/25 13:35 Family History (Updated 02/23/25 @ 19:[address] Arnulfo Nogueira MD) Other Heart disease Surgical History (Updated 02/23/25 @ 19:[address] Arnulfo Nogueira MD) History of partial colectomy Social History housing: skilled nursing Smoking Status: Never smoker ROS ROS Narrative 10 systems were reviewed with pertinent positives as noted in the HPI above. Physical Exam Const alert, oriented x3 and no apparent distress Constitutional Narrative: Obese. Sitting upright in bed. General Appearance: cooperative HEENT normocephalic and head/scalp atraumatic Eyes PERRL, EOMs intact bilaterally and conjunctivae normal Neck supple General: trachea midline Chest inspection of chest normal Resp normal respiratory effort Auscultation: rhonchi and diminished lung sounds Cardio regular rate and regular rhythm GI normal to inspection, nondistended, normoactive bowel sounds Extremity no clubbing, cyanosis or edema Skin no rashes or lesions noted Neuro CN's II-XII intact bilaterally, moves all extremities and no focal motor deficits Psych cooperative and affect normal Lab / Micro Data 02/24/25 08:15 02/24/25 08:15 Labs: Laboratory Results - last 24 hr 02/23/25 14:56: WBC 16.4 H, RBC 3.11 L, Hgb 9.3 L, Hct 30.5 L, MCV 98.1 H, MCH 29.9, MCHC 30.5 L, RDW Std Deviation 55.2 H, RDW Coeff of Casey 15.5 H, Plt Count 385, MPV 9.7, Immature Gran % (Auto) 0.700, Neut % (Auto) 83.4 H, Lymph % (Auto) 8.4 L, Scurry % (Auto) 5.9, Eos % (Auto) 1.2, Baso % (Auto) 0.4, Absolute Neuts (auto) 13.7 H, Absolute Lymphs (auto) 1.37, Nucleated RBC % 0, Sodium 143, Potassium 4.9, Chloride 101, Carbon Dioxide 29.0, Anion Gap 12, BUN 17, Creatinine 1.43 H, Estim Creat Clear Calc 68.16, Est GFR (MDRD) Non-Af 53 L, BUN/Creatinine Ratio 11.9, Glucose 104 H, Calcium 9.8, Troponin T High Sens 80 H* D, NT pro BNP II 528 02/23/25 15:42: Lactic Acid 1.4 02/23/25 16:54: Urine Color Yellow, Urine Clarity Sl. Cloudy, Urine pH 6.0, Ur Specific [place] 1.020, Urine Protein 30 H, Urine Glucose (UA) Normal, Urine Ketones Negative, Urine Occult Blood Negative, Urine Nitrite Negative, Urine Bilirubin Negative, Urine Urobilinogen Normal, Ur Leukocyte Esterase 25 H, Urine RBC 0-5 SEEN, Urine WBC 5-10 SEEN, Ur Squamous Epith Cells 0-5 SEEN, Urine Bacteria 1+, Urine Mucus 0 SEEN 02/23/25 17:00: PT 13.8, INR 1.0, APTT 28.7 02/23/25 17:23: Troponin T Hi Sens 2 Hr 71 H* 02/23/25 20:45: Troponin T Hi Sens 4Hr 65 H* 02/23/25 21:23: POC Glucose 146 H Micro: Microbiology 02/23/25 15:04 Mucosa - Nose SARS-CoV-2, Influenza & RSV (PCR) - Final ABG Data ABG results: ABG 02/23/25 15:58 Specimen Type ART Sample Site R Radial pH 7.38 Bicarbonate Actual 39.8 H Total CO2 42 Base Excess 15 H O2 Saturation 89 L O2 % 90.0 ABG pCO2 67.4 H* ABG pO2 60 L Alex Test Positive O2 Delivery Device BiPAP Vent Mode Not entered POC PEEP 10 Peak Inspir Pressure 16 Crit Call To/Read Back Yes Blood Gas Notified Whom berg Blood Gas Notified Time 15:59:57 Imaging Radiology Impression Chest X-Ray 02/23/25 15:20 IMPRESSION: 1. Worsening opacification of the RIGHT chest may reflect a combination of effusion and progressive airspace disease such as atelectasis and/or pneumonia. Given a questioned bronchial cut off on the RIGHT, mucous plugging or aspiration should be considered. Clinical follow-up again recommended to ensure resolution. 2. Additional description as above. Reading Location: [id number] Chest CTA 02/23/25 16:14 IMPRESSION: 1. No pulmonary embolism. 2. Considerable and increasing airspace disease on the RIGHT including lobar consolidation/collapse of the RIGHT lower and middle lobes and considerable endobronchial debris. Findings are most suggestive of aspiration with associated pneumonia/pneumonitis. New trace RIGHT pleural effusion. Recommend outpatient follow-up to radiographic resolution. 3. New mild mediastinal lymphadenopathy. Nonspecific and potentially reactive to the above. Specific attention on follow-up is recommended to ensure stability or resolution. 4. Redemonstrated nonspecific 2.5 cm RIGHT apical pleural/extrapleural mass which could again be benign or malignant. Differential considerations and recommendations are unchanged. 5. Increasingly elevated RIGHT hemidiaphragm. Correlate for clinical evidence of diaphragmatic paralysis. 6. Recommend outpatient thyroid ultrasound. 7. Additional description as above. Reading Location: [id number] Charges/Coding Visit Charges Inpatient E&M: 35097 Init Hosp L3
[2025-02-24] MEDS: Budesonide Respules 0.5 MG/2 ML AMPUL.NEB. INHALATION ×2 (07:08→19:32)
[2025-02-24] MEDS: Ipratropium/Albuterol Sulfate 3 ML AMPUL.NEB INHALATION ×3 (07:08→19:32)
[2025-02-24 07:12] LABS: Bedside Glucose 119 mg/dL (74-106)
[2025-02-24 08:31] LABS: Absolute Lymphocyte Count 0.66 X10^3/uL (0.83-4.51); Absolute Neutrophil Count 9.8 X10^3/uL (2.0-7.7); Basophil# 0.01 X10^3/uL; Basophil% 0.1 % (0-1); Hematocrit 27.9 % (40-54); Hemoglobin 8.5 g/dL (13.0-16.5); Lymphocyte # 0.66 X10^3/ul (0.83-4.51); Lymphocyte % 6.1 % (19-41); Mean Corp Hgb Conc 30.5 g/dL (32-36); Mean Corpuscular Hgb 29.7 pg (27.0-32.0); Mean Corpuscular Volume 97.6 fL (80-94); Mean Platelet Vol. 9.5 fl (6.2-12.0); Monocyte# 0.31 X10^3/uL; Monocyte% 2.9 % (0-10); NRBC Flagged by Analyzer 0 % (0-5); Neutrophil # 9.76 X10^3/uL (2.7-7.7); Neutrophil % 90.2 % (47-70); Platelet Count 373 K/mm3 (150-450); RBC Distribution Width CV 15.5 % (11.6-14.6); RBC Distribution Width SD 54.8 fl (35.1-43.9); Red Blood Count 2.86 M/mm3 (4.6-6.2); White Blood Count 10.8 K/mm3 (4.4-11.0)
[2025-02-24] MEDS: Allopurinol 300 MG Tablet PO (08:48)
[2025-02-24] MEDS: amLODIPine 10 MG Tablet PO (08:50)
[2025-02-24] MEDS: Metoprolol Tartrate 25 MG Tablet PO (08:50)
[2025-02-24] MEDS: buPROPion (SR) 150 MG Tablet.SA PO ×2 (08:50→21:30)
[2025-02-24] MEDS: Losartan Potassium 100 MG Tablet PO (08:50)
[2025-02-24] MEDS: Sertraline 100 MG Tablet 150 MG PO (08:50)
[2025-02-24] MEDS: Atorvastatin Calcium 10 MG Tablet PO (08:50)
[2025-02-24 09:01] LABS: Anion Gap 8 (5-15); BUN 17 mg/dL (4-19); BUN/Creat Ratio 13.5 RATIO (10-20); Calcium,Total 9.8 mg/dL (7.6-11.0); Carbon Dioxide 33.2 mmol/L (21.0-32.0); Chloride 101 mmol/L (98-108); Creatinine, Serum 1.25 mg/dL (0.70-1.20); EST Glomerular Filtration Rate 62 (>60); Estimated Creatinine Clearance 79.22 ml/min (50-250); Glucose 118 mg/dL (70-99); Potassium 4.9 mmol/L (3.3-5.1); Sodium Level 142 mmol/L (133-145)
--- NOTE | 2025-02-24 12:00 | CASEMGMT ---
EDIS GRIFFIN updated by search marketing analyst that patient will need follow-up appt with him at discharge. EDIS GRIFFIN updated equal opportunity specialist to schedule appt. [place] attempted to schedule appt with [facility] but they do not accept patient's insurance. EDIS GRIFFIN in to update patient that Dr Tera Rincon does not accept his insurance. EDIS GRIFFIN inquired if patient followed with Dr. Janessa Rincon, [facility] debeaker, patient states he did and was agreeable for EDIS GRIFFIN to schedule appt. EDIS GRIFFIN called Dr. Janessa Rincon's office and patient has not been seen since 2020 and will need to re-establish as a patient. Next available appointment is 03/30/25 at 0845, EDIS GRIFFIN confirmed appt for follow-up. EDIS GRIFFIN updated discharge plan to include appt. CM will continue to follow this patient and plan for a safe discharge.
[2025-02-24] MEDS: Lactated Ringers 1,000 ML 15 ML IV (12:07)
--- NOTE | 2025-02-24 12:18 | PCM.PRE.AN2 ---
ASA Classification* ASA Classification ASA Classification: 4 Assessment & Plan Anesthesia* Anesthesia Assessment Anesthesia Assessment: Discussed sedation and/or anesthesia options, risks, benefits, and alternatives with patient/parents/legal guardian/POA. Questions invited. The patient/parents/legal guardian/POA seems to understand and agrees to proceed with anesthesia plan. Reviewed the physical assessment, medical history, allergy history and patient home medications list prior to surgery/procedure/anesthetic and documented any changes. Performed airway and anesthesia risk assessments. Anesthesia Type Anesthesia Type: General (MAC versus general.) and MAC (MAC versus general.) History Source History Obtained from:: Patient and Chart Anesthesia Focused Assessment* Temperature: 97.9 F Pulse Rate: 76 Blood Pressure: 134/69 Respiratory Rate: 13 Pulse Ox: 97 Oxygen Delivery Method: High Flow (50 L/min.) Oxygen Flow Rate (L/min): 50 Fraction of Inspired Oxygen (FIO2): 92 Airway Assessment Mouth opens: >3 cm Mallampati Score: III Teeth Condition: Missing (Patient is missing 1 tooth on the bottom.) and Partial (Patient has upper partial. It is out.) Neck Range of motion (ROM): Limited ROM (Somewhat decreased extension) Focused Labs Anesthesia Preop lab: CBC WBC 10.8 K/mm3 (4.4-11.0) 02/24/25 08:15 02/24/25 RBC 2.86 M/mm3 (4.6-6.2) L 02/24/25 08:15 02/24/25 Hgb 8.5 g/dL (13.0-16.5) L 02/24/25 08:15 02/24/25 Hct 27.9 % (40-54) L 02/24/25 08:15 02/24/25 Plt Count 373 K/mm3 (150-450) 02/24/25 08:15 02/24/25 CHEMISTRY Potassium 4.9 mmol/L (3.3-5.1) 02/24/25 08:15 02/24/25 Sodium 142 mmol/L (133-145) 02/24/25 08:15 02/24/25 Phosphorus 3.6 mg/dL (2.5-4.9) 06/29/22 10:21 06/29/22 BUN 17 mg/dL (4-19) 02/24/25 08:15 02/24/25 Creatinine 1.25 mg/dL (0.70-1.20) H 02/24/25 08:15 02/24/25 Glucose 118 mg/dL (70-99) H 02/24/25 08:15 02/24/25 POC Glucose 119 mg/dL (74-106) H 02/24/25 06:54 02/24/25 COAG PT 13.8 SECONDS (11.7-14.9) 02/23/25 17:00 02/23/25 Pre-Assessment Diagnosis/Proposed Procedure Planned Operative Procedure(s): Bronchoscopy. Anesthesia History Anesthesia History - bank consultant: Anesthesia History - bank consultant Hx Hospitalization Any Problems With Anesthesia No 10/26/21 21:45 Cholinesterase deficiency No 10/26/21 21:45 You/Your Family Experience No 10/26/21 21:45 fever (hyperthermia) with Relationship Recent Exposure to Contagious No 10/26/21 21:45 Disease Does patient have nerve No 10/26/21 21:45 stimulator Patient instructed to have device shut off --Does patient have Pacemaker or ICD? When Was Last Pacemaker Check QUESTION #4 FULL TEXT: You/Your Family Experience fever (hyperthermia) with Anesthesia Last Oral Intake Last Oral intake: Last Oral Intake NPO since Meds taken in AM with sips of water? Meds patient instructed to take am of surgery Any additional information?: Yes NPO since: 00:00 Meds taken in AM with sips of water?: Yes PONV PONV - bank consultant: PONV - bank consultant Female HX of Motion Sickness HX of N/V After Surgery Non-Smoker Duration of Surgery greater than 60 minutes Number of Risk Factors PONV Score Height & Weight Height & Weight: Anesthesia: Height & Weight Height 6 ft 1 in 02/23/25 18:50 Weight: 131.2 kg 02/23/25 18:50 Body Mass Index (BMI) 38.1 02/23/25 18:50 Respiratory Assessment Respiratory Assessment - bank consultant: Respiratory Tract Infection Hx - bank consultant Hx Respiratory Tract Infection No 10/26/21 21:45 STOP Sleep Apnea STOP Sleep Apnea - bank consultant: STOP Sleep Apnea - bank consultant Hx Hypertension Yes 02/23/25 18:50 Hx Sleep Apnea No 02/23/25 18:50 CPAP BIPAP Do you snore loudly (louder Yes 02/23/25 18:50 than talking or can be heard Do you often feel tired/ No 02/23/25 18:50 fatigued/ sleepy during daytime? Has anyone observed you stop No 02/23/25 18:50 breathing during sleep? STOP Results Positive 02/23/25 18:50 QUESTION #5 FULL TEXT : Do you snore loudly (louder than talking or can be heard through closed doors)? Tobacco Use History Tobacco Use History - bank consultant: Tobacco Use History - bank consultant Tobacco Use Smoking Status Never smoker 02/23/25 18:50 Hx Tobacco Use No 02/23/25 18:50 Years Smoking Packs Smoked per Day Smoking Cessation Date was within the last 15 years Hx Smoking Cessation Date Hx Smoking Cessation Counseling Hematologic Medial History Hematologic Hx - bank consultant: Hematologic Medical Hx - direct support professional Hx of Blood Transfusion No 02/23/25 18:50 Hx of Transfusion in last 3 No 02/23/25 18:50 Months Date of Last Transfusion (if within last 3 months) Ever experience any problems No 02/23/25 18:50 with transfusion(s)? Specify any problems Hx of Preganancy in last 3 N/A 02/23/25 18:50 Months Nurse Filling Out Transfusion FSTEINER 02/23/25 18:50 & Questions: Date: 02/23/25 02/23/25 18:50 Time: 18:52 02/23/25 18:50 Patient unable to answer at this time (ie. confused, unrespo /Reproduction History /Reproductive History - bank consultant: /Reproductive Hx- bank consultant Hx Now Gestational Age (in weeks): EDC: Hx Hx Para Hx Section SAB No 10/26/21 21:45 Active Medications Active Medications: Current Medications Generic Name Dose Route Start Last Admin Trade Name Freq PRN Reason Stop Dose Admin Albuterol/Ipratropium 3 ml 02/23/25 19:03 02/24/25 10:21 Ipratropium/Albuterol Sulfate 3 Ml Ampul.Neb INHALATION 3 ml Q4HWA.RT FRANK Administration Allopurinol 300 mg 02/24/25 08:00 02/24/25 08:48 Allopurinol 300 Mg Tablet PO 300 mg BREAKFAST FRANK Administration Amlodipine Besylate 10 mg 04/29/25 10:00 02/24/25 08:50 Amlodipine 10 Mg Tablet PO 10 mg DAILY FRANK Administration Protocol Atorvastatin Calcium 10 mg 02/24/25 10:00 02/24/25 08:50 Atorvastatin Calcium 10 Mg Tablet PO 10 mg DAILY FRANK Administration Budesonide 0.5 mg 02/23/25 19:15 02/24/25 07:08 Budesonide Respules 0.5 Mg/2 Ml Ampul.Neb. INHALATION 0.5 mg Q12H.RT FRANK Administration Bupropion HCl 150 mg 02/23/25 22:00 02/24/25 08:50 Bupropion (Sr) 150 Mg Tablet.Sa PO 150 mg BID FRANK Administration Enoxaparin Sodium 40 mg 02/24/25 10:00 Enoxaparin 40 Mg/0.4 Ml Syringe SC DAILY FRANK Ferrous Sulfate 325 mg 02/24/25 12:00 Ferrous Sulfate 325 Mg Tablet PO DAILY@1200 FRANK Glucagon 1 mg 02/23/25 19:03 Glucagon 1 Mg/Ml Syringe IM X1 PRN HYPOGLYCEMIA Protocol Hydrochlorothiazide 12.5 mg 02/24/25 10:00 Hydrochlorothiazide 12.5mg PO DAILY [facility] Protocol Sodium Chloride 1,000 mls @ 15 mls/hr 02/23/25 14:35 02/23/25 21:16 IV 15 mls/hr .Q48H FRANK Administration Sodium Chloride 100 mls @ 15 mls/hr 02/23/25 18:49 IV .Q6H40M PRN Saline Flush Dextrose 250 mls @ 0 mls/hr 02/23/25 19:03 Dextrose 10%-Water IV .Q0M PRN HYPOGLYCEMIA Protocol As Directed Lactated Ringer's 1,000 mls @ 15 mls/hr 02/24/25 12:00 02/24/25 12:07 IV 15 mls/hr .Q48H FRANK Administration Insulin Human Lispro 0 unit 02/23/25 22:00 02/24/25 08:40 Insulin Lispro 100 Unit/Ml Insuln.Pen SC Not Given ACHS FRANK Protocol Losartan Potassium 100 mg 02/24/25 10:00 02/24/25 08:50 Losartan Potassium 100 Mg Tablet PO 100 mg DAILY FRANK Administration Protocol Metoprolol Tartrate 25 mg 02/24/25 10:00 02/24/25 08:50 Metoprolol Tartrate 25 Mg Tablet PO 25 mg DAILY FRANK Administration Protocol Sertraline HCl 150 mg 02/24/25 10:00 02/24/25 08:50 Sertraline 100 Mg Tablet PO 150 mg Q24 FRANK Administration Sodium Chloride 10 - 40 ml 02/23/25 18:49 02/23/25 21:24 0.9% Saline Lock 10 Ml Syringe IV 10 ml UD PRN Administration SALINE FLUSH Trazodone HCl 50 mg 02/23/25 22:00 02/23/25 21:19 Trazodone 50 Mg Tablet PO 50 mg QHS FRANK Administration Zolpidem Tartrate 5 mg 02/23/25 21:56 02/23/25 23:13 Zolpidem Tartrate 5 Mg Tablet PO 5 mg QHS PRN PRN Administration SLEEP ON LICENSE OF [facility] Medical History (Updated 02/24/25 @ 12:[address] Napoleon Meade MD) Former smoker Non-ST elevated myocardial infarction (non-STEMI) History of hypertension Type 2 diabetes mellitus DNR no code (do not resuscitate) DNR (do not resuscitate) discussion Sinus tachycardia Acute bronchospasm COPD exacerbation Acute on chronic respiratory failure with hypoxia and hypercapnia Anxiety Depression Diabetes On home oxygen therapy COPD (chronic obstructive pulmonary disease) Hypertension Ankle fracture CKD (chronic kidney disease), stage III Home Medications ?Medication ?Instructions ?Recorded ?Last Taken ?Type allopurinol 300 mg tablet 300 mg PO DAILY 12/05/13 02/23/25 History amlodipine 10 mg tablet 10 mg PO DAILY 12/05/13 02/23/25 History losartan 100 mg tablet 100 mg PO DAILY 12/05/13 02/23/25 History zolpidem 10 mg tablet (Ambien) 10 mg PO QHS PRN Sleep 12/05/13 02/22/25 History atorvastatin 10 mg tablet (Lipitor) 10 mg PO DAILY 10/26/21 02/22/25 History budesonide-formoterol HFA 160 2 puff inhalation BID 10/26/21 02/23/25 History mcg-4.5 mcg/actuation aerosol inhaler (Symbicort) bupropion HCl 150 mg tablet,12 hr 150 mg PO BID 10/26/21 02/23/25 History sustained-release (Wellbutrin SR) furosemide 40 mg tablet (Lasix) 40 mg PO DAILY 10/26/21 02/23/25 History potassium chloride 20 mEq 20 meq PO DAILY 10/26/21 02/23/25 History tablet,extended release trazodone 50 mg tablet 50 mg PO QHS 10/26/21 02/22/25 History amoxicillin 875 mg-potassium 1 tab PO BID #14 tabs 02/15/25 02/23/25 Rx clavulanate 125 mg tablet ferrous sulfate 325 mg (65 mg 325 mg PO DAILY 02/23/25 02/23/25 History iron) tablet (FeroSul) hydrochlorothiazide 12.5 mg tablet 12.5 mg PO DAILY 02/23/25 02/23/25 History metformin 500 mg tablet 500 mg PO BID 02/23/25 02/23/25 History metoprolol tartrate 25 mg tablet 25 mg PO DAILY 02/23/25 02/23/25 History multivitamin (Daily Multi-Vitamin 1 tab PO DAILY 02/23/25 02/23/25 History tablet) sertraline 100 mg tablet 150 mg PO Q24H 02/23/25 02/22/25 History Allergy/AdvReac Type Severity Reaction Status Date / Time lisinopril AdvReac Other Verified 02/23/25 13:35 Family History Other Heart disease Surgical History (Updated 02/24/25 @ 12:[address] Napoleon Meade MD) S/P colostomy History of partial colectomy Social History housing: intermediate Smoking Status: Never smoker Review of Systems (Anesthesia) ROS Narrative System reviewed and no additional complaints, except as documented.
--- NOTE | 2025-02-24 13:25 | PCM.PROGNOTE ---
Subjective Subjective Patient seen and examined. He was on Airvo. He said his shortness of breath had improved. He denied any coughing, chest pain, palpitations, dizziness, nausea, vomiting or any other symptoms. Review of systems is otherwise negative. Objective Data Objective Data Vital Signs: Vital Signs Temp Pulse Resp BP Pulse Ox O2 Del Method O2 Flow Rate 97.9 F 76 13 134/69 H 97 High Flow 50 02/24/25 12:20 02/24/25 12:20 02/24/25 12:20 02/24/25 12:20 02/24/25 12:20 02/24/25 12:35 02/24/25 12:20 FiO2 92 02/24/25 12:20 Oxygen Flow Rate (L/min) 50 Oxygen Delivery Method High Flow Weight: 289 lb 3.944 oz Body Mass Index (BMI) 38.1 Intake & Output: Intake and Output for Last 24 Hours 02/22/25 02/23/25 02/24/25 23:59 23:59 23:59 Intake Total 1305 / 1305 Output Total 200 / 200 1125 / 1125 Balance 1105 / 1105 -1125 / -1125 Lab / Micro Data 02/24/25 08:15 02/24/25 08:15 Labs: Laboratory Results - last 24 hr 02/23/25 14:56: WBC 16.4 H, RBC 3.11 L, Hgb 9.3 L, Hct 30.5 L, MCV 98.1 H, MCH 29.9, MCHC 30.5 L, RDW Std Deviation 55.2 H, RDW Coeff of Casey 15.5 H, Plt Count 385, MPV 9.7, Immature Gran % (Auto) 0.700, Neut % (Auto) 83.4 H, Lymph % (Auto) 8.4 L, [place] % (Auto) 5.9, Eos % (Auto) 1.2, Baso % (Auto) 0.4, Absolute Neuts (auto) 13.7 H, Absolute Lymphs (auto) 1.37, Nucleated RBC % 0, Sodium 143, Potassium 4.9, Chloride 101, Carbon Dioxide 29.0, Anion Gap 12, BUN 17, Creatinine 1.43 H, Estim Creat Clear Calc 68.16, Est GFR (MDRD) Non-Af 53 L, BUN/Creatinine Ratio 11.9, Glucose 104 H, Calcium 9.8, Troponin T High Sens 80 H* D, NT pro BNP II 528 02/23/25 15:42: Lactic Acid 1.4 02/23/25 16:54: Urine Color Yellow, Urine Clarity Sl. Cloudy, Urine pH 6.0, Ur Specific [place] 1.020, Urine Protein 30 H, Urine Glucose (UA) Normal, Urine Ketones Negative, Urine Occult Blood Negative, Urine Nitrite Negative, Urine Bilirubin Negative, Urine Urobilinogen Normal, Ur Leukocyte Esterase 25 H, Urine RBC 0-5 SEEN, Urine WBC 5-10 SEEN, Ur Squamous Epith Cells 0-5 SEEN, Urine Bacteria 1+, Urine Mucus 0 SEEN 02/23/25 17:00: PT 13.8, INR 1.0, APTT 28.7 02/23/25 17:23: Troponin T Hi Sens 2 Hr 71 H* 02/23/25 20:45: Troponin T Hi Sens 4Hr 65 H* 02/23/25 21:23: POC Glucose 146 H 02/24/25 06:54: POC Glucose 119 H 02/24/25 08:15: WBC 10.8, RBC 2.86 L, Hgb 8.5 L, Hct 27.9 L, MCV 97.6 H, MCH 29.7, MCHC 30.5 L, RDW Std Deviation 54.8 H, RDW Coeff of Casey 15.5 H, Plt Count 373, MPV 9.5, Immature Gran % (Auto) 0.700, Neut % (Auto) 90.2 H, Lymph % (Auto) 6.1 L, [place] % (Auto) 2.9, Eos % (Auto) 0.0, Baso % (Auto) 0.1, Absolute Neuts (auto) 9.8 H, Absolute Lymphs (auto) 0.66 L, Nucleated RBC % 0, Sodium 142, Potassium 4.9, Chloride 101, Carbon Dioxide 33.2 H, Anion Gap 8, BUN 17, Creatinine 1.25 H, Estim Creat Clear Calc 79.22, Est GFR (MDRD) Non-Af 62, BUN/Creatinine Ratio 13.5, Glucose 118 H, Calcium 9.8 Micro: Microbiology 02/23/25 16:54 Urine, Clean Catch Urine Culture - Preliminary Culture exhibits no growth. 02/23/25 15:04 Mucosa - Nose SARS-CoV-2, Influenza & RSV (PCR) - Final ABG Data ABG results: ABG 02/23/25 15:58 Specimen Type ART Sample Site R Radial pH 7.38 Bicarbonate Actual 39.8 H Total CO2 42 Base Excess 15 H O2 Saturation 89 L O2 % 90.0 ABG pCO2 67.4 H* ABG pO2 60 L Alex Test Positive O2 Delivery Device BiPAP Vent Mode Not entered POC PEEP 10 Peak Inspir Pressure 16 Crit Call To/Read Back Yes Blood Gas Notified Whom trujillo Blood Gas Notified Time 15:59:57 Radiography Diagnostic Testing: Radiology Impression Chest X-Ray 02/23/25 15:20 IMPRESSION: 1. Worsening opacification of the RIGHT chest may reflect a combination of effusion and progressive airspace disease such as atelectasis and/or pneumonia. Given a questioned bronchial cut off on the RIGHT, mucous plugging or aspiration should be considered. Clinical follow-up again recommended to ensure resolution. 2. Additional description as above. Reading Location: [facility] Chest CTA 02/23/25 16:14 IMPRESSION: 1. No pulmonary embolism. 2. Considerable and increasing airspace disease on the RIGHT including lobar consolidation/collapse of the RIGHT lower and middle lobes and considerable endobronchial debris. Findings are most suggestive of aspiration with associated pneumonia/pneumonitis. New trace RIGHT pleural effusion. Recommend outpatient follow-up to radiographic resolution. 3. New mild mediastinal lymphadenopathy. Nonspecific and potentially reactive to the above. Specific attention on follow-up is recommended to ensure stability or resolution. 4. Redemonstrated nonspecific 2.5 cm RIGHT apical pleural/extrapleural mass which could again be benign or malignant. Differential considerations and recommendations are unchanged. 5. Increasingly elevated RIGHT hemidiaphragm. Correlate for clinical evidence of diaphragmatic paralysis. 6. Recommend outpatient thyroid ultrasound. 7. Additional description as above. Reading Location: [facility] Physical Exam Const alert, oriented x3 and no apparent distress Constitutional Narrative: class III obesity General Appearance: cooperative and well developed HEENT normocephalic, head/scalp atraumatic, moist oral mucous membranes and oropharynx normal Eyes PERRL and EOMs intact bilaterally Neck no lymphadenopathy and supple Lymph Lymphatic: no lymphadenopathy noted and no lymphedema noted Resp Resp Narrative: on AirVO, moderately diminished breath sounds bibasally, bronchial breath sounds in right middle and lower lung jackson, few crackles. NO wheezing. Cardio regular rate, regular rhythm, S1 normal heart sound, S2 normal heart sound and no murmurs GI normal to inspection, nondistended, normoactive bowel sounds, soft to palpation, non-tender and non-distended GI Narrative: colostomy bag in situ Extremity normal capillary refill, no clubbing, cyanosis or edema and no calf tenderness General Extremity: no tenderness to palpation of joints or extremities Skin General Skin Exam: no breakdown Neuro CN's II-XII intact bilaterally, no focal motor deficits and no sensory deficits noted Motor Exam: strength 5/5 throughout and general weakness Psych thought process normal, cooperative and affect normal Appearance: appropriate Assessment & Plan Assessment/Plan (1) Acute on chronic hypoxic respiratory failure: (2) Pneumonia: (3) COPD exacerbation: PLAN: Plan #Acute on chronic hypoxic and hypercapnic respiratory failure due recurrent pneumonia. Imaging showed right lower lobe obstruction due to possible mucous plugging Patient was recently admitted for recurrent pneumonia and discharged on oral antibiotics and finished the course just the day before admission. He was afebrile and had no elevated white cell count on admission. Breathing treatments bronchodilators. Was on Airvo this morning. Pulmonology consulted. For bronchoscopy today. Currently NPO. Titrate oxygen to maintain saturation above 90%. #Hypertension: On amlodipine, losartan and metoprolol #Type 2 diabetes mellitus: Metformin on hold. Insulin sliding scale. Accu-Cheks ACHS. #Depression: On bupropion and citalopram #History of gout: Allopurinol #Class III obesity: Complicates acute care, expected current prognosis #DVT prophylaxis: Lovenox Charges/Coding Visit Charges Inpatient E&M: 53887 Subs Hosp L2
[2025-02-24] MEDS: Lidocaine Jelly 2% 20 ML Syringe (URO-JET) 1 APPLIC ×2 (13:26→13:27)
[2025-02-24] MEDS: Lidocaine 2% (5ml sdv) 5 ML VIAL.MPF (13:27)
--- NOTE | 2025-02-24 13:50 | OP.BRONCH_ITS ---
Patient Name: Arash Reed Procedure Date: 02/24/2025 12:33 PM Date of : 1955 Age: 70 Procedure: Bronchoscopy Indications: Respiratory toilet Providers: Edmund Rincon MD Medicines: See the Anesthesia note for documentation of the administered medications Complications: No immediate complications Procedure: Pre-Anesthesia Assessment: - A History and Physical has been performed. Patient meds and allergies have been reviewed. The risks and benefits of the procedure and the sedation options and risks were discussed with the patient. All questions were answered and informed consent was obtained. Patient identification and proposed procedure were verified prior to the procedure by the physician and the nurse in the procedure room. Mental Status Examination: alert and oriented. Airway Examination: normal oropharyngeal airway. Respiratory Examination: poor air movement. CV Examination: normal. ASA Grade Assessment: II - A patient with mild systemic disease. After reviewing the risks and benefits, the patient was deemed in satisfactory condition to undergo the procedure. The anesthesia plan was to use general anesthesia. Immediately prior to administration of medications, the patient was re-assessed for adequacy to receive sedatives. The heart rate, respiratory rate, oxygen saturations, blood pressure, adequacy of pulmonary ventilation, and response to care were monitored throughout the procedure. The physical status of the patient was re-assessed after the procedure. After I obtained informed consent, the scope was passed under direct vision. Throughout the procedure, the patient's blood pressure, pulse, and oxygen saturations were monitored continuously. The bronchoscope was introduced through the mouth, via the endotracheal tube (the patient was intubated for the procedure) and advanced to the tracheobronchial tree. The procedure was accomplished without difficulty. The patient tolerated the procedure well. Findings: Right Lung Abnormalities: Copious, mucopurulent, tenacious, thick secretions were found throughout the right tracheobronchial tree. They were partially obstructing the airway. Therapeutic suctioning was performed. Mucus was removed from the airway and the airway was cleared. The suctioned material was sent for cell count, bacterial culture, viral smears & culture, and fungal & AFB analysis and cytology. Impression: - Respiratory toilet - Copious, mucopurulent, tenacious, thick secretions were found throughout the right tracheobronchial tree. - Therapeutic suctioning was performed. Recommendation: - Await washing results. Procedure Code(s): --- Professional --- 26440, Bronchoscopy, rigid or flexible, including fluoroscopic guidance, when performed; with therapeutic aspiration of tracheobronchial tree, initial Diagnosis Code(s): --- Professional --- R09.89, Other specified symptoms and signs involving the circulatory and respiratory systems CPT copyright 2021 [employer]. All rights reserved. The codes documented in this report are preliminary and upon hcc coders review may be revised to meet current compliance requirements. DO Edmund Bush MD 02/24/2025 1:50:08 PM This report has been signed electronically. Number of Addenda: 0 Note Initiated On: 02/24/2025 12:33 PM
--- NOTE | 2025-02-24 14:01 | PCM.POST.ANE ---
Anesthesia: Postop Eval I Current Vital Signs Temperature: 98.7 F Pulse Rate: 86 Blood Pressure: 128/67 Respiratory Rate: 22 Pulse Ox: 93 Oxygen Delivery Method: Simple Mask Oxygen Flow Rate (L/min): 8 Assessment Airway patent: Yes Spontaneous unlabored respirations: Yes Mental status: Awake and Calm nausea: No Vomiting: No Anesthesia Complication: No Fluid Hydration Crystalloid volume administer (ml): 500 Total IV fluid infused: 500 Progress Note Anesthesia document: Postop Eval 1 completed: Yes
[2025-02-24 15:22] LABS: Cytology, Body Fluid / CSF SEE PATHOLOGY REPORT; Pathologist Comment/Body Fluid May follow
--- NOTE | 2025-02-24 16:10 | CASEMGMT ---
Addendum entered by Carlee Vera 02/24/25 17:19: 1630: Per EDIS GRIFFIN, [facility] not in-network w/pt's insurance and an appt has been scheduled w/Dr Hilda Rincon for March 30. EDIS GRIFFIN went back to room to update pt and . Pt has already left for the evening. Pt made aware of above. Original Note: EDIS GRIFFIN readmission: Index admission: Admitted 02/10/25 through 02/15/25 w/resp failure, sepsis, PNA. Dc'd home 02/15 on PO atb's. Rx for amoxicillin was sent to [facility] pharmacy. Pt to f/u with PCP w/in a week. Pt was set up w/[facility] [place] [facility] [place] and PT/OT. Pt was on chronic home O2 through on admission @ 3 l/m continuously. Home amb testing completed @ [place] and pt qualified for O2 @ 3 L/M @ rest and 5 L/M w/exertion. Pt w/hx of NSTEMI, HTN, Type 2 DM, COPD, CKD Stage III, iron deficiency anemia, anxiety/depression. Per H/P, since November pt has been having RLL consolidation and bronchoscopy a couple of times at an outside hospital that has improved his respiratory status temporarily and then he reaccumulate's in the right lower lobe. In November he had a culture for Moraxella catarrhalis and so he was treated with antibiotics at that time and then treated with antibiotics again on this last admission. Current admission: Admitted 02/23/25 with dx: mucous plugging. See Jaimee NESBITT, assessment 02/23/25. EDIS GRIFFIN to room to discuss readmission and discharge planning. Pt resting in bed, on Airvo. @ bedside. Introduced self and role. Per , she did not cone picker Rx/atb until 02/17. She states it was late on Sunday when pt dc'd. Then on Sun, when she went to the pharmacy it was closed for lunch. She then went back on and picked them up then. Pt has been taking them as prescribed since then, but does still have 2 doses remaining @ home. states, if possible, they would like to get any new Rx's from [facility] retail pharmacy @ [place], if they are in-network w/pt's insurance. He did see PCP, Dr Pack, since last admission, on Sun02/20/25. Discussed further DME @ home. Per , Dr Pack's office was working on getting a glucometer for pt but she states she is not sure where they are at in this process. Pt does have home O2 through and states she can bring in the POC for pt to dc home on, if he is able to go home @ dc. Pt does have a nebulizer, but is out of solution for this. They have ordered a pulse ox and it should be arriving on . [facility] has been coming out to see him since last discharge. If pt able to dc home, they would like to resume w/[facility]. However, states, We want to make sure he is well enough to go home further stating he may need to go to SNF short-term before returning home. Pt is agreeable to this as well, if needed. They are interested in [facility] or [facility], but pt does not want to go to [facility]. Pt and made aware therapy would be working w/him and give recommendations. They were also made aware a SNF list can be provided for them to review. They voice appreciation. Discussed pulmonology and appt. They would like appt scheduled w/Dr Edmund Rincon @ [facility]. Will notify DIRECTOR OF MANUFACTURING OPERATIONS Alyssa GRIFFIN. Plan: TBD, pending course of treatment and progress with therapy. SNF vs home w/[facility]. If pt able to go home, will need f/u w/Dr Pack re: glucometer. Pt would also like refills for nebulizer solution. Charisma BSN EDIS GRIFFIN
--- NOTE | 2025-02-24 16:15 | CASEMGMT ---
Addendum entered by Kailey Shankar 02/24/25 16:28: Pt is active and receives PT/OT/SN. RN CM updated. Kailey Shankar DC Planning Asst. Original Note: Discharge Planning Resumption HH referral sent to [facility] asking for confirmation on disciplines receiving. Awaiting response. Kailey Shankar DC Planning Asst.
--- NOTE | 2025-02-24 16:35 | POSTOPAN2_ITS ---
Anesthesia Postop Eval I Sum Postop Eval Completion status Anesthesia document: Postop Eval 1 completed: Yes Anesthesia Postop Eval I Summary Anesthesia Postop Eval I Summary: Anesthesia Postop Eval I: Assessment Summary Airway patent Yes 02/24/25 14:01 CASH SALES AUDIT CLERK.[email or web address] Spontaneous unlabored Yes 02/24/25 14:01 CASH SALES AUDIT CLERK.[email or web address] respirations Mental status Awake,Calm 02/24/25 14:01 CASH SALES AUDIT CLERK.[email or web address] nausea No 02/24/25 14:01 CASH SALES AUDIT CLERK.[email or web address] Vomiting No 02/24/25 14:01 CASH SALES AUDIT CLERK.[email or web address] Anesthesia Postop Eval I: Fluid Summary Crystalloid volume administer 500 02/24/25 14:01 CASH SALES AUDIT CLERK.[email or web address] (ml) Colloids volume administered ( ml) Blood Product volume administered (ml) Total IV fluid infused 500 02/24/25 14:01 CASH SALES AUDIT CLERK.[email or web address] Anesthesia Postop Eval I: Summary Notes Anesthesia Complication No 02/24/25 14:01 CASH SALES AUDIT CLERK.[email or web address] Anesthesia Complication Comment: Post-operative progress note Anesthesia: Postop Eval II Evaluation Mental status: Awake and Calm Pain Level: 0 nausea: No Vomiting: No Complications Anesthesia Complication: No
--- NOTE | 2025-02-24 16:35 | PCM.POSTANE2 ---
Anesthesia Postop Eval I Sum Postop Eval Completion status Anesthesia document: Postop Eval 1 completed: Yes Anesthesia Postop Eval I Summary Anesthesia Postop Eval I Summary: Anesthesia Postop Eval I: Assessment Summary Airway patent Yes 02/24/25 14:01 PROJECT MANAGEMENT ENGINEER.[email or web address] Spontaneous unlabored Yes 02/24/25 14:01 PROJECT MANAGEMENT ENGINEER.[email or web address] respirations Mental status Awake,Calm 02/24/25 14:01 PROJECT MANAGEMENT ENGINEER.[email or web address] nausea No 02/24/25 14:01 PROJECT MANAGEMENT ENGINEER.[email or web address] Vomiting No 02/24/25 14:01 PROJECT MANAGEMENT ENGINEER.[email or web address] Anesthesia Postop Eval I: Fluid Summary Crystalloid volume administer 500 02/24/25 14:01 PROJECT MANAGEMENT ENGINEER.[email or web address] (ml) Colloids volume administered ( ml) Blood Product volume administered (ml) Total IV fluid infused 500 02/24/25 14:01 PROJECT MANAGEMENT ENGINEER.[email or web address] Anesthesia Postop Eval I: Summary Notes Anesthesia Complication No 02/24/25 14:01 PROJECT MANAGEMENT ENGINEER.[email or web address] Anesthesia Complication Comment: Post-operative progress note Anesthesia: Postop Eval II Evaluation Mental status: Awake and Calm Pain Level: 0 nausea: No Vomiting: No Complications Anesthesia Complication: No
[2025-02-24 17:11] LABS: Source- Body Fluid BRONCHIAL LAVAGE
[2025-02-24 17:13] LABS: Appearance/Body Fluid CLOUDY; Color/Body Fluid COLORLESS
[2025-02-24 17:23] LABS: Red Cell Count/Body Fluid 1989 /mm3; White Blood Count/Body Fluid 441 /mm3
[2025-02-24 17:28] LABS: Body Fluid QC Type(s) BF1Q; Lymphocytes 7 %; Macrophages 3 %; Monocytes 3 %; Neutrophil (Segs) 87 %
[2025-02-24] MEDS: hydroCHLOROthiazide 12.5mg 12.5 MG PO (18:08)
[2025-02-24] MEDS: Ferrous Sulfate 325 MG Tablet PO (18:08)
[2025-02-24] MEDS: Enoxaparin 40 MG/0.4 ML Syringe SC (18:09)
[2025-02-24 18:35] LABS: Bedside Glucose 80 mg/dL (74-106)
[2025-02-24] MEDS: Zolpidem Tartrate 5 MG Tablet PO (21:30)
[2025-02-24] MEDS: traZODone 50 MG Tablet PO (21:30)
[2025-02-25] VITALS (12 sets, daily range): BP systolic 98–128; BP diastolic 53–68; PULSE 64–86; RESP 16–20; TEMP 36.3–36.9; O2SAT 84–97
[2025-02-25 00:11] LABS: Bedside Glucose 102 mg/dL (74-106)
--- NOTE | 2025-02-25 05:48 | PCM.PN.INT ---
Assessment & Plan Assessment/Plan (1) Acute on chronic respiratory failure with hypoxia and hypercapnia: PLAN: Plan RECOMMENDATIONS: 1. Continue to wean supplemental oxygen to maintain saturations at or above 90%. 2. Recommend empiric BiPAP therapy with naps and nightly. 3. Continue scheduled bronchodilators. 4. Start scheduled inhaled acetylcysteine. 5. Lovenox for DVT prophylaxis. 6. Unfortunately, due to insurance constraints, the patient will need to follow-up in the office of Dr. Hilda Rincon at [facility] pulmonary medicine after discharge. IMPRESSIONS: 1. Acute on chronic combined respiratory failure The patient has a questionable history of COPD and presented to the emergency department with worsening shortness of breath and radiographic findings concerning for airspace consolidation and possible retained secretions. The patient was just admitted to the hospital under similar circumstances and was treated with antimicrobials. Ultimately, the patient was taken for bronchoscopy on February 24, which demonstrated significant, copious retained secretions throughout the right tracheobronchial tree. Therapeutic airway suctioning was performed. Cultures were sent. The patient has improved from a respiratory perspective following intervention and is currently maintaining appropriate oxygen saturations on his baseline of 5 L/min. The patient will ultimately require outpatient pulmonary follow-up with Hilda Rincon at [facility] after discharge. In the interim, we will continue scheduled bronchodilators along with aggressive bronchopulmonary hygiene and inhaled acetylcysteine. 2. History of obesity/hypertension/diabetes mellitus/depression Complicates care, management, recovery and prognosis. Continue home medications as indicated. This note was generated with [employer] dictation software. It may contain incorrect words, spelling, and punctuation that were not noted in checking the note before signing. Subjective Subjective The patient was seen and examined at the bedside this morning. Events from the last 24 hours have been reviewed. The patient is currently afebrile, hemodynamically stable and maintaining appropriate oxygen saturations on 5 L/min, which is his baseline requirement. The patient underwent bronchoscopy yesterday, which revealed significant, copious secretions throughout the right tracheobronchial tree. Therapeutic suctioning was performed with airway clearance achieved. The patient did report interval improvement overall in his breathing quality since yesterday. Objective Data Objective Data The patient's most recent lab work, culture data and imaging studies have all been personally reviewed. Bronchial lavage cultures are pending. Vital Signs: Vital Signs Temp Pulse Resp BP Pulse Ox O2 Del Method O2 Flow Rate 98 F 64 16 128/68 H 94 Airvo 6 02/25/25 04:00 02/25/25 04:00 02/25/25 04:00 02/25/25 04:00 02/25/25 04:00 02/25/25 04:00 02/25/25 04:00 FiO2 56 02/24/25 16:10 Oxygen Flow Rate (L/min) 6 Oxygen Delivery Method Airvo Weight: 289 lb 3.944 oz Body Mass Index (BMI) 38.1 Intake & Output: Intake and Output for Last 24 Hours 02/23/25 02/24/25 02/25/25 23:59 23:59 23:59 Intake Total 1305 / 1305 1800 / 1800 463.5 / 463.5 Output Total 200 / 200 1525 / 1525 Balance 1105 / 1105 275 / 275 463.5 / 463.5 Lab / Micro Data Attestation: I reviewed the patient's lab results. 02/25/25 05:36 02/25/25 05:36 Labs: Laboratory Results - last 24 hr 02/24/25 06:54: POC Glucose 119 H 02/24/25 08:15: WBC 10.8, RBC 2.86 L, Hgb 8.5 L, Hct 27.9 L, MCV 97.6 H, MCH 29.7, MCHC 30.5 L, RDW Std Deviation 54.8 H, RDW Coeff of Casey 15.5 H, Plt Count 373, MPV 9.5, Immature Gran % (Auto) 0.700, Neut % (Auto) 90.2 H, Lymph % (Auto) 6.1 L, [place] % (Auto) 2.9, Eos % (Auto) 0.0, Baso % (Auto) 0.1, Absolute Neuts (auto) 9.8 H, Absolute Lymphs (auto) 0.66 L, Nucleated RBC % 0, Sodium 142, Potassium 4.9, Chloride 101, Carbon Dioxide 33.2 H, Anion Gap 8, BUN 17, Creatinine 1.25 H, Estim Creat Clear Calc 79.22, Est GFR (MDRD) Non-Af 62, BUN/Creatinine Ratio 13.5, Glucose 118 H, Calcium 9.8 02/24/25 18:13: POC Glucose 80 02/24/25 21:29: POC Glucose 102 02/24/25 : Fluid Source BRONCHIAL LAVAGE, Fluid Color COLORLESS, Fluid Appearance CLOUDY, Fluid WBC 441, Fluid RBC 1989, Fluid Tot Cell Count TNP, Fluid Neutrophils 87, Fluid Lymphocytes 7, Fluid Monocytes 3, Fluid Macrophages 3, Fl Pathologist Comment May follow, Fluid Comment 2 Not Reportable Micro: Microbiology 02/23/25 16:54 Urine, Clean Catch Urine Culture - Preliminary Culture exhibits no growth. 02/23/25 15:04 Mucosa - Nose SARS-CoV-2, Influenza & RSV (PCR) - Final Physical Exam Const alert, oriented x3 and no apparent distress Constitutional Narrative: Obese. Sitting upright in bed. General Appearance: cooperative HEENT normocephalic and head/scalp atraumatic Eyes PERRL, EOMs intact bilaterally and conjunctivae normal Neck supple General: trachea midline Chest inspection of chest normal Resp normal respiratory effort Resp Narrative: Improved air movement throughout right hemithorax. Auscultation: diminished lung sounds; Negative for rales, rhonchi or wheezes Cardio regular rate and regular rhythm GI normal to inspection, nondistended, normoactive bowel sounds Extremity no clubbing, cyanosis or edema Skin no rashes or lesions noted Neuro CN's II-XII intact bilaterally, moves all extremities and no focal motor deficits Psych cooperative and affect normal Charges/Coding Visit Charges Inpatient E&M: 94466 Subs Hosp L2
[2025-02-25 06:27] LABS: Absolute Lymphocyte Count 2.21 X10^3/uL (0.83-4.51); Absolute Neutrophil Count 7.9 X10^3/uL (2.0-7.7); Basophil# 0.06 X10^3/uL; Basophil% 0.5 % (0-1); Eosinophil# 0.11 X10^3/uL; Hematocrit 28.6 % (40-54); Hemoglobin 8.5 g/dL (13.0-16.5); Lymphocyte # 2.21 X10^3/ul (0.83-4.51); Lymphocyte % 19.1 % (19-41); Mean Corp Hgb Conc 29.7 g/dL (32-36); Mean Corpuscular Hgb 29.5 pg (27.0-32.0); Mean Corpuscular Volume 99.3 fL (80-94); Mean Platelet Vol. 9.7 fl (6.2-12.0); Monocyte# 1.23 X10^3/uL; Monocyte% 10.6 % (0-10); NRBC Flagged by Analyzer 0 % (0-5); Neutrophil # 7.88 X10^3/uL (2.7-7.7); Neutrophil % 68.2 % (47-70); Platelet Count 404 K/mm3 (150-450); RBC Distribution Width CV 15.6 % (11.6-14.6); RBC Distribution Width SD 55.8 fl (35.1-43.9); Red Blood Count 2.88 M/mm3 (4.6-6.2); White Blood Count 11.6 K/mm3 (4.4-11.0)
[2025-02-25 06:39] LABS: Bedside Glucose 71 mg/dL (74-106)
[2025-02-25 06:54] LABS: Anion Gap 9 (5-15); BUN 19 mg/dL (4-19); BUN/Creat Ratio 13.9 RATIO (10-20); Calcium,Total 9.9 mg/dL (7.6-11.0); Carbon Dioxide 32.1 mmol/L (21.0-32.0); Chloride 101 mmol/L (98-108); Creatinine, Serum 1.39 mg/dL (0.70-1.20); EST Glomerular Filtration Rate 55 (>60); Estimated Creatinine Clearance 71.24 ml/min (50-250); Glucose 89 mg/dL (70-99); Potassium 4.3 mmol/L (3.3-5.1); Sodium Level 142 mmol/L (133-145)
[2025-02-25] MEDS: Budesonide Respules 0.5 MG/2 ML AMPUL.NEB. INHALATION (07:13)
[2025-02-25] MEDS: Ipratropium/Albuterol Sulfate 3 ML AMPUL.NEB INHALATION ×3 (07:13→15:15)
[2025-02-25] MEDS: Sertraline 100 MG Tablet 150 MG PO (10:38)
[2025-02-25] MEDS: buPROPion (SR) 150 MG Tablet.SA PO (10:38)
[2025-02-25] MEDS: Enoxaparin 40 MG/0.4 ML Syringe SC (10:39)
[2025-02-25] MEDS: Allopurinol 300 MG Tablet PO (10:40)
[2025-02-25] MEDS: Atorvastatin Calcium 10 MG Tablet PO (10:40)
[2025-02-25] MEDS: Acetylcysteine 800 MG/4 ML VIAL.NEB. INHALATION (10:56)
[2025-02-25] MEDS: Metoprolol Tartrate 25 MG Tablet PO (11:12)
[2025-02-25] MEDS: amLODIPine 10 MG Tablet PO (11:13)
[2025-02-25 11:42] LABS: Bedside Glucose 111 mg/dL (74-106)
[2025-02-25] MEDS: hydroCHLOROthiazide 12.5mg 12.5 MG PO (12:13)
[2025-02-25] MEDS: Losartan Potassium 100 MG Tablet PO (12:14)
[2025-02-25] MEDS: Ferrous Sulfate 325 MG Tablet PO (12:14)
--- NOTE | 2025-02-25 12:42 | PN_ITS ---
Subjective Subjective Patient seen and examined. He had no active complaints. He had bronchoscopy yesterday. He is off airvo and is on 6L of oxygen. Review of systems is otherwise negative. Objective Data Objective Data Vital Signs: Vital Signs Temp Pulse Resp BP Pulse Ox O2 Del Method O2 Flow Rate 98.1 F 71 20 H 123/66 H 94 Nasal Cannula 6 02/25/25 10:54 02/25/25 11:12 02/25/25 10:56 02/25/25 11:12 02/25/25 10:54 02/25/25 10:54 02/25/25 10:54 FiO2 56 02/24/25 16:10 Oxygen Flow Rate (L/min) 6 Oxygen Delivery Method Nasal Cannula Weight: 289 lb 3.944 oz Body Mass Index (BMI) 38.1 Intake & Output: Intake and Output for Last 24 Hours 02/23/25 02/24/25 02/25/25 23:59 23:59 23:59 Intake Total 1305 / 1305 1800 / 1800 463.5 / 463.5 Output Total 200 / 200 1525 / 1525 Balance 1105 / 1105 275 / 275 463.5 / 463.5 Lab / Micro Data 02/25/25 05:36 02/25/25 05:36 Labs: Laboratory Results - last 24 hr 02/24/25 18:13: POC Glucose 80 02/24/25 21:29: POC Glucose 102 02/24/25 : Fluid Source BRONCHIAL LAVAGE, Fluid Color COLORLESS, Fluid Appearance CLOUDY, Fluid WBC 441, Fluid RBC 1989, Fluid Tot Cell Count TNP, Fluid Neutrophils 87, Fluid Lymphocytes 7, Fluid Monocytes 3, Fluid Macrophages 3, Fl Pathologist Comment May follow, Fluid Comment 2 Not Reportable 02/25/25 05:36: WBC 11.6 H, RBC 2.88 L, Hgb 8.5 L, Hct 28.6 L, MCV 99.3 H, MCH 29.5, MCHC 29.7 L, RDW Std Deviation 55.8 H, RDW Coeff of Casey 15.6 H, Plt Count 404, MPV 9.7, Immature Gran % (Auto) 0.600, Neut % (Auto) 68.2, Lymph % (Auto) 19.1, [place] % (Auto) 10.6 H, Eos % (Auto) 1.0, Baso % (Auto) 0.5, Absolute Neuts (auto) 7.9 H, Absolute Lymphs (auto) 2.21, Nucleated RBC % 0, Sodium 142, Potassium 4.3, Chloride 101, Carbon Dioxide 32.1 H, Anion Gap 9, BUN 19, C reatinine 1.39 H, Estim Creat Clear Calc 71.24, Est GFR (MDRD) Non-Af 55 L, BUN/Creatinine Ratio 13.9, Glucose 89, Calcium 9.9 02/25/25 06:21: POC Glucose 71 L 02/25/25 11:08: POC Glucose 111 H Micro: Microbiology 02/24/25 Unknown Bronchial Lavage - Right Lower Lobe Respiratory Culture - Preliminary Culture exhibits no growth. 02/23/25 16:54 Urine, Clean Catch Urine Culture - Final Culture exhibits no growth. 02/23/25 15:04 Mucosa - Nose SARS-CoV-2, Influenza & RSV (PCR) - Final Physical Exam Const alert, oriented x3 and no apparent distress Constitutional Narrative: class III obesity General Appearance: cooperative and well developed HEENT normocephalic, head/scalp atraumatic, moist oral mucous membranes and oropharynx normal Eyes PERRL and EOMs intact bilaterally Neck no lymphadenopathy and supple Lymph Lymphatic: no lymphadenopathy noted and no lymphedema noted Resp Resp Narrative: on 6L of oxygen by nasal canula, moderately diminished breath sounds bibasally, bronchial breath sounds in right middle and lower lung jackson, few crackles. No wheezing. Cardio regular rate, regular rhythm, S1 normal heart sound, S2 normal heart sound and no murmurs GI normal to inspection, nondistended, normoactive bowel sounds, soft to palpation and non-tender GI Narrative: colostomy bag in situ Extremity normal capillary refill, no clubbing, cyanosis or edema and no calf tenderness General Extremity: no tenderness to palpation of joints or extremities Skin General Skin Exam: no breakdown Neuro CN's II-XII intact bilaterally, no focal motor deficits and no sensory deficits noted Motor Exam: strength 5/5 throughout and general weakness Psych thought process normal, cooperative and affect normal Appearance: appropriate Assessment & Plan Assessment/Plan (1) Acute on chronic hypoxic respiratory failure: (2) Pneumonia: (3) COPD exacerbation: PLAN: Plan #Acute on chronic hypoxic and hypercapnic respiratory failure * due recurrent pneumonia. Imaging showed right lower lobe obstruction due to possible mucous plugging * Patient was recently admitted for recurrent pneumonia and discharged on oral antibiotics and finished the course just the day before admission. * He was afebrile and had no elevated white cell count on admission. Breathing treatments bronchodilators. * had bronchoscopy yesterday which showed copious mucopurulent tenacious thick secretions throughout the right tracheobronchial tree which were partially obstructing the airway and therapeutic suctioning was performed suction material sent for cell count, bacterial culture, viral smears and cultures and fungal and AFB analysis and cytology. * pulmonology on board * It appears patient insurance is not accepted by [facility] services so he would have to follow-up with his bankruptcy manager Dr. Hilda Rincon at [facility] upon discharge. The earliest appointment for him is in March. * Patient started on inhaled N-acetylcysteine. * Titrate oxygen to maintain saturation above 90 * #Hypertension: On amlodipine, losartan and metoprolol #Type 2 diabetes mellitus: Metformin on hold. Insulin sliding scale. Accu- Cheks ACHS. #Depression: On bupropion and citalopram #History of gout: Allopurinol #Class III obesity: Complicates acute care, expected current prognosis #DVT prophylaxis: Lovenox Disposition: For likely DC tomorrow if remains hemodynamically stable. Charges/Coding Visit Charges Inpatient E&M: 79780 Subs Hosp L2
--- NOTE | 2025-02-25 15:28 | PCM.DC.SUM ---
Providers Date of Admission: 02/23/25 Date of Discharge: 02/25/25 Primary Care Physician: Dr. Arash Pack MD Consultations 02/23/25 19:03 Consult: Career Resource Specialist / Pulmonary Medicine Routine Consulting Provider: Intensivists/Pulmonary Med Reason for Consult: Bronchoscopy EMERGENT Consult: No MD Notified: Yes Date Notified: 02/23/25 Time Notified: 06:42 Method of Notification: Verbal Reason For Visit: MUCUS PLUGGING Diagnosis Discharge Diagnosis (1) Acute on chronic hypoxic respiratory failure: Status: Chronic Code(s): J96.21 - Acute and chronic respiratory failure with hypoxia (2) Pneumonia: Status: Acute Code(s): J18.9 - Pneumonia, unspecified organism (3) COPD exacerbation: Status: Chronic Code(s): J44.1 - Chronic obstructive pulmonary disease with (acute) exacerbation Plan #Acute on chronic hypoxic and hypercapnic respiratory failure due recurrent pneumonia. Imaging showed right lower lobe obstruction due to possible mucous plugging Patient was recently admitted for recurrent pneumonia and discharged on oral antibiotics and finished the course just the day before admission. He was afebrile and had no elevated white cell count on admission. Breathing treatments bronchodilators. had bronchoscopy yesterday which showed copious mucopurulent tenacious thick secretions throughout the right tracheobronchial tree which were partially obstructing the airway and therapeutic suctioning was performed suction material sent for cell count, bacterial culture, viral smears and cultures and fungal and AFB analysis and cytology. 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 The earliest appointment for him is in March. Patient started on inhaled N-acetylcysteine. Titrate oxygen to maintain saturation above 90 #Hypertension: On amlodipine, losartan and metoprolol #Type 2 diabetes mellitus: Metformin on hold. Insulin sliding scale. Accu-Cheks ACHS. #Depression: On bupropion and citalopram #History of gout: Allopurinol #Class III obesity: Complicates acute care, expected current prognosis #DVT prophylaxis: Lovenox Disposition: For likely DC tomorrow if remains hemodynamically stable. Medications at Discharge Home Medications allopurinol 300 mg tablet 300 mg PO DAILY gout 12/05/13 amlodipine 10 mg tablet 10 mg PO DAILY blood pressure 12/05/13 losartan 100 mg tablet 100 mg PO DAILY blood pressure 12/05/13 zolpidem 10 mg tablet (Ambien) 10 mg PO QHS PRN Sleep 12/05/13 atorvastatin 10 mg tablet (Lipitor) 10 mg PO DAILY cholesterol 10/26/21 budesonide-formoterol HFA 160 mcg-4.5 mcg/actuation aerosol inhaler (Symbicort) 2 puff inhalation BID breathing 10/26/21 bupropion HCl 150 mg tablet,12 hr sustained-release (Wellbutrin SR) 150 mg PO BID mental health 10/26/21 furosemide 40 mg tablet (Lasix) 40 mg PO DAILY diuretic 10/26/21 potassium chloride 20 mEq tablet,extended release 20 meq PO DAILY supplement 10/26/21 trazodone 50 mg tablet 50 mg PO QHS sleep 10/26/21 ferrous sulfate 325 mg (65 mg iron) tablet (FeroSul) 325 mg PO DAILY supplement 02/23/25 hydrochlorothiazide 12.5 mg tablet 12.5 mg PO DAILY diuretic 02/23/25 metformin 500 mg tablet 500 mg PO BID diabetes 02/23/25 metoprolol tartrate 25 mg tablet 25 mg PO DAILY blood pressure 02/23/25 multivitamin (Daily Multi-Vitamin tablet) 1 tab PO DAILY vitamin 02/23/25 sertraline 100 mg tablet 150 mg PO Q24H mental health 02/23/25 acetylcysteine 200 mg/mL (20 %) solution 4 ml inhalation Q8 30 days #360 mL 02/25/25 Hospital Course Operations None Procedures Bronchoscopy Summary of Care Provided Minutes Spent on Discharge: 45 Hospital Course: Patient is a 70-year-old male with extensive past medical history as outlined including recurrent pneumonia for which he has had bronchoscopy at outside hospital and was recently discharged from [facility] on 02/15/2025 after being treated for recurrent pneumonia. He had completed a 7-day course of antibiotics the day before this admission. However shortness of breath recurred and worsened so he came into the ED where his pCO2 was elevated at 67.4. He was placed on BiPAP and admitted to be managed for acute on chronic combined respiratory failure due to recurrent mucous plugging. CT chest showed airspace disease throughout the right hemithorax with volume loss and atelectasis concerning for the presence of endobronchial debris. Due to his WBC being normal and him not having a fever or productive cough he was not started on antibiotics. Pulmonology was consulted and he had bronchoscopy on 02/24/2025 which showed thick, copious mucopurulent tenacious thick secretions throughout the right tracheobronchial tree which were partially obstructing the airway and therapeutic suctioning was performed suction material sent for cell count, bacterial culture, viral smears and cultures and fungal and AFB analysis and cytology. The shortness of breath improved and he was weaned off of BiPAP onto oxygen by nasal cannula at 6 L. He felt much better. He had walking pulse ox on 02/25/2025 which showed that he was at 88% on 4 L of oxygen though he usually will 5 L of oxygen at home. He remained stable and was discharged home on 02/25/2025. It turns out that patient's insurance is not accepted by [facility] services. An appointment was therefore made for him with his battalion fire chief at [facility] Dr. Hilda Rincon. He has an appointment with her on March 30, 2025 at 8:45 AM. He is to follow-up with his PCP within 1 week. He was started on N-acetylcysteine inhaled 800 mg every 8 hours for shortness of breath by pulmonology and he was given a prescription for this at discharge. Patient seen and examined prior to discharge. He felt much better and had no complaints. His shortness of breath had improved markedly. He had an uneventful night.. Review of systems otherwise negative. Labs and vitals reviewed. Home medication reviewed and reconciled. Physical Exam Const alert, oriented x3 and no apparent distress Constitutional Narrative: class III obesity General Appearance: cooperative, comfortable and well developed HEENT normocephalic, head/scalp atraumatic, hearing grossly normal bilaterally, moist oral mucous membranes and oropharynx normal Mouth: oral and palatal mucosa normal Eyes PERRL and EOMs intact bilaterally Neck no lymphadenopathy and supple Lymph Lymphatic: no lymphadenopathy noted and no lymphedema noted Resp Resp Narrative: on 5L of oxygen by nasal canula, moderately diminished breath sounds bibasally, no wheezing or crackles. Cardio regular rate, regular rhythm, S1 normal heart sound, S2 normal heart sound and no murmurs GI normal to inspection, nondistended, normoactive bowel sounds, soft to palpation, non-tender and non-distended GI Narrative: colostomy bag in situ Extremity normal capillary refill, no clubbing, cyanosis or edema and no calf tenderness General Extremity: no tenderness to palpation of joints or extremities Skin General Skin Exam: no breakdown Neuro oriented x3, CN's II-XII intact bilaterally, moves all extremities, no focal motor deficits and no sensory deficits noted Sensorium / Orientation: awake and alert Motor Exam: strength 5/5 throughout and general weakness Psych thought process normal, cooperative and affect normal Appearance: appropriate Weight / BMI Weight Weight: 289 lb 3.944 oz Body Mass Index (BMI) 38.1 ABG / Lab / Microbiology Data 02/25/25 05:36 02/25/25 05:36 Laboratory: Laboratory Results - last 24 hr 02/24/25 18:13: POC Glucose 80 02/24/25 21:29: POC Glucose 102 02/24/25 : Fluid Source BRONCHIAL LAVAGE, Fluid Color COLORLESS, Fluid Appearance CLOUDY, Fluid WBC 441, Fluid RBC 1989, Fluid Tot Cell Count TNP, Fluid Neutrophils 87, Fluid Lymphocytes 7, Fluid Monocytes 3, Fluid Macrophages 3, Fl Pathologist Comment May follow, Fluid Comment 2 Not Reportable 02/25/25 05:36: WBC 11.6 H, RBC 2.88 L, Hgb 8.5 L, Hct 28.6 L, MCV 99.3 H, MCH 29.5, MCHC 29.7 L, RDW Std Deviation 55.8 H, RDW Coeff of Casey 15.6 H, Plt Count 404, MPV 9.7, Immature Gran % (Auto) 0.600, Neut % (Auto) 68.2, Lymph % (Auto) 19.1, [place] % (Auto) 10.6 H, Eos % (Auto) 1.0, Baso % (Auto) 0.5, Absolute Neuts (auto) 7.9 H, Absolute Lymphs (auto) 2.21, Nucleated RBC % 0, Sodium 142, Potassium 4.3, Chloride 101, Carbon Dioxide 32.1 H, Anion Gap 9, BUN 19, Creatinine 1.39 H, Estim Creat Clear Calc 71.24, Est GFR (MDRD) Non-Af 55 L, BUN/Creatinine Ratio 13.9, Glucose 89, Calcium 9.9 02/25/25 06:21: POC Glucose 71 L 02/25/25 11:08: POC Glucose 111 H Microbiology: Microbiology 02/24/25 Unknown Bronchial Lavage - Right Lower Lobe Gram Stain - Final 02/24/25 Unknown Bronchial Lavage - Right Lower Lobe Respiratory Culture - Preliminary Culture exhibits no growth. 02/23/25 16:54 Urine, Clean Catch Urine Culture - Final Culture exhibits no growth. 02/23/25 15:04 Mucosa - Nose SARS-CoV-2, Influenza & RSV (PCR) - Final D/C Instructions Discharge Diet: Low fat / Low cholesterol Discharge Activity: Return to Normal Activity Weight Bearing Status: Weight bearing as tolerated Call your doctor if you observe: Fever of 101 or Higher, Shortness of breath, Dizziness, Swelling in the ankles, Chest pain and Increased palpitations (irregular heartbeat) DC O2, CPAP, BIPAP Needs Home O2 Discharge instructions: Yes Type of respiratory needs?: Oxygen Oxygen frequency: Continuous (5) Continuous oxygen liters per minute: 5 DC home with Oxygen: Yes Home O2 MD Review: I have reviewed the oxygen testing, and the patient qualifies for home oxygen equipment and portability. The patient is mobile in the home and the community. Meaningful Use Info Meaningful Use Meaningful Use Diagnoses (Choose all that apply): None applicable Ischemic Stroke Statin Dosing Therapy Reference: STATIN DOSE THERAPY REFERENCE: * Patients > 75 years receive moderate or high dose statin therapy. * Patients 75 years or YOUNGER should receive HIGH intensity statin dose unless contraindicated. You will be required to document reason for non-treatment if statin daily dose does not meet guidelines. HIGH DOSE STATIN THERAPY DAILY Atorvastatin > than or = to 40 mg Rosuvastatin > than or = to 20 mg Amlodipine + Atorvastatin > than or = to 2.5/40 mg Ezetimibe + Simvastatin 10/80 mg Simvastatin 80mg Discharge Plan Admission Admit Date/Time: 02/23/25 18:21 Primary Reason for Your Visit: acute on chronic combined respiratory failure Attending Provider: Charlene Carty Primary Care Provider: Arash Pack Consulting Providers: Arnulfo Nogueira; Aaron Manuel; Bandar Mendez; Arvind Hobson; Edmund Rincon; Douglas Nicole; Eduardo Sierra; Rome Charles; Jazmin Bajwa; Asaf Siu; Ismael Wilde; Dimas Barba; Reta George; Moe Fry; Regina Ayon; Chang Merino; Rivera Nobles; Albino Oviedo; Minh Clayton; Bill Johnston; Milady Jaramillo; Moe Ivan; Miky Bender; Cal Tadeo Instructions Patient Instructions: ED Pneumonia (Adult) Discharge Orders/Prescriptions Prescriptions: New acetylcysteine 200 mg/mL (20 %) solution 4 ml inhalation Q8 30 Days Qty: 360 2RF Continued amlodipine 10 MG tablet 10 mg PO DAILY allopurinol 300 MG tablet 300 mg PO DAILY zolpidem [Ambien] 10 MG tablet 10 mg PO QHS PRN losartan 100 MG tablet 100 mg PO DAILY furosemide [Lasix] 40 mg Tablet 40 mg PO DAILY bupropion HCl [Wellbutrin SR] 150 mg Tablet Sustained-Release 12 Hr 150 mg PO BID trazodone 50 mg Tablet 50 mg PO QHS atorvastatin [Lipitor] 10 mg Tablet 10 mg PO DAILY budesonide-formoterol [Symbicort] 160-4.5 mcg/actuation Hfa Aerosol Inhaler 2 puff INHALATION BID potassium chloride 20 mEq Tablet Extended Release 20 meq PO DAILY sertraline 100 mg tablet 150 mg PO Q24H metoprolol tartrate 25 mg tablet 25 mg PO DAILY hydrochlorothiazide 12.5 mg tablet 12.5 mg PO DAILY metformin 500 mg tablet 500 mg PO BID ferrous sulfate [FeroSul] 325 mg (65 mg iron) tablet 325 mg PO DAILY multivitamin [Daily Multi-Vitamin] Tablet 1 tab PO DAILY Discontinued amoxicillin-pot clavulanate 875-125 mg tablet 1 tab PO BID Qty: 14 0RF Referrals / Follow Up: Hilda Rincon MD [Non-Staff] - 03/30/25 8:45 am Arash Pack MD [Primary Care Provider] - Within 1 Week Disposition Disposition (needs filled in before D/C Order can be placed): Home, Self Care Charges/Coding Visit Charges Inpatient E&M: 15437 Disch Hosp >30min
[2025-02-25] MEDS: LORazepam 1 MG Tablet PO (15:49)
--- NOTE | 2025-02-25 15:52 | CASEMGMT ---
Discharge Planning Clinicals, HH order, and discharge instructions sent to [facility]. Kailey Shankar DC Planning Asst.
[2025-02-25 16:22] LABS: Bedside Glucose 102 mg/dL (74-106)
--- NOTE | 2025-02-25 16:22 | CASEMGMT ---
Patient has order for discharge. Patient is discharging home with resumption of [facility]. RN CM in to discuss needs at discharge. Patient states will bring oxygen tank from home, patient did not require increase in home oxygen. RN CM reminded patient regarding appt with Dr. Janessa Rincon on 03/30/25. Patient denies further needs or concerns at discharge. Patient had no further questions. RN CM updated discharge plan.
--- NOTE | 2025-02-25 18:30 | NURSING ---
Pt given discharge instructions including medications, follow up appointments and all other discharge instructions. telemetry removed and placed at nurses station. iv removed with catheter intact, clean dry dressing applied, pt tolerated well. pt denies any further questions or needs at this time. pt getting dressed and waiting for his ride. pt to call out when he is ready to be wheeled out.
== END 2025-02-25 18:58 | disposition home or self-care (01) | DRG 177 ==
LOC: ED 17:42 → PCU 18:30
PROVIDERS: Internal Medicine Critical Care Medicine; Admitting Provider Family Medicine; Emergency Provider Emergency Medicine; PCP Family Medicine; Visit Provider Student in an Organized Health Care Education/Training Program
PROC: 0BJ08ZZ Inspection of Tracheobronchial Tree, Via Natural or Artificial Opening Endoscopic (ICD-10-PCS; CPT 31622; principal; 2025-02-24 12:45)
DX: J69.0 Pneumonitis due to inhalation of food and vomit (principal); J96.21 Acute and chronic respiratory failure with hypoxia; J96.22 Acute and chronic respiratory failure with hypercapnia; T17.890A Other foreign object in other parts of respiratory tract causing asphyxiation, initial encounter; E87.29 Other acidosis; J44.0 Chronic obstructive pulmonary disease with (acute) lower respiratory infection; J98.11 Atelectasis; J98.19 Other pulmonary collapse; E11.22 Type 2 diabetes mellitus with diabetic chronic kidney disease; D50.9 Iron deficiency anemia, unspecified; E66.813 Obesity, class 3; I12.9 Hypertensive chronic kidney disease with stage 1 through stage 4 chronic kidney disease, or unspecified chronic kidney disease; N18.9 Chronic kidney disease, unspecified; J18.9 Pneumonia, unspecified organism; E86.9 Volume depletion, unspecified; J98.8 Other specified respiratory disorders; E78.5 Hyperlipidemia, unspecified; M10.9 Gout, unspecified; Z87.891 Personal history of nicotine dependence; Z86.16 Personal history of COVID-19; Z79.899 Other long term (current) drug therapy
CPT/HCPCS: 36415; 36600; 71046; 71275; 80048; 81001; 82803; 82962; 83605; 83880; 84484; 85025; 85610; 85730; 87015; 87040; 87070; 87086; 87116; 87205; 87206; 87252; 87278; 87631; 88108; 88305; 88313; 89050; 93005; 94002; 94003; 94640; 94660; 94762; 97161; 97166; 99285; Q9967; A4216; J0696; J2405

== ENCOUNTER 2025-10-06 10:28 | Inpatient (IN) | payer MEDICARE, SELFPAY ==
[2025-10-06] VITALS (23 sets, daily range): BP systolic 127–164; BP diastolic 56–84; PULSE 71–99; RESP 14–24; TEMP 36.2–37.4; O2SAT 83–100; BMI 37.7; BMI 37.3
--- NOTE | 2025-10-06 10:44 | EKG12_ITS ---
Test Reason : SOB Blood Pressure : */* mmHG Vent. Rate : 123 BPM Atrial Rate : 96 BPM P-R Int : * ms QRS Dur : 80 ms QT Int : 214 ms P-R-T Axes : * 37 75 degrees QTcB Int : 306 ms Critical Test Result: STEMI Undetermined rhythm Low voltage QRS significant artifact Normal sinus rhythm Consider right ventricular involvement in acute inferior infarct Abnormal ECG Confirmed by ZELDA WALLACE, JUAN ([id number]), news assignment editor RIGO LEON ([id number]) on 10/12/2025 6:14:52 AM Referred By: Confirmed By: JUAN NDIAYE MD
[2025-10-06 10:48] LABS: Allen Test Positive; Base Excess 21 mmol/L (-2 to +2); FI02 15.0; PO2 45 mmHG (75-100); SITE R Radial; SO2 69 % (94-98)
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
[2025-10-06] MEDS: Albuterol 2.5 MG/3 ML VIAL.NEB. INHALATION ×2 (11:09)
[2025-10-06 11:15] LABS: Hematocrit 34.8 % (40-54); Hemoglobin 10.2 g/dL (13.0-16.5); Immature Granulocytes Count 0.110 X10^3/uL (0.0-0.0); Mean Corp Hgb Conc 29.3 g/dL (32-36); Mean Corpuscular Volume 102.7 fL (80-94); Mean Platelet Vol. 9.7 fl (6.2-12.0); NRBC Flagged by Analyzer 0 % (0-5); Platelet Count 371 K/mm3 (150-450); RBC Distribution Width CV 14.2 % (11.6-14.6); RBC Distribution Width SD 53.7 fl (35.1-43.9); Red Blood Count 3.39 M/mm3 (4.6-6.2); White Blood Count 14.5 K/mm3 (4.4-11.0)
[2025-10-06 11:20] LABS: Color, Urine Yellow (Yellow); Glucose, Dipstick Normal (Normal); Ketone-Dipstick Negative (Negative); Leukocyte Esterase-Dipstick Negative /ul (Negative); Nitrite-Dipstick Negative (Negative); Occult Blood-Urine 10 /ul (Negative); Protein-Dipstick 30 mg/dl (Negative); Specific Gravity, Urine 1.020 (1.002-1.030); Urine Bilirubin Dipstick Negative (Negative)
--- NOTE | 2025-10-06 11:25 | RAD_ITS ---
PROCEDURE: CHEST 1 VIEW (PORTABLE) 10/06/2025 REASON FOR EXAM: HYPOXIA TECHNIQUE: Frontal view of the chest. COMPARISON: 02/23/2025 chest x-ray FINDINGS: Hardware: None Heart: Cardiac and mediastinal contours are stable. Lungs: The lungs are clear. Bones: The bones are unremarkable. RAD/Chest 1 View (Portable) IMPRESSION: No acute cardiopulmonary abnormality. Reading Location: [facility]
[2025-10-06 11:28] LABS: Mucous, Urine 0 SEEN /hpf (<or=2+); Red Blood Cells-Urine 0 SEEN /hpf (0-5)
[2025-10-06 11:29] LABS: Squamous Epithelial Cells - UA 0-5 SEEN /hpf (0-5)
[2025-10-06 11:37] LABS: Partial Thromboplast Time 26.0 Seconds (24.1-36.2); Prothrombin Time (Protime)PT. 13.4 SECONDS (11.7-14.9)
[2025-10-06 11:44] LABS: AST(SGOT) 21 U/L (<=37); Alanine Aminotransfer ALT/SGPT 19 U/L (<=46); Albumin, Serum 3.6 g/dL (3.4-4.8); Alkaline Phosphatase 96 U/L (40-129); Anion Gap 6 (5-15); BUN 38 mg/dL (4-19); BUN/Creat Ratio 17.7 RATIO (10-20); Calcium,Total 10.4 mg/dL (7.6-11.0); Carbon Dioxide 43.1 mmol/L (21.0-32.0); Chloride 96 mmol/L (98-108); Estimated Creatinine Clearance 45.57 ml/min (50-250); Globulin 3.2 g/dL (2.2-4.2); Glucose 120 mg/dL (70-99); Potassium 4.2 mmol/L (3.3-5.1)
--- NOTE | 2025-10-06 12:10 | ED.RN ---
dr. willis notified of sepsis alert. states he is not doing full septic workup at this time.
[2025-10-06] MEDS: 0.9% Normal Saline (1000mL) 1,000 ML 999 ML IV (12:14)
[2025-10-06 12:16] LABS: Troponin T High Sensitivity 74 ng/L (<=22)
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
[2025-10-06 14:05] LABS: Troponin T High Sens 2 HR 70 ng/L (<=22)
[2025-10-06] MEDS: Acetylcysteine 800 MG/4 ML VIAL.NEB. INHALATION ×2 (14:44→22:58)
[2025-10-06] MEDS: Heparin Injection (Vial) 5,000 UNIT/ML VIAL 5000 UNIT SC ×2 (14:53→23:19)
[2025-10-06] MEDS: buPROPion (SR) 150 MG Tablet.SA PO (20:50)
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
[2025-10-07] VITALS (14 sets, daily range): BP systolic 114–131; BP diastolic 59–75; PULSE 73–94; RESP 14–20; TEMP 36.7–36.9; O2SAT 91–98
[2025-10-07] MEDS: MENTHOL 226.8 GM JAR 1 APPLIC TOPICAL (00:10)
[2025-10-07 02:46] LABS: Allen Test Positive; Base Excess 19 mmol/L (-2 to +2); FI02 5.0; PO2 49 mmHG (75-100); SITE R Radial; SO2 87 % (94-98)
[2025-10-07 05:58] LABS: Hematocrit 31.1 % (40-54); Hemoglobin 9.6 g/dL (13.0-16.5); Immature Granulocytes Count 0.210 X10^3/uL (0.0-0.0); Mean Corp Hgb Conc 30.9 g/dL (32-36); Mean Corpuscular Volume 96.9 fL (80-94); Mean Platelet Vol. 9.6 fl (6.2-12.0); NRBC Flagged by Analyzer 0 % (0-5); POSITIVE DIFFERENTIAL YES; Platelet Count 357 K/mm3 (150-450); RBC Distribution Width CV 14.1 % (11.6-14.6); RBC Distribution Width SD 50.1 fl (35.1-43.9); Red Blood Count 3.21 M/mm3 (4.6-6.2); White Blood Count 16.7 K/mm3 (4.4-11.0)
[2025-10-07] MEDS: Heparin Injection (Vial) 5,000 UNIT/ML VIAL 5000 UNIT SC ×3 (06:18→20:30)
[2025-10-07 06:27] LABS: Anion Gap 10 (5-15); BUN 37 mg/dL (4-19); BUN/Creat Ratio 19.0 RATIO (10-20); Calcium,Total 9.8 mg/dL (7.6-11.0); Carbon Dioxide 35.5 mmol/L (21.0-32.0); Chloride 95 mmol/L (98-108); Estimated Creatinine Clearance 48.58 ml/min (50-250); Glucose 143 mg/dL (70-99); Potassium 4.2 mmol/L (3.3-5.1)
[2025-10-07] MEDS: Acetylcysteine 800 MG/4 ML VIAL.NEB. INHALATION ×3 (07:19→23:25)
[2025-10-07] MEDS: BACITRACIN 15 GM Tube 1 APPLIC TOPICAL (09:00)
[2025-10-07] MEDS: Metoprolol(XL)Succ 50 MG Tablet PO (09:34)
[2025-10-07] MEDS: buPROPion (SR) 150 MG Tablet.SA PO ×2 (11:21→20:31)
[2025-10-07] MEDS: FLU VACCINE HIGH DOSE 25-26(65YR UP) 180 MCG/0.5 ML SYRINGE IM (11:21)
--- NOTE | 2025-10-07 11:30 | CASEMGMT ---
EDIS GRIFFIN Face to Face with patient for initial transition planning/care coordination assessment. EDIS GRIFFIN introduced self and role at [facility]. Patient lying in bed, alert and oriented. Patient willing to participate in assessment and is able to answer all questions appropriately. Care providers, pharmacy, and demographics verified. Strata: 2 PCP: Sirena Specialists: Janessa Rincon, pulmonolgosit; Preferred Pharmacy: [facility] Insurance: [employer] Prescription Benefit: yes Living Will/HPOA: yes, Francisca Reed LNOK: , daughter Living Arrangements: Kristopher lives with in a single story home with no steps to enter. Patient is independent at home. Transportation: self, DME/HHC: Patient has shower chair, grab bars, walker, wheelchair, nebulizer, pulse ox, and home oxygen with portability through [employer]. Patient has been to [facility] in the past. Patient has had [facility] in the past. EDIS GRIFFIN updated by hospitalist that patient will need NIV at discharge. EDIS GRIFFIN called and spoke with hospital liaison with Sameer Garsia. Sameer requested clinical information and can assist with NIV script and setup. EDIS GRIFFIN faxed requested clinical documentation. EDIS GRIFFIN updated hospitalist. RN GABY updated patient regarding NIV setup for at discharge, patient voiced understanding. Patient wishes to discharge home, denies need for home health at this time. Patient states he has no further needs or concerns at this time. CM to follow for discharge planning needs that may arise. Disposition Plan: Patient to discharge home with family support and follow-up plans in place. CM to continue NIV setup for at discharge. Alyssa ALVA, RN, CM
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
[2025-10-08] VITALS (9 sets, daily range): BP systolic 116–142; BP diastolic 66–74; PULSE 77–87; RESP 16–18; TEMP 36.5–36.8; O2SAT 91–98
[2025-10-08 06:26] LABS: Hematocrit 32.5 % (40-54); Hemoglobin 10.0 g/dL (13.0-16.5); Immature Granulocytes Count 0.270 X10^3/uL (0.0-0.0); Mean Corp Hgb Conc 30.8 g/dL (32-36); Mean Corpuscular Volume 96.4 fL (80-94); Mean Platelet Vol. 9.5 fl (6.2-12.0); NRBC Flagged by Analyzer 0.1 % (0-5); POSITIVE DIFFERENTIAL YES; Platelet Count 410 K/mm3 (150-450); RBC Distribution Width CV 14.4 % (11.6-14.6); RBC Distribution Width SD 50.4 fl (35.1-43.9); Red Blood Count 3.37 M/mm3 (4.6-6.2); White Blood Count 22.6 K/mm3 (4.4-11.0)
[2025-10-08] MEDS: Heparin Injection (Vial) 5,000 UNIT/ML VIAL 5000 UNIT SC (06:27)
[2025-10-08 06:33] LABS: Differential Indicated SCAN CRITERIA MET
[2025-10-08 07:04] LABS: Anion Gap 10 (5-15); BUN 49 mg/dL (4-19); BUN/Creat Ratio 24.8 RATIO (10-20); Calcium,Total 10.0 mg/dL (7.6-11.0); Carbon Dioxide 38.3 mmol/L (21.0-32.0); Chloride 95 mmol/L (98-108); Estimated Creatinine Clearance 48.09 ml/min (50-250); Glucose 94 mg/dL (70-99); Potassium 4.4 mmol/L (3.3-5.1)
[2025-10-08 07:08] LABS: Differential Comment SCANNED
[2025-10-08] MEDS: Acetylcysteine 800 MG/4 ML VIAL.NEB. INHALATION (07:09)
[2025-10-08] MEDS: BACITRACIN 15 GM Tube 1 APPLIC TOPICAL (10:00)
[2025-10-08] MEDS: Metoprolol(XL)Succ 50 MG Tablet PO (10:02)
[2025-10-08] MEDS: buPROPion (SR) 150 MG Tablet.SA PO (10:02)
--- NOTE | 2025-10-08 11:04 | DCINST_ITS ---
Discharge Instructions DC O2, CPAP, BIPAP needs Home O2 Discharge instructions: No Dressing / Incision Discharge Activity: Return to Normal Activity Dressing / Incision Call your doctor if you observe: Fever of 101 or Higher, Shortness of breath, Dizziness, Fainting spells, Swelling in the ankles, Chest pain and Increased palpitations (irregular heartbeat) Follow Up Care Test Results: Test results from this visit will be discussed in further detail at your follow- up appointment, if applicable. Discharge Plan Admission Admit Date/Time: 10/06/25 12:32 Attending Provider: Arnulfo Nogueira Primary Care Provider: Arash Pack Instructions Additional Instructions / Restrictions: Patient with diagnosis of acute on chronic hypercapnic respiratory failure secondary to COPD. Based on clinical presentation and gas exchange data with a PaCO2 of 108 (PaCO2 >=52), an NIV is indicated. RAD failure due to the patient's needs exceeding the capabilities of a RAD, supports a hospital discharge on NIV with a need for daytime support/alarms. Patient is at high risk for rapid symptom exacerbation or rise in PaCO2 after discharge. ?The patient also required the usage of a ventilator within 24 hours prior to discharge. Discharge Orders/Prescriptions Prescriptions: New levofloxacin 750 mg Tablet 750 mg PO QODAY 8 Days Qty: 4 0RF prednisone 10 mg tablet 10 mg PO DAILY Qty: 20 0RF Rx Instructions: 3 tablets daily for 3 days then 2 tablets daily for 3 days then 1 tablet daily for 3 days then half tablet daily for 4 days Continued amlodipine 10 MG tablet 10 mg PO DAILY allopurinol 300 MG tablet 300 mg PO DAILY zolpidem [Ambien] 10 MG tablet 10 mg PO QHS PRN bupropion HCl [Wellbutrin SR] 150 mg Tablet Sustained-Release 12 Hr 150 mg PO BID trazodone 50 mg Tablet 50 mg PO QHS atorvastatin [Lipitor] 10 mg Tablet 10 mg PO DAILY budesonide-formoterol [Symbicort] 160-4.5 mcg/actuation Hfa Aerosol Inhaler 2 puff INHALATION BID potassium chloride 20 mEq Tablet Extended Release 20 meq PO DAILY albuterol sulfate 90 mcg/actuation HFA aerosol inhaler 2 puff INHALATION Q4H PRN (Reason: shortness of breath or wheezing) metoprolol succinate 50 mg tablet extended release 24 hr 50 mg PO DAILY ascorbic acid (vitamin C) 500 mg tablet 500 mg PO DAILY sertraline 100 mg tablet 150 mg PO Q24H metformin 500 mg tablet 500 mg PO BID ferrous sulfate [FeroSul] 325 mg (65 mg iron) tablet 325 mg PO BID multivitamin [Daily Multi-Vitamin] Tablet 1 tab PO DAILY acetylcysteine 200 mg/mL (20 %) solution 4 ml inhalation Q8 30 Days Qty: 360 2RF Held losartan 100 MG tablet 100 mg PO DAILY Hold Instructions: Resume on 10/12/25. furosemide [Lasix] 40 mg Tablet 40 mg PO DAILY Hold Instructions: Resume on 10/10/25. furosemide 20 mg tablet 20 mg PO QODAY Hold Instructions: Resume on 10/10/25. Patient Comments: pt takes every sunday and sunday along with the 40mg dose hydrochlorothiazide 12.5 mg capsule 12.5 mg PO DAILY Hold Instructions: Resume on 10/12/25. Referrals / Follow Up: Hilda Rincon MD [Non-Staff, Medical] Arash Pack MD [Primary Care Provider, Family Practice] - Within 1 Week Disposition Disposition (needs filled in before D/C Order can be placed): Home, Self Care
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
--- NOTE | 2025-10-08 11:39 | PHA.DC.COU.R ---
Pharmacy [facility] has performed discharge medication counseling for this patient. The patient was counseled on the following discharge medications and changes in medications for homegoing review. - Levofloxacin 750 mg tablet, Prednisone 10 mg tablet (taper) The Reason for Use, instructions for use, and potential side effects were reviewed for all new medications. The patient's questions regarding all of their medications were answered. The patient was able to verbally demonstrate an understanding of their discharge medications. Medications at Discharge Home Medications allopurinol 300 mg tablet 300 mg PO DAILY gout 12/05/13 amlodipine 10 mg tablet 10 mg PO DAILY blood pressure 12/05/13 losartan 100 mg tablet 100 mg PO DAILY blood pressure 12/05/13 Held on 10/08/25. Instructions: Resume on 10/12/25. zolpidem 10 mg tablet (Ambien) 10 mg PO QHS PRN Sleep 12/05/13 atorvastatin 10 mg tablet (Lipitor) 10 mg PO DAILY cholesterol 10/26/21 budesonide-formoterol HFA 160 mcg-4.5 mcg/actuation aerosol inhaler (Symbicort) 2 puff inhalation BID breathing 10/26/21 bupropion HCl 150 mg tablet,12 hr sustained-release (Wellbutrin SR) 150 mg PO BID mental health 10/26/21 furosemide 40 mg tablet (Lasix) 40 mg PO DAILY diuretic 10/26/21 Held on 10/08/25. Instructions: Resume on 10/10/25. potassium chloride 20 mEq tablet,extended release 20 meq PO DAILY supplement 10/26/21 trazodone 50 mg tablet 50 mg PO QHS sleep 10/26/21 ferrous sulfate 325 mg (65 mg iron) tablet (FeroSul) 325 mg PO BID supplement 02/23/25 metformin 500 mg tablet 500 mg PO BID diabetes 02/23/25 multivitamin (Daily Multi-Vitamin tablet) 1 tab PO DAILY vitamin 02/23/25 sertraline 100 mg tablet 150 mg PO Q24H mental health 02/23/25 acetylcysteine 200 mg/mL (20 %) solution 4 ml inhalation Q8 breathing 30 days #360 mL 02/25/25 albuterol sulfate 90 mcg/actuation aerosol inhaler 2 puff inhalation Q4H PRN shortness of breath or wheezing 10/06/25 ascorbic acid (vitamin C) 500 mg tablet 500 mg PO DAILY vitamin 10/06/25 furosemide 20 mg tablet 20 mg PO QODAY diuretic 10/06/25 Held on 10/08/25. Instructions: Resume on 10/10/25. hydrochlorothiazide 12.5 mg capsule 12.5 mg PO DAILY diuretic 10/06/25 Held on 10/08/25. Instructions: Resume on 10/12/25. metoprolol succinate 50 mg tablet,extended release 24 hr 50 mg PO DAILY blood pressure 10/06/25 levofloxacin 750 mg tablet 750 mg PO QODAY 8 days #4 tabs 10/08/25 prednisone 10 mg tablet 10 mg PO DAILY #20 tabs 10/08/25
--- NOTE | 2025-10-08 13:00 | CASEMGMT ---
Addendum entered by Alyssa Rehman 10/08/25 14:08: EDIS GRIFFIN received call back from Sameer at [facility]. Per Sameer, patient can discharge home and they will reach out to patient once insurance approves NIV. EDIS GRIFFIN updated hospitalist, order placed for patient to discharge. EDIS GRIFFIN in to discuss needs at discharge. Patient states will bring oxygen tank from home. EDIS GRIFFIN udpated patient regarding NIV setup with [facility] and that they will be in contact to complete equipment setup once approved by insurance. Patient voiced understanding and appreciation. Patient had no further questions or concerns. EDIS GRIFFIN update discharge plan. Original Note: EDIS GRIFFIN received script for NIV for hospitalist to sign. Hospitalist signed and faxed to Sameer at [facility] with additional documentation. EDIS GRIFFIN called Sameer and left message if patient would be setup at home once approved by insurance as patient has order for discharge today, awaiting call back. CM will continue to follow this patient and plan for a safe discharge.
== END 2025-10-08 14:59 | disposition home or self-care (01) | DRG 190 ==
LOC: ED 12:47 → PCU 12:53
PROVIDERS: Admitting Provider Family Medicine; Emergency Provider Emergency Medicine; PCP Family Medicine; Visit Provider Family Medicine
DX: J44.1 Chronic obstructive pulmonary disease with (acute) exacerbation (principal); J96.22 Acute and chronic respiratory failure with hypercapnia; J96.21 Acute and chronic respiratory failure with hypoxia; N17.9 Acute kidney failure, unspecified; E11.22 Type 2 diabetes mellitus with diabetic chronic kidney disease; D50.9 Iron deficiency anemia, unspecified; E78.5 Hyperlipidemia, unspecified; N18.30 Chronic kidney disease, stage 3 unspecified; I12.9 Hypertensive chronic kidney disease with stage 1 through stage 4 chronic kidney disease, or unspecified chronic kidney disease; F32.A Depression, unspecified; E86.0 Dehydration; F41.9 Anxiety disorder, unspecified; I25.2 Old myocardial infarction; T20.09XA Burn of unspecified degree of multiple sites of head, face, and neck, initial encounter; Z99.81 Dependence on supplemental oxygen; Z79.51 Long term (current) use of inhaled steroids; Z79.84 Long term (current) use of oral hypoglycemic drugs; Z87.891 Personal history of nicotine dependence; Z23 Encounter for immunization; Z79.899 Other long term (current) drug therapy; Z90.49 Acquired absence of other specified parts of digestive tract; X08.8XXA Exposure to other specified smoke, fire and flames, initial encounter
CPT/HCPCS: 36415; 36600; 51702; 71045; 80048; 80053; 81001; 82803; 82962; 83605; 84484; 85025; 85610; 85730; 87040; 87086; 93005; 94002; 94003; 94640; 94668; 94762; 97162; 97166; 99285; A4216